=== PATIENT | female | born 1965 | race Caucasian/White ===

== ENCOUNTER 2023-02-07 09:46 | Outpatient (OUT) | payer OTHER, SELFPAY ==
--- NOTE | 2023-02-07 | CT_ITS ---
[address] [address] Patient Name: MITESH PATEL MRN: [id number] date: 1965 Sex: F Assigned Patient Location: CT Current Patient Location: CT Accession/Order Number: [id number] Exam Date: 02/07/2023 10:00 Report Date: 02/09/2023 07:13 At the request of: PATRICK GRAY Procedure: CT lung screening low-dose EXAMINATION: CT lung screening low-dose HISTORY: R91.8 OTHER NONSPECIFIC ABNORMAL FINDINGS OF THE LUNG FIELD COMPARISON: 06/24/2022 TECHNIQUE: Axial, Coronal, and Sagittal images were created without the administration of IV contrast material. Dose reduction techniques were achieved by using automated exposure control and/or adjustment of mA and/or kV according to patient size and/or use of iterative reconstruction technique. FINDINGS: LUNGS: 8mm ring calcified left lower lobe nodule, stable. Scattered punctate pulmonary nodules. No new significant pulmonary nodule or mass. No bronchiectasis or peribronchial thickening. No focal infiltrates PLEURA: No mass, effusion, or pneumothorax. VASCULATURE: No abnormality. TIBURCIO: Small calcified left hilar lymph nodes MEDIASTINUM: No mass or pathologic adenopathy. CARDIAC: No enlargement, pericardial thickening, or significant calcification. AORTA: No aneurysm or dissection. CHEST WALL: No mass or axillary adenopathy BONES: No bone lesion or fracture. Mild degenerative changes LIMITED ABDOMEN: No suspicious findings. Limited images of the upper abdomen. OTHER: Negative. IMPRESSION: LUNG SCREENING: Lung-RADS Category 2- Benign Appearance or Behavior. Nodules with a very low likelihood of becoming a clinically active cancer due to size or lack of growth. 2. Continue annual screening with LDCT in 12 months. Electronically authenticated by: PAULINE BROTHERS Date: 02/09/2023 07:13
== END 2023-02-07 09:47 | disposition home or self-care (01) ==
PROVIDERS: PCP Family Medicine; Visit Provider Family Medicine
DX: R91.8 Other nonspecific abnormal finding of lung field (principal)
CPT/HCPCS: 71271

== ENCOUNTER 2023-03-11 12:25 | Outpatient (OUT) | payer OTHER, SELFPAY ==
--- NOTE | 2023-03-11 12:30 | CA_ITS ---
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: : 1965 Requested By: DARRELL ELLISON Order Number: [id number] Reading MD: NICOL LUKE Interpretive Statements Biphasic doppler waveforms PVR waveforms with normal upstroke, amplitude and dicrotic notch Right: - no significant pressure gradient between cuffs - normal PRITI, TBI Left: - significant pressure gradient between the calf and DP cuff - normal PRITI and TBI Impression: - erroneous left DP index - normal arterial evaluation of the lower extremities without hemodynamic impairment of the B/L lower extremity at rest (right PRITI 1.11, left PRITI 1.13) Electronically Signed On 03-12-2023 7:13:40 EDT by NICOL LUKE
== END 2023-03-11 12:26 | disposition home or self-care (01) ==
LOC: CARD 12:25
PROVIDERS: PCP Family Medicine; Visit Provider Physician Assistant
DX: R09.89 Other specified symptoms and signs involving the circulatory and respiratory systems (principal); M79.672 Pain in left foot
CPT/HCPCS: 93923

== ENCOUNTER 2023-05-11 09:18 | Outpatient (OUT) | payer OTHER, SELFPAY ==
[2023-05-11 10:55] LABS: Alanine Aminotransferase 18 U/L (14-59); Albumin Globulin Ratio 1.1; Albumin Level 3.8 g/dL (3.4-5.0); Alkaline Phosphatase 73 U/L (46-116); Anion Gap 12.1; Aspartate Amino Transferase 17 U/L (15-37); BUN Creatinine Ratio 17.7; Bilirubin Total 0.3 mg/dL (0.2-1.0); Calcium 9.2 mg/dL (8.5-10.1); Carbon Dioxide 30.7 mmol/L (21.0-32.0); Chloride 104 mmol/L (98-107); Chol HDL Ratio 3.2; Cholesterol 236 mg/dL (<=200); Estimated GFR (African America >60 (>=60); Estimated GFR (Non-African Ame >60 (>=60); Free T3 3.46 pg/mL (2.18-3.98); Globulin 3.4 g/dL; Glucose 81 mg/dL (74-106); HDL Cholesterol 73 mg/dL (40-60); Potassium 3.8 mmol/L (3.5-5.1); Sodium 143 mmol/L (136-145); Thyroid Stimulating Hormone 1.346 uIU/mL (0.358-3.740); Total Protein 7.2 g/dL (6.4-8.2); Triglycerides 138 mg/dL (<=150); VLDL CHOLESTEROL 27.6 mg/dL
[2023-05-11 11:23] LABS: Basophils Absolute Auto 0.1 10^3/uL (0.0-0.1); Basophils Percent Auto 0.7 % (0.2-2.0); Eosinophils Absolute Auto 0.4 10^3/uL (0.0-0.7); Hematocrit 44.1 % (36.0-48.0); Hemoglobin 14.5 g/dL (12.0-16.0); Immature Granulocytes Abs Auto 0.11 10^3/uL (0.00-0.03); Immature Granulocytes Pct Auto 0.8 % (0.0-0.5); Lymphocytes Absolute Auto 3.5 10^3/uL (1.2-3.8); Lymphocytes Percent Auto 27.2 % (20.5-60.0); Mean Corpuscular HGB Conc 32.9 g/dL (29.9-35.2); Mean Corpuscular Hemoglobin 32.2 pg (26.7-34.0); Mean Platelet Volume 10.5 fL (9.5-13.5); Monocytes Absolute Auto 1.3 10^3/uL (0.3-0.8); Monocytes Percent Auto 10.2 % (1.7-12.0); Neutrophils Absolute Auto 7.5 10^3/uL (1.4-6.5); Neutrophils Percent Auto 58.1 % (43.0-75.0); Platelet Count 385 10^3/uL (150-450); Red Cell Distribution Width 13.4 % (11.0-15.0)
[2023-05-11 12:28] LABS: Estimated Average Glucose 120 mg/dL; Glycohemoglobin A1C 5.8 % (4.5-6.2)
== END 2023-05-11 09:19 | disposition home or self-care (01) ==
PROVIDERS: PCP Family Medicine; Visit Provider Family Medicine
DX: Z00.00 Encounter for general adult medical examination without abnormal findings (principal); E78.5 Hyperlipidemia, unspecified; R73.09 Other abnormal glucose; Z12.12 Encounter for screening for malignant neoplasm of rectum
CPT/HCPCS: 36415; 80053; 80061; 83036; 84436; 84443; 84481; 85025

== ENCOUNTER 2023-10-20 15:11 | Outpatient (OUT) | payer OTHER, SELFPAY ==
[2023-10-20 15:41] LABS: Hematocrit 41.5 % (36.0-48.0); Hemoglobin 13.6 g/dL (12.0-16.0); Mean Corpuscular HGB Conc 32.8 g/dL (29.9-35.2); Mean Corpuscular Hemoglobin 31.3 pg (26.7-34.0); Mean Corpuscular Volume 95.6 fL (81.0-99.0); Mean Platelet Volume 9.4 fL (9.5-13.5); Platelet Count 347 10^3/uL (150-450); Red Blood Count 4.34 10^6/uL (4.20-5.40); Red Cell Distribution Width 13.9 % (11.0-15.0); White Blood Count 16.7 10^3/uL (4.0-11.0)
[2023-10-20 15:51] LABS: Erythrocyte Sedimentation Rate 28 mm/hr (<=30)
[2023-10-20 16:02] LABS: Alanine Aminotransferase 20 U/L (14-59); Albumin Globulin Ratio 1.1; Albumin Level 3.6 g/dL (3.4-5.0); Alkaline Phosphatase 73 U/L (46-116); Anion Gap 13.5; Aspartate Amino Transferase 11 U/L (15-37); BUN Creatinine Ratio 19.4; Bilirubin Total 0.2 mg/dL (0.2-1.0); Carbon Dioxide 25.4 mmol/L (21.0-32.0); Chloride 103 mmol/L (98-107); Estimated GFR (African America >60 (>=60); Estimated GFR (Non-African Ame >60 (>=60); Globulin 3.4 g/dL; Glucose 133 mg/dL (74-106); Potassium 3.9 mmol/L (3.5-5.1); Sodium 138 mmol/L (136-145)
[2023-10-20 16:24] LABS: Band Neutrophils Absolute 0.2 10^3/uL (0.0-0.3); Monocytes Absolute Manual 0.16 10^3/uL (0.30-0.80); Segmented Neut Absolute Manual 15.36 10^3/uL (1.4-6.5)
[2023-10-22 05:10] LABS: C-Reactive Protein, Cardiac 0.35 mg/L (0.00-3.00)
== END 2023-10-20 15:12 | disposition home or self-care (01) ==
LOC: LAB 15:14
PROVIDERS: PCP Family Medicine; Visit Provider Psychiatry & Neurology Neurology
DX: M54.16 Radiculopathy, lumbar region (principal); M70.61 Trochanteric bursitis, right hip; G62.9 Polyneuropathy, unspecified; E78.49 Other hyperlipidemia
CPT/HCPCS: 36415; 80053; 85007; 85027; 85652; 86140

== ENCOUNTER 2024-02-09 15:17 | Outpatient (OUT) | payer OTHER, SELFPAY ==
--- NOTE | 2024-02-09 | CT_ITS ---
[address] [address] Patient Name: MITESH PATEL MRN: [id number] date: 1965 Sex: F Assigned Patient Location: CT Current Patient Location: Accession/Order Number: [id number] Exam Date: 02/09/2024 15:32 Report Date: 02/10/2024 08:11 At the request of: PATRICK GRAY Procedure: CT lung screening low-dose EXAMINATION: CT lung screening low-dose HISTORY: Nicotine dependence, F17.200 COMPARISON: 02/07/2023 TECHNIQUE: Axial, Coronal, and Sagittal images were created without the administration of IV contrast material. Dose reduction techniques were achieved by using automated exposure control and/or adjustment of mA and/or kV according to patient size and/or use of iterative reconstruction technique. FINDINGS: LUNGS: Slight change in configuration of a left lower lobe 8 mm nodule with decrease in calcification compared to the prior exam and a new central cavitary component. Additional punctate pulmonary nodules are stable. Linear opacities likely atelectasis and/or scar. PLEURA: No mass, effusion, or pneumothorax. VASCULATURE: No abnormality. TIBURCIO: Calcified left hilar lymph nodes MEDIASTINUM: No mass or pathologic adenopathy. CARDIAC: No enlargement or pericardial effusion CORONARY ARTERIES: Coronary calcifications are mild. AORTA: No aortic aneurysm CHEST WALL: No mass or axillary adenopathy BONES: No bone lesion or fracture. LIMITED ABDOMEN: No suspicious findings. Limited images of the upper abdomen. OTHER: Negative. CT/CT lung screening low-dose IMPRESSION: Interval change in configuration of a now partially cavitary 8mm left lower lobe nodule, decreased in size from the prior exam. LUNG SCREENING: Lung-RADS Category 2- Benign Appearance or Behavior. Nodules with a very low likelihood of becoming a clinically active cancer due to size or lack of growth. 2. Continue annual screening with LDCT in 12 months. Electronically authenticated by: PAULINE BROTHERS Date: 02/10/2024 08:11
== END 2024-02-09 15:18 | disposition home or self-care (01) ==
LOC: CT 15:18
PROVIDERS: PCP Family Medicine; Visit Provider Family Medicine
DX: F17.200 Nicotine dependence, unspecified, uncomplicated (principal); R91.8 Other nonspecific abnormal finding of lung field
CPT/HCPCS: 71271

== ENCOUNTER 2024-06-06 09:23 | Outpatient (OUT) | payer OTHER, SELFPAY ==
--- OUTSIDE RECORDS SUMMARY | 2024-06-06 09:44 | XMS_ITS | CCD ---
Author Organization [facility] CliniSymn Care Team Providers Care Mortising Machine Operator Name Role Phone RAGHAV DASILVA Referring Unavailab PATRICK Maradiaga Primary Care Unavailable RAGHAV DASILVA Referring Unavailab PATRICK Maradiaga Primary Care Unavailable Patrick Swenson Primary Care Physician [phone] MARINA, DR NGUYEN Admitting Unavailable HOY, DR NGUYEN Attending Unavailable HOY, DR NGUYEN Primary Care Unavailable HOY, DR NGUYEN Consulting Unavailable HOY, DR NGUYEN Admitting Unavailable HOY, DR NGUYEN Attending Unavailable LUDWIGY, DR NGUYEN Primary Care Unavailable HOY, DR NGUYEN Consulting Unavailable HOY, DR NGUYEN Admitting Unavailable HOY, DR NGUYEN Attending Unavailable LUDWIGY, DR NGUYEN Primary Care Unavailable LUDWIGY, DR NGUYEN Consulting Unavailable ZIEBER, DR RYAN Carmen Consulting Unavailable LUDWIGY, DR NGUYEN Admitting Unavailable LUDWIGY, DR NGUYEN Attending Unavailable HOY, DR NGUYEN Primary Care Unavailable HOY, DR NGUYEN Consulting Unavailable LUDWIGY, DR NGUYEN Admitting Unavailable MARINA, DR NGUYEN Attending Unavailable MARINA, DR NGUYEN Primary Care Unavailable MARINA, DR NGUYEN Consulting Unavailable MARINA, DR NGUYEN Primary Care Unavailable GOSIA, DR DIGGS Admitting Unavailable GOSIA, DR DIGGS Attending Unavailable ZEV, DR PAULINE Flores Consulting Unavailable GOSIA, DR DIGGS Consulting Unavailable ITZ ENRIQUE Admitting Unavailable ITZ ENRIQUE Attending Unavailable MARINA, DR NGUYEN Primary Care Unavailable ITZ ENRIQUE Consulting Unavailable MARINA, DR NGUYEN Admitting Unavailable MARINA, DR NGUYEN Attending Unavailable MARINA, DR NGUYEN Primary Care Unavailable MARINA, DR NGUYEN Consulting Unavailable ZEV, DR PAULINE Flores Consulting Unavailable Josemanuel Mehta Admitting UnavailJosemanuel Bailey Attending UnavailPatrick Sims Primary Care Unavailable Unavailable Primary Care Provider UnavailLEONARDO Morrow Attending Unavailable ANTONELLA DOMINGUEZ Attending Unavailab LEONRADO Meza Referring Unavailable LEONARDO WHITAKER Attending Unavailable KRISTEN CROWDER Attending Unavailable MICK LOPES Referring Unavailable LEONARDO WHITAKER Attending Unavailable URMILA GTZ Attending Unavailable ANTONELLA DOMINGUEZ Attending Unavailab ANTONELLA Cam Attending Unavailab LEONARDO Meza Attending Unavailable LEONARDO WHITAKER Attending Unavailable LEONARDO WHITAKER Attending Unavailable LEONARDO WHITAKER Referring Unavailable Allergies Allergy Classification Reported Allergen(s) Allergy Type Date of Onset Reaction(s) Facility (7 sources) Penicillins; Translations: [penicillins] Drug allergy 2 Unknown (qualifier value), Other, Rash [facility] (2 sources) Sulfonamides (Antibiotic); Translations: [sulfa drugs] Drug allergy Unknown (qualifier value) [facility] (1 source) Amoxicillin Drug Allergy 4 [facility] (1 source) Sulfonamides (Antibiotic) Drug allergy (disorder) 4 [facility] (5 sources) Amoxicillin Drug Allergy 2 Rash [facility] (5 sources) Sulfacetamide Drug Allergy 2 Rash [facility] (5 sources) Sulfonamides (Antibiotic) Drug Allergy 2 Unknown, Rash [facility] Work Phone: (5 sources) Other Allergy to substance 3 Unknown [facility] Medications Current Medications Medication Drug Class(es) Dates Sig (Normalized) Sig (Original) Acetaminophen / oxyCODONE (2 sources) Opioid Agonist Start: 12-24-2015 Percocet 325 mg-5 mg Tab 2 tab(s), Oral, q4hr, 50 tab(s), Refill(s) 0 Start Date: 12/24/15 Status: Ordered Start: 12-24-2015 Percocet 325 m g-5 mg Tab 2 tab(s), Oral, q4hr, 50 tab(s), Refill(s) 0 Start Date: 12/24/15 Status: Ordered albuterol 0.83 mg/ml inhalation solution (2 sources) beta2-Adrenergic Agonist Start: 12-11-2015 albut charmaine 0.083% Inh Kerry 3 mL 2.5 mg, 3 mL, NEB, Wheezing, Refill(s) 0 Start Date: 12/11/15 Status: Ordered Start: 12-11-2015 albuterol 0.08 3% Inh Kerry 3 mL 2.5 mg, 3 mL, NEB, Wheezing, Refill(s) 0 Start Date: 12/11/15 Status: Ordered ascorbic acid 500 mg chewabl e tablet (5 sources) Vitamin C ascorbic acid (V itamin C) 500 MG chewable tablet 1 (one) time each day at the same time. Active B Complex Vitamins (vitamin B complex) tablet (5 sources) B Complex Vitami ns (vitamin B complex) tablet as directed Orally Active B Complex Vitami ns (vitamin B complex) tablet as directed Orally 0 Active biotin 10 mg oral tablet (2 sources) End: 09-29-2023 biotin 10 MG tablet 1 (one) time each day at the same time. 0 09/29/2023 Discontinued cyclobenzaprine hydrochloride 10 mg oral tablet (2 sources) Muscle Relaxant Start: 03-23-2023 End: 09-29-2023 take 1 tablet by mouth at bedtime cyclobenzaprine (Flexeril) 10 MG tablet Indications: Lumbar radiculopathy Take 1 tablet (10 mg) by mouth at bedtime. 30 tablet 3 03/23/2023 09/29/2023 Discontinued ibuprofen 800 mg oral tablet (2 sources) Nonsteroidal Anti-inflammatory Drug Start: 12-11-2015 Motrin 800 mg Tab 800 mg = 1 tab(s), Oral, PRN as needed for pain, Refills(s) 0 Start Date: 12/11/15 Status: Ordered meloxicam 15 mg oral tablet (2 sources) Nonsteroidal Anti-inflammatory Drug Start: 07-21-2023 End: 07-20-2024 take 1 tablet by mouth in the morning meloxicam (Mobic) 15 MG tablet Indications: Lumbar radiculopathy , Trochanteric bursitis of right hip Take 1 tablet (15 mg) by mouth in the morning. 30 tablet 11 07/21/2023 07/20/2024 Active Multiple Vitamin (Multi Vitamin) tablet (5 sources) Multiple Vitamin (Multi Vitamin) tablet 1 (one) time each day at the same time. Active Multiple Vitamin (Multi Vitamin) tablet 1 (one) time each day at the same time. 0 Active nabumetone 500 mg oral tablet (3 sources) Nonsteroidal Anti-inflammatory Drug Start: 04-13-2024 End: 04-13-2025 take 1 tablet by mouth in the morning nabumetone (Relafen) 500 MG tablet Indications: Trochanteric bursitis of left hip Take 1 tablet (500 mg) by mouth in the morning and 1 tablet (500 mg) before bedtime. 60 tablet 11 04/13/2024 04/13/2025 Active naproxen 500 mg oral tablet (2 sources) Nonsteroidal Anti-inflammatory Drug Start: 12-11-2015 Naprosyn 500 mg Tab 500 mg = 1 tab(s), Oral, Refills(s) 0, Pain Start Date: 12/11/15 Status: Ordered rosuvastatin calcium 10 mg oral tablet (2 sources) HMG-CoA Reductase Inhibitor End: 09-29-2023 take 1 tablet by mouth in the morning rosuvastatin (Crestor) 10 MG tablet Take 10 mg by mouth in the morning. 0 09/29/2023 Discontinued terbinafine 250 mg oral tablet (2 sources) Allylamine Antifungal Start: 08-15-2023 End: 09-29-2023 take 1 tablet by mouth in the morning terbinafine (LamISIL) 250 MG tablet Take 250 mg by mouth in the morning. 0 08/15/2023 09/29/2023 Discontinued tiZANidine 4 mg oral tablet (4 sources) Central alpha-2 Adrenergic Agonist Start: 09-29-2023 tiZANidine (Zanaflex) 4 MG tablet Indications: Degenerative disc disease, lumbar 1/2-1 po hs 30 tablet 3 09/29/2023 Active Start: 09-29-2023 tiZANidine (Za naflex) 4 MG tablet Indications: Degenerative disc disease, lumbar 1/2-1 po hs 30 tablet 3 09/29/2023 Active Start: 01-26-2021 take 1 tablet by colin th every eight hours as needed for pain tiZANidine 4 mg Tab 4 mg = 1 tab(s), Oral, q8hr, PRN Muscle pain, # 12 tab(s), Refills(s) 0, Pharmacy: [facility]/pharmacy #[id number], 157.5, cm, 01/26/21 17:27:00 EDT, Height/Length Dosing, 48, kg, 01/26/21 17:27:00 EDT, Weight Dosing Start Date: 01/26/21 Status: Ordered Completed/Discontinued Medications Medication Drug Class(es) Dates Sig (Normalized) Sig (Original) bupivacaine hydrochloride 5 mg/ml injectable solution (2 sources) Amide Local Anesthetic Start: 05-31-2024 End: 05-30-2024 bupivacaine (Marcaine) 0.5 % injection 5 mg Start: 05-31-2024 End: 05-30-2024 5 mg (1 mL), Injection, Once , On Thu05/31/24 at 0845, For 1 dose dexamethasone phosphate 4 mg/ml injectable solution (12 sources) Corticosteroid Start: 05-31-2024 End: 05-31-2024 dexAMETHasone sod phos (Decadron) injection 4 mg Start: 05-31-2024 End: 05-31-2024 4 mg (1 mL), Injection, Once , On Thu05/31/24 at 0845, For 1 dose Start: 01-14-2024 End: 06-03-2024 dexAMETHasone (Decadron) 2 M G tablet Indications: Trochanteric bursitis of left hip , Lumbar radiculopathy 2mg 3 pills po X3 days,2 pills po daily X3 days , then 1 pill po daily X3 days then stop 9 days 18 pills 18 tablet 1 05/24/2024 06/03/2024 Active Start: 09-07-2023 End: 10-09-2023 dexAMETHasone (Decadron) 2 M G tablet Indications: Lumbar radiculopathy , Trochanteric bursitis of right hip 2mg 3 pills po X3 days,2 pills po daily X3 days , then 1 pill po daily X3 days then stop 9 days 18 pills 18 tablet 1 09/29/2023 10/09/2023 Active Problems Active Problems Problem Classification Problem Date Documented Date Episodic/Chronic Asthma (4 sources) Unspecified asthma, uncomplicated; Translations: [UNSPECIFIED ASTHMA UNCOMPLICATED] Onset: 06-16-2022 Chronic Cataract (3 sources) Bilateral age-related nuclear cataracts; Translations: [Age-related nuclear cataract, bilateral] Onset: 11-19-2023 11-19-2023 Chronic Chronic obstructive pulmonary disease and bronchiectasis (5 sources) Chronic obstructive lung disease; Translations: [Other specified chronic obstructive pulmonary disease] Onset: 09-07-2023 09-07-2023 Chronic Chronic obstructive pulmonary disease and bronchiectasis (2 sources) Bronchitis 12-11-2015 Episodic Disorders of lipid metabolism (7 sources) Hyperlipidemia, unspecified; Translations: [Hyperlipidemia] Onset: 07-08-2021 Chronic Headache; including migraine (1 source) Headache; including migraine; Translations: [HEADACHE UNSPECIFIED] Onset: 09-09-2021 Osteoarthritis (5 sources) Osteoarthritis of knee; Translations: [Osteoarthritis of knee, unspecified] Onset: 05-09-2021 03-17-2023 Chronic Other connective tissue disease (1 source) Other symptoms and signs involving the musculoskeletal system; Translations: [Other symptoms and signs involving the musculoskeletal system] Onset: 08-01-2022 Episodic Other lower respiratory disease (2 sources) H/O: pneumonia 12-11-2015 Episodic Other nervous system disorders (3 sources) Polyneuropathy; Translations: [Polyneuropathy, unspecified] Onset: 10-26-2023 10-26-2023 Chronic Other non-traumatic joint disorders (3 sources) Pain in left shoulder; Translations: [Pain in left shoulder] Onset: 10-27-2018 Episodic Spondylosis; intervertebral disc disorders; other back problems (12 sources) Degeneration of lumbar intervertebral disc; Translations: [Other intervertebral disc degeneration, lumbar region] Onset: 03-17-2023 09-29-2023 Chronic Substance-related disorders (12 sources) Smoker; Translations: [Nicotine dependence, cigarettes, uncomplicated] Onset: 10-29-2021 12-11-2015 Chronic Comment on above: Added secondary to d ocumentation in Social History. Unclassified (4 sources) CONTACT W/AND (SUSP) EXPOS COVID-19; Translations: [CONTACT W/AND (SUSP) EXPOS COVID-19] Onset: 09-09-2021 Unclassified (1 source) COUGH, UNSPECIFIED; Translations: [COUGH, UNSPECIFIED] Onset: 09-09-2021 Past or Other Problems Problem Classification Problem Date Documented Da te Episodic/Chronic E Codes: Fall (1 source) Fall (on) (from) unspecified stairs and steps, initial encounter; Translations: [FALL ON FROM UNS STAIRS STEPS INIT] Onset: 10-29-2021 Episodic Other connective tissue disease (4 sources) Pain in right foot; Translations: [PAIN IN RIGHT FOOT] Onset: 11-05-2021 Episodic Other connective tissue disease (10 sources) Trochanteric bursitis of left hip; Translations: [Trochanteric bursitis, left hip] Onset: 09-29-2023 09-29-2023 Episodic Other connective tissue disease (11 sources) Trochanteric bursitis of right hip; Translations: [Trochanteric bursitis, right hip] Onset: 01-16-2023 09-29-2023 Episodic Other connective tissue disease (5 sources) Spasm of cervical paraspinous muscle; Translations: [Other muscle spasm] Onset: 06-25-2023 06-25-2023 Episodic Other injuries and conditions due to external causes (3 sources) Unspecified injury of right foot, initial encounter; Translations: [UNSPECIFIED INJURY RT FOOT INITIAL] Onset: 10-28-2021 Episodic Other upper respiratory infections (1 source) Acute sinusitis, unspecified; Translations: [ACUTE SINUSITIS UNSPECIFIED] Onset: 08-13-2021 Episodic Spondylosis; intervertebral disc disorders; other back problems (14 sources) Sciatica; Translations: [Sciatica, left side] Onset: 06-25-2023 09-29-2023 Episodic Sprains and strains (1 source) Unspecified sprain of right foot, initial encounter; Translations: [UNSPECIFIED SPRAIN RT FOOT INITIAL] Onset: 10-29-2021 Episodic Unclassified (1 source) CONTACT W/AND (SUSP) EXPOS COVID-19; Translations: [CONTACT W/AND (SUSP) EXPOS COVID-19] Onset: 09-06-2021 Results Test Name Value Interpretation Reference Range Facility XR HIP 2 OR 3 VW RIGHTon XR HIP 2 OR 3 VW RIGHT TITLE OF EXAM: XR - RT HIP, UNILATERAL, W/WO PELVIS 2-3 VIEWS REASON FOR EXAM: Low back pain radiating into right hip. TECHNIQUE: 3 radiographs of the pelvis and right hip COMPARISONS: None FINDINGS: Right hip: No fracture. Anatomic alignment of the femoroacetabular joint. Mild degenerative changes with small marginal osteophyte and subcortical/subchondra l cyst formation. No focal soft tissue abnormality. Pelvis: No fracture. Anatomic alignment of the sacroiliac joints, symphysis pubis, and left femoroacetabular joint. Mild bilateral sacroiliac and left femoroacetabular joint osteoarthrosis. Lower lumbar/lumbosacral degenerative disc disease and facet osteoarthrosis. Partially demonstrated lumbar dextrorotoscoliosis. Osseous proliferation along the anterior/superior iliac spines bilaterally, more significant/irregular on the right, likely related to traction or chronic injury of the sartorius muscles at their origins. IMPRESSION: No fracture or dislocation. Chronic/degenerative findings as detailed. DICTATED ON: 05/30/2024 9:29 AM This report has been electronically signed and approved by the interpreting radiologist. Electronically Signed Taco Hollis M.D. 2024-05-30 09:31:39 Normal Not Available XR LUMBAR SPINE COMPLETE 4+ VIEWSon 05-30-2024 XR LUMBAR SPINE COMPLETE 4+ VIEWS Exam: XR - LUMBAR SPINE MIN 4 VIEWS Reason for exam: Low back pain radiating into hip Prior comparative studies: 06/25/2023 Findings: There is a pronounced dextroconvex scoliosis in the lumbar spine measuring 29 degrees between the levels of L1 and L4. No spondylolysis is appreciated. 5 mm of anterior listhesis of L4 on L5 is present, unchanged. There is 5 mm of retrolisthesis of L2 on L3, unchanged. Vertebral heights appear maintained throughout. There is advanced endplate sclerosis and osteophyte formation throughout the lumbar spine. Very advanced facet sclerosis is present L3-S1. SI joints are unremarkable. IMPRESSION: 1. Dextroconvex scoliosis of the lumbar spine with minimal retrolisthesis L2 on L3 and anterior listhesis L4 on L5. 2. Very advanced degenerative change particularly in the mid and lower levels. Electronically Signed Rod Vigil M.D. 2024-05-30 10:22:54 Normal Not Available XR Lumbar spine 4 Viewson Exam: XR - LUMBAR SPINE MIN 4 VIEWS Reason for exam: Low back pain radiating into hip Prior comparative studies: 06/25/2023 Findings: There is a pronounced dextroconvex scoliosis in the lumbar spine measuring 29 degrees between the levels of L1 and L4. No spondylolysis is appreciated. 5 mm of anterior listhesis of L4 on L5 is present, unchanged. There is 5 mm of retrolisthesis of L2 on L3, unchanged. Vertebral heights appear maintained throughout. There is advanced endplate sclerosis and osteophyte formation throughout the lumbar spine. Very advanced facet sclerosis is present L3-S1. SI joints are unremarkable. IMPRESSION: 1. Dextroconvex scoliosis of the lumbar spine with minimal retrolisthesis L2 on L3 and anterior listhesis L4 on L5. 2. Very advanced degenerative change particularly in the mid and lower levels. Electronically Signed Rod Vigil M.D. 2024-05-30 10:22:54 IMAGING Rod Vigil MD - 05/30/2024 Exam: XR - LUMBAR SPINE MIN 4 VIEWS Reason for exam: Low back pain radiating into hip Prior comparative studies: 06/25/2023 Findings: There is a pronounced dextroconvex scoliosis in the lumbar spine measuring 29 degrees between the levels of L1 and L4. No spondylolysis is appreciated. 5 mm of anterior listhesis of L4 on L5 is present, unchanged. There is 5 mm of retrolisthesis of L2 on L3, unchanged. Vertebral heights appear maintained throughout. There is advanced endplate sclerosis and osteophyte formation throughout the lumbar spine. Very advanced facet sclerosis is present L3-S1. SI joints are unremarkable. IMPRESSION: 1. Dextroconvex scoliosis of the lumbar spine with minimal retrolisthesis L2 on L3 and anterior listhesis L4 on L5. 2. Very advanced degenerative change particularly in the mid and lower levels. Electronically Signed Rod Vigil M.D. 2024-05-30 10:22:54 [facility] Radiology Study observation (narrative) [facility] XR Lumbar spine 4 ViewsOrder ed By: Rod Vigil on 05-30-2024 [facility] Work Phone: XR CERVICAL SPINE COMPLETE 4 -5 VIEWSon 06-25-2023 XR CERVICAL SPINE COMPLETE 4-5 VIEWS CLINICAL HISTORY: Cervical radic COMPARISON: NONE. FINDINGS: There is been a C6 corpectomy with ACDF from C5-C7 There is no acute fracture or subluxation. There is no loss of vertebral body height. There is straightening of the lordotic curvature of the cervical spine There is severe to space narrowing from C3-C5 and at C6-7. There are anterior osteophytes from C3-3 5. The prevertebral tissues are unremarkable. The airway is patent IMPRESSION: There are no acute osseous changes. ELECTRONICALLY SIGNED BY: Sridhar Cook MD Normal Not Available XR LUMBAR SPINE COMPLETE 4+ VIEWSon 06-25-2023 XR LUMBAR SPINE COMPLETE 4+ VIEWS FINDINGS: Lumbar scoliosis with convexity to right and apex at L2-L3. Diffuse disc space narrowing, lumbar spine. Lumbar vertebral bodies normal in height and alignment. No fracture, dislocation, bone lesion. Surgical clips visualized within the pelvic inlet. IMPRESSION: Impression: At least moderate degenerative change with scoliosis, lumbar spine. ELECTRONICALLY SIGNED BY: Stevie Carlin MD Normal Not Available XR pre/post mri xrayon 08-01 XR pre/post mri xray [facility] [place] [address] [place] [address] MRI Report Signed Patient: Mitesh Patel MR#: [id number] : 1965 Acct:[id number] Age/Sex: 57 / F ADM Date: 08/01/22 Loc: Room: Type: [facility] Attending Dr: Josemanuel Mehta DO Copies to: Jean-Pierre Mehta DO Ordering Provider: Jean-Pierre Mehta DO Date of Service: 08/01/22 MR/MR lumbar spine wo con: R29.898, R20.2 ([id number]) XR/XR pre/post mri xray: R20.2, R29.898 MR lumbar spine wo con, XR pre/post mri xray 08/01/2022 1:55 PM SIGNS AND SYMPTOMS: Fall down steps, right-sided low back pain PROTOCOL: Multiplanar multisequence MR images of the lumbar spine were obtained without IV contrast. Frontal and lateral radiograph the lumbar spine were obtained. COMPARISON: None. FINDINGS: Radiograph the lumbar spine: There is a mild dextro convex curvature of the lumbar spine with the apex at L2. There is severe disc height loss at L5-S1. There is moderate to severe disc height loss at L4-5 with moderate disc height loss at L1-L2 and L2-L3. There is facet hypertrophy which is greatest at L4-L5 and L5-S1. There is no fracture or subluxation. The sacroiliac joints are preserved. MRI lumbar spine: The bones of the lumbar spine are in anatomic alignment. There is preservation of vertebral body heights and intervertebral disc spaces. There is Modic type I endplate edema at L4-L5. The conus terminates at the inferior endplate of the L1 vertebral body level. No epidural or paraspinous fluid collection is appreciated. Incidental note is made to selected uterine fibroids. At T12-L1: There is a normal disc, central canal, and neural foramen. At L1-L2: There is a broad-based disc bulge with facet hypertrophy. There is moderate left neural foraminal narrowing. At L2-L3: There is a broad-based disc bulge with facet hypertrophy. There is mild narrowing of spinal canal. There is mild right and moderate left neural foraminal narrowing. At L3-L4: There is a broad-based disc bulge with facet hypertrophy. There is mild narrowing of spinal canal with moderate bilateral neural foraminal narrowing. At L4-L5: There is a circumferential disc bulge with a more prominent right foraminal component. Facet hypertrophy is present bilaterally. There is mild spinal canal stenosis with severe right and moderate left neural foraminal narrowing. This mild mass effect on the exiting right L4 nerve roots. At L5-S1: There is a circumferential disc bulge with facet hypertrophy. There is mild spinal canal narrowing with severe bilateral neural foraminal narrowing and mass effect on the exiting L5 nerve roots bilaterally. MR/MR lumbar spine wo con IMPRESSION: At L4-L5: There is a circumferential disc bulge with a more prominent right foraminal component. Facet hypertrophy is present bilaterally. There is mild spinal canal stenosis with severe right and moderate left neural foraminal narrowing. This mild mass effect on the exiting right L4 nerve roots. At L5-S1: There is a circumferential disc bulge with facet hypertrophy. There is mild spinal canal narrowing with severe bilateral neural foraminal narrowing and mass effect on the exiting L5 nerve roots bilaterally. Lesser degrees of degenerative changes are noted, as above. There is a mild dextro convex curvature of the lumbar spine with the apex at L2. Impression dictated by: Darian Pastrana M.D.08/01/2022 5:19 PM Dictation Location: [place] [address] Transcribed By: [facility] 08/01/221718 Dictated By: Darian Pastrana II, MD 08/01/22 1703 Signed By: 08/01/221718 [facility] CT LUNG CANCER SCREENINGon 1 08-25-2021 CT LUNG CANCER SCREENING EXAMINATION: CT LUNG CANCER SCREENING HISTORY: Tobacco dependence caused by cigarettes COMPARISON: No relevant comparison available. TECHNIQUE: Axial, Coronal, and Sagittal images were created without the administration of IV contrast material. Dose reduction techniques were achieved by using automated exposure control and/or adjustment of mA and/or kV according to patient size and/or use of iterative reconstruction technique. FINDINGS: LUNGS: A few 2-3 mm nodules within right lower lobe. Left lower lobe 10 mm rim calcified granuloma. No acute infiltrates or significant chronic interstitial changes. PLEURA: No mass, effusion, or pneumothorax. VASCULATURE: No abnormality. TIBURCIO: Calcified left hilar lymph nodes compatible with chronic granulomatous disease. MEDIASTINUM: No mass or pathologic adenopathy. CARDIAC: No enlargement, pericardial thickening, or significant calcification. AORTA: No aneurysm or dissection. CHEST WALL: No mass or axillary adenopathy BONES: Anterior mechanical fusion C6-C7. No bone lesion or fracture. LIMITED ABDOMEN: No suspicious findings. Limited images of the upper abdomen. OTHER: Negative. IMPRESSION: 1. Lung-RADS Category 3- Probably benign. Probably benign finding(s)- short term follow up suggested; includes nodules with a low likelihood of becoming a clinically active cancer. Six month LDCT. Electronically authenticated by: RYAN HAMILTON Date: 2022-06-25 07:59 Normal [facility] Covid-19 PCR (CVDTB)on 05-19 SARS-CoV-2 (COVID-19) RNA HARISH+probe Ql (Unsp spec) Not detected Normal NOT DETECTED [facility] Comment on above: Result Comment: This test is not yet approved or cleared by the [place] FDA. When there are no FDA-approved or cleared tests available, and other criteria are met, FDA can make tests available under an emergency access mechanism called an Emergency Use Authorization (EUA). The EUA for this test is supported by the [place] of Health and Human Service's (HHS's) declaration that circumstances exist to justify the emergency use of in vitro diagnostics for the detection and/or diagnosis of the virus that causes COVID-19. This EUA will remain in effect (meaning this test can be used) for the duration of the COVID-19 declaration justifying emergency of IVDs, unless it is terminated or revoked by FDA (after which the test may no longer be used). When diagnostic testing is negative, the possibility of a false negative should be considered in the context of a patient's recent exposures and the presence of clinical signs and symptoms consistent with SARS-CoV-2. Performed By: #### C VDTBH ####[facility] [address] [place] [id number] Lopez INSULINon 06-10-2022 Insulin 5.2 uIU/mL Normal 2.6-24.9 [facility] Comment on above: Performed By: #### I NSULIN #### [facility] [address] [place], [place] [address] Dr. Royce Lopez CBC AUTO DIFFon 06-09-2022 BASO # 0.1 103/ul Normal 0.0-0.1 [facility] Comment on above: Performed By: #### C BC ####[facility] [address] [place] [address]DrAgustin Lopez Basophils/100 WBC (Bld) 0.4 % Normal 0.2-2.0 [facility] Comment on above: Performed By: #### C BC ####[facility] [address] [place], [place] [address]DrAgustin Lopez EO # 0.2 103/ul Normal 0.0-0.7 [facility] Comment on above: Performed By: #### C BC ####[facility] H[address]yls[address] [place] [address]Dr. Royce Lopez Eosinophils/100 WBC (Bld) 1.3 % Normal 0.9-7.0 [facility] Comment on above: Performed By: #### C BC ####[facility] [address] [place], [place] [address]DrAgustin Lopez Erythrocyte distribution width (RBC) [Ratio] 13.2 % Normal 11.0-15.0 [facility] Comment on above: Performed By: #### C BC ####[facility] [address] [place] [address]DrAgustin Lopez Hematocrit (Bld) [Volume fraction] 43.0 % Normal 36.0-48.0 [facility] Comment on above: Performed By: #### C BC ####[facility] [address] [place] [address]Dr. Royce Lopez Hemoglobin (Bld) [Mass/Vol] 13.8 g/dL Normal 12.0-16.0 [facility] Comment on above: Performed By: #### C BC ####[facility] [address] [place] [address]Dr. Royce Lopez IG # 0.07 10e3/ul Critically high 0.00-0.03 [facility] Comment on above: Performed By: #### C BC ####[facility] [address] [place] [address]Dr. Royce Lopez IG % 0.4 % Normal 0.0-0.5 [facility] Comment on above: Performed By: #### C BC ####[facility] [address] [place], [place] [address]Dr. Royce Lopez LYMPH # 2.2 103/ul Normal 1.2-3.8 [facility] Comment on above: Performed By: #### C BC ####[facility] [address] [place] [address]Dr. Royce Lopez Lymphocytes/100 WBC (Bld) 12.0 % Critically low 20.5-60.0 [facility] Comment on above: Performed By: #### C BC ####[facility] [address] [place], [place] [address]Dr. Royce Lopez MANUAL DIFF REQ NO Normal [facility] Comment on above: Performed By: #### C BC ####[facility] [address] [place] [address]Dr. Royce Lopez MCH (RBC) [Entitic mass] 31.1 pg Normal 26.7-34.0 [facility] Comment on above: Performed By: #### C BC ####[facility] [address] [place], [place] [address]Dr. Royce Lopez MCHC (RBC) [Mass/Vol] 32.1 g/dL Normal 29.9-35.2 [facility] Comment on above: Performed By: #### C BC ####[facility] [address] [place] [id number] Royce Lopez MCV (RBC) [Entitic vol] 96.8 fL Normal 81.0-99.0 [facility] Comment on above: Performed By: #### C BC ####[facility] [address] [place] [address]DrAgustin Royce Lopez MONO # 1.6 103/ul Critically high 0.3-0.[address] [facility] Comment on above: Performed By: #### C BC ####[facility] [address]ke[address] [place] [address]DrAgustin Mireyakody Lopez Monocytes/100 WBC (Bld) 8.8 % Normal 1.7-12.0 [facility] Comment on above: Performed By: #### C BC ####[facility] Ox[address] [place], [place] [address]Dr. Royce Lopez NEUT # 14.1 103/ul Critically high 1.4-6.5 [facility] Comment on above: Performed By: #### C BC ####[facility] R[address]ma[address] [place], [place] [address]Dr. Royce John Neutrophils/100 WBC (Bld) 77.1 % Critically high 43.0-75.0 [facility] Comment on above: Performed By: #### C BC ####[facility] Wlbl[address]ssi[address] [place], [place] [address]Dr. Royce John Platelet mean volume (Bld) [Entitic vol] 10.2 fL Normal 9.5-13.5 [facility] Comment on above: Performed By: #### C BC ####[facility] Oxar[address] [place], [place] [address]Dr. Royce Lopez PLT 295 103/ul Normal 150-450 [facility] Comment on above: Performed By: #### C BC ####[facility] [address] [place] [address]Dr. Royce Lopez RBC 4.44 106/ul Normal 4.20-5.40 [facility] Comment on above: Performed By: #### C BC ####[facility] Drfurkx[address] [place] [address]Dr. Royce Lopez WBC 18.3 103/ul Critically high 4.0-11.0 [facility] Comment on above: Performed By: #### C BC ####[facility] [address] [place] [address]Dr. Royce Lopez FREE THYROXINE INDEX T7on FTI 2.56 Normal 1.30-4.50 [facility] Comment on above: Performed By: #### T SH, T7, CMP, LIPID ####[facility] [address] [place] [address]Dr. Royce Lopez T3U 35.0 % Normal 30.0-39.0 [facility] Comment on above: Performed By: #### T SH, T7, CMP, LIPID ####[facility] [address] [place] [address]Dr. Royce Lopez T4 [Mass/Vol] 7.30 ug/dL Normal 4.80-13.90 [facility] Comment on above: Performed By: #### T SH, T7, CMP, LIPID ####[facility] [address] [place] [address]Dr. Royce Lopez GLYCOHEMOGLOBIN A1Con 2021 ADA RECOMMENDATION SEE BELOW Normal [facility] Comment on above: Result Comment: ADA RECOMMENDED LIMIT 4.0 - 6.0 ADA THERAPEUTIC TARGET < 7.0 ACTION SUGGESTED > 7.0 Performed By: #### A 1C #### [facility] [address] [place] [place] [address] [address] Royce Lopez Glucose [Mass/Vol] 117 mg/dL Normal [facility] Comment on above: Performed By: #### A 1C #### [facility] [address] [place] [address] [address] Royce Lopez HbA1c (Bld) [Mass fraction] 5.7 % Normal 4.5-6.2 [facility] Comment on above: Performed By: #### A 1C #### [facility] [address] [place] [address] [address] Royce Lopez IRONon 06-09-2022 Iron [Mass/Vol] 91.0 ug/dL Normal 50.0-170.0 [facility] Comment on above: Performed By: #### I AZEB #### [facility] [address] [place] [place] [address] [address] Royce Lopez LIPID PROFILEon 06-09-2022 CHOL-HDL RATIO NORM SEE BELOW Normal [facility] Comment on above: Result Comment: 3.3 - 4.4 LOW RISK 4.4 - 7.1 AVERAGE RISK 7.1 - 11.0 MODERATE RISK >11.0 HIGH RISK Performed By: #### T SH, T7, CMP, LIPID ####[facility] [address] [place] [address]Dr. Royce Lopez Cholesterol [Mass/Vol] 223 mg/dL Critically high <=200 [facility] Comment on above: Performed By: #### T SH, T7, CMP, LIPID ####[facility] [address] [place] [address]Dr. Royce Lopez Cholesterol in HDL [Mass/Vol] 63 mg/dL Critically high 40-60 [facility] Comment on above: Performed By: #### T SH, T7, CMP, LIPID ####[facility] [address] [place] [address]Dr. Royce Lopez Cholesterol in LDL [Mass/Vol] 145.2 mg/dL Normal [facility] Comment on above: Performed By: #### T SH, T7, CMP, LIPID ####[facility] [address] [place] [address]Dr. Royce Lopez Cholesterol.total/Ch olesterol in HDL [Mass ratio] 3.5 {ratio} Normal [facility] Comment on above: Performed By: #### T SH, T7, CMP, LIPID ####[facility] [address] [place] [address]Dr. Royce Lopez HDL NORMAL > or = 60 mg/dl - LO W CARDIOVASCULAR RISK <40 mg/dl - HIGH CARDIOVASCULAR RISK Normal [facility] Comment on above: Performed By: #### T SH, T7, CMP, LIPID ####[facility] [address] [place] [address]Dr. Royce Lopez LDL CALC NORMAL SEE BELOW Normal [facility] Comment on above: Result Comment: <100 mg/dl OPTIMAL 100 - 129 mg/dl NEAR OR ABOVE OPTIMAL 130 - 159 mg/dl BORDERLINE HIGH 160 - 189 mg/dl HIGH >190 mg/dl VERY HIGH Performed By: #### T SH, T7, CMP, LIPID ####[facility] [address] [place] [address]Dr. Royce Lopez Triglyceride [Mass/Vol] 74 mg/dL Normal <=150 [facility] Comment on above: Performed By: #### T SH, T7, CMP, LIPID ####[facility] [address] [place] [address]Dr. Royce Lopez VLDL CALC 14.8 mg/dL Normal [facility] Comment on above: Performed By: #### T SH, T7, CMP, LIPID ####[facility] [address] [place] [address]DrAgustin Lopez PROF 14(COMP METB)on 022 Albumin [Mass/Vol] 3.8 g/dL Normal 3.4-5.0 [facility] Comment on above: Performed By: #### T SH, T7, CMP, LIPID #### [facility] [address] [place] [address] [address] Royce Lopez Albumin/Globulin [Mass ratio] 1.0 {ratio} Normal [facility] Comment on above: Performed By: #### T SH, T7, CMP, LIPID #### [facility] [address] [place] [address] [address] Royce Lopez ALP [Catalytic activity/Vol] 98 U/L Normal 46-116 [facility] Comment on above: Performed By: #### T SH, T7, CMP, LIPID #### [facility] [address] [place] [address] [address] Royce Lopez ALT [Catalytic activity/Vol] 16 U/L Normal 14-59 [facility] Comment on above: Performed By: #### T SH, T7, CMP, LIPID #### [facility] [address] [place] [address] [address] Royce Lopez Anion gap [Moles/Vol] 10.9 mmol/L Normal [facility] Comment on above: Performed By: #### T SH, T7, CMP, LIPID #### [facility] [address] [place] [address] [address] Royce Lopez AST [Catalytic activity/Vol] 15 U/L Normal 15-37 [facility] Comment on above: Performed By: #### T SH, T7, CMP, LIPID #### [facility] [address] [place] [address] [address] Royce Lopez Bilirubin [Mass/Vol] 0.4 mg/dL Normal 0.2-1.0 [facility] Comment on above: Performed By: #### T SH, T7, CMP, LIPID #### [facility] [address] [place] [address] Dr. Royce Lopez Calcium [Mass/Vol] 9.1 mg/dL Normal 8.5-10.1 [facility] Comment on above: Performed By: #### T SH, T7, CMP, LIPID #### [facility] [address] [place] [address] [address] Royce Lopez Chloride [Moles/Vol] 103 mmol/L Normal 98-107 [facility] Comment on above: Performed By: #### T SH, T7, CMP, LIPID #### [facility] [address] [place] [address] [address] Royce Lopez CO2 [Moles/Vol] 28.3 mmol/L Normal 21.0-32.0 [facility] Comment on above: Performed By: #### T SH, T7, CMP, LIPID #### [facility] [address] [place] [address] [address] Royce Lopez Creatinine [Mass/Vol] 0.62 mg/dL Normal 0.55-1.02 [facility] Comment on above: Performed By: #### T SH, T7, CMP, LIPID #### [facility] [address] [place] [address] [address] Royce Lopez EGFR-AF BOTSWANAN >60 Normal >=60 [facility] Comment on above: Performed By: #### T SH, T7, CMP, LIPID #### [facility] [address] [place] [address] Dr. Royce Lopez EGFR-NON AF BOTSWANAN >60 Normal >=60 [facility] Comment on above: Performed By: #### T SH, T7, CMP, LIPID #### [facility] [address] [place] [address] [address] Royce Lopez Globulin (S) [Mass/Vol] 3.9 g/dL Normal [facility] Comment on above: Performed By: #### T SH, T7, CMP, LIPID #### [facility] [address] [place] [address] Dr. Royce Lopez Glucose [Mass/Vol] 97 mg/dL Normal 74-106 [facility] Comment on above: Performed By: #### T SH, T7, CMP, LIPID #### [facility] [address] [place] [address] Dr. Royce Lopez Potassium [Moles/Vol] 4.2 mmol/L Normal 3.5-5.1 [facility] Comment on above: Performed By: #### T SH, T7, CMP, LIPID #### [facility] [address] [place] [address] Dr. Royce Lopez Protein [Mass/Vol] 7.7 g/dL Normal 6.4-8.2 [facility] Comment on above: Performed By: #### T SH, T7, CMP, LIPID #### [facility] [address] [place] [address] Dr. Royce Lopez Sodium [Moles/Vol] 138 mmol/L Normal 136-145 [facility] Comment on above: Performed By: #### T SH, T7, CMP, LIPID #### [facility] [address] [place] [address] Dr. Royce Lopez Urea nitrogen [Mass/Vol] 7.0 mg/dL Normal 7.0-18.0 [facility] Comment on above: Performed By: #### T SH, T7, CMP, LIPID #### [facility] [address] [place], [place] [address] Dr. Royce Lopez Urea nitrogen/Creatinine [Mass ratio] 11.3 mg/mg Normal [facility] Comment on above: Performed By: #### T SH, T7, CMP, LIPID #### [facility] [address] [place], [place] [address] Dr. Royce Lopez TSHon 06-09-2022 TSH 0.370 uIU/mL Normal 0.358-3.740 [facility] Comment on above: Performed By: #### T SH, T7, CMP, LIPID ####[facility] [address] [place], [place] [address]Dr. Royce Lopez Coding Summary.on 12-23-2021 Coding Summary. CD:[id number] Gh 0bWw+PGhlYWQ+BD7TGRDxN 93mqCKxxR3IN3gIUF8UGSY AMQECAJ1WZT5eqDR6OVqiD 2VybiAv UcdmrYXwRH34JIq4NMC1jB ubSSinsH2apFVqA2v5WmMv FJ17gN71TObaJFFpPhY2Ox ZpbjsgbWFy N0pmNoKtgQJvHyq+PHRhYm xlIHdpZHRoPScxMDAlJyBz jGbaMA3gHh6sMSHnGNBvuX xhcHNlOiBj q1fzVMOoVRdwUN3ajNwfR4 UfcMD6YBDlq6r6Nu39rOW+ GXJoCML9dOdvPIxcc254Yb Jtd0jjFJT6 hJAwQGkaKOL8N93yw0P8MH WnRQOcYJH2pZK1vW0rrYdj tjclY8XssGPqBgD5CQA5yU PhdH8zzAwu aftmhJ7rAfp+O78ENR5NFX URNN9IZeu2I0XuDcmufOZ+ IU91UZGfFC45eELisVYcc4 yuiSz6LfZt YAKuXRS5hZfhNBcts0DjVF YiK12gyEJcr5S8AUDmkPpe oVFyMsDexEO6zZ5yZMvvzr frz8mmncph Ojrij2pyjj35lU63F45wRF lxWIFqQXA3PULbNPBzqEra ku1dfU3cCa4+DWerz0yti5 enqLs6CrMc XOPvpwZucRycKRI7j2RaTm 17Q0QhvCzht2ZlZlv3ek69 lYGok7K1tEH0SUyuTCPgqU 8kDRxkJxU2 RCAhKsQbtA51yYDpSNofJt 3jhQghfCsyJK1rNJLgbfza TGMcaA3mCIUnqFIzuYyaYS 4wNTBpbjtm e332OqBpZLD5QZDbgWYpO3 AwvJ7oZgJrVOCkNHGyL2Zr lIYkXCuaR419TVhySvE3YM FyfoWiN1Jq AOSfmWudCaE5d6D6Iv1Jh7 EaruspCOU5HMpvNFI0VoF0 PsUiDiD8U8MtDpt8CNDbuG faVJ1wI4Bi ZMNqjoetyfpmyDR1YXGhNS YnnR56uDEnOFlyHq3dm1R5 x708ZFBiKILyhD89Xz8glQ ogMTBwdCBU wD1huqxpb2ibgmwhIkSoHH RoUTr0REe9QVQvnMcaZfHd EXM5OtR4JFF0hZKceK0tvB geoqnyxX2l Oyc+O71biU9qECM3SKS1ee qoDUVqayEgNC47PR05N8Uk PjwvdGFibGU+PGRpdiBzdH tjVG6hCcOt f9mea6NpJAwoK0UlMSAePO zeAml9RYPhNDI2pXM7xZ7g OEXrVGjtp6B6uAR2A0Lrev Ibxr1ew6sg ABZwMMgtJ04uxWEoz2P1KO RkxNB5AORdiIvgSxGtuM86 Oyc+VIJitAwsk9IgRobvu9 qfk2wkyFu2 GpFmEWQkzcAnkZttFMA7n0 JyUw77J97sHWzaZXZvCYIa KDVwRAAvpZbjtb5qrT0cIg 8+PGNvbCB3 mGL9sQ8rOVQvHrD6KLdbO4 25DuPhmEXfFgssk5yyq0ru fUk4VjNmYGSwonZlkNhlDS U4s0DpVw32 F96dFNclMDWpHVDtQOZxXB SipQnidc7dfH6xIe7+PC9j q9zysj98yT32fPY+PHRkIH R8sLzpJShi YVBvcL3vBWgrPdD9TPQpDe AyiS23mFJxZKbgWk3yiKqy iGkkUR9bGHGpmbgha748Pq Hna5ewRHFs uOQrAPntCBS1J45xp3X9MH ViZWDlOZN3yGB4jH4adVaz bjogbGVmdDsgdmVydGljYW lxEZomG499 IHRvcDsnPlBhdGllbnQgTm OuLZj0N0HkEyh1ARQjyRje HK4geHPhMWhvXo1lcLoyjS kzVK9nCQDy hivgo662OuMym8kwCWZodK YaHZtjKVK1B05uu5J6NHRq BGRlGXJ9vMQ8mZ9ehOprwj ogbGVmdDsg kfHkgDueSPtnPVkcS817HJ RvcDsnPkJpcnRoIERhdGU6 SA17EB05bIYwd3T7lWN0C0 BhZGRpbmct ynljzOP0ARFrCVCdrO03Di 3bfVecDo0hLGFhQUE9SHHv xRPmA3EfkG5qKpYnNFFrCL MuZ1LsuDPe GQbwA362OWquSnR6TDQghd ZaF3FyVGGjqClnEwY2y4Y2 Av7HU3M6ZG75UH85bJLun4 I0iUB2B5Qp CWZegrxnraygeBY1NUWpIT DuqI57Ku7xeXwhEg7tVOBc YRM6MOMonSTzL1XkqD4oIk AjMDAwMDAw E1TefRKgONfnH290WNclAl X4PDYixcUnJ7XhLVErxBbx WgE3e3O1Ju5FJVz8QX60YK 18nXJeh6D2 yXW1B0MfJJFaeoorpthrlT R2MCIdSQKuzO47Rt7ibYxk Nc7wIRDjULY1KTGziQTbZ0 QbwT5lHwUg EYHoFTBnB9IceSJyTLcaS7 82FNhaJgI1IRIirjEzC8Vd MNQczBzaJjW1t9X0Rc6GTQ FoQG24QSO8 oVS2EY07DL70L6GlCrnzfA FibGU+PHRhYmxlIHdpZHRo LKlxKCPkMoMibDzpOW3oWn 9yZGVyLWNv pRflcZBgKoCuz7zqNABtVV ffHT5fvLptK7UeuDJ2ZMZo r5r9Qg32T81aM1TxqWL+PG BidSO1lGU6 oL8bKsQqMuX7HOntV823Jn ZohDSlWuqwu9flz0yntCj4 OqN8ENQikiErcSezRZZ7o8 XlRj65B94a IHdpZHRoPSIxNSUiIHZhbG nalv7ddX1kCw4+PGNvbCB3 nIW0dV1vOcXkLbZ8CSqmU4 49InRvcCIv Smtjl6ait0nhaSx7BrGrMD LeqiLgeWlxKHO6g4MiLh64 Z0AxfHljc3ZhSye9eg62yQ Txr0L3jJI7 R6OrTEUvdswppUZbjJznON 5dCQKhivpzZAAnjZ2yLNPf V1m5GnAhTwA1MOwuX3Wwmk P9EMWpvWRu BTkwCFX0F22uu0V1RQXnCQ QuMYR5qPF4oT9tdNsooowu bGVmdDsgdmVydGljYWwtYW vsW735NFMb hFuaRLTlwX4jQIYbvATqsZ trVW7pXUUyyrblBiGRNZUW TiwgSlVMSUUgQTwvdGQ+PH HeYTX8wEdg LBpjKISqaY2vHTNoQ4g5Qz NuMiH0ERwkG9ZmFUBqyfyd Sz22bG9pTpIvYfP1XRvzX4 CpdmO5HQUv aCDiYAkeXGT1Z72fr9R5CB HsLYVaBOV9rSN1dB6jzGyq bjogbGVmdDsgdmVydGljYW guIMchB429 HYWteLygTiOzYqU8TdB8Go c1T4HbSma7QIPzzHfiZE1k hPXaCBatBa1jtTndfIqeWB 4wNTBpbjtw CKHjsI8cPNTemNXnrEwcOD 2iHLPqehbgu822XjVtPGU0 CHHsfZGxM6NsqW4aEeEqQD QdJUYbP2Ef mEYjOFieV055HWvhMzR4LM XaueFoN4EmSSPfhFbgFuC0 o1L8Kz77TBXOXIMuxueeoQ Q+PHRkIHN0 xYzrWXosTHFacG9wOCUhR3 f4XiGrInT6TOkrL1AsFOPb edjfNt26jC4hXhOsAgY9UW yqR7XkkcG9 NWEsfBPjSUajGKW7W21cs9 Z5EBDfGXTeMYP7zSN0dJ4r bGlnbjogbGVmdDsgdmVydG ljYWwtYWxp X205SOCerXphDeZimSMmRE wvdGQ+TSVdSXC1qAruUHvy ZWFwxA5hSYJoC3i7XvXmAt Y6ZLhfN0Tc QDVtsoaaOe70cW6dBnZdWl U9ZSfwH2NhdmN1VEDwnLWc QAcaLEX1F38tj9O5KQPbBA TtXOE8dNL6 sD9diPqiukhtlUOrfTdmyo FgmHrwHLbdRQmrX877SUTu oMvaQm72sSRbkSjoctP8V7 RkPjwvdHI+ KC73EJWcYR82dVGqoKKuk0 gopQf8UrOuZNHcNGK7kZby PCkjn6AxWOBtP30zkRQfo6 C6QAPlgIyy uWLaGvYwkCT1nQ1tUMugul xqu0wqmhovVyysq7lvka45 yR06H87pJUzbBWFbAUEfXV UiIHZhbGln yr9bzH5cNs6+QTSrdPC4bD O0uZ1cIqKoAiA9OVjmK304 JlBanIQvQionr2nos1lhlK z2UdGpVEGf wyEzeUfgGYQ5f1NhGh18O5 9sIHdpZHRoPSIyMCUiIHZh sTjypz1ryM1rNs4+PC9jb2 gqws20zB11 dHI+SRAjZCN8uZplKQbgSV VcfX0pVPzcXqH1AKHrPiVa iM76zGLfPPftJk5xqBuuwH xvOM0cAJCp fuwph698RnKfv2tsGYOckP KsJTzdVMZ0N62mg7U1ORPg ZEUkGRO1vFS9oH3fmSjoxa ogbGVmdDsg jdFpzBnbXTecEGosD478QD ZuaUneTbEvaTIpS3czriDN FU7fMfyphXM+JQZnHJF5kL xlPSdwYWRk qP8pBNMaI2p4RxCfVhE3NR ujI0JqkoD0GPDijKGvIDIb nQFUbP6ucmnhi7oqshbjQk AwMDAwMDt0 MBi2WHFksMpgYdBcHVU6Bb X8MUQ1jIYdnU5nmWwzcmdh gL9zFte+RklOOjwvdGQ+PH GxJXT7eAvd KDzdWPPaxI2jXVDmT2w1Dq VnDtJ4WNjzN4MtmbV8SAYd wINaCRAtmMIElV4qpjyrx8 xvcjogIzAw JYCbSTx6KBg6IVKoqAjlYk WbVEJ5BnW4VQG5jLSvdD9i mElwbipepN2yZtw+TVJOOj wvdGQ+PHRk CDZ1fXhgDVfvTYRcfD8uTJ ZlR9h7JfLzPxR2MCmtJ0Hw lsP0OEKcoFNaUSBpjDNHbB 1ayyanf8wd ctcvTeIvUSBaTKw8FNi2VN ZgzMsaJqBcVQV2BaW2KXR3 iPRuuL0ggDtypogmeY9vRv c+TSP2SLP7 MZ27YV69U4DsJvfjnYVuqY U+PHRhYmxlIHdpZHRoPScx QONrTbQreMpjFF0vNj3kVE VyLWNvbGxh cHNl (more content not included)... Normal [facility] [place] Mamm Screen w/CAD if perf and 3D Bilon 12-23-2021 [place] Mamm Screen w/CAD if perf and 3D Abimael Exam Date/Time: 12/20/2021 15:33 EDT Reason for Exam: Encounter for screening mammogram for malignant neoplasm of breast Report IMPRESSION: BIRADS 1 NEGATIVE, NORMAL INTERVAL FOLLOW-UP.12 MONTH RECALL. CLINICAL HISTORY: Encounter for screening mammogram for malignant neoplasm of breast. COMPARISON: 12/13/2018. COMMENT: Routine views and tomosynthesis views of both breasts were obtained. There are scattered areas of fibroglandular density. No dominant breast mass nor neoplastic calcifications are identified in either breast. There has been no significant change from the previous exam. The examination was reviewed with Computer Aided Detection. Breast Density: No Mammography is very important to your health. The current [employer] and National [employer] guidelines recommends annual mammography beginning at age 40. This facility utilizes a reminder system to ensure all patients receive reminder notifications at the appropriate time based on the recommendations of this exam. Board Certified Radiologists. Accredited by the ACR and FDA. FINAL REPORT Dictated: 12/23/2021 4:08 pm Luis Sherman M.D. Signed (Electronic Signature): 12/23/2021 4:08 pm Signed by: Luis Sherman M.D. Transcribed by: SAUD Technologist: ENRIQUE Assessment: BI-RADS Category 1-Negative Recommendation: Normal interval follow-up Normal [facility] Consent for Treatmenton Consent for Treatment [id number]:[id number] Normal [facility] Covid-19 PCR (CVDTB)on 08-18 SARS-CoV-2 (COVID-19) RNA HARISH+probe Ql (Unsp spec) Not detected Normal NOT DETECTED [facility] Comment on above: Result Comment: This test is not yet approved or cleared by the [place] FDA. When there are no FDA-approved or cleared tests available, and other criteria are met, FDA can make tests available under an emergency access mechanism called an Emergency Use Authorization (EUA). The EUA for this test is supported by the [place] of Health and Human Service's (HHS's) declaration that circumstances exist to justify the emergency use of in vitro diagnostics for the detection and/or diagnosis of the virus that causes COVID-19. This EUA will remain in effect (meaning this test can be used) for the duration of the COVID-19 declaration justifying emergency of IVDs, unless it is terminated or revoked by FDA (after which the test may no longer be used). When diagnostic testing is negative, the possibility of a false negative should be considered in the context of a patient's recent exposures and the presence of clinical signs and symptoms consistent with SARS-CoV-2. Performed By: #### C VDTB #### [facility] [address] [place] [address] Dr. Royce Lopez Covid-19 PCR (CVDTBH)on 07-18 SARS-CoV-2 (COVID-19) RNA HARISH+probe Ql (Unsp spec) Not detected Normal NOT DETECTED [facility] Comment on above: Result Comment: This test is not yet approved or cleared by the [place] FDA. When there are no FDA-approved or cleared tests available, and other criteria are met, FDA can make tests available under an emergency access mechanism called an Emergency Use Authorization (EUA). The EUA for this test is supported by the [place] of Health and Human Service's (HHS's) declaration that circumstances exist to justify the emergency use of in vitro diagnostics for the detection and/or diagnosis of the virus that causes COVID-19. This EUA will remain in effect (meaning this test can be used) for the duration of the COVID-19 declaration justifying emergency of IVDs, unless it is terminated or revoked by FDA (after which the test may no longer be used). When diagnostic testing is negative, the possibility of a false negative should be considered in the context of a patient's recent exposures and the presence of clinical signs and symptoms consistent with SARS-CoV-2. Performed By: #### C VDTBH #### [facility] [address] [address] [address] Royce Lopez INFLUENZA A AND B AGon 08-07 [facility] SEE BELOW Normal [facility] Comment on above: Result Comment: Nega tive for Flu A protein angiten. Infection due to Flu A cannot be ruled out. Flu A angiten in the sample may be below the detection limit of the test. Performed By: #### I NFLUAB ####[facility] [address] [id number]. Royce Lopez INFLUBNEGH SEE BELOW Normal [facility] Comment on above: Result Comment: Nega tive for Flu B protein antigen. Infection due to Flu B cannot be ruled out. Flu B antigen in the sample may be below the detection limit of the test. Performed By: #### I NFLUAB ####[facility] [address] [address]Dr. Royce Lopez INFLUENZA A AG Negative Normal NEGATIVE SEE COMMENT [facility] Comment on above: Performed By: #### I NFLUAB ####[facility] [id number] [id number]. Royce Lopez INFLUENZA B AG Negative Normal NEGATIVE SEE COMMENT [facility] Comment on above: Performed By: #### I NFLUAB ####[facility] [address] [place], [place] [address]PlDr. Royce Lopez INTERNAL CONTROLS Within Normal Limits Normal Wi thin Normal Limits [facility] Comment on above: Performed By: #### I NFLUAB ####[facility] [address] [place], [place] [address]CtDr. Royce Lopez LIPID PROFILEon 07-08-2021 CHOL-HDL RATIO NORM SEE BELOW Normal [facility] Comment on above: Result Comment: 3.3 - 4.4 LOW RISK 4.4 - 7.1 AVERAGE RISK 7.1 - 11.0 MODERATE RISK >11.0 HIGH RISK Performed By: #### L IVAUGUSTINE, LIPID #### [facility] [address] [address] [address] Royce Lopez Cholesterol [Mass/Vol] 195 mg/dL Normal <=200 [facility] Comment on above: Performed By: #### L IVAUGUSTINE, LIPID #### [facility] [address] [address] [address] Royce Lopez Cholesterol in HDL [Mass/Vol] 74 mg/dL Normal [facility] Comment on above: Performed By: #### L IVAUGUSTINE, LIPID #### [facility] [address] [address] [address] Royce Lopez Cholesterol in LDL [Mass/Vol] 108.6 mg/dL Normal [facility] Comment on above: Performed By: #### L IVAUGUSTINE, LIPID #### [facility] [id number] Royce Lopez Cholesterol.total/Ch olesterol in HDL [Mass ratio] 2.6 {ratio} Normal [facility] Comment on above: Performed By: #### L IVER, LIPID #### [facility] [id number] Royce Lopez HDL NORMAL > or = 60 mg/dl - LO W CARDIOVASCULAR RISK <40 mg/dl - HIGH CARDIOVASCULAR RISK Normal [facility] Comment on above: Performed By: #### L IVER, LIPID #### [facility] [address] [address] [address] Royce Lopez LDL CALC NORMAL SEE BELOW Normal [facility] Comment on above: Result Comment: <100 mg/dl OPTIMAL 100 - 129 mg/dl NEAR OR ABOVE OPTIMAL 130 - 159 mg/dl BORDERLINE HIGH 160 - 189 mg/dl HIGH >190 mg/dl VERY HIGH Performed By: #### L IVER, LIPID #### [facility] [address] [address] [address] Royce Lopez Triglyceride [Mass/Vol] 62 mg/dL Normal <=150 [facility] Comment on above: Performed By: #### L IVER, LIPID #### [facility] [address] [address] [address] Royce Lopez VLDL CALC 12.4 mg/dL Normal [facility] Comment on above: Performed By: #### L IVER, LIPID #### [facility] [address] [address] [address] Royce Lopez LIVER PROFILEon 07-08-2021 Albumin [Mass/Vol] 3.9 g/dL Normal 3.5-5.0 [facility] Comment on above: Performed By: #### L IVER, LIPID #### [facility] [address] [address] [address] Royce Lopez Albumin/Globulin [Mass ratio] 1.1 {ratio} Normal [facility] Comment on above: Performed By: #### L IVER, LIPID #### [facility] [address] [address] [address] Royce Lopez ALP [Catalytic activity/Vol] 67 U/L Normal 38-126 [facility] Comment on above: Performed By: #### L IVER, LIPID #### [facility] [address] [address] [address] Royce Lopez ALT [Catalytic activity/Vol] 23 U/L Normal 9-52 [facility] Comment on above: Performed By: #### L IVER, LIPID #### [facility] [address] [address] [address] Royce Lopez AST [Catalytic activity/Vol] 19 U/L Normal 14-36 [facility] Comment on above: Performed By: #### L IVER, LIPID #### [facility] [address] [place], [place] [address] Dr. Royce Lopez BILI, CONJUGATED 0.1 mg/dL Normal 0.0-0.3 [facility] Comment on above: Performed By: #### L IVER, LIPID #### [facility] [id number] Royce Lopez Bilirubin [Mass/Vol] 0.3 mg/dL Normal 0.2-1.3 [facility] Comment on above: Performed By: #### L IVER, LIPID #### [facility] [id number] Royce Lopez Globulin (S) [Mass/Vol] 3.5 g/dL Normal [facility] Comment on above: Performed By: #### L IVER, LIPID #### [facility] [phone] Royce Lopez Protein [Mass/Vol] 7.4 g/dL Normal 6.1-8.2 [facility] Comment on above: Performed By: #### L IVER, LIPID #### [facility] [id number] Royce Lopez Coding Summary.on 05-24-2021 Coding Summary. CD:[id number] Gh 0bWw+PGhlYWQ+QB9KYIAvU 36qjQIftR2BJ6fWBN0AOHL PIXQURG6KIP1zqAT5NWxkF 2VybiAv PoaonTCiKV59ZIn7JEZ3uZ nvLSuabT0dxEHkS6g7PbEt QE53uD18VCsvXIBwWuK4Eu ZpbjsgbWFy H6toGvDgjLPmAyk+PHRhYm xlIHdpZHRoPScxMDAlJyBz zZpwBJ3fBg0zFNYeSDDpbT xhcHNlOiBj f2ieJTOwRWvoTO3vpUcfW5 FxlBD9TPXan2g5Tn87iOA+ XWWkPUT9qWitCTovj197Sg Lsy8vuUKB3 bKXpNCcmVZC6D40lp6B3JT YtHIZzCTT1wXS4cG0agOwh hjnvP3OdxQKwKbY5LHY3jZ SqvW6rbPdq ehpkxN3vRce+Y60FYO7MKQ ONFR8PUyy5M8FrWuwqjQX+ UI10CJNdUP16mVVeoBWdy4 qtfFt6OlTz FHQrYFF6aBgiMXgrz1MfYX YsR77doWCuj2S4PNOqgEkx zXZdKqDraPN8aO8lBHdhlp pic6hoiyfc Zdaay3ubud81rA56T42hHU htUNTiWVV0KXRjFVZlwSsi ew7xbZ4cRx9+NArhy0gtk3 tbgEz5BrKf WUSuhcMwmZxsIPV5i3KoGb 15A8UofIfme5TaTsc4yl23 eCUiv2V9iZU1SEjrLCKhkI 3cXHcnRpI4 FRZlWxVikP03dMQwAWloJp 0xgNpppEtfQV4nYSXrkvhn IEUbuR9fJBQqtJMecYiwWD 4wNTBpbjtm x843QsGbDCZ0PJYgmUNjT6 AsiO2aKxHaOHXdOADxI8Rc sHJhRAkuB728ZSrtHsX6BM VkobQeP7Jj YRFpxWkvSvP5x8Q1Qp2Kw1 OfkxkpGGR6NNbkPVSyYyV3 ZjLbKxP1P0AnGip2EKMlfY thPB2qE7Kp ZLZkcioayviehMF1SXPkPE ZbwB81lUMpAXgtAg6iz6D5 s787TTUkNYHbkL17Bj3siO ogMTBwdCBU gW1tabraa2zswybaGdOdHY OsEBg6JAi0LKAikBvlCyKr WNE4PgL2FME5mBYtoP2pvQ fcjyfpoK9z Oyc+X33qlD4aKYL0MEX9zb otOJCuzdTeKV32NM20D0Re PjwvdGFibGU+PGRpdiBzdH wrQP8oRsJg q9imx2OlMYmhN6HjHTRiRD wwOrf8EVMtLOA5qCE3iU1b THBjULyuv2U7oXO1I3Vcle Sgbi6ao1ly GNNyKAdqH63qiNGof8E8JL WewYK6HOQuwYqzOxHdqU96 Oyc+JTGacYmyz0KtNdtxc6 itg0lyaNd9 HcMbXZDppaWbyUxfCBY5r0 WqZo89D21oHDyhUWVtQAKg KNWgVENubUwdgi8buZ8eAd 8+PGNvbCB3 xBE1pU3iXRPrElK5XMzuR6 59UmOgqNOvAqghd6eqk3ei wIc0DsMcHBDoaqSkcLqiSF F9d9OgPz48 Y65wYBfzJWJdPKDsQEWkRG QbhJpyeo3skC9aLp2+PC9j h5qukr72fV55nRR+PHRkIH Y6eOnbLBee ERTtlA1fCBmvQrA0BGEiAo OkeO12lVAoNCgpHd5wiVul vGzoAR3nZNCehtzlk150Dy Hii5jlDETt rXQmBCfqMNB3O84xg4B3HA QjVOHjVOX5cUI7vM7faPzo bjogbGVmdDsgdmVydGljYW glEIuaX975 IHRvcDsnPlBhdGllbnQgTm TjITs2Z1RuKef1TANjzJct OC9miDNyMDxeEg4naByorR duAB5eWNJu vlbxd599EmYsr2iqNPGoiJ ZlEPwoKYQ0K57vw7P4WZPk PAMzXHU7hRL2oN4rkXaeqp ogbGVmdDsg lwAgpNfzEDsrWJaqR045IW RvcDsnPkJpcnRoIERhdGU6 MZ75FN90xBLtm6H2hLB3V1 BhZGRpbmct lqmyoZW2JYQpGYDnxE56Ee 6adMnqSl0cGIIbCIA6VAVq aQYwG4DilB1nNqWbLWHwEY KuR3BqjYFd KLreQ860SRhbLuG4MHHhlq PpF0FbRTNmlYrkXvT8h1E4 In0SU3B8GA24IN58pYWyq4 R6vWA5C1Qh NTYecaopqvspnHG0YIFwQP MzzK76Sc4vkFjlNy6pGDKr GGY4JGZcfIDwG1TwvG5zWw AjMDAwMDAw P1BthCJmVQfyJ961JZdyVx M3CAGkniRgS3UjKSBrhJjw VvF3l7Y0Nx1XZSa8EG92EQ 11uFOnb3X2 qVI5M4XiASCzyibahtkfaM H9QFIaWLHwmA64Qu0kbJjc Lm6yJKXcEPH7RRQldMBcU8 LrsS1uCzAa BJPgAWUyM9WajUDpXKrkN7 58JBxeMeL3DDKqryDvE9Vs EXXuvVylFwC5a1O6Ku1PDX GdDZ62BJD0 yFA3UM52KW77U6HyHmuysN FibGU+PHRhYmxlIHdpZHRo UDxhEKPhDfYpmMlxLJ3tPs 9yZGVyLWNv rZeubFEfEbHtq2vnRVJqYZ bxAE7awTydO9OskSP0SMYc e1d4Gp29W86nA5UwyWL+PG OkhGL2qCO6 qN6tLlTqWfJ8NAwrB698Is YinFAeEevti3gsp6iotUj1 UtY9AGByaoRrqTwcTSD5w4 VjCm06E88q IHdpZHRoPSIxNSUiIHZhbG sxlf6dfT0hKi2+PGNvbCB3 qLC2uO0oXlHzRpO5VAygV7 49InRvcCIv Drtmg1gmd6jmqWz0AtUaMN ZixfIzwKxkSLV5y1YeZi47 O4YzxVjjd1AmIqe1mh65mR Wyj4M4dES0 N4YbSLNkuokxqRWunGzxOI 6rWEEtmvcjDOXigY3cKDTg C2z8ZwCyDwX0OVnvB2Zvzq A2OXSlvDQl TThhUCK8S99se0T8YHZfMQ MrLBY6dSI7eN9vlUbhkgfm bGVmdDsgdmVydGljYWwtYW ufL769LVNz kMgsRBIslK3kUFXkkUZxkR ttSK6jLOBfasgyQtIUOWCE TiwgSlVMSUUgQTwvdGQ+PH OtIFK9kUti GUbqDQUngL4bZTHgC6a4Ki IaXcN2PBbvB3PgHDWwscgd Xh02jD7lHsPhWsL2UGimS1 JirkX1YZHd oZBlHUjkNYI7Y92ne3X8DI FmXSKlOOZ9pPH6tU4rxGkb bjogbGVmdDsgdmVydGljYW vzRJbxM790 BUXyoXioUtUlOlY7MzW9Hx m4C1AiBga1MPZkbUfjTR8o fQWkOWhmXn5myQofvTreXC 4wNTBpbjtw EXIteS2tOKZkeKQzoGwhDR 2aCAXyyixll421SrAjKCK8 MCVzdJPoK5QwnO8nFpMnWX KwNFCwU3Tb zVDxREhtC201TYqlHsG2IM OoyuBnJ5MtNTMscXwjPbR8 b1Q1Yp55YqLOORRfwvgyxU Q+PHRkIHN0 xKsrYWpnTFKrhP3tHUDfH1 r3MnXeHtL2RWclS4KxMZXc igkaLa81cW5mRnVeWwD1MW psS9AozoF7 ESWidJUcCRwnMCG8A21hk8 U7CCXxXBFuQPY9xEM8hA9q bGlnbjogbGVmdDsgdmVydG ljYWwtYWxp U625IKVkmUdfLwJzjTIdQH wvdGQ+FEDjWMZ2tQdnJMqx DZFzzO6dQSOyJ7g3XmOdTt B9OYakZ1Gy YNHmmgaqIb86cP4aSbGoOp U4BRkvT0InpmJ7BNKbuBUm QWftKSV9J69wz0Q3KWHrPE LmHWL3qPW5 oU1adQhxpsiyeBYwpIywmz StjSlmMLzzLLbjC847UWDh wXacDi80xLNvgNkobbQ0L2 RkPjwvdHI+ FS01UEQnGX83bKNwkBZuy3 wpcUc8BwZfCNAzICB6fFsu EVote8QfXALoE83wgEUep6 U3PPHckSyk rAJuGvGzeZO4nP6dVYodll dsz7lbjoyxCtizm7letg50 vP98S95iWHjoRNKiMNMtGS UiIHZhbGln rf2bgA8fYn9+WPTbiLH5zU M9kP2pXtWwSqX4GCaqD921 VzRjiIKyNqxnt0jeh5ceiA r1JgGaMUKz mmWozNmzWGX3m6VmFv45T4 9sIHdpZHRoPSIyMCUiIHZh pQwglq9ocW3xPi3+PC9jb2 lzhv06fP63 dHI+UZVfEKY6oYukPVypVA QtsS7xJBpnZuP7KQFvJwJc dB90pLCbRWlbSn7nzCeayW wfRL8bKLJa adifo743CoKri2hxBJJhwP LiGSirIBR9A22jh7Q9PZDi JCPhAYZ6yYC9xB4qzNbbrf ogbGVmdDsg nmOmcQolKIuaJUizW814PI PiuDnmXwPxzIZvP4lpcdIV HP9cQgsufKL+HZDoXKO2dZ xlPSdwYWRk sS0jJEJzR9s3BlUqWhW3BI tjM5EvcuA4LQYvfVFhIWPb wPEUdP8pwezfl4xloabyWe AwMDAwMDt0 EDb5SCJchWzuVmCwMBW1Kb H2USR5tPQtiO2xyQippjxn sV4mThp+RklOOjwvdGQ+PH TmOBF2cGqr AVgeYXRgeB7gEZFwQ1e1Ad NkMuK5JHueW9JjmdE3CRHt nXClWUFkcCYOxX4qsqsle4 xvcjogIzAw AJQvHQn2JPr9ALNnzJakNw OyHXE8YgZ4OPH0kEGndQ5c xVloedsvdA7mDkm+TVJOOj wvdGQ+PHRk VWR1zEkkIJmrIBJpcU8pEP OfL4e9KiNiGiY5TCfkR9Bq poJ3EXMiiVQtFKPnjPTXaU 2wzfjwa2ht okpnFaMtDXFgBVn8PFp7PD MwhCusEdHdDHR9BdZ9WJT0 oFWpoK1xgZunfmwqyP1nKa c+GYD0NIM9 ST24OF15I8ZnLnrfdHUkfA U+PHRhYmxlIHdpZHRoPScx KCCnKhWaxXmkEY5rIb1fYL VyLWNvbGxh cHNl (more content not included)... Normal [facility] Consent for Treatmenton Consent for Treatment [id number]#1.0 0CD:127 Normal [facility] MRI Knee w/o Contrast Righto n 05-21-2021 MRI Knee w/o Contrast Right Exam Date/Time: 05/21/2021 08:52 EDT Reason for Exam: Unilateral primary osteoarthritis, right knee Report IMPRESSION: MUCOID DEGENERATION OF THE ACL. NO MENISCUS TEAR IDENTIFIED. Exam: MRI Knee w/o Contrast Right History: Osteoarthritis. Patient states fall in December 2020. History of 2 right knee surgeries. Technique: Multiplanar multisequence MRI of the knee was performed without contrast. Comparison: Radiographs from 01/26/2021 Findings: Quadriceps and patellar tendons are intact. Small joint effusion. Mild nonspecific infrapatellar subcutaneous soft tissue edema. Thickening and hyperintense intrasubstance signal of the anterior cruciate ligament compatible with moderate mucoid degeneration. The posterior cruciate ligament is intact. The medial collateral ligament, lateral collateral ligament, and popliteus myotendinous unit are intact. Hyperintense intrasubstance signal of the medial meniscus does not definitively reach an articular surface and likely represents meniscus degeneration and/or scarring. The lateral meniscus is intact. No well-defined or measurable cartilage defect identified. Popliteal fossa structures are intact. Sanchez's cyst measures up to 3 cm. FINAL REPORT Dictated: 05/21/2021 4:11 pm Manjeet Navarro DO Signed (Electronic Signature): 05/21/2021 4:11 pm Signed by: Manjeet Navarro DO Transcribed by: SAUD Technologist: KERI Technical Comments None Normal [facility] RAD - MRI Screening Formon 1 RAD - MRI Screening Form [id number]#[id number]:127 Normal [facility] Physician Orderon 05-13-2021 Physician Order [id number]#1. 00CD:127 Normal [facility] Pre-Certification Formon Pre-Certification Form [id number]#1. 00CD:127 Normal [facility] Coding Summary.on 02-01-2021 Coding Summary. CD:[id number] Gh 0bWw+PGhlYWQ+NW0PFCGfR 25pgBSrwL4KU9iMHH4NEXT PEVOGZX1NVE5umGJ6IIgmV 2VybiAv ShazcMZqIV96DBx9UVO4nO exZHdadV4zxBHlE2l1ShLi EW44xA07ETzvTTIwXoM7Rn ZpbjsgbWFy F5saOiRaqZGsUcp+PHRhYm xlIHdpZHRoPScxMDAlJyBz qLctFK1sHu5rKEHoIOZzuH xhcHNlOiBj t5wgEXOaDIzvAD3liEsnW0 JxpFE7GOAqs3l1Rg69qQN+ XMJmQNZ0hHosKBoma202Ys Izw2jcICY9 yACkTChmOKF5N11fm8D0GQ SkYMMxIDK9xNJ4eT8jfTvh zyldG2IcvUVvNdK6UGF4iP GloS2iaIbr uiadqB1bOby+S82VQA8SGM OXAD9ZFcv2Z4OkJsgbgJC+ FI93IKVwZI70hCDrkUKza8 aqsSt7XmKs DZFvNFJ3sSweYZcew3UaBG XhU41yeDRbm2Y0TVQthQmg fLWrIrSrbCC8oX7yAHotas ffj5hldjhn Fcicq9wulx56dT15K50sNP bgTOWwZBS0EQFtOBLyvXon dl0xxH8bPm7+PHdwr2bky5 mhrIo3ZlXi IPIewyDfuNxqKXG0h1RyMj 43X6EueUksx2BgOva2px69 rCExs8K1lYA4WWxuJIScaL 1uWYzoExL2 FJXhGlMwwZ83sHOxZMhbHk 5vxOpmtHdgJX2jJSOktwen BIZgbS6eLQYflUPtrBteZW 4wNTBpbjtm p077FaYaRCE3INQtwXLxF9 AnhI8rPlZfVMJzBLWpB6Ev qTNgCEfwQ173VIqxZbM0YX SjghCuX1Bd WUTaxXieImG5s3O5Kd1Ch3 ZagabzAOP1KRrwDTF7ShY8 OnVeYqY6O7ThXnl6KWGpeA idPG7bD2Sk EQBcyviuklgsvQD3DHBvBC QnyU13pKRsEAbqCs2wa1T0 t106DHBjWSEtwY03Vb1faM ogMTBwdCBU vV6ckqhls0poikfkIhPzWK KyKHr5UMv6VJIixTozMcNe DSZ4LeN0JOT8bZGvjG4qqX gmzfsluD7c Oyc+U88coA1iOSU9QFR4ou paORFzhyZcRX19EE35I0Cu PjwvdGFibGU+PGRpdiBzdH bmFH8yRsOo b8new5SwRDlzS7VzULBiZI pbIie0GDItNAQ4dML9xO2d VMZbASuhm3F1fLS8I0Rvpe Cxwu1pc1ii WAGlWIaeI92bdWKif2P6FS GwnPO7HTZmkQwdJeWizV01 Oyc+QPGgmLpfx5FlHgqhj2 vxa3ujbJi8 WdBfJJIkgvOrkCxkNJZ2d7 FsFn85Z97vOBmgUPYuMURn JTAuHSOcfIvtbh9enE3bHi 8+PGNvbCB3 lTP4rT0iXNIhUdX9QJdsN2 05JxJxbQMhPmpyd6kcq8sq kKb0FcWkVPUajsQsqYrxLR Q3b5OjTu01 A84dLCwgUVXsGZYhWPFnNK QhoVsllp0ulS1tHv6+PC9j d9qihe86lB15kCK+PHRkIH L3iMbwIXkt RUUyvH8sETikHlY0OTGhRj XbaE95lDKpNTgpTx6vgFgp jGveNQ5zEUXiqljfc488Qb Tms0gqEPAo lQOpGOsrEQB2V41jr3Z0ON GpDLGqHBH7dLQ3wE0ibRrb bjogbGVmdDsgdmVydGljYW boHNbzZ798 IHRvcDsnPlBhdGllbnQgTm LgXKx1N0BxYos1JETnvZei ZJ9viXNlHVcbLp4guDxigM eiLK5tWULd wpiwm915LmHib6jaQYWsgD YiLScjATS8X30tn5M9XVGh PFJxZEU5fAW9bY6clJaaxe ogbGVmdDsg lgNrtGxoHVziYVoeB954BO RvcDsnPkJpcnRoIERhdGU6 VZ60TE51aIFgu2N6fPK8O7 BhZGRpbmct mrnzlGZ6JOLcKJUqmJ29Io 1rjQysNu8aQDMnTDG8IFUu aZSyC9JwfR8vEoHcWGZxZN OhX8IrrPRb BAyiP402BQibVoH2LRHfbm TcT5EmBXRucDffQkE1x7A8 Jh2DN6G6YM89LQ33fPTvs6 S5cTI7M7Iz ZMLpomfzyeoxlQP7UMUcIR XcoU66Cj5woDckJr3gHLWh ULK8BNYtyCDbP3ZrqV5xEq AjMDAwMDAw I5QirLCuDZycT196JBqoTz J5OFQdcgQdC0ArOOGliTyn OkB7f9N0Pi9VOXh5NP23RK 62gISjv6E1 rDN7M7GbHOMkbsthfddvxN H9ZACrWOTgdE59Pl1akVyv De0sHBSpYQM6GJNyrJLrK3 MqxE6wGlNe SOYdKAGmQ5QxsNEiQLziW8 48WPhbYkE4SDTzdrUtO0Do PRAqiYjnXfP5i8W1Zd8SEC WeRQ17PHE1 iUC1FF21RY66Y5EzUyiajU FibGU+PHRhYmxlIHdpZHRo UZjyXPIjFwFuoNkdBY6eWd 9yZGVyLWNv nGctrEWiXpTlf4tgUNCgVJ qpXJ8jtSnoG3IbcTX0JDSb z3f2Ig57I14wX8ZhhRQ+PG YyjTS5aTD7 tZ5iWgDrSpJ0JAkeL064Yh KgaNEhRbitx6gme8kdoVl4 YrP4JKEoecYvtTcnJBE0f7 NsSq21K86v IHdpZHRoPSIxNSUiIHZhbG hwwp9raF9wXk2+PGNvbCB3 gMS7sA0lEwMiQeM9CDrgX3 49InRvcCIv Menjg7evm2swkVz1TcJoXP EsfuOxhWkbCVL6p2JePu59 J0UwqLfta0XgGfk4he62fG Jny9O0kNH6 L4KvECHlmjwikWOwqDtsTT 5rEHWpzopqVOJygJ0cDGFf Y1s4DrZnHjN8HLtjM9Qqmu K9IBRokCWj TVaiKHH1L72xz4E5CVGeIT TlFMU8sVI2hO8kxKbuacbt bGVmdDsgdmVydGljYWwtYW njO263FTKh fBriDLTmgZ9wYULwtXIgmQ opDA2nHRJdyyppYiAUUHHD TiwgSlVMSUUgQTwvdGQ+PH PePCO5lBzc GRssJURpnA5rVQRgK7n6Qd RjSpJ9MKeqD5GdWRVilrkw Me69fG8aFoBtByO5ZIqlS6 DvimG7JSBn kYGmYLdnJQC2N56rc8G2OH QpQFXxZSI3fDM0lM0upQth bjogbGVmdDsgdmVydGljYW byKKujW658 ESWmvWnnYgKoUoM2EhC8Qj w1Y7KrFjf5YIOqaUduRC2z cOQnFKocJs0igVuujFjvZC 4wNTBpbjtw GVOwlE0lEJOghMWzbWaqWP 1hAKPugfnum812NhFuMIE6 ZGKvgUUsS7KrgI9fTtBfSQ RwHHVbY5Dx sLFdXNstV588ITjpBcN4QD LtsvPjK4FuLDSnyWdzDtR9 j1G3Bw61StRXOIWhkwrcpM Q+PHRkIHN0 iOzzFXmjBQCizH0bXJEfA5 q9FpFsHuE6KDssA5IoNHZp wkbqRr02dM2tWzZeOwB8DB ebY1XhmdM7 LLYmsQPwMEqxILK6X81iu4 D8IMPoONIyVLS0hTP4zT8n bGlnbjogbGVmdDsgdmVydG ljYWwtYWxp L578ANGozExxYkQlwWKiSB wvdGQ+HNKuOYK0tMmnWOwi MEPfsX8jOISaU9g1UaRlQj G3NPpyG2Tr HXIvqunyXj30qO3nCdNiIg O6GZntC3JzzfE6BOTgcHDq KRuxRPD4J95vq7L2MTAeXO XuTDM9aUD1 qF5eiPinsxhzmHRfqHwjgu QxlIlwOEwtSXipX046CFRv yKeeGnDyPSTxLM4wzNertP Q+WG67pz63 L8PuJbcyZch5PHNrNUB9sZ M1qF8mOMGmQFvzd7X5oNE0 G7RemjDvph9et5noZBBqHH wzQ18psTQj j8O3BEBisBZ5PLVxeJoqPq MxiT69Ejd+BJAbsCgzh7Mk Mlcqj9vvq6yoqGi3ZiBdYX IgdmFsaWdu MGK0o5PyNa01M13uFOupYA HwVJPjIGAqESRdvAzymp1q tL7zWv4+HFWpxGS1gIE1rT 5eFnLaTjB4 MMijF709OhGbaPXqJogzp8 bfp0katAr4RuXmKLNxxjJv cUqxQOX0p6QnRr26O7PakD sdu7KnBkr7 hh17aVCob9Y8vOR9Z4TfLG AdhsgraDTlaJxzAV4cRSQu wdgwGSVjrG8uONEdU2z3Tr FwXqL8LKhk V8HwnzP7KUAfbZFxFBWxmX FMoU1lkhuny3hhpnoqWtOn SHMkNAw5XDv8CYKqmCwhTk BoAHC3VcE9 ZTO4mJVadP4pfOvkrtxycT 9wOyc+LSi5l3rdyUWySS7n cWE6BL86BU75hSZcw9M9nX Z6Z6BhFNRa eencgrpmgEH9TTNsVQGasI 62Ma8jhZlmYe1eYYOrSMW3 TTRjySOuX3OgbW9aEyUpLY YuFUAqZ1Fk ePPqAUvzK873SHcqHrU0TN QbcsYiO1YbXQDcjRumLvI4 a7J2Rw0KXA20QG28XB79gX Uwz6V8yZS8 B2JvXBBduchblszmhXR7CJ SvEOTevT63Ow4yzXzlZy7k YJMyRST3YJTjgBMcD8WuuH 9yOiAjMDAw ZIVpI5ZrsAEsMWbyZ426XQ vyXqD7IWIdmcBwL5HnDDNg tEftPvB1b1P9Wn8FDx83YY 72AX52gWNa h5Q8qBG8Y5QwTAZjvzjnjn vgtDN3FYDbIAJnfM23Jn1z bVrpCa5rMECdPVY3WUZmgO MiW0AcqC8i EkAhSYPrBWEoM7MhfSZyJG ouF158QEmwCnG7JPBokcOd S2ZbFPVklBfuPbI5h3H5Bt 4JENfdoqq4 C8KtVggzyUO+LR75VHTsFG 34kKQoaNQkr3umbWi1FyQi ILWqEGK8zKjfARvzw3GbCW QfS22fbCCp c2U6 (more content not included)... Normal [facility] ED Note-Physicianon 02-02-20 ED Note-Physician Basic Information Time Seen: Magda ESQUIVEL, Essence Kamaljit. 01/26/2021 17:48 Chief Complaint Pt reports right knee pain from 2 weeks ago when she fell down stairs. hx of 2 knee surgeries in that knee. Pt reports pain starts in hip and radiates to knee. History of Present Illness This patient presents to the emergency department with chief complaint of right hip and knee pain. She states she fell down steps 2 weeks ago. She states she still has persistent pain in her right hip and her right knee. She has had 2 surgeries on the right knee. She is able to weight-bear she states is just uncomfortable. She denies any back pain. She denies any urinary or bowel complaints. She has no numbness or tingling. Review of Systems Constitutional: Denies weight loss, fevers, chills, sweats, malaise Eyes: Denies visual changes, eye pain, double vision, scotomas, floaters ENT: Denies runny nose, epistaxis, sinus pain, ear pain, ringing in ears, tooth ache, sore throat, pain with swallowing Cardiovascular: Denies chest pain, shortness of breath, orthopnea, edema, palpitations, loss of consciousness, claudication Respiratory: Denies cough, sputum production, wheezing, hemoptysis, shortness of breath, dyspnea on exertion Gastrointestinal: Denies abdominal pain, unintentional weight loss, difficulty swallowing, indigestion, bloating, cramping, loss of appetite, nausea, vomiting, diarrhea, constipation, hematochezia, melena Genitourinary: Denies any incontinence of urine, dysuria, hematuria, nocturia, polyuria, hesitancy, frequency, urgency, burning Musculoskeletal:R Hip and knee pain Integumentary: Denies any pruritus, rashes, lesions, wounds, petechiae Neurologic: Denies any changes in sight, smell, hearing, taste, seizures, headache, paresthesia, numbness, weakness, balance disturbance Psychiatric denies any depression, change in sleep patterns, anxiety, difficulty concentrating, paranoia, anhedonia, lack of energy, den Hematologic/lymphatic: Denies any purpura, petechiae, excessive bleeding, bruising Physical Exam Vitals & Measurements T: 36.8 ?C (Oral) HR: 75(Peripheral) RR: 18 SpO2: 99% HT: 157.48 cm HT: 157.5 cm WT: 48 kg WT: 48.0 kg BMI: 19.35 Vital signs and nursing notes reviewed. General : pt awake, alert, NAD Thorax: Symmetrical rise and fall Lungs: Clear to auscultation throughout all fournier, no wheezes, no crackles Heart: Regular rate and rhythm. No murmur, gallop, or rub Extremities: Motor sensory pulses intact x4 extremities. No lower extremity edema. No obvious deformity. Patient does not have any pain on palpation of the right hip or pelvis. He does have some mild tenderness on palpation to the anterior right knee. There is no laxity of the joint. There is no edema. Skin: No lesions, rashes, ulcerations. No bruising or petechiae. Color appropriate, warm and dry Neuro: No oriented x3, no focal neuro deficits Psych: Mood and affect are normal Medical Decision Making Strain, sprain, fracture, dislocation Assessment/Plan 1. Hip pain, right (M25.551: Pain in right hip) Orders: XR Hip 2-3 Views Right + Pelvis XR Knee Complete 4+ Views Right Patient was interviewed and examined. The appropriate ER work-up has been initiated. I discussed the results of the x-ray findings with the patient. I stressed the need for close follow-up with orthopedics. I discussed the discharge diagnosis, plan of care, and prescription. Patient will be discharged home in stable condition. She is to return to the emergency department for any further problems or concerns. Medications Administered Given dexamethasone 4 mg Tab, 4 mg, Oral Disposition Plan Patient Discharge Condition stable Discharge Disposition home Discharge Prescription List Prescriptions No active prescription medications Follow-up With When Contact Information Raghav Dasilva In 3 days 01/29/2021 EDT [address] [place] [address]- [employer] (1) Additional Instructions: Patrick Swenson In 3 days [address] [place] [address]- Business (1) Additional Instructions: Attestation I was physically present throughout the patient's stay in the emergency department and I was immediately available to the physician admissions assistant/nurse practitioner at all times during this encounter. I did not provide [id number] evaluation/service during this encounter. Problem List/Past Medical History Ongoing Smoker Historical No qualifying data Procedure/Surgical History Left carpal tunnel release with left anterior ulnar nerve subfascial transposition (12/25/2015), Arthroscopic knee operation, neck surgery, Tubal ligation. Medications Inpatient No active inpatient medications Home albuterol 0.083% Inh Kerry 3 mL, 2.5 mg= 3 mL, NEB, PRN, Not taking Medrol 4 mg Tab, 1 packet(s), Oral, As Directed Motrin 800 mg Tab, 800 mg= 1 tab(s), Oral, PRN Naprosyn 500 mg Tab, 500 mg= 1 tab(s), Oral Percocet 325 mg-5 mg Tab, 2 (more content not included)... Normal [facility] Comment on above: Result Comment: Elec tronically Signed By: Essence Man PA-C\.br\Date and Time Signed: 01/27/21 23:11 EDT\.br\Electronically Co-Signed By: Frankie Dawn DO.br\Date and Time Co-Signed: 02/01/21 10:17 EDT Discharge Instructionson Discharge Instructions [id number]. [id number]:127 [facility] XR Hip 2-3 Views Right + Pel vison 01-27-2021 XR Hip 2-3 Views Right + Pelvis Exam Date/Time: 01/26/2021 19:07 EDT Reason for Exam: Pain, Traumatic Report IMPRESSION: NO EVIDENCE RECENT FRACTURE. CLINICAL HISTORY: Pain, Traumatic. Recent fall. Pain radiating from right hip to the knee. COMMENT: 3 views. There are deformities of the right and left iliac wings, consistent with prior bone donor surgical sites. The bones of the pelvis are otherwise unremarkable. There is no evidence of recent pelvic fracture. There is minimal marginal hypertrophic lipping at the right hip. No joint space narrowing is noted. No fracture nor dislocation is noted at the right hip. The left hip is unremarkable in appearance on the AP view of the pelvis. There are metallic surgical clips in the right and left pelvis. FINAL REPORT Dictated: 01/27/2021 3:07 pm Luis Sherman M.D. Signed (Electronic Signature): 01/27/2021 3:07 pm Signed by: Luis Sherman M.D. Transcribed by: SAUD Technologist: SUZI [facility] XR Knee Complete 4+ Views Stacey haji 01-27-2021 XR Knee Complete 4+ Views Right Exam Date/Time: 01/26/2021 19:07 EDT Reason for Exam: Pain, Traumatic Report IMPRESSION: POSSIBLE SMALL KNEE JOINT EFFUSION. OTHERWISE NEGATIVE RIGHT KNEE. CLINICAL HISTORY: Pain, Traumatic. Recent fall. COMMENT: 4 views. The bones of the right knee are unremarkable in appearance, without evidence of fracture or dislocation or significant arthritic change. There may be a small knee joint effusion. FINAL REPORT Dictated: 01/27/2021 3:08 pm Luis Sherman M.D. Signed (Electronic Signature): 01/27/2021 3:08 pm Signed by: Luis Sherman M.D. Transcribed by: SAUD Technologist: [facility] Consent for Treatmenton 01-15 Consent for Treatment [id number] [facility] ED Clinical Summaryon 2020 ED Clinical Summary [place] [id number] ED Clinical Summary Person Information Name: MITESH PATEL/[facility] Age: 55 Years : 1965 Sex: Female Language: Prydeinig PCP: Patrick Swenson MD Marital Status: Phone: [phone] MRN: Visit Id: Visit Reason: Knee injury - Minor; Knee pain-swelling; RIGHT KNEE PAIN Speciality: Acuity: 4 Enc Type: Emergency Med Service: Emergency Arrival: 01/26/2021 17:16:05 Discharge: 01/26/2021 20:31:37 LOS: 000 03:15 Checkin: 01/26/2021 17:16:05 Checkout: 01/26/2021 20:31:37 Dispo Type: Home (Routine DC) EVENTS: Event Name Event Status Request Date/Time Start Date/Time Complete Date/Time Arrive Complete 01/26/2021 17:16:05 01/26/2021 17:16:05 01/26/2021 17:16:05 Document Home Meds Request 01/26/2021 17:16:05 Triage Complete 01/26/2021 17:16:05 01/26/2021 17:27:03 01/26/2021 17:27:03 Bed Assign Complete 01/26/2021 17:23:02 01/26/2021 17:23:02 01/26/2021 17:23:02 Dr Exam Complete 01/26/2021 17:23:02 01/26/2021 17:48:44 01/26/2021 17:48:44 RN Exam Complete 01/26/2021 17:23:02 01/26/2021 17:29:13 01/26/2021 17:29:13 Registration Complete 01/26/2021 17:48:44 01/26/2021 17:58:52 01/26/2021 17:58:52 Reg Complete Request 01/26/2021 17:58:52 Reg Bed Request Complete 01/26/2021 17:58:52 01/26/2021 17:58:52 01/26/2021 17:58:52 X-Ray Complete 01/26/2021 18:44:46 01/26/2021 18:46:42 01/26/2021 19:07:59 Wet Read Request 01/26/2021 19:07:59 Meds Admin Complete 01/26/2021 20:12:19 01/26/2021 20:28:39 Discharge Complete 01/26/2021 20:14:24 01/26/2021 20:31:49 01/26/2021 20:31:49 Transfer Complete 01/26/2021 20:31:49 01/26/2021 20:31:49 01/26/2021 20:31:49 ADDRESS: [address] [place] [phone] PHYS DOC NOTES: MEDICAL INFORMATION: Prescriptions Given: New Medications [id number], [address], [place] [id number], [phone] methylPREDNISolone (Medrol 4 mg Tab) 1 Packets By Mouth As Directed for 6 Days. as directed on package labeling. Refills: 0. tizanidine (tiZANidine 4 mg Tab) 1 Tablets By Mouth every 8 hours as needed Muscle pain. Refills: 0. Medications to Continue with No Changes Other Medications acetaminophen-oxycodon e (Percocet 325 mg-5 mg Tab) 2 Tablets By Mouth every 4 hours. Refills: 0. albuterol (albuterol 0.083% Inh Kerry 3 mL) 3 Milliliter Nebulized inhalation (aerosol) as needed Wheezing. ibuprofen (Motrin 800 mg Tab) 1 Tablets By Mouth as needed as needed for pain. naproxen (Naprosyn 500 mg Tab) 1 Tablets By Mouth. PATIENT EDUCATION INFORMATION: Instructions: Follow up: With: Address: When: Raghav Dasilva [address] [place] [address] Business (1) In 3 days 01/29/2021 With: Address: When: Patrick Swenson [address] [place] [address] [place] [address] Business (1) In 3 days DIAGNOSIS: 1:Hip pain, right Normal [facility] ED Patient Education Noteon 01-26-2021 ED Patient Education Note Normal [facility] ED Patient Summaryon 021 ED Patient Summary [facility] [address] [place], [place] [address] Patient Discharge Instructions Person Information Name: MITESH PATEL Age: 55 Years Arrival Date: 01/26/2021 17:16:05 Discharge Diagnosis: 1:Hip pain, right Primary Care Physician: Patrick Swenson MD Provider Information Primary Provider: [employer] Demonstrator:None The exam and treatment you received in the Emergency Department were for an urgent problem and are not intended as complete care. It is important that you follow up with a doctor, nurse practitioner, or physician?s admissions assistant for ongoing care. If your symptoms become worse or you do not improve as expected and you are unable to reach your usual health care provider, you should return to the Emergency Department. We are available 24 hours a day. JORGE MITESH Aaron has been given the following list of patient education materials, prescriptions and follow-up instructions: Follow-up Instructions: With: Address: When: Raghav Dasilva [address] [place] [address] Business (1) In 3 days 01/29/2021 With: Address: When: Patrick Swenson [facility] [place] [phone] Business (1) In 3 days In the event that this physician does not participate in your insurance network, please consult with your insurance company to find a nearby participating provider. Patient Education Materials: A MESSAGE TO ALL PATIENTS REGARDING OPIOIDS PRESCRIPTION OPIOIDS: WHAT YOU NEED TO KNOW Prescription opioids can be used to help relieve seqkpses-kg-vxomyq pain and are often prescribed following a surgery or injury, or for certain health conditions. These medications can be an important part of the treatment but also come with serious risks. It is important to work with your healthcare provider to make sure you are getting the safest, most effective care. WHAT ARE THE RISKS AND SIDE EFFECTS OF OPIOID USE? Prescription opioids carry serious risks of addiction and overdose, especially with prolonged use. An opioid overdose, often marked by slowed breathing, can cause sudden . The use of prescription opioids can have a number of side effects as well, even when taken as directed: ? Tolerance?meaning you might need to take more of the medication for the same pain relief ? Physical dependence?meaning you have symptoms of withdrawal when a medication is stopped ? Increased sensitivity to pain ? Constipation ? Nausea, vomiting, and dry mouth ? Sleepiness and dizziness ? Confusion ? Depression ? Low levels of testosterone that can result in lower sex drive, energy, and strength ? Itching and sweating RISKS ARE GREATER WITH: ? History of drug misuse, substance use disorder, or overdose ? Mental health conditions (such as depression or anxiety) ? Sleep apnea ? Older age (65 years and older) ? Avoid alcohol while taking prescription opioids. Also, unless specifically advised by your health care provider, medications to avoid include: ? Benzodiazepines (such as Xanax or Valium) ? Muscle relaxants (such as Soma or Flexeril) ? Hypnotics (such as Ambien or Lunesta) ? Other prescription opioids KNOW YOUR OPTIONS Talk to your health care provider about ways to manage your pain that don?t involve prescription opioids. Some of these options may actually work better and have fewer risks and side effects. Options may include: ? Pain relievers such as acetaminophen, ibuprofen, and naproxen ? Some medication that are also used for depression or seizures ? Physical therapy and exercise ? Cognitive behavioral therapy, a psychological, goal-directed approach, in which patients learn how to modify physical, behavioral, and emotional triggers of pain and stress. IF YOU ARE PRESCRIBED OPIOIDS FOR PAIN: ? Never take opioids in greater amounts or more often than prescribed. ? Follow up with your primary health care provider. o Work together to create a plan on how to manage your pain. o Talk about ways to help manage your pain that don?t involve prescription opioids. o Talk about any and all concerns and side effects. ? Help prevent misuse and abuse o Never sell or share prescription opioids. o Never use another person?s prescription opioids. ? Store prescription opioids in a secure place and out of reach of others (this may include visitors, children, friends, and family). ? Safely dispose of unused prescription opioids: Find your community drug take-back program or your pharmacy mail-back program, or flush them down the toilet, following guidance from the Food and Drug Administration (www.fda.gov/Drugs/Res ourcesForYou). ? Visit www.cdc.gov/drugoverdo se to learn about the risks of opioids abuse and overdose. ? If you believe you may be struggling with addiction, tell your health vision care associate and ask for guidance or call [facility] N (more content not included)... Normal [facility] XR SHOULDER LEFT (MIN 2 VIEW S)on 10-27-2018 Thyrotropin Qn 3 VIEWS LEFT SHOULDE R: HISTORY: Left shoulder pain and decreased range of motion. COMPARISON: No comparison. FINDINGS: Partially included lower cervical spine fusion acromioclavicular and glenohumeral joint are normal. IMPRESSION: Prior cervical spine fusion. Normal left shoulder. Interpreted by: López Calvillo Jr., MD Signed by: López Calvillo Jr., MD 10/27/18 Final result Normal [facility] Vital Signs Date Time Vital Sign Value Performing Clinician [facility] 05-30-2024 09:50-0400 Body height 157.5 cm Leonardo Whitaker MD Work Phone: [facility] 05-30-2024 09:50-0400 Body mass index (BMI) [Ratio] 18.66 kg/m2 Leonardo Whitaker MD Work Phone: [facility] 05-30-2024 09:50-0400 Body weight 46.27 kg Leonardo Whitaker MD Work Phone: [facility] 05-30-2024 09:50-0400 Diastolic blood pressure 76 mm[Hg] Leonardo Whitaker MD Work Phone: [facility] 05-30-2024 09:50-0400 Systolic blood pressure 128 mm[Hg] Leonardo Whitaker MD Work Phone: [facility] Healthcare Encounters Encounter Date Encounter Type Care Provider Facility Start: 06-02-2024 End: 06-02-2024 Telephone encounter Leonardo Whitaker MD Work Phone: [facility] Start: 05-30-2024 End: 05-30-2024 Bamboo flowsheet Leonardo Whitaker MD Work Phone: [facility] Start: 05-30-2024 End: 05-30-2024 Bamboo flowsheet Leonardo Whitaker MD Work Phone: [facility] Start: 05-30-2024 End: 05-30-2024 Clinical Support Leonardo Whitaker MD Work Phone: [facility] Comment on above: Trochanteric bursiti s of right hip (Primary Dx) Start: 04-13-2024 End: 04-13-2024 ambulatory LEONARDO WHITAKER Not Available Start: 02-24-2024 End: 02-24-2024 ambulatory LEONARDO WHITAKER Not Available Start: 02-15-2024 End: 02-15-2024 ambulatory ANTONELLA DOMINGUEZ Not Available Start: 01-14-2024 End: 01-14-2024 ambulatory LEONARDO WHITAKER Not Available Start: 01-05-2024 End: 01-27-2024 Pre-admission assessment SELF REFERRAL [facility] Start: 11-19-2023 End: 11-19-2023 ambulatory KRISTEN CROWDER Not Available Start: 10-20-2023 End: 10-20-2023 ambulatory LEONARDO WHITAKER Not Available Start: 09-29-2023 End: 09-29-2023 ambulatory ANTONELLA DOMINGUEZ Not Available Start: 09-29-2023 End: 09-29-2023 Office outpatient visit 15 minutes Antonella Dominguez [employer] Work Phone: [facility] 210 Comment on above: Sciatica of left juan josé e (Primary Dx); Degenerative disc disease, lumbar; Trochanteric bursitis of left hip; Lumbar radiculopathy; Trochanteric bursitis of right hip Start: 09-07-2023 End: 09-07-2023 ambulatory LEONARDO WHITAKER Not Available Start: 07-21-2023 End: 07-21-2023 ambulatory ANTONELLA DOMINGUEZ Not Available Start: 07-20-2023 End: 07-20-2023 ambulatory URMILA GTZ Not Available Start: 06-25-2023 End: 06-25-2023 ambulatory LEONARDO WHITAKER Not Available Start: 08-01-2022 End: 08-01-2022 ambulatory Josemanuel Mehta Facility:[facility] Start: 06-24-2022 End: 06-25-[address] PATRICK SWENSON Facility:[facility] Start: 06-16-2022 End: 06-16-[address] PATRICK SWENSON Facility:[facility] Start: 06-11-2022 Encounter for genera l adult medical examination without abnormal findings DR PATRICK SWENSON [facility] Start: 06-09-2022 End: 06-10-[address] PATRICK SWENSON Facility:[facility] Start: 06-09-2022 End: 06-10-2022 Encounter for general adult medical examination without abnormal findings DR PATRICK SWENSON Facility:[facility] Start: 12-20-2021 End: 12-20-2021 Patient encounter procedure SELF REFERRAL [facility] Start: 11-05-2021 End: 11-06-[address] PATRICK SWENSON Facility:[facility] Start: 10-28-2021 End: 10-28-[address] PATRICK SWENSON Facility:[facility] Start: 09-06-2021 End: 09-06-2021 ambulatory ITZ ENRIQUE Facility:[facility] Start: 08-07-2021 End: 08-07-[address] PATRICK SWENSON Facility:[facility] Start: 07-08-2021 End: 07-09-[address] PATRICK SWENSON Facility:[facility] Start: 10-27-2018 End: 10-30-2018 Patient encounter procedure RAGHAV DASILVA [facility] Start: 10-27-2018 End: 10-30-2018 Patient encounter procedure RAGHAV [facility] Procedures Date Procedure Procedure Detail Performing Clinician Start: 10-27-2018 Radex shoulder compl ete minimum 2 views RAGHAV DASILVA Start: 12-25-2015 Left carpal tunnel r elease with left anterior ulnar nerve subfascial transposition SELF REFERRAL Arthroscopic knee operation SELF REFERRAL Comment on above: right x 2 Ligation of fallopian tube S ELF REFERRAL neck surgery 2 SELF REFERRAL Comment on above: c 5 6 7 used hip bon es bilaterally. 2nd neck surgery plate inserted Plan of Treatment Date Care Activity Detail Author Start: 07-18-2024 End: 07-18-2024 Clinical Support 07/18/2024 9:00 AM EST Clinical Support [facility] [address] [address] Leonardo Whitaker MD [address] [facility] [address] Caro [address] [place] [address] [facility] Start: 05-30-2024 End: 05-30-2024 Clinical Support 05/30/2024 10:00 AM EDT Clinical Support [facility] [address] [address] Leonardo Whitaker MD [address] [facility] [address] [place] [address] Arrived [facility] Comment on above: Arrived Start: 04-17-2024 Influenza vaccination Influenza Vacc ine (#1) [facility] Start: 10-21-2023 End: 10-21-2023 Clinical Support 10/21/2023 9:00 AM EST Clinical Support [facility] [address] [facility] [address] [place] [address] Leonardo Whitaker MD [address]o [address] [place] [address] [facility] NE[facility] Start: 2007 Screening for malign ant neoplasm of breast Mammogram [facility] Start: 1997 Screening for malign ant neoplasm of cervix [facility] Start: 1988 Screening for malign ant neoplasm of cervix Pap Smear [facility] Start: 1967 Screening for malign ant neoplasm of colon [facility] Immunizations Immunization Date Immunization Notes Care Provider Fa [facility] 06-11-2023 Influenza, injectabl e, Madin Wendy Canine Kidney, preservative free, quadrivalent Antonella Graziani [employer] Work Phone: [facility] 06-11-2023 influenza virus vacc ine, unspecified formulation Leonardo Whitaker MD Work Phone: [facility] 06-07-2020 influenza, injectabl e, quadrivalent, preservative free Antonella Graziani [employer] Work Phone: [facility] 03-12-2020 pneumococcal polysaccharide vaccine, 23 valent Antonella Graziani [employer] Work Phone: [facility] 05-18-2019 influenza, injectabl e, quadrivalent, preservative free Antonella Graziani [employer] Work Phone: [facility] 05-18-2019 pneumococcal conjuga te vaccine, 13 valent Antonella Graziani [employer] Work Phone: [facility] 04-07-2001 hepatitis B vaccine, adult dosage Antonella Graziani [employer] Work Phone: [facility] 01-09-2000 hepatitis B vaccine, adult dosage Antonella Graziani [employer] Work Phone: [facility] 08-28-1997 hepatitis B vaccine, adult dosage Antonella Dominguez NP Work Phone: [facility] Payers Date Payer Category Payer Self-pay 2014 Private Health Insurance [employer] [id number] 2014 Unknown [employer] [id number] 2014-Present [address] [place] [address] [id number] 1967 Unknown [id number] 2.16.840.1.897015.3.579.2. 174 1967 Unknown [id number] 2.16.840.1.239966.3.579.2. 174 1967 Unknown [id number] 2.16.840.1.768778.3.579.2. 593 1967 Unknown [id number] 2.16.840.1.157767.3.579.2. 593 1967 Unknown [id number] 2.16.840.1.479492.3.579.2. 593 1967 Unknown [id number] 2.16.840.1.772491.3.579.2. 593 1967 Unknown [id number] 2.16.840.1.216088.3.579.2. 593 1967 Unknown [id number] 2.16.840.1.303696.3.579.2. 593 1967 Unknown [id number] 2.16.840.1.671521.3.579.2. 593 1967 Unknown [id number] 2.16.840.1.812358.3.579.2. 593 1967 Unknown [id number] 2.16.840.1.102230.3.579.2. 1259 1967 Unknown [id number] 2.16.840.1.519203.3.579.2. 1259 1967 Unknown [id number] 2.16.840.1.171693.3.579.2. 125 1967 Unknown [id number] 2.16.840.1.479033.3.579.2. 1258 1967 Unknown [id number] 2.16.840.1.934045.3.579.2. 1258 1967 Unknown [id number] 2.16.840.1.597195.3.579.2. 1259 1967 Unknown [id number] 2.16.840.1.947120.3.579.2. 125 1967 Unknown [id number] 2.16.840.1.574862.3.579.2. 1258 1967 Unknown [id number] 2.16.840.1.107990.3.579.2. 125 1967 Unknown [id number] 2.16.840.1.963153.3.579.2. 125 1967 Unknown [id number] 2.16.840.1.182401.3.579.2. 1259 1967 Unknown [id number] 2.16.840.1.807987.3.579.2. 125 1967 Unknown [id number] 2.16.840.1.415629.3.579.2. 1259 1959 Unknown [id number] Unknown [id number] 2.16.840.1.446320.3.579.2. 531 Social History Date Type Detail Facility Start: 01-26-2021 Tobacco smoking status Heavy t obacco smoker (finding) [facility] Start: 09-29-2023 End: 05-30-2024 Sex Assigned At Female [facility] Start: 05-19-2023 End: 02-15-2024 Tobacco smoking status NHIS Smokes tobacco daily [facility] History of tobacco use Cigarette Smoker [facility] Start: 05-19-2023 End: 05-30-2024 Cigarettes smoked current (pack per day) - Reported 0.5 [facility] Start: 05-19-2023 End: 02-15-2024 Tobacco use and exposure Smokeless tobacco non-user [facility] Start: 09-29-2023 End: 05-30-2024 Alcohol intake Current drinker of alcohol (finding) [facility] Start: 07-20-2023 Alcohol Comment monthly or les s, Caffeine intake : soda/pop,coffee,tea more than 4 cups per day [facility] Start: 1965 Sex Assigned At Not on file [facility] Clinical Notes 10-28-2021 to 06-02-2024 Telephone Encounter - Cecilia Amador - 06/02/2024 8:39 AM EDTTelephone Encounter - Cecilia Amador - 06/02/2024 8:39 AM EDTBtiana Whitaker MD - 05/30/2024 10:00 AM EDT Note Date & Type Note Facility 06-02-2024 Telephone encount er Note Pt would like someone to call her with xr results if possible. I explained how MyChart works for her and sent a new link but she would still like a call. [facility] 06-02-2024 Miscellaneous Notes Formattin g of this note might be different from the original. Pt would like someone to call her with xr results if possible. I explained how MyChart works for her and sent a new link but she would still like a call. documented in this encounter [facility] 05-30-2024 History of Presen t illness Narrative Images from the original note were not included. CHIEF COMPLAINT REASON FOR VISIT: Injections. HPI: Mitesh Patel is a 58 y.o. female who presents for injections. Pain level is a 6/10. She states her pain is really flaring in the right side of her hip. She states she has trouble walking at times. She does get stiffness and does limp at times. She states the steroids work the best for her. She states she does well while she is on them but then when she is done the pain comes right back. She states the nabumetone does help but only takes the edge off. Denies any other concerns. CURRENT MEDICATIONS: ALLERGIES/DISCONTINUE MEDICATIONS Current Outpatient Medications Medication Instructions ascorbic acid (Vitamin C) 500 MG chewable tablet Every 24 hours B Complex Vitamins (vitamin B complex) tablet as directed Orally dexAMETHasone (Decadron) 2 MG tablet 2mg 3 pills po X3 days,2 pills po daily X3 days , then 1 pill po daily X3 days then stop 9 days 18 pills dexAMETHasone (Decadron) 2 MG tablet 2mg 3 pills po X3 days,2 pills po daily X3 days , then 1 pill po daily X3 days then stop 9 days 18 pills Multiple Vitamin (Multi Vitamin) tablet Every 24 hours nabumetone (RELAFEN) 500 mg, Oral, 2 times daily Allergies Allergen Reactions Other Unknown Amoxicillin Rash Penicillins Other and Rash Sulfa Antibiotics Unknown and Rash Sulfacetamide Rash There are no discontinued medications. PAST MEDICAL HISTORY: SURGICAL/SOCIAL/FAMILY HISTORY DEPRESSION SCREEN: Past Medical History: Diagnosis Date Cataract Hyperlipidemia ([facility]/HCC) Past Surgical History: Procedure Laterality Date CARPAL TUNNEL RELEASE Left 12/25/2015 L CTR, AUNT MTP KNEE SURGERY arthroscopy MTP NECK SURGERY 1998, 2002 TRIGGER FINGER RELEASE Right 02/22/2020 trigger thumb release [facility] Social History Tobacco Use Smoking status: Every Day Current packs/day: 0.50 Types: Cigarettes Smokeless tobacco: Never Vaping Use Vaping status: Never Used Substance Use Topics Alcohol use: Yes Comment: monthly or less, Caffeine intake : soda/pop,coffee,tea more than 4 cups per day Family History Problem Relation Name Age of Onset Other (blood thinners medication, low iron) Mother Other (had open heart surgery) Mother Hyperlipidemia Mother Hypertension Mother Leukemia Father No Known Problems Sister No Known Problems Daughter No Known Problems Son Melanoma Neg Hx Depression: Not on file REVIEW OF SYMPTOMS: Review of Systems Constitutional: Negative for chills, diaphoresis, fatigue and fever. HENT: Negative for ear pain, tinnitus and trouble swallowing. Eyes: Negative for photophobia and visual disturbance. Respiratory: Negative for cough and shortness of breath. Cardiovascular: Negative for palpitations and leg swelling. Gastrointestinal: Negative for abdominal pain and nausea. Genitourinary: Negative for difficulty urinating and urgency. Musculoskeletal: Positive for back pain and gait problem. Negative for arthralgias, myalgias, neck pain and neck stiffness. Neurological: Negative for tremors, weakness, light-headedness and numbness. Psychiatric/Behavioral: Negative for agitation, confusion and suicidal ideas. OBJECTIVE: 05/30/2024 9:50 AM 04/13/2024 8:50 AM 02/24/2024 8:20 AM Vitals BMI 18.66 kg/m2 18.66 kg/m2 18.84 kg/m2 BSA (m2) 1.42 m2 1.42 m2 1.43 m2 Systolic 128 130 130 Diastolic 76 80 82 Height (in) 5' 2 5' 2 5' 2 Weight (lb) 102 102 103 EXAM: Neurological Exam Mental Status Awake, alert and oriented to person, place and time. Oriented to person, place and time. Recent and remote memory are intact. Speech is normal. Language is fluent with no aphasia. Attention and concentration are normal. Cranial Nerves CN II: Visual acuity is normal. Visual fournier full to confrontation. CN III, IV, : Extraocular movements intact bilaterally. Normal lids and orbits bilaterally. Pupils equal round and reactive to light bilaterally. CN V: Facial sensation is normal. CN VII: Full and symmetric facial movement. CN VIII: Hearing is normal. CN XII: Tongue midline without atrophy or fasciculations. Motor Normal muscle bulk throughout. Normal muscle tone. Right Left Wrist flexion 5 5 Wrist extension 5 5 Right Left Deltoid 5 5 Biceps 5 5 Triceps 5 5 Wrist flexor 5 5 Wrist extensor 5 5 Glutei 5 5 Iliopsoas 5 5 Quadriceps 5 5 Gastrocnemius 5 5 Anterior tibialis 5 5 Posterior tibialis 5 5 Sensory Light touch is normal in upper and lower extremities. Pinprick is normal in upper and lower extremities. Vibration is normal in upper and lower extremities. Reflexes Right Left Brachioradialis 2+ 2+ Biceps 2+ 2+ Patellar 2+ 2+ Achilles 2+ 2+ Right Plantar: downgoing Left Plantar: downgoing Right pathological reflexes: Mohsen's absent. Ankle clonus absent. Left pathological reflexes: Mohsen's absent. Ankle clonus absent. Coordination Wayztn-zg-koql, rapid alternating movements and toko-iq-lzls normal bilaterally without dysmetria. Gait Normal casual, toe, heel and tandem gait. Romberg is absent. PROCEDURE: Bursa Injection After explaining the risks, complications, and benefits of the procedure, the patient leaned over the exam table. Allergies were reviewed, the consent was signed. After palpating the rightgreater trochanter and identifying the most tender area in the bursa, using sterile technique, and surface anesthetic; a 25 gauge 1 1/2 spinal needle was advanced to make contact with the greater trochanter. The needle was then withdrawn about 1 mm. The patient received an injection of 3 cc of Sensorcaine 0.50% and1 cc Dexamethasone 4mg in a fan-like distribution. The needle was removed. A Band-Aid dressing was applied on the injection site.Ultrasound images were placed in the media folder. ASSESSMENT AND PLAN: Diagnoses and all orders for this visit: Trochanteric bursitis of right hip - XR lumbar spine complete 4+ views; Future - bupivacaine (Marcaine) 0.5 % injection 5 mg - dexAMETHasone sod phos (Decadron) injection 4 mg 1. Trochanteric bursitis of right hip (Primary) - XR lumbar spine complete 4+ views; Future - bupivacaine (Marcaine) 0.5 % injection 5 mg - dexAMETHasone sod phos (Decadron) injection 4 mg I will bring her back in 4-6 weeks to see if she has received 50% or greater pain relief and at that time I will repeat the injections if needed. documented in this encounter [facility] 09-29-2023 History of Presen t illness Narrative Subjective Mitesh Patel is a 58 y.o. female. HPI Patient presents via televisit. Patient pain level today 6/10. Pain reduced greater than 50% for 2.5 weeks. She is taking mobic. Dexamethasone helps her the most. She feels a lot of swelling. She has tried massage, ice, heat, home exercises and PT. She has tried flexeril, steroids, mobic. She has more hip pain and sciatica to left side. There were no vitals taken for this visit. Allergies Allergen Reactions Other Unknown Amoxicillin Rash Penicillins Other and Rash Sulfa Antibiotics Unknown and Rash Sulfacetamide Rash Current Outpatient Medications: ascorbic acid (Vitamin C) 500 MG chewable tablet, 1 (one) time each day at the same time., Disp: , Rfl: B Complex Vitamins (vitamin B complex) tablet, as directed Orally, Disp: , Rfl: dexAMETHasone (Decadron) 2 MG tablet, 2mg 3 pills po X3 days,2 pills po daily X3 days , then 1 pill po daily X3 days then stop 9 days 18 pills, Disp: 18 tablet, Rfl: 1 meloxicam (Mobic) 15 MG tablet, Take 1 tablet (15 mg) by mouth in the morning., Disp: 30 tablet, Rfl: 11 Multiple Vitamin (Multi Vitamin) tablet, 1 (one) time each day at the same time., Disp: , Rfl: Past Medical History: Diagnosis Date Hyperlipidemia (CMS/HCC) Past Surgical History: Procedure Laterality Date CARPAL TUNNEL RELEASE Left 12/25/2015 [facility], [facility] MTP KNEE SURGERY arthroscopy MTP NECK SURGERY 1998, 2002 TRIGGER FINGER RELEASE Right 02/22/2020 trigger thumb release [facility] Family History Problem Relation Name Age of Onset Other (blood thinners medication, low iron) Mother Other (had open heart surgery) Mother Hyperlipidemia Mother Hypertension Mother Leukemia Father No Known Problems Sister No Known Problems Daughter No Known Problems Son Melanoma Neg Hx reports that she has been smoking cigarettes. She has been smoking an average of 0.5 packs per day. She has never used smokeless tobacco. She reports current alcohol use. Review of Systems Constitutional: Negative for chills, fatigue and fever. HENT: Negative for tinnitus. Eyes: Negative for photophobia. Respiratory: Negative for shortness of breath. Cardiovascular: Negative for chest pain. Gastrointestinal: Negative for nausea and vomiting. Genitourinary: Negative for frequency. Musculoskeletal: Positive for arthralgias, back pain and joint swelling. Negative for gait problem and neck pain. Neurological: Positive for numbness. Negative for dizziness, tremors, weakness, light-headedness and headaches. Psychiatric/Behavioral: Negative. Objective Neurological Exam Assessment/Plan Diagnoses and all orders for this visit: Sciatica of left side Degenerative disc disease, lumbar Trochanteric bursitis of left hip 58 year old female with lumbar degenerative disc disease and sciatica left side greater than right. She also experiences hip pain. 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 She has tried but not limited to PT, home exercises, greater than 6- 8 weeks of provider directed care, steroid tapers, Mobic, other NSAIDs, flexeril and steroid injections. I will have her start low dose tizanidine at bedtime, she will continue NSAID. She feels the best taking dexamethasone which explains there is a lot of inflammation from her arthritis causing her pain. She has tried ice, massage and heat. Injections reduce pain short term but greater than 50% for a couple weeks which provides her quality of life and she can still work. She is aware of risk/benefit of steroid injections and we can repeat when pain returns acute, moderate/severe. documented in this encounter [facility] 11-05-2021 Note PROCEDURE: XR FOOT R T MIN 3 VIEWS COMPARISON: 10/28/2021 HISTORY: Right foot pain FINDINGS: BONES:No acute fracture or dislocation. Stable corticated calcific densities noted along the medial margin of the navicular and lateral margin of the cuboid. SOFT TISSUES:Negative. No visible soft tissue swelling. EFFUSION:None visible. OTHER: Negative. IMPRESSION: No acute fracture Electronically authenticated by: PAULINE BROTHERS Date: 2021-11-05 10:37 [facility] 10-28-2021 Note PROCEDURE: XR FOOT R T MIN 3 VIEWS COMPARISON: None. HISTORY: Unspecified fall FINDINGS: BONES:Calcific density identified along the lateral margin of the cuboid on image #3 this is corticated and I favor chronic injury or unfused secondary ossification center over an avulsion fracture SOFT TISSUES:Negative. No visible soft tissue swelling. EFFUSION:None visible. OTHER: Negative. IMPRESSION: No definite acute fracture Electronically authenticated by: PAULINE BROTHERS Date: 2021-10-28 12:24 [facility] Evaluation + Plan note No data available for this section [facility] Evaluation note Diagnosis Sciatica of left side- Primary Degenerative disc disease, lumbar Trochanteric bursitis of left hip Lumbar radiculopathy Thoracic or lumbosacral neuritis or radiculitis, unspecified Trochanteric bursitis of right hip documented in this encounter [facility] HealthcareEvaluation note* Diagnosis Trochanteric bursitis of right hip- Primary Trochanteric bursitis of right hip documented in this encounter [facility] No data available for this section [facility] No data available for this section [facility] Summary Purpose Family History No Family History Records FoundNo Family History Records FoundNo Family History Records FoundNo Family History Records Found No data available for this section No Family History Records Found Advance Directives No Advanced Directives Records FoundNo Advanced Directives Records FoundNo Advanced Directives Records FoundNo Advanced Directives Records FoundNo Advanced Directives Records Found Additional Source Comments INFORMATION SOURCE (unrecogn ized section and content) DATE CREATED AUTHOR 10/31/2018 Josefa Veliz [facility] DATE CREATED AUTHOR AUTHOR'S ORGANIZ ATION 12/24/2021 [facility] DATE CREATED AUTHOR AUTHOR'S ORGANIZ ATION 06/29/2022 [facility] DATE CREATED AUTHOR AUTHOR'S ORGANIZ ATION 08/12/2022 [facility] DATE CREATED AUTHOR AUTHOR'S ORGANIZ ATION 06/05/2024 [facility] EPIC Patient Care team informatio n (unrecognized section and content) Personnel Name: Patrick Swenson MD Address: Address: [address] [place] [address] FOR RECORDS PERTAINING TO PATIENTS WHO ARE OR HAVE BEEN ENROLLED IN A CHEMICAL DEPENDENCY/SUBSTANCEABUSE PROGRAM, SOME INFORMATION MAY BE OMITTED. This clinical summary was aggregated from multiple sources. Caution should be exercised in using it in the provision of clinical care. This summary normalizes information from multiple sources, and as a consequence, information in this document may materially change the coding, format and clinical context of patient data. In addition, data may be omitted in some cases. CLINICAL DECISIONS SHOULD BE BASED ON THE PRIMARY CLINICAL RECORDS. [facility]. provides no warranty or guarantee of the accuracy or completeness of information in this document.
[2024-06-06 10:37] LABS: Basophils Absolute Auto 0.1 10^3/uL (0.0-0.1); Basophils Percent Auto 0.3 % (0.2-2.0); Eosinophils Absolute Auto 0.1 10^3/uL (0.0-0.7); Eosinophils Percent Auto 0.3 % (0.9-7.0); Hematocrit 44.2 % (36.0-48.0); Hemoglobin 14.5 g/dL (12.0-16.0); Immature Granulocytes Abs Auto 0.25 10^3/uL (0.00-0.03); Immature Granulocytes Pct Auto 1.2 % (0.0-0.5); Lymphocytes Absolute Auto 3.8 10^3/uL (1.2-3.8); Lymphocytes Percent Auto 18.1 % (20.5-60.0); Mean Corpuscular HGB Conc 32.8 g/dL (29.9-35.2); Mean Corpuscular Hemoglobin 31.5 pg (26.7-34.0); Mean Corpuscular Volume 96.1 fL (81.0-99.0); Monocytes Absolute Auto 1.4 10^3/uL (0.3-0.8); Monocytes Percent Auto 6.5 % (1.7-12.0); Neutrophils Absolute Auto 15.7 10^3/uL (1.4-6.5); Neutrophils Percent Auto 73.6 % (43.0-75.0); Platelet Count 306 10^3/uL (150-450); White Blood Count 21.3 10^3/uL (4.0-11.0)
[2024-06-06 11:27] LABS: Estimated Average Glucose 117 mg/dL; Glycohemoglobin A1C 5.7 % (4.5-6.2)
[2024-06-06 11:36] LABS: Alanine Aminotransferase 24 U/L (14-59); Albumin Level 3.4 g/dL (3.4-5.0); Alkaline Phosphatase 76 U/L (46-116); Anion Gap 13.1; Aspartate Amino Transferase 15 U/L (15-37); BUN Creatinine Ratio 12.9; Bilirubin Total 0.5 mg/dL (0.2-1.0); Calcium 9.2 mg/dL (8.5-10.1); Chloride 105 mmol/L (98-107); Chol HDL Ratio 2.9; Cholesterol 256 mg/dL (<=200); Estimated GFR (African America >60 (>=60 mL/min/1.73m^2); Estimated GFR (Non-African Ame >60 (>=60 mL/min/1.73m^2); Globulin 3.4 g/dL; Glucose 87 mg/dL (74-106); HDL Cholesterol 89 mg/dL (40-60); Potassium 4.1 mmol/L (3.5-5.1); Sodium 142 mmol/L (136-145); Thyroid Stimulating Hormone 0.517 uIU/mL (0.358-3.740); Total Protein 6.8 g/dL (6.4-8.2); Triglycerides 114 mg/dL (<=150); VLDL CHOLESTEROL 22.8 mg/dL
== END 2024-06-06 09:24 | disposition home or self-care (01) ==
LOC: LAB 09:24
PROVIDERS: PCP Family Medicine; Visit Provider Family Medicine
DX: Z00.00 Encounter for general adult medical examination without abnormal findings (principal); E03.9 Hypothyroidism, unspecified
CPT/HCPCS: 36415; 80053; 80061; 83036; 84443; 85025

== ENCOUNTER 2024-06-29 10:12 | Outpatient (OUT) | payer OTHER, SELFPAY ==
--- NOTE | 2024-06-29 10:17 | XR_ITS ---
The [address] [address] Patient Name: MITESH PATEL MRN: [id number] date: 1965 Sex: F Assigned Patient Location: [facility] Current Patient Location: Accession/Order Number: [id number] Exam Date: 06/29/2024 10:30 Report Date: 06/30/2024 04:52 At the request of: PATRICK GRAY Procedure: XR DEXA axial skeleton EXAMINATION: XR DEXA axial skeleton HISTORY: [facility] Adult COMPARISON: No relevant comparison available. TECHNIQUE: Dual-energy X-ray absorptiometry (DXA) was performed. FINDINGS: SPINE ANALYSIS: Average bone mineral density is 1.030 g/cm2. T-score (standard deviation relative to young adult mean): -1.4 . HIP ANALYSIS: Lowest bone mineral density is within the right femoral neck, 0.823 g/cm2. T-score (standard deviation relative to young adult mean): -1.5 . XR/XR DEXA axial skeleton IMPRESSION: World Health Organization Classification: Osteopenia - Moderate Fracture Risk FRAX: Cannot be calculated. Pharmacologic treatment recommendations * No uniform recommendation applies to all patients. Management plans must be individualized. * Consider initiating pharmacologic treatment in postmenopausal women and men >= 50 years of age who have the following: Primary fracture prevention: * T-score <= - 2.5 at the femoral neck, total hip, lumbar spine, 33% radius (some uncertainty with existing data) by DXA. * Low bone mass (osteopenia: T-score between - 1.0 and - 2.5) at the femoral neck or total hip by DXA with a 10-year hip fracture risk >= 3% or a 10-year major osteoporosis-related fracture risk >= 20% (i.e., clinical vertebral, hip, forearm, or proximal humerus) based on the [place]-adapted FRAXregistered model. Secondary fracture prevention: * Fracture of the hip or vertebra regardless of BMD [4, 5]. * Fracture of proximal humerus, pelvis, or distal forearm in persons with low bone mass (osteopenia: T-score between - 1.0 and - 2.5). The decision to treat should be individualized in persons with a fracture of the proximal humerus, pelvis, or distal forearm who do not have osteopenia or low BMD [12, 13]. Kendell MS, Colette SL, Lupe KL, Matilda EM, Ovidio KG, AJ, Hugo ES. The clinician's guide to prevention and treatment of osteoporosis. Osteoporos Int. 2021;33(10):2348-7671. doi: 10.1007/z42761-538-86175-d. Epub 2021Dec 12. Erratum in: Osteoporos Int. 2021Mar 13;: PMID: [id number]; PMCID: [id number]. Electronically authenticated by: RYAN HAMILTON Date: 06/30/2024 04:52
--- OUTSIDE RECORDS SUMMARY | 2024-06-29 10:31 | XMS_ITS | CCD ---
Author Organization [facility] Care Team Providers Care Manager Education Name Role Phone RAGHAV DASILVA Referring Unavailab PATRICK Maradiaga Primary Care Unavailable RAGHAV DASILVA Referring Unavailab PATRICK Maradiaga Primary Care Unavailable Patrick Swenson Primary Care Physician MARINA, DR NGUYEN Admitting Unavailable HOY, DR [...] Consulting Unavailable LUDWIGY, DR NGUYEN Admitting Unavailable HOY, DR NGUYEN [...] Morrow Attending Unavailable ANTONELLA DOMINGUEZ Attending Unavailab LEONARDO Meza Referring Unavailable LEONARDO WHITAKER Attending Unavailable KRISTEN UMANA Attending Unavailable MICK LOPES Referring Unavailable LEONARDO WHITAKER Attending Unavailable URMILA GTZ Attending Unavailable ANTONELLA DOMINGUEZ Attending Unavailab ANTONELLA Cam Attending Unavailab LEONARDO Meza Attending Unavailable LEONARDO WHITAKER Attending Unavailable LEONARDO WHITAKER Attending Unavailable LEONARDO WHITAKER Referring Unavailable Allergies Allergy Classification Reported Allergen(s) Allergy Type Date of Onset Reaction(s) Facility (9 sources) Penicillins; Translations: [penicillins] Drug allergy 2 Unknown (qualifier value), Other, Rash [facility] (2 sources) Sulfonamides (Antibiotic); Translations: [sulfa drugs] Drug allergy Unknown (qualifier value) [facility] (1 source) Amoxicillin Drug Allergy 4 [facility] (1 source) Sulfonamides (Antibiotic) Drug allergy (disorder) 4 [facility] (7 sources) Amoxicillin Drug Allergy 2 Rash [facility] (7 sources) Sulfacetamide Drug Allergy 2 Rash [facility] (7 sources) Sulfonamides (Antibiotic) Drug Allergy 2 Unknown, Rash [facility] Work Phone: (7 sources) Other Allergy to substance 3 Unknown [...] ascorbic acid 500 mg chewabl e tablet (7 sources) Vitamin C ascorbic acid (V itamin C) 500 MG chewable tablet 1 (one) time each day at the same time. Active B Complex Vitamins (vitamin B complex) tablet (7 sources) B Complex Vitami ns (vitamin B [...] bedtime. 30 tablet 3 03/23/2023 09/29/2023 Discontinued dexamethasone 2 mg oral tablet (17 sources) Corticosteroid Start: 05-31-2024 End: 05-31-2024 dexAMETHasone sod phos (Decadron) injection 4 mg Start: 05-31-2024 End: 05-31-2024 4 mg (1 mL), Injection, Once , On Thu05/31/24 at 0845, For 1 dose Start: 01-14-2024 End: 06-23-2024 dexAMETHasone (Decadron) 2 M G tablet Indications: Lumbar radiculopathy , Trochanteric bursitis of right hip 2mg 3 pills po X3 days,2 pills po daily X3 days , then 1 pill po daily X3 days then stop 9 days 18 pills 18 tablet 2 06/13/2024 Active Start: 09-07-2023 End: 10-09-2023 dexAMETHasone (Decadron) 2 M G tablet Indications: Lumbar radiculopathy , Trochanteric bursitis of right hip 2mg 3 pills po X3 days,2 pills po daily X3 days , then 1 pill po daily X3 days then stop 9 days 18 pills 18 tablet 1 09/29/2023 10/09/2023 Active ibuprofen 800 mg oral tablet (2 sources) [...] 07/20/2024 Active Multiple Vitamin (Multi Vitamin) tablet (7 sources) Multiple Vitamin (Multi Vitamin) tablet 1 (one) time each day at the same time. Active Multiple Vitamin (Multi Vitamin) tablet 1 (one) time each day at the same time. 0 Active nabumetone 500 mg oral tablet (5 sources) Nonsteroidal Anti-inflammatory Drug Start: 04-13-2024 End: [...] pain, # 12 tab(s), Refills(s) 0, Pharmacy: [facility]/pharmacy #[id number], 157.5, cm, 01/26/21 17:27:00 EDT, Height/Length Dosing, [...] On Thu05/31/24 at 0845, For 1 dose Problems Active Problems Problem Classification Problem Date Documented Date Episodic/Chronic Asthma (4 sources) Unspecified asthma, uncomplicated; Translations: [UNSPECIFIED ASTHMA UNCOMPLICATED] Onset: 06-16-2022 Chronic Cataract (6 sources) Bilateral age-related nuclear cataracts; Translations: [Age-related nuclear cataract, bilateral] Onset: 11-19-2023 11-19-2023 Chronic Chronic obstructive pulmonary disease and bronchiectasis (7 sources) Chronic obstructive lung disease; Translations: [Other specified chronic obstructive pulmonary disease] Onset: 09-07-2023 09-07-2023 Chronic Chronic obstructive pulmonary disease and bronchiectasis (2 sources) Bronchitis 12-11-2015 Episodic Disorders of lipid metabolism (9 sources) Hyperlipidemia, unspecified; Translations: [Hyperlipidemia] Onset: 07-08-2021 Chronic Headache; including migraine (1 source) Headache; including migraine; Translations: [HEADACHE UNSPECIFIED] Onset: 09-09-2021 Osteoarthritis (7 sources) Osteoarthritis of knee; Translations: [Osteoarthritis of knee, unspecified] Onset: 05-09-2021 03-17-2023 Chronic Other connective tissue disease (1 source) Other symptoms and signs involving the musculoskeletal system; Translations: [Other symptoms and signs involving the musculoskeletal system] Onset: 08-01-2022 Episodic Other lower respiratory disease (2 sources) H/O: pneumonia 12-11-2015 Episodic Other nervous system disorders (5 sources) Polyneuropathy; Translations: [Polyneuropathy, unspecified] Onset: 10-26-2023 10-26-2023 Chronic Other non-traumatic joint disorders (3 sources) Pain in left shoulder; Translations: [Pain in left shoulder] Onset: 10-27-2018 Episodic Spondylosis; intervertebral disc disorders; other back problems (16 sources) Degeneration of lumbar intervertebral disc; Translations: [Other intervertebral disc degeneration, lumbar region] Onset: 03-17-2023 09-29-2023 Chronic Substance-related disorders (14 sources) Smoker; Translations: [Nicotine dependence, cigarettes, uncomplicated] [...] Onset: 11-05-2021 Episodic Other connective tissue disease (15 sources) Trochanteric bursitis of left hip; Translations: [Trochanteric bursitis, left hip] Onset: 09-29-2023 09-29-2023 Episodic Other connective tissue disease (15 sources) Trochanteric bursitis of right hip; Translations: [Trochanteric bursitis, right hip] Onset: 01-16-2023 09-29-2023 Episodic Other connective tissue disease (7 sources) Spasm of cervical paraspinous muscle; Translations: [Other muscle spasm] Onset: 06-25-2023 06-25-2023 Episodic Other injuries and conditions due to external causes (3 sources) Unspecified injury of right foot, initial encounter; Translations: [UNSPECIFIED INJURY RT FOOT INITIAL] Onset: 10-28-2021 Episodic Other upper respiratory infections (1 source) Acute sinusitis, unspecified; Translations: [ACUTE SINUSITIS UNSPECIFIED] Onset: 08-13-2021 Episodic Spondylosis; intervertebral disc disorders; other back problems (19 sources) Sciatica; Translations: [Sciatica, left side] Onset: [...] Electronically Signed Rod Vigil M.D. 2024-05-30 10:22:54 [facility] Radiology Study observation (narrative) [facility] XR Lumbar spine 4 ViewsOrder ed By: Rod Vigil on 05-30-2024 [facility] Work Phone: XR CERVICAL SPINE COMPLETE 4 [...] mri xrayon 08-01 XR pre/post mri xray [facility] Main [place] [address] [place] [address] MRI Report Signed Patient: Mitesh Patel MR#: [id number] : 1965 Acct:[id number] Age/Sex: 57 / F ADM Date: 08/01/22 Loc: MR Room: Type: [facility] Attending Dr: Josemanuel Mehta DO Copies to: Jean-Pierre Mehta DO Ordering Provider: Jean-Pierre Mehta DO Date of Service: 08/01/22 MR/MR lumbar spine wo con: R29.898, R20.2 ([id number]) XR/XR pre/post mri xray: R20.2, R29.898 MR [...] the apex at L2. Impression dictated by: Draian Pasrtana M.D.08/01/2022 5:19 PM Dictation Location: [place] [address] Transcribed By: [facility] 08/01/221718 Dictated By: Darian Pastrana II, MD 08/01/22 [id number] Signed By: 08/01/2217[address] [facility] [address] LUNG CANCER SCREENINGon 1 1-09-2022 CT LUNG CANCER SCREENING EXAMINATION: CT LUNG [...] RYAN HAMILTON Date: 2022-06-25 07:59 Normal [facility]on 05-19 SARS-CoV-2 (COVID-19) RNA HARISH+probe Ql (Unsp spec) Not detected Normal NOT DETECTED [facility] Comment on above: Result Comment: This test is not yet approved or cleared by the [place] FDA. When there are no FDA-approved or cleared tests available, and other criteria are met, FDA can make tests available under an emergency access mechanism called an Emergency Use Authorization (EUA). The EUA for this test is supported by the Paradichlorobenzene Tender of Health and Human Service's (HHS's) declaration [...] with SARS-CoV-2. Performed By: #### C VDTBH ####[facility] [address] [place] [address]Dr. Royce Lopez INSULINon 06-10-2022 Insulin 5.2 uIU/mL Normal 2.6-24.9 [facility] Comment on above: Performed By: #### I NSULIN #### [facility] [address] [place] [address] [address] Royce Lopez CBC AUTO DIFFon 06-09-2022 BASO # 0.1 103/ul Normal 0.0-0.1 [facility] Comment on above: Performed By: #### C BC ####[facility] [address] [place], [place] [address]Dr. Royce Lopez Basophils/100 WBC (Bld) 0.4 % Normal 0.2-2.0 [facility] Comment on above: Performed By: #### C BC ####[facility] [address] [place], [place] [address]Dr. Royce Lopez EO # 0.2 103/ul Normal 0.0-0.7 [facility] Comment on above: Performed By: #### C BC ####[facility] [address] [place] [address]Dr. Royce Lopez Eosinophils/100 WBC (Bld) 1.3 % Normal 0.9-7.0 [facility] Comment on above: Performed By: #### C BC ####[facility] [address] [place], [place] [address]Dr. Royce Lopez Erythrocyte distribution width (RBC) [Ratio] 13.2 % Normal 11.0-15.0 [facility] Comment on above: Performed By: #### C BC ####[facility] [address] [place], [place] [address]Dr. Royce Lopez Hematocrit (Bld) [Volume fraction] 43.0 % Normal 36.0-48.0 [facility] Comment on above: Performed By: #### C BC ####[facility] [address] [place] [id number]. Royce Lopez Hemoglobin (Bld) [Mass/Vol] 13.8 g/dL Normal 12.0-16.0 [facility] Comment on above: Performed By: #### C BC ####[facility] [address] [place] [id number]. Royce Lopez IG # 0.07 10e3/ul Critically high 0.00-0.03 [facility] Comment on above: Performed By: #### C BC ####[facility] [address] [place] [address]Dr. Royce Lopez IG % 0.4 % Normal 0.0-0.5 [facility] Comment on above: Performed By: #### C BC ####[facility] [address] [place] [address]Dr. Royce Lopez LYMPH # 2.2 103/ul Normal 1.2-3.8 [facility] Comment on above: Performed By: #### C BC ####[facility] [address] [place] [address]Dr. Royce Lopez Lymphocytes/100 WBC (Bld) 12.0 % Critically low 20.5-60.0 [facility] Comment on above: Performed By: #### C BC ####[facility] [address] [place] [address]Dr. Royce Lopez MANUAL DIFF REQ NO Normal [facility] Comment on above: Performed By: #### C BC ####[facility] [address] [place] [id number]. Royce Lopez MCH (RBC) [Entitic mass] 31.1 pg Normal 26.7-34.0 [facility] Comment on above: Performed By: #### C BC ####[facility] [address] [place], [place] [address]Dr. Royce Lopez MCHC (RBC) [Mass/Vol] 32.1 g/dL Normal 29.9-35.2 [facility] Comment on above: Performed By: #### C BC ####[facility] [address] [place] [id number]. Royce Lopez MCV (RBC) [Entitic vol] 96.8 fL Normal 81.0-99.0 [facility] Comment on above: Performed By: #### C BC ####[facility] [address] [place] [id number]. Royce Lopez MONO # 1.6 103/ul Critically high 0.3-0.8 [facility] Comment on above: Performed By: #### C BC ####[facility] [address] [place] [id number]. Royce Lopez Monocytes/100 WBC (Bld) 8.8 % Normal 1.7-12.0 [facility] Comment on above: Performed By: #### C BC ####[facility] [address] [place], [place] [address]Dr. Royce Lopez NEUT # 14.1 103/ul Critically high 1.4-6.5 [facility] Comment on above: Performed By: #### C BC ####[facility] [address] [place], [place] [id number]. Royce Lopez Neutrophils/100 WBC (Bld) 77.1 % Critically high 43.0-75.0 [facility] Comment on above: Performed By: #### C BC ####[facility] [address] [place], [place] [address]Dr. Royce Lopez Platelet mean volume (Bld) [Entitic vol] 10.2 fL Normal 9.5-13.5 [facility] Comment on above: Performed By: #### C BC ####[facility] [address] [place] [id number]. Royce Lopez PLT 295 103/ul Normal 150-450 [facility] Comment on above: Performed By: #### C BC ####[facility] [address] [place], [place] [address]Dr. Mireyakody John RBC 4.44 106/ul Normal 4.20-5.40 [facility] Comment on above: Performed By: #### C BC ####[facility] [address] [place], [place] [address]Qu. Royce Lopez WBC 18.3 103/ul Critically high 4.0-11.0 [facility] Comment on above: Performed By: #### C BC ####[facility] [address] [place], [place] [address]Ko. Royce Lopez FREE THYROXINE INDEX T7on FTI 2.56 Normal 1.30-4.50 [facility] Comment on above: Performed By: #### T SH, T7, CMP, LIPID ####[facility] [address] [place] [id number]. Royce Lopez T3U 35.0 % Normal 30.0-39.0 [facility] Comment on above: Performed By: #### T SH, T7, CMP, LIPID ####[facility] [address] [place] [id number] Lopez T4 [Mass/Vol] 7.30 ug/dL Normal 4.80-13.90 [facility] Comment on above: Performed By: #### T SH, T7, CMP, LIPID ####[facility] [address] [place] [id number]. Royce Lopez GLYCOHEMOGLOBIN A1Con 2021 ADA RECOMMENDATION SEE BELOW Normal [facility] Comment on above: Result Comment: ADA RECOMMENDED LIMIT 4.0 - 6.0 ADA THERAPEUTIC TARGET < 7.0 ACTION SUGGESTED > 7.0 Performed By: #### A 1C #### [facility] [address] [place] [address] [address] Royce Lopez Glucose [Mass/Vol] 117 mg/dL Normal [facility] Comment on above: Performed By: #### A 1C #### [facility] [address] [place] [address] [address] Royce Lopez HbA1c (Bld) [Mass fraction] 5.7 % Normal 4.5-6.2 [facility] Comment on above: Performed By: #### A 1C #### [facility] [address] [place] [address] [address] Royce Tomas 06-09-2022 Iron [Mass/Vol] 91.0 ug/dL Normal 50.0-170.0 [facility] Comment on above: Performed By: #### I AZEB #### [facility] [address] [place], [place] [address] Dr. Royce Lopez LIPID PROFILEon 06-09-2022 CHOL-HDL RATIO NORM SEE BELOW Normal [facility] Comment on above: Result Comment: 3.3 - 4.4 LOW RISK 4.4 - 7.1 AVERAGE RISK 7.1 - 11.0 MODERATE RISK >11.0 HIGH RISK Performed By: #### T SH, T7, CMP, LIPID ####[facility] [address] [place] [address]Dr. Royce Lopez Cholesterol [Mass/Vol] 223 mg/dL Critically high <=200 [facility] Comment on above: Performed By: #### T SH, T7, CMP, LIPID ####[facility] [address] [place] [id number]. Royce Lopez Cholesterol in HDL [Mass/Vol] 63 mg/dL Critically high 40-60 [facility] Comment on above: Performed By: #### T SH, T7, CMP, LIPID ####[facility] [address] [place] [id number]. Royce Lopez Cholesterol in LDL [Mass/Vol] 145.2 mg/dL Normal [facility] Comment on above: Performed By: #### T SH, T7, CMP, LIPID ####[facility] [address] [place] [id number]. Royce Lopez Cholesterol.total/Ch olesterol in HDL [Mass ratio] 3.5 {ratio} Normal [facility] Comment on above: Performed By: #### T SH, T7, CMP, LIPID ####[facility] [address] [place] [id number]. Royce Lopez HDL NORMAL > or = 60 mg/dl - LO W CARDIOVASCULAR RISK <40 mg/dl - HIGH CARDIOVASCULAR RISK Normal [facility] Comment on above: Performed By: #### T SH, T7, CMP, LIPID ####[facility] [address] [place] [id number]. Royce Lopez LDL CALC NORMAL SEE BELOW Normal [facility] Comment on above: Result Comment: <100 mg/dl OPTIMAL 100 - 129 mg/dl NEAR OR ABOVE OPTIMAL 130 - 159 mg/dl BORDERLINE HIGH 160 - 189 mg/dl HIGH >190 mg/dl VERY HIGH Performed By: #### T SH, T7, CMP, LIPID ####[facility] [address] [place] [id number] Lopez Triglyceride [Mass/Vol] 74 mg/dL Normal <=150 [facility] Comment on above: Performed By: #### T SH, T7, CMP, LIPID ####[facility] [address] [place] [id number] Lopze VLDL CALC 14.8 mg/dL Normal [facility] Comment on above: Performed By: #### T SH, T7, CMP, LIPID ####[facility] [address] [place] [id number]. Royce Lopez PROF 14(COMP METB)on 022 Albumin [Mass/Vol] 3.8 g/dL Normal 3.4-5.0 [facility] Comment on above: Performed By: #### T SH, T7, CMP, LIPID #### [facility] [address] [place] [address] [address] Royce Lopez Albumin/Globulin [Mass ratio] 1.0 {ratio} Normal [facility] Comment on above: Performed By: #### T SH, T7, CMP, LIPID #### [facility] [address] [place] [address] [address] Royce Lopez ALP [Catalytic activity/Vol] 98 U/L Normal 46-116 [facility] Comment on above: Performed By: #### T SH, T7, CMP, LIPID #### [facility] [address] [place] [address] [address] Royce Lopez ALT [Catalytic activity/Vol] 16 U/L Normal 14-59 [facility] Comment on above: Performed By: #### T SH, T7, CMP, LIPID #### [facility] [address] [place] [address] [address] Royce Lopez Anion gap [Moles/Vol] 10.9 mmol/L Normal [facility] Comment on above: Performed By: #### T SH, T7, CMP, LIPID #### [facility] [address] [place] [address] [address] Royce Lopez AST [Catalytic activity/Vol] 15 U/L Normal 15-37 [facility] Comment on above: Performed By: #### T SH, T7, CMP, LIPID #### [facility] [address] [place] [address] [address] Royce Lopez Bilirubin [Mass/Vol] 0.4 mg/dL Normal 0.2-1.0 [facility] Comment on above: Performed By: #### T SH, T7, CMP, LIPID #### [facility] [address] [place] [address] [address] Royce Lopez Calcium [Mass/Vol] 9.1 mg/dL Normal 8.5-10.1 [facility] Comment on above: Performed By: #### T SH, T7, CMP, LIPID #### [facility] [address] [place] [address] [address] Royce Lopez Chloride [Moles/Vol] 103 mmol/L Normal 98-107 [facility] Comment on above: Performed By: #### T SH, T7, CMP, LIPID #### [facility] [address] [place] [address] [address] Royce Lopez CO2 [Moles/Vol] 28.3 mmol/L Normal 21.0-32.0 [facility] Comment on above: Performed By: #### T SH, T7, CMP, LIPID #### [facility] [address] [place] [address] [address] Royce Lopez Creatinine [Mass/Vol] 0.62 mg/dL Normal 0.55-1.02 [facility] Comment on above: Performed By: #### T SH, T7, CMP, LIPID #### [facility] [address] [place] [address] [address] Royce Lopez EGFR-AF GIBRALTARIAN >60 Normal >=60 [facility] Comment on above: Performed By: #### T SH, T7, CMP, LIPID #### [facility] [address] [place] [address] [address] Royce Lopez EGFR-NON AF GIBRALTARIAN >60 Normal >=60 [facility] Comment on above: Performed By: #### T SH, T7, CMP, LIPID #### [facility] [address] [place] [address] [address] Royce Lopez Globulin (S) [Mass/Vol] 3.9 g/dL Normal [facility] Comment on above: Performed By: #### T SH, T7, CMP, LIPID #### [facility] [address] [place] [address] [address] Royce Lopez Glucose [Mass/Vol] 97 mg/dL Normal 74-106 [facility] Comment on above: Performed By: #### T SH, T7, CMP, LIPID #### [facility] [address] [place] [address] Dr. Royce Lopez Potassium [Moles/Vol] 4.2 mmol/L Normal 3.5-5.1 [facility] Comment on above: Performed By: #### T SH, T7, CMP, LIPID #### [facility] [address] [place] [address] Dr. Royce Lopez Protein [Mass/Vol] 7.7 g/dL Normal 6.4-8.2 [facility] Comment on above: Performed By: #### T SH, T7, CMP, LIPID #### [facility] [address] [place] [address] [address] Royce Lopez Sodium [Moles/Vol] 138 mmol/L Normal 136-145 [facility] Comment on above: Performed By: #### T SH, T7, CMP, LIPID #### [facility] [address] [place] [address] Dr. Royce Lopez Urea nitrogen [Mass/Vol] 7.0 mg/dL Normal 7.0-18.0 [facility] Comment on above: Performed By: #### T SH, T7, CMP, LIPID #### [facility] [address] [place], [place] [address] Dr. Royce Lopez Urea nitrogen/Creatinine [Mass ratio] 11.3 mg/mg Normal [facility] Comment on above: Performed By: #### T SH, T7, CMP, LIPID #### [facility] [address] [place], [place] [address] Dr. Royce Lopez TSHon 06-09-2022 TSH 0.370 uIU/mL Normal 0.358-3.740 [facility] Comment on above: Performed By: #### T SH, T7, CMP, LIPID ####[facility] [address] [place], [place] [address]Dr. Royce Lopez Coding Summary.on 12-23-2021 Coding Summary. CD:[id number] Gh 0bWw+PGhlYWQ+DJ1XQZHdE 38ekQWzuR7RI3pVKU7CAZV WYVQFRT2DGG2doYN8LVnuK 2VybiAv FvaumWGbUB32POp8ZZL2bU oeSIlwzT6zhWXqI5w3DaXu FA82dR80WGbjINEnIgX7Pi ZpbjsgbWFy W5kmXyVmfTHmDat+PHRhYm xlIHdpZHRoPScxMDAlJyBz eLhbWH5xJh7oOYHeCLNewM xhcHNlOiBj z8ypJPHwXVcdWY9qbZkgN0 QwhLQ3GNEna3w3Eq42hQU+ MKXmGAK4zLzmLLote672Jo Fqq0czNTP6 eXMpWVvpSYC2L99so9F8PG NdZAZxKDB1iYY4zA2gnDda xfwbK7YqrAWcFoK8DEN7tP RzkG5bhVpt gxjvpN6jCpc+E56MZQ4ECL JJFE1COye3P3EaPpzcsTN+ FE04OYBzBS81rMGyaMDto8 hjoUx2OcVj CFWsSZW3oDfqCPsvt6CrUW ZqU50yvDNga7Y6GPWwjTpi yXTdOtIwrBI8fS7hAFlrup qax1mrnucl Rqdhp1wnns53eJ04Z38fUU ymULKsLRE1KDDjGJPdbZez lr0dvE6fFj3+ADrcr9hor6 zgmIy9HtZu RJNbdeVcnScxPJG5u8SsUa 16I3GeqVvbq3DiFvx6zl94 sXPvf2H8iRH5TBqiFBFylG 4rBXipEtU5 RORuIeMznN97aYPgRRjmPq 8yqYcooAwnRJ4dHBWqzwut YPYbfX9pZAUaqJOtkGdcGV 4wNTBpbjtm x001XoJdZWE6RNGrwRXkM6 HnuY7zNbHuSHVxNOVhP0Gl iRMaEFflF190VEthXoH5DW AmrcWgH2Rm LZTafVfvJmY4j1A9Mk9Dp0 RymeouPUI7VNveRDL0ZxX3 GeYiZwX8C0LhIzh9HXVnlI mpYQ9wZ6Ia DZZgloxdxxmbgQW6WNJnZY GolE93wHYxDRriZx0jh5L8 k361UMYwSCBfhO83Rj4krK ogMTBwdCBU bX7tfrwbt4zpexesSgXgYB EqSDa7SLc8ZKJfuHrtChUo NAC1HwX5XXR3vEAchZ6ivY vfuapmlF9n Oyc+Y36lfC9zSCA9TSI9ka mlPOHicdCuCG01VD83E5Fw PjwvdGFibGU+PGRpdiBzdH kuZY8mDcEl b5uqz1HoZQvkT9HhATEbYL dcJev0PIPkNBY5zEJ3wU0t YVCtOMjmi3X3qFU0C1Kipz Zpnr8ky6kw HXFfSAheC83rcLKqi6A6NO VlhYM2CQMvjNayScWyjG67 Oyc+BVEgyPckv6LxNhkru3 cit4ujeQu3 JrMaTXWviyHfaDpdLLQ0i6 HwMr47B69dWSjhDZGmCTGz QEJaUFOflOknnn5azW8jTj 8+PGNvbCB3 pNA8qE9eDWSjLbU8TZpuN5 45BaZqkBKuHxbvk6yhp2im mQs4JbTvEVSiclIvwKrpIN O5o4TiNy23 S17jUEpmDHPzEVRxIRSaRI PpqOybht9kcL3hOf8+PC9j q4lhys57rQ92vRB+PHRkIH V8uOooKNjl RCIueE2ySWxfQvM4QIEzHm PvpC94yDNwDMugCn9zyVla sChsSY0jNQRblvzvi020Rx Stv5ffDCXg hKKtTFktYHP5C18if2L3OT AvNILzYTZ0xFI7pS7cjYwd bjogbGVmdDsgdmVydGljYW ulUHmoJ138 IHRvcDsnPlBhdGllbnQgTm ReYAo9D2OjQtz1ISManDnc BD2baMYzAMcuDi1atDotpH zbTS3qFIVs glvbp515YlExk6eyLIJixU GvEBihMYV3C69km0E4QCUj GNPgKUA9lSW1pM2jvYgxih ogbGVmdDsg mnAinEjjOIwbKCknW119MZ RvcDsnPkJpcnRoIERhdGU6 QD09XC36zLEcd4J2hWA2B0 BhZGRpbmct xgaouRO6SSJgQJHioN94Kz 1oxVcbIu4wYPWwXCS7BODh bFRxW3MjfD6zXxKyCTZeGW JhB2XjhJNp MQynO468SUuaXmT8DUJmyy PuP6JhUMGwbDodWfB2d3R2 Ai0VL2T2ML29JW70eLBkd6 T8gFN3J0Pu JYSyiuajpnpjfZZ9JFVeLO KjvF30Ve5qkZbwUp9gNPTp LPA9PQKqnRLjU9BzdT5zPp AjMDAwMDAw Y5DhqPRnDAjbN842ZXtrRk C7RWEiaoNgJ1QqYPGzyUqk DcV6m7M2Xk0CTQc4AN79QO 82mLYzx2C5 aHT4N1SgVHCnpnsmrrttpW O8TUExWRMolT27Jh8xbKlf Ms9nWZGvZAO1BUFadAIeF7 SqxU4gGkOb PZQnCEQcZ3DloHThZEwzL1 57GNybKrH7EGZmnrWaK3Yd KQAbgTekJlR0i6Y9Ak6MUR FlKV69GSX9 vDO7PG22VS74O2QcNyfudY FibGU+PHRhYmxlIHdpZHRo UGriBGUpTzLeyKniLY5iTi 9yZGVyLWNv jTgkaJLyXiNke8bcGASlCB nuFG8jrDxrA8ZyvJX5BGMr u9r8Wf94O55xY8KtvAC+PG QalMD1eKG0 yM4zYcYbYaO0SMpbW241Yg CpnGYyIlmqj9hwd9rvzRo1 WzY4MFXcowOimUtdSCS0j4 KtZc59G68l IHdpZHRoPSIxNSUiIHZhbG bken7dsK0oNg2+PGNvbCB3 jAN9mR6pYfEgWrP2BJalM0 49InRvcCIv Niydj8qfk1bqzYa2ScJgXI SmisLylZpzXIH9r5XtLi95 H8VzvUkhf7DiHgb3ev72mL Ijh7O3vSN7 N3AbSWZinbjlgHHooEloGI 5nZNZgcpnaSCOtgR1xAMEs Z7x9CbUcLvV0TVfqI9Rcwb W6EDAdxOQw FNhyMJL3G88am9S9KFCjXW QrISY1tFZ7xQ0iyOvyzyjs bGVmdDsgdmVydGljYWwtYW taB269COUo tMylSLFkvB8pMUEzxGNhkV xcVA4yBWYqubzhKiKSXYYS TiwgSlVMSUUgQTwvdGQ+PH RxJCN1fOxw BWlqMSYgyY4tSUBsJ9j8Fe WyWqR0YIofR1WlJDBcmleg Ej36iM0eMuDvIgB4MAhiY8 TbqjC0SNOg qXApKWcfJXQ9C57xp1Q5YL AlECIeLWN8jQC7vN6duPdc bjogbGVmdDsgdmVydGljYW rjOGtlJ683 BMOaoXczMzGvYkP8FnG4Nw d1D8AuHhj6VWTvsVduKO2p cXXwWDtlJz3fmUfdfXwhGT 4wNTBpbjtw ZPYbfH5mXXCusFFomFhpVF 5tVJLxaoslq641ChZnEGX5 IZGtdIBuF0EpvG3rOiKkUT AbPITxP3Vp cFYqXKgbP068XPytHeN4NR AcloArU7PeHJDbaCdpSuZ5 q5U8Me30ZRATBRXzsygjvO Q+PHRkIHN0 uEoeMOgvUKQduY8sNNTwE0 m3CfUiIeP9PGgsU7CjPOHm dipfRh06nU1zPbGeRyM5RS mbU1KxucK5 SEBumOAzERjrGTJ9P21kb6 E5UPQuZHBkBNV8iLZ7dQ0y bGlnbjogbGVmdDsgdmVydG ljYWwtYWxp N836GRVloLpsOcFuzQFvZN wvdGQ+DKQsSDY6jMbeBRqp YOHkyV9oNUVmF6h9EbMkMe D9OUxwG8Gw CGJgxcndQb79jQ8kApFzTt X6XNapT6TkveJ8YMNvqFTj HZhtDLF1V33ir3M9FOAkLU JoSMU1uCL1 fP7tySihagejlMSrlUarwc DecSoeLAeaPEtuK729YNKz eOekDj35rWFhiJslbjQ5Z8 RkPjwvdHI+ MF51XSCtQD74sMAhgOEpk4 jyoTs2LyLeSZKaTAT7mIuy VCgyd0YfFPSrY02hhSFcp6 L7RTLsxIwl zUTyYfVevSW7wG9eNEkzip fwu8maczgeNeupf0jmji46 pB22D54sHVctSKSsUZQhQE UiIHZhbGln il3dvD4cFa2+DXCnpTW9eO V6nT1qBmXgZaO5PInzU161 CrPkoSWnTyfvg1zot9czqJ k3RzCvMQZh isFxsUqvMVL6j8KnBm44D6 9sIHdpZHRoPSIyMCUiIHZh uVqgte4fkT9aZl5+PC9jb2 tqio17nB19 dHI+OTYmNOI1qQtvRBzfNL JkfM7uQTwgNmD9QSRyMnYb bA19zTRzCIcsXp4bgBogcD lfYD6sNMKf ugons801GwRxp2zfFIMkhZ ViOMvnSMD7E80ek1L7KKVn XFXhRJM0nML7lY6rnRwhrx ogbGVmdDsg neKveSvsREnlBGzjC899WV WloVqtXzGxmPUqV6oxjfTQ PL9lPqlisMV+HZTdPXO4wV xlPSdwYWRk dU9lBVKtX7t6CeQyHwV7VE yqE2YyygZ1FRJdcVYvIHTt eWMLuK1jtrbad0cqxdczKn AwMDAwMDt0 UUy5CBNqbSwbKfIlMYW6Lo Y1RLR6rIOxhC6xtUiprcde cY6nEqd+RklOOjwvdGQ+PH DvIRR5lYuu MPznECLvfK3iHAJxJ4w7Nl LiXpV8QMxmA9YgluE7PTWx vTQbDNZssVXIsT0grbipk0 xvcjogIzAw ZWLmNSi8PGp7OMBqcFymGp NbNJE2IqK8FQF8aFNznN6q oMmevacrcK2cRqh+TVJOOj wvdGQ+PHRk COK4xNlxJEltHPBidT0rFZ EdB7a0XoNyBdQ1LSpgV3Gl neQ0ZIHcnWNbAWPrvMRCvS 1tvdbvn9se mhzzFeJzLMLwPUv4IQh7TX TtjIosRkClTBF0KxD0QQO4 sTUgyZ6fyEfplkzweS8gZh c+CJL7VQN4 HD63YP25H2PxMundnSNqpL U+PHRhYmxlIHdpZHRoPScx HJGvTtTbxIlpHH1uTv5aSR VyLWNvbGxh cHNl (more content not included)... Normal [facility] [place] Mamm Screen w/CAD if perf and [...] very important to your health. The current [employer] and National Comprehensive Cancer [...] Category 1-Negative Recommendation: Normal interval follow-up Normal [facility] Consent for Treatmenton Consent for Treatment [id number]#1.0 0CD:[id number] Normal [facility] Covid-19 PCR (CVDTBH)on 08-18 SARS-CoV-2 (COVID-19) RNA HARISH+probe Ql (Unsp spec) Not detected Normal NOT DETECTED [facility] Comment on above: Result Comment: This test is not yet approved or cleared by the [place] FDA. When there are no FDA-approved or cleared tests available, and other criteria are met, FDA can make tests available under an emergency access mechanism called an Emergency Use Authorization (EUA). The EUA for this test is supported by the [place] of Health and Human Service's (HHS's) declaration [...] SARS-CoV-2. Performed By: #### C VDTB #### [facility] [address] [place] [address] Dr. Royce Lopez Covid-19 PCR (CVDTBH)on 07-18 SARS-CoV-2 (COVID-19) RNA HARISH+probe Ql (Unsp spec) Not detected Normal NOT DETECTED [facility] Comment on above: Result Comment: This test is not yet approved or cleared by the [place] FDA. When there are no FDA-approved or cleared tests available, and other criteria are met, FDA can make tests available under an emergency access mechanism called an Emergency Use Authorization (EUA). The EUA for this test is supported by the [employer] of Health and Human Service's (HHS's) declaration [...] SARS-CoV-2. Performed By: #### C VDTB #### [facility] [address] [address] [address] Royce Lopez INFLUENZA A AND B [facility] 08-07 [facility] SEE BELOW Normal [facility] Comment on above: Result Comment: Nega tive for Flu A protein angiten. Infection due to Flu A cannot be ruled out. Flu A angiten in the sample may be below the detection limit of the test. Performed By: #### I NFLUAB ####[facility] [address] [place], [place] [address]Dr. Royce Lopez INFLUBNEGH SEE BELOW Normal [facility] Comment on above: Result Comment: Nega tive for Flu B protein antigen. Infection due to Flu B cannot be ruled out. Flu B antigen in the sample may be below the detection limit of the test. Performed By: #### I NFLUAB ####[facility] [address] [address]Dr. Royce Lopez INFLUENZA A AG Negative Normal NEGATIVE SEE COMMENT [facility] Comment on above: Performed By: #### I NFLUAB ####[facility] [address] [place], [place] [id number]. Royce Lopez INFLUENZA B AG Negative Normal NEGATIVE SEE COMMENT [facility] Comment on above: Performed By: #### I NFLUAB ####[facility] [address] [place], [place] [address]GvDr. Royce Lopez INTERNAL CONTROLS Within Normal Limits Normal Wi thin Normal Limits [facility] Comment on above: Performed By: #### I NFLUAB ####[facility] [address] [place], [place] [address]WmDr. Royce Lopez LIPID PROFILEon 07-08-2021 CHOL-HDL RATIO NORM SEE BELOW Normal [facility] Comment on above: Result Comment: 3.3 - 4.4 LOW RISK 4.4 - 7.1 AVERAGE RISK 7.1 - 11.0 MODERATE RISK >11.0 HIGH RISK Performed By: #### L IVER, LIPID #### [facility] [id number] Royce Lopez Cholesterol [Mass/Vol] 195 mg/dL Normal <=200 [facility] Comment on above: Performed By: #### L IVER, LIPID #### [facility] [address] [address] [address] Royce Lopez Cholesterol in HDL [Mass/Vol] 74 mg/dL Normal [facility] Comment on above: Performed By: #### L IVER, LIPID #### [facility] [address] [address] [address] Royce Lopez Cholesterol in LDL [Mass/Vol] 108.6 mg/dL Normal [facility] Comment on above: Performed By: #### L IVER, LIPID #### [facility] [address] [place], [place] [address] Dr. Royce Lopez Cholesterol.total/Ch olesterol in HDL [Mass ratio] 2.6 {ratio} Normal [facility] Comment on above: Performed By: #### L IVER, LIPID #### [facility] [address] [place], [place] [address] Dr. Royce Lopez HDL NORMAL > or = 60 mg/dl - LO W CARDIOVASCULAR RISK <40 mg/dl - HIGH CARDIOVASCULAR RISK Normal [facility] Comment on above: Performed By: #### L IVER, LIPID #### [facility] [id number] Royce Lopez LDL CALC NORMAL SEE BELOW Normal [facility] Comment on above: Result Comment: <100 mg/dl OPTIMAL 100 - 129 mg/dl NEAR OR ABOVE OPTIMAL 130 - 159 mg/dl BORDERLINE HIGH 160 - 189 mg/dl HIGH >190 mg/dl VERY HIGH Performed By: #### L IVAUGUSTINE, LIPID #### [facility] [address] [address] [address] Royce Lopez Triglyceride [Mass/Vol] 62 mg/dL Normal <=150 [facility] Comment on above: Performed By: #### L IVAUGUSTINE, LIPID #### [facility] [address] [address] [address] Royce Lopez VLDL CALC 12.4 mg/dL Normal [facility] Comment on above: Performed By: #### L IVAUGUSTINE, LIPID #### [facility] [address] [place] [address] Dr. Royce Lopez LIVER PROFILEon 07-08-2021 Albumin [Mass/Vol] 3.9 g/dL Normal 3.5-5.0 [facility] Comment on above: Performed By: #### L IVAUGUSTINE, LIPID #### [facility] [address] [address] [address] Royce Lopez Albumin/Globulin [Mass ratio] 1.1 {ratio} Normal [facility] Comment on above: Performed By: #### L IVAUGUSTINE, LIPID #### [facility] [address] [place] [address] Dr. Royce Lopez ALP [Catalytic activity/Vol] 67 U/L Normal 38-126 [facility] Comment on above: Performed By: #### L IVAUGUSTINE, LIPID #### [facility] [address] [address] [address] Royce Lopez ALT [Catalytic activity/Vol] 23 U/L Normal 9-52 [facility] Comment on above: Performed By: #### L IVAUGUSTINE, LIPID #### [facility] [address] [place] [address] Dr. Royce Lopez AST [Catalytic activity/Vol] 19 U/L Normal 14-36 [facility] Comment on above: Performed By: #### L IVAUGUSTINE, LIPID #### [facility] [address] [place], [place] [address] Dr. Royce Lopez BILI, CONJUGATED 0.1 mg/dL Normal 0.0-0.3 [facility] Comment on above: Performed By: #### L IVER, LIPID #### [facility] [address] [place], [place] [address] Dr. Royce Lopez Bilirubin [Mass/Vol] 0.3 mg/dL Normal 0.2-1.3 [facility] Comment on above: Performed By: #### L IVER, LIPID #### [facility] [address] [place], [place] [address] Dr. Royce Lopez Globulin (S) [Mass/Vol] 3.5 g/dL Normal [facility] Comment on above: Performed By: #### L IVER, LIPID #### [facility] [address] [place], [place] [address] Dr. Royce Lopez Protein [Mass/Vol] 7.4 g/dL Normal 6.1-8.2 [facility] Comment on above: Performed By: #### L HARSHIL, LIPID #### [facility] [address] [place], [place] [address] Dr. Royce Lopez Coding Summary.on 05-24-2021 Coding Summary. CD:[id number] Gh 0bWw+PGhlYWQ+QJ9HIKMjQ 32cjRNleJ7XP4qWSY8ODCQ HIYVRHO6LGL0fxSW4GLqpF 2VybiAv MxiewYQcBM68LDb8CMF8hS kzSDhtcT7neLMvX1l9KdBl XD87fA47GQacJFNxKyP0Dt ZpbjsgbWFy D2rlHdJybSWpWtk+PHRhYm xlIHdpZHRoPScxMDAlJyBz bYrdSX8cMk5bMVOgSUGuvM xhcHNlOiBj z9kmDHXdNDosVO3woRnuE1 ZspRI7YUMtp5n2Tr26oOK+ BLGcDWZ4uKeaJXobp836Hf Oeg6tnHOI7 lFLpOUviKSY0R77fs4U5IK TdWYJoQPY4zGO7hJ9jzDqo nilfD9KqxRRbGkA6SCN6fN KvnX0uwRuf yqnleQ4mWqj+C01HKT0JMV YTYJ8FKsf4J5UdYizxlUE+ GC32ZYOyHD02lCEylBYam9 haaXk8FqVn PONmDZR8aVuaILfdd0RdIU PzM14hzIErb3B5GXQuqQjy dXVuKsLvfUT6zH2nXLagll ktm6gogigl Wognt2ylft46aB71A45oFH zhHBFoEAC7CTPtTRIouPsu mi1ynO1hVt0+QLgvc0gsh6 bgbWn0XhLv ZQZaczZetKfjKWJ1e6OpUi 00Z9LobGygz7CsItz5ra14 uZFxk6I2dJJ8NUyeLCPnvF 5wGErmCuQ3 LMDhSmHljY82xZQgDMlqEu 6aoMslfWqyFE4oTGVpyveu HXEehB2vROHdtVKuwNbsWF 4wNTBpbjtm o145OiKtUQC8OKRpvTCgL3 KdpI3xPiWlJWRyPRZhK0Og cJJpEXjmI735GQxfUmI3CG AjfpTlN5Op IONsgCrkVbZ6v8P5Ax1Sz6 JsuwvdIUB0BHtwVFUwBgV7 CbBbNlV2A4VlBcn1SDSimB beQW8bU8Ia MAPzjuwugcbnjIH2PYPnFE IqcV52yVFiOHguMt6bj6N9 t377OTRhTDAiwP45My9taU ogMTBwdCBU kK9fjwoxr8srdfgsWhRtHM ZcDTj3GIq6NCDnsBkyWnZa KVW1QbL9MAL5sVIbqT9hhM vjdhxjnM8z Oyc+K58yzZ1qOII3UJH4zz uwUUUjbhBpJA09AB10L0Wh PjwvdGFibGU+PGRpdiBzdH khPC5xHfIt x3dlm6RhVLuuF0LlTSRiAH hfCmt1GHXzRSI8lQO9cB9j YGOnATerk5L1hQE7V9Aoqy Zgsm1ax6ra OUYkBYsqL05veSMxx8J5BC AfzQX7RLUjqWxxRtKjkE28 Oyc+JVUqvSatf2LeTcdyp2 wvg2sllJg2 ZjUcZOYlpiYemEbiCZE7a5 RyWe77E62bASkjMCFnKKYh NJSrCZZydBqapd2daM7xBt 8+PGNvbCB3 eEY5pD3yIOOwXyF9KRcfW1 90ZpUltHIkJdrii5iii9tr zKk8XkKkVVNcpjZjgEprUQ M9w8HxVk92 H68dBPvtPLJgALKaMDFlNQ NqaRjcvs6sdY4uQt7+PC9j f9pfkq62gC68xUH+PHRkIH K6sDppVVtk IGBtyD1iLEejUvA7UTIwSz FqoS27lSHqMDzuAn0brQhl kXuoMH9rQHIunhrng120Kx Htx8yzSVEj rIOfDPcoVHT1P45qb2G2OL HcFBMeYSR2zTG8fS3jxLeq bjogbGVmdDsgdmVydGljYW jtKFgvL797 IHRvcDsnPlBhdGllbnQgTm BoHFg8Y1RnOmg0WIWduCsf WF2dvUIpNVohUx8nvFhdnC ixSB8wMNCg mfrhd509TeUxx9gcCAZsxT GkCLdxTRS4V25wz0F1NYDk BCMbTTA4gVL8uJ8inDjnka ogbGVmdDsg puGgoKvaBXhfPTysQ149BS RvcDsnPkJpcnRoIERhdGU6 HB92OZ83gFTbd1K4oQB5Q9 BhZGRpbmct ittlaZG7FJCeZDVddD05Vu 8nuXpsSk9vBOYvDOO8XLSb iEIxV8RvsA9lLxVgMLNsVQ RhC5UwmPBl RGrjO406WLemWoD1EFSvlj PfG4KfOBAcxQquKwH4g6S7 Oo9HK5T8CW59OF17vALso4 E2qMM4T1Fs GAQbgribkbzjyOU9TXEiKW SeyD40Aq1hfAfiOe3vZTGh VIM7FURsnRKuI6JvhQ3mJw AjMDAwMDAw L9IqtASmHEngM206IRzlNc C9MGOsmpCtD1UpLBDvgQms AeH0x6E2Oi0AQYq0QC24JK 32lFKfr1I8 fQW2B5MtKUXtvlflzgipvM A4IJBwWEColZ39Xu4rePne Eq8bZEDmXCN7JYOecTRgK1 UncL4hVoHc AWGvUPDoU5YnnNRaIUjkS7 17WZexBgR1HPZeluKoE9Yi IGLgsAxaMtU6o2T6Ik2HGI QfDH28VXV5 pNM5PG07XU87L5MnAyxzfF FibGU+PHRhYmxlIHdpZHRo VBqdBQUkLlYuyUujTL5qBf 9yZGVyLWNv dVcmhEZvVmPoq6tlFWNbNA niUO2jhWerT6HblKD8UECr i8e0Eu91W32cT8LggHY+PG YeiIE5sVA8 rN7eJsPqLzK2WCemK111Uc UxhVObIbzzk5tem4dssOr9 AkC6UYEnafQpqJieXRR5j7 BjBo92A76w IHdpZHRoPSIxNSUiIHZhbG zixl6voQ7iPd6+PGNvbCB3 dWI9lU8mKjYpFwV4VYmhS8 49InRvcCIv Eukva5vip3upsFi2VkYzIC YejmZbsWikFIY5w6SzRk60 E7OeoLchy7SxWpz2wt44kT Nby2Z4sUX1 M3PiIEHhazrcmHOehTmeJI 7uUGQctkwkWYNkmL8fZWAk T2h4JwXmAgR2ZGqlO4Aqri G2HNIefPJc JQeaNZX0P75uq7N1SOMcZF QiGWV8jPI9aA5ihLfkrodf bGVmdDsgdmVydGljYWwtYW uaL965ZXDk gTvaYQQavF9jWVKccEMvfS otLH6gZHLltfydHaQBFEGV TiwgSlVMSUUgQTwvdGQ+PH DkUIA4xPlc ZWmxDXOsdJ6xXRHaL3a0Ad XrRuO9LHseB7NjGTSycnkd Cs04wN1sPvViSvU4YPivX1 LjnbN8ETFd zGYdYFrnQPH0P37wg1R3PO UbPCSyABD7iXW6gX9twQdz bjogbGVmdDsgdmVydGljYW ujUDixB978 OVLwhIitAfXcOtL9SgH5Zd e8H8VfLcb3MXWwvCkbWS6e gQSoYPuzVi2gxUaagOkhTJ 4wNTBpbjtw BESkcX8yZNMjzFDmaTqdMV 8dWLJvpzcov227UgBiOAU0 SQEhqOTkK9UicX7tAfXfUU WwFRUqQ0Or dZOaJXbxF770XWndEtQ7PG YsprVjX7XwFLHvkPdvEqY1 b6Q3Bo27UuDYVSFqsamyeH Q+PHRkIHN0 aLomRTlvXQDcpF6wFIDfP3 m4WsJhMzP0TRjfB0VkIZNt aooePu17zB9yBmJgSwV1QP zuL6TyccM2 THBmnCVwAUzxNMN7O17rs7 J2WJSyADQiZHA1wDF6wF3o bGlnbjogbGVmdDsgdmVydG ljYWwtYWxp S516LYRcvIqmUdJbuGMaPV wvdGQ+CZBzCOZ4cWjuTXrk WABlyG6yCSJrF2k8LbZiAm Z6YCooH1Rx NBIrqqnhZz25nA9rMjVgIb O9KNwzE9DmzqK4YBTctFDt KWpvGRH0G52tu7U4YIMtIC XjRZD1wFT3 gI5wqWhfficnbXPrdWowyl VhyZmnUCrlDTqeU477ACPo hKmjMj99jPKuoAhhecZ0Q1 RkPjwvdHI+ YD28OSMkQN07yWTyqALqc2 zgoEl5GiIlLMKtITF2cXfp ZBqef3IaYDZgX20muPQfn9 I9SGThhWif zHCwFiAmqJR1hQ0vHPmrcs dfu4udkqpwUxajl0vfcm71 gS62D68qVRknSDPvTMXoWP UiIHZhbGln we2lnA1hFq4+OEVkvXZ1sC R4vY6xCvDwPvU0JVglV689 YeLucPRxDfhjy5aba1pyrT s9JcYjWCVl ecRlwWblBOV6g7FqOo04Y5 9sIHdpZHRoPSIyMCUiIHZh eBgvno4leM7yWw6+PC9jb2 xkkf63yX84 dHI+UHDzPFF1aQdfWIphPJ GesE5vSGkkCgR0BSPaAmCi oB96kBGqQHzoRs9efBlcxW ptDW2nMLHl cgxbo232WpOku6vlWILgyY CuWLmhBUI9A24dz7O8QBRq XRTmYYD8bRD3uZ0utNacvg ogbGVmdDsg mxWhqNomBFdqNNaiL438CO DefUkkQdRkdMFaD6xbnfYJ CD3fPmqekDA+VLNkVSL8xQ xlPSdwYWRk jR4eCNOeP1v4ExOgWqP6XT zvZ1JocjB5OFPdiSYyUCAs tVSFlL9lqlghy8ukuxdzPj AwMDAwMDt0 QZo8CXKtjDyuAdRxVQT2Ks O9LSL4ePVcbK1hrNkgcijg oU9fVnw+RklOOjwvdGQ+PH NnILF3dPda NAwuJGAqwI2yPOHcB7w0Ao VuCeI2IZttC2OyhlJ3KDQs bWIpYBJuzXLBaC2iesthw6 xvcjogIzAw LKKaXSc3SYv1BCRpfRdlAw ZdEAI0UgZ3TJO4dNWxbY6f yFbbgcpgoJ3wUlw+TVJOOj wvdGQ+PHRk ARF7kNhgUDkcAJSybQ3xJJ BlJ7v3DmWmWcB4EVavE7Eh kvZ1GMSkrPPdNZDxzSMUbR 5wruktt7hp jlzdDuErVVYvQFa5WWi7DT ZgzSqcKwCdRQU4HyB3QDQ4 sGQhmW2gpDtzptcwrC2pSb c+DPV5APS4 FA17SA40Q2HzIffhmVFwsL U+PHRhYmxlIHdpZHRoPScx GBPiBbSehNgoUB6wGk1uYZ VyLWNvbGxh cHNl (more content not included)... Normal [facility] Consent for Treatmenton Consent for Treatment [id number]#1.0 0CD:127 Normal [facility] MRI Knee w/o Contrast Righto n 05-21-2021 [...] SAUD Technologist: KERI Technical Comments None Normal [facility] RAD - MRI Screening Formon 1 RAD - MRI Screening Form [id number]#1.0 0CD:127 Normal [facility] Physician Orderon 05-13-2021 Physician Order [id number]#1. 00CD:127 Normal [facility] Pre-Certification Formon Pre-Certification Form [id number]#1. 00CD:127 Normal [facility] Coding Summary.on 02-01-2021 Coding Summary. CD:[id number]:[id number] Gh 0bWw+PGhlYWQ+DS1UHFItI 04avDVgxL7HE9iPJK5GWJR UANBTDW4DPV0auBW9OPbgY 2VybiAv GwohrIDoTD08KOp0ORF5eG lmKKqzeC6mfYReJ0r8ZzUx QD48aC43KWnaTEQqYmB1Yv ZpbjsgbWFy V9taUgLdyAHuBrj+PHRhYm xlIHdpZHRoPScxMDAlJyBz zVinGI6kOm7qCGOnTGGpwE xhcHNlOiBj p2nnDYEfOIhtCX6cuOnkJ0 KsvGB4UXOnt8v2Vq43jLT+ NLQkUIL9kPcfVRbwi292Gv Osd1tlSSO4 bRKzFGawONP3R10en1J0VG CdMJHhYAI5dBJ4qX7zpOpv sjjkF1YbiROkSkD3GEQ0qI YbdI9kjJbs alcrbH3mBzf+W91AWG9WYR UQTH3MTau6K6ZhHapbqJG+ FV36MEObQX28iCPynLNcz7 ampAm2DrBt RQIiFBZ4mUctQQqoz8OeQF ZmG89mfKViu0Y8YSTmuBli xCVaZkDfqFJ7fO1gYKsthl tlt2wbnzry Ddhji2kaki18dA06J69rMK owMPIcEEL1ATRnOPBykAey vs8hiO6mUb6+OOrda1fhf5 tbxBa1SlXp ARNmkeLrnEbuVDU3m1WvEe 52F7XeiBqev2BnXgg5yw83 rISkc8C6zEC8APhmDAIxdB 1lOXfoLoQ1 HMRoGiBwdV83zJFcGLcsQe 3wlZivgVxeJQ4qDTTxwrdh GFJnlB5iBLSqxFHoiYvmUO 4wNTBpbjtm f378RaBaSDC0HUByyMSmV8 DmoM8bFkVuBLOtUGIsP0Bh dFJtLEjcP349ILfcXgG0KK LenxGcA6Uy SYBxpPglJqT1c7C3Qh8Il3 AyiwryHNH6RRdaVWX6PjX3 KjMxMkZ4H2WbUvw4JVCwuJ uvBL1dW4Qg MJRirhvnjrvybZB1DNGlGY PreZ81gMQjTSzmUr1or6M2 i790ZYPuCMJbeY86Pe9suE ogMTBwdCBU sG5ozcggx0wycrqtHrDyCM JsXTc2RYa0ARXyvAndJqZx UJF5RtH5IUA9iGSfjG3pqF bvilopwG9t Oyc+P43gtW8kTPI4WJN6lj ykNYZafhNuWI49QD32H8Yi PjwvdGFibGU+PGRpdiBzdH urQI4aJjBi s7pai6ErQPcbJ2PmJWXxQX rxSkt7WGEsRDY5zBX2oZ6x GLAmQUmze8Q3oUZ0Q7Aksp Iwat1fs6gp BBHtMBclQ31ckFXlp1T0AZ BtgMQ1RLGqkQndOeMwwL59 Oyc+ATDweBefx7UkVtter8 xcq6aegBx8 GeKsSJQkfiPduDkaXCT8u1 AtHf80Q24fQWqrOWWpODTk PNSbRRSrrGjwrw7qdT5eFs 8+PGNvbCB3 qCT2sD2xXBPcQcX4EHolJ1 81AwAavMFfWgeap5glq6cm eEu6LaFbAKWyqcTmgSskUK G8t8ObJk99 L33iERzvOSVbWHWwPAIvON AreXhkmi5qkA8iRj7+PC9j b0eytx96pX54cOF+PHRkIH V3zUayMNcl RKDkzK5wYPipMxS9VAMxMe ClkC80gISzHDucRq5auPej mHfzEY1iFHDgclajs067Zc Dlj8foDZAn tYGuZJzlJNT8F10cm1O1MR DlPOBwIHQ6cDU1nF4aoVzq bjogbGVmdDsgdmVydGljYW snSKysQ499 IHRvcDsnPlBhdGllbnQgTm BkSWq2Z0QiCid7FLJmvYuf DM3moUOlJSsrIc4xtIftwR flPX8wRTCh wrnct973BmYvg2suJZZviO HhPVubAQC9I14su6W4OGZn SNCeWJC3rJC2bQ5rnTceat ogbGVmdDsg gaFsfLtcYDnjJLokR441XT RvcDsnPkJpcnRoIERhdGU6 KQ97DX10xLKko7B1nLB1P1 BhZGRpbmct evxpcYC8YKQtNAAxtD07Yx 7sfTmtSk4fMCYqRHD7LOVs kAGzT8WiiI6hOiCdDYMtHA TsO3BwrSSd YFwmM844HRihKsO6EECozj ClM5GePTRwyIhqGpK1x9V3 Hz9IL7U8YY18JT22kVAxy6 T6tIK1H6Up JEHnksxtitngtCS0BOMgOP BoiB94Dw5bvXofVz2pBPMb NTV8CZBxwGReA5UibR7hEx AjMDAwMDAw D5LwqDSaJFzlQ274FIgoUn V1BQAhgbBzH5BbJUEfmHga YgR5u0V2Zq5ZTWa6UT29BF 58bROwu4T3 mGY9V0OpMEXpirgujxpuoG G1UFVuLESccV81Bl7bqWkb Oc2yLBLeBHX5QCNvfLKgD9 RvfW1sNhYu APBxISRrW5IicUSbMWpkJ9 68PWthNtN8GSGiqnKpP5Ee NVRtsPqiTuY4b7U9Ti1YBH VbBM36UJH9 oCQ2TI41QA47M1XcJluqzO FibGU+PHRhYmxlIHdpZHRo YWqqUOMuQdQumZajDF5dLr 9yZGVyLWNv dNrfjIOhTbMdo6qnUFQlQD tkLO5ioFkfD0RviDR1MVCj d7k0Fa56H67dW9BcwKC+PG KnuLI2aWH8 pW4eThGzHzL4TJdsE918Dt XhzFYkSkiwm8say5phhKu4 KwW5ZYOgxaMjqXmxMCT6e6 YsOw61R50e IHdpZHRoPSIxNSUiIHZhbG uqwq8jcU4wTx6+PGNvbCB3 mAK7hD5rRaVpVbW4MGoiS4 49InRvcCIv Imioe7uwb4ssdEl9LxZqQM GkqiWeqRevJVC2u6FeIo77 M0YqvVxnz1MiKne6tl93sZ Qbk6I3kNC7 O5UaXTWxztdntOVlbJpkQV 2qNBKdjjghBXUleD1sJTFi G9p7UySdJfZ3QQrsF9Wjsh A4VEUssLBc DTezVYX1N31av6S2PSPzVF AgKLS7hDV0bL6kmBmejuoc bGVmdDsgdmVydGljYWwtYW uzQ044RUKt lHxzXZQxyV6nFORwfOZuzN ezUZ9lJFJalglaHfHMXGZU TiwgSlVMSUUgQTwvdGQ+PH DcEPU2iQwz MWbuJZRgmB9vYONyW8f3Sq SvOeY4JMpvR5KdORHjbiww Hl21cW8rUrMhOdP9WRfbS2 ZtwjV4VWQs nHUkBXldKZP3Y25be5Y7TD RtODBsTDB8vTZ7iG0ejHxs bjogbGVmdDsgdmVydGljYW zqRHqxJ013 VSHbgPmnRgBmDxP7LeH9Fw c2R9DhAsj4QXObgTleHY6u vSFlJQvbWe9ehRpkcTqyBX 4wNTBpbjtw FYXmbM5aKAMmjDWloBpbLG 0kOOMgdxzcn697UeQgWNL9 DKGntOBpN6NhyH8aTrWvKY ByBWHxN6Cp rKNzCRntC795SHloFbO0KL LdbaOpT0XiDALnnPfrFhB7 b3K6Hh93LvDSQIEulinpbI Q+PHRkIHN0 wQtaYWgsNGIaxK2uEDChQ0 w5VwCiEhZ8KGzsB0RmOEGz uznkNw12tP5dCgDpZuI4PR kkA7CqgrL4 ZPYwdDTwXOkgGCB2R61rp1 H0JKIbSFWbCLU2iZQ2sZ0z bGlnbjogbGVmdDsgdmVydG ljYWwtYWxp N845ZSOxgBonQoVhrTCdIK wvdGQ+BDGmRZI2kVtfXJix WLNwsE5bDFLsE4g4EqTxOt W3JYowF5Dr STRmqgshKk14vM7uJkMnDm T3HRpkC6KcihE1VZKdtNMl WIzqTOY3O34rf9R0HAJcAV HwCBW0kNU5 vZ8vsMmtgwvgySGqpVmbpr JpcIbqMByqUGoqA015DNRq lOmuWxIqMRGlNZ7rgYkjeB Q+LY68ql31 I7QjYlsjOju9JTJkBCO6wB T3eM6oLTBzVGkru0L7gIH7 F1MdsiAstz9ms9neBEGaYP alJ08nkFNf t9Y2ZCBfaMM0ORTwiPegBh EosR91Yns+BZNktQxme0Ot Uflhr2prv7uynFl3QsBuKQ IgdmFsaWdu ZLS3s8PnKi24O02jXPwhXJ RkOTEwJKDkAMOeeWjnwg1w jC6vAu2+MUMbuMA0oQE7rZ 5fKsJnJcG0 ELhyW677CoBvzBAkWbepr7 rkg9lunQs7MyNuZYXkydPg vSsgXLN3s0QzVc98B8TjwJ wfc3IaQzv2 wc71tUYee4I2iCA1L2AdJM LrcxnwnDWjoKnbYW2vMJRx pxloGGRoqT3nQONdG3w0Fo ObWbN6LYef M1ZuxeC5VRLdoAJuCRDmsQ WWvT2olatka3ywfhxlRsTs EWTcPNu3ZMm9XNFsfXxaLp CuLHL9ZxL6 TIN9bBQlmP9hxMzbsskngY 9wOyc+MAc7r0iqoZPsHS8q pCI3RZ96AR99wICsb1B7tF E4A7QlVCEp hzgbqnbwwJK2VQIoOZUbcP 93Uf1ddRzbAt9qXPOzILM5 RQIfjRIuL2BbhD5eUeBfAZ EqLKAlO6Wn oMWiAAgqE741MGmlHkS8JF NvklCgG6VvDFCrkBysPhE8 k5V7Xk3IKD49EE33HN35mJ Iml3B6nVH6 G6DqEYJjylrffqpvlQK7HR LxURXwiK00Cu1nmNxcVy0z PBNzWPP9KMIkuIUkB9DqkW 9yOiAjMDAw WOHrD8SojRKpEYmiK088QF xeFoF3VNLwivCxQ4XyNWWj uKzrMgV9d0I6Pj9OIx14JO 83QF68lSNd z7E0dTQ5K0EuSQBfazwybp rwhUU1AAZoRDNmjU69Av1t gDcwJk7aHLXlNEQ6UWNzfC HlK2CccC7h KbEpGCPcAWOpP3EwsUCyEX raQ189TPdzXhO9IPIkggZc D0GmDQOwpQqzTxF3g7D3Df 2NRCbbzvb7 N6YrDmwlzXP+BK21GGIlRF 43xDAgmVCzl3ynkSs5KdRc OMJzDUJ7eRxdRGmfa2YoZO GsE21opQAq c2U6 (more content not included)... Normal [facility] ED Note-Physicianon 02-02-20 ED Note-Physician Basic Information Time Seen: Magda ESQUIVEL Essence Mari. 01/26/2021 17:48 Chief Complaint Pt reports right [...] Dasilva In 3 days 01/29/2021 EDT [address] [place] [address]- Business (1) Additional Instructions: Patrick Swenson In 3 days [address] [place] [address]- Business (1) Additional Instructions: Attestation I was physically present throughout the patient's stay in the emergency department and I was immediately available to the physician library technical assistant/nurse practitioner at all times during this encounter. I did not provide [id number] evaluation/service during this encounter. Problem List/Past Medical [...] Tab, 2 (more content not included)... Normal [facility] Comment on above: Result Comment: Elec tronically Signed By: Essence Man PA-C\.br\Date and Time Signed: 01/27/21 23:11 EDT\.br\Electronically Co-Signed By: Frankie Dawn DO\.br\Date and Time Co-Signed: 02/01/21 10:17 EDT Discharge Instructionson Discharge Instructions [id number]. 00CD:[id number] Normal [facility] XR Hip 2-3 Views Right + Pel [...] Sherman M.D. Transcribed by: SAUD Technologist: SUZI Normal [facility] XR Knee Complete 4+ Views Stacey haji [...] Sherman M.D. Transcribed by: SAUD Technologist: SUZI Normal [facility] Consent for Treatmenton 01-15 Consent for Treatment [id number] 0CD:127 [facility] ED Clinical Summaryon 2020 ED Clinical Summary [place] [id number] ED Clinical Summary Person Information Name: MITESH PATEL [facility] Age: 55 Years : 1965 Sex: Female Language: Serbian PCP: Patrick Swenson MD Marital Status: Phone: [phone] MRN: Visit Id: Visit Reason: Knee injury [...] 01/26/2021 20:31:49 01/26/2021 20:31:49 01/26/2021 20:31:49 ADDRESS: [address] [place] [id number] PHYS DOC NOTES: MEDICAL INFORMATION: Prescriptions Given: New Medications [id number], [address] [place], [place] [id number], [phone] methylPREDNISolone (Medrol 4 mg Tab) 1 Packets [...] up: With: Address: When: Raghav Dasilva [address] [place] [address] Business (1) In 3 days 01/29/2021 With: Address: When: Patrick Swenson [address] [place] [address] [place] [id number] Business (1) In 3 days DIAGNOSIS: 1:Hip pain, right Normal [facility] ED Patient Education Noteon 01-26-2021 ED Patient Education Note Normal [facility] ED Patient Summaryon 021 ED Patient Summary [facility] [address] [place], [place] [address] Patient Discharge Instructions Person Information Name: MITESH PATEL Age: 55 Years Arrival Date: 01/26/2021 17:16:05 Discharge Diagnosis: 1:Hip pain, right Primary Care Physician: Patrick Swenson MD Provider Information Primary Provider: Advanced Value Analysis Coordinator:None The exam and treatment you received in the Emergency Department were for an urgent problem and are not intended as complete care. It is important that you follow up with a doctor, nurse practitioner, or physician?s library technical assistant for ongoing care. If your symptoms become worse or you do not improve as expected and you are unable to reach your usual health care provider, you should return to the Emergency Department. We are available 24 hours a day. MITESH PATEL has been given the following list of patient education materials, prescriptions and follow-up instructions: Follow-up Instructions: With: Address: When: Raghav Dasilva [address] [place], [place] [id number] Business (1) In 3 days 01/29/2021 With: Address: When: Patrick Swenson [address] [facility], [place] [address] Business (1) In 3 days In the event that this physician does not participate in your insurance network, please consult with your insurance company to find a nearby participating provider. Patient Education Materials: A MESSAGE TO ALL PATIENTS REGARDING OPIOIDS PRESCRIPTION OPIOIDS: WHAT YOU NEED TO KNOW Prescription opioids can be used to help relieve dsrgwvlt-ia-tdgdur pain and are often prescribed following a [...] be struggling with addiction, tell your health care advocate and ask for guidance or call [facility] N (more content not included)... Normal [facility] XR SHOULDER LEFT (MIN 2 VIEW S)on [...] Calvillo Jr., MD 10/27/18 Final result Normal [facility] Vital Signs Date Time Vital Sign Value Performing Clinician [facility] 05-30-2024 09:50-0400 Body height 157.5 cm Leonardo Whitaker MD Work Phone: [facility] 05-30-2024 09:50-0400 Body mass index (BMI) [Ratio] 18.66 kg/m2 Leonardo Whitaker MD Work Phone: [facility] 05-30-2024 09:50-0400 Body weight 46.27 kg Leonardo Whitaker MD Work Phone: [facility] 05-30-2024 09:50-0400 Diastolic blood pressure 76 mm[Hg] Leonardo Whitaker MD Work Phone: [facility] 05-30-2024 09:50-0400 Systolic blood pressure 128 mm[Hg] Leonardo Whitaker MD Work Phone: [facility] Healthcare Encounters Encounter Date Encounter Type Care Provider Facility Start: 06-23-2024 End: 06-23-2024 Refill Kristen Umana DO Work Phone: [facility] Comment on above: Age-related nuclear cataract of both eyes Start: 06-20-2024 End: 06-20-2024 ambulatory LEONARDO WHITAKER Not Available Start: 06-13-2024 End: 06-13-2024 Telephone encounter Leonardo Whitaker MD Work Phone: [facility] Start: 06-02-2024 End: 06-02-2024 Telephone encounter Leonardo Whitaker MD Work Phone: [facility] Start: 05-30-2024 End: 05-30-2024 Bamboo flowsheet Leonardo Whitaker MD Work Phone: [facility] Start: 05-30-2024 End: 05-30-2024 Bamboo flowsheet Leonardo Whitaker MD Work Phone: [facility] Start: 05-30-2024 End: 05-30-2024 Clinical Support Leonardo Whitaker MD Work Phone: [facility] Comment on above: Trochanteric bursiti s of right hip (Primary Dx) Start: 04-13-2024 End: 04-13-2024 ambulatory LEONARDO W WHITAKER Not Available Start: 02-24-2024 End: 02-24-2024 ambulatory LEONARDO W WHITAKER Not Available Start: 02-15-2024 End: 02-15-2024 ambulatory ANTONELLA DOMINGUEZ Not Available Start: 01-14-2024 End: 01-14-2024 ambulatory LEONARDO W WHITAKER Not Available Start: 01-05-2024 End: 01-27-2024 Pre-admission assessment SELF REFERRAL [facility] Start: 11-19-2023 End: 11-19-2023 ambulatory KRISTEN UMANA Not Available Start: 10-20-2023 End: 10-20-2023 ambulatory LEONARDO W WHITAKER Not Available Start: 09-29-2023 End: 09-29-2023 ambulatory ANTONELLA DOMINGUEZ Not Available Start: 09-29-2023 End: 09-29-2023 Office outpatient visit 15 minutes Antonella Dominguez [employer] [employer] Work Phone: [facility] Comment on above: Sciatica of left juan josé e (Primary Dx); Degenerative disc disease, lumbar; Trochanteric bursitis of left hip; Lumbar radiculopathy; Trochanteric bursitis of right hip Start: 09-07-2023 End: 09-07-2023 ambulatory LEONARDO W WHITAKER Not Available Start: 07-21-2023 End: 07-21-2023 ambulatory ANTONELLA DOMINGUEZ Not Available Start: 07-20-2023 End: 07-20-2023 ambulatory URMILA GTZ Not Available Start: 06-25-2023 End: 06-25-2023 ambulatory LEONARDO W WHITAKER Not Available Start: 08-01-2022 End: 08-01-2022 ambulatory Josemanuel Mehta Facility:[facility] Start: 06-24-2022 End: 06-25-[address] PATRICK SWENSON Facility:[facility] Start: 06-16-2022 End: 06-16-[address] PATRICK SWENSON Facility:[facility] Start: 06-11-2022 Encounter for genera l adult medical examination without abnormal findings DR PATRICK SWENSON [facility] Start: 06-09-2022 End: 06-10-[address] PATRICK SWENSON Facility:[facility] Start: 06-09-2022 End: 06-10-2022 Encounter for general adult medical examination without abnormal findings DR PATRICK SWENSON Facility:[facility] Start: 12-20-2021 End: 12-20-2021 Patient encounter procedure SELF REFERRAL [facility] Start: 11-05-2021 End: 11-06-[address] PATRICK SWENSON Facility:[facility] Start: 10-28-2021 End: 10-28-[address] PATRICK SWENSON Facility:[facility] Start: 09-06-2021 End: 09-06-2021 ambulatory ITZ IVA Facility:[facility] Start: 08-07-2021 End: 08-07-[address] PATRICK SWENSON Facility:[facility] Start: 07-08-2021 End: 07-09-[address] PATRICK SWENSON Facility:[facility] Start: 10-27-2018 End: 10-30-2018 Patient encounter procedure [facility] Start: 10-27-2018 End: 10-30-2018 Patient encounter procedure [facility] Procedures Date Procedure Procedure Detail Performing Clinician Start: 10-27-2018 Radex shoulder compl ete minimum 2 views RAGHAV RICHMOND Start: 12-25-2015 Left carpal tunnel r elease [...] 07/18/2024 9:00 AM EST Clinical Support [facility] [address] [facility] [address] [place] [address] Leonardo Whitaker MD [address] [place] [address] [place] [address] [facility] Start: 06-20-2024 End: 06-20-2024 Patient encounter procedure 06/20/2024 9:00 AM EST Procedure Visit [facility] [address] [address] [facility] Start: 05-30-2024 End: 05-30-2024 Clinical Support 05/30/2024 10:00 AM EDT [facility] [address] [facility] [address] [address] Leonardo Whitaker MD [address] [facility] [address] [place] [address] [place] [address] [phone] Arrived [facility] Comment on above: Arrived Start: 04-17-2024 Influenza vaccination Influenza Vacc ine (#1) [facility] Start: 10-21-2023 End: 10-21-2023 Clinical Support 10/21/2023 9:00 AM EST Clinical Support [facility] [address] [address] Leonardo Whitaker MD [address] [facility] [address] [place] [address] [place] [id number] [facility] Start: 2007 Screening for malign ant neoplasm of breast Mammogram [facility] Start: 1997 Screening for malign ant neoplasm of cervix [facility] Start: 1988 Screening for malign ant neoplasm of cervix Pap Smear [facility] Start: 1967 Screening for malign ant neoplasm of colon [facility] Immunizations Immunization Date Immunization Notes Care Provider Fa [facility] 06-11-2023 Influenza, injectabl e, [place]in [place] Canine Kidney, preservative free, quadrivalent Antonella Dominguez [place] Work Phone: [facility] 06-11-2023 influenza virus vacc ine, unspecified formulation Leonardo Whitaker MD Work Phone: [facility] 06-07-2020 influenza, injectabl e, quadrivalent, preservative free Antonella Dominguez [place] Work Phone: [facility] 03-12-2020 pneumococcal polysaccharide vaccine, 23 valent Antonella Graziani [place] Work Phone: [facility] 05-18-2019 influenza, injectabl e, quadrivalent, preservative free Antonella Graziani [place] Work Phone: [facility] 05-18-2019 pneumococcal conjuga te vaccine, 13 valent Antonella Graziani [place] Work Phone: [facility] 04-07-2001 hepatitis B vaccine, adult dosage Antonella Graziani [place] Work Phone: [facility] 01-09-2000 hepatitis B vaccine, adult dosage Antonella Graziani [place] Work Phone: [facility] 08-28-1997 hepatitis B vaccine, adult dosage Antonella Graziani [place] Work Phone: [facility] Healthcare Payers Date Payer Category Payer Self-pay 2014 Private Health Insurance [employer] [id number] 2014 Unknown [employer] [id number] 2014-Present [address] [place] [address] [id number] 1965 Unknown [id number] 2.16.840.1.424981.3.579.2. 174 1967 Unknown [id number] 2.16.840.1.392765.3.579.2. 174 1967 Unknown [id number] 2.16.840.1.312707.3.579.2. 593 1967 Unknown [id number] 2.16.840.1.888977.3.579.2. 593 1967 Unknown [id number] 2.16.840.1.152039.3.579.2. 593 1967 Unknown [id number] 2.16.840.1.199269.3.579.2. 593 1967 Unknown [id number] 2.16.840.1.206889.3.579.2. 593 1967 Unknown [id number] 2.16.840.1.189209.3.579.2. 593 1967 Unknown [id number] 2.16.840.1.814707.3.579.2. 593 1967 Unknown [id number] 2.16.840.1.159088.3.579.2. 593 1967 Unknown [id number] 2.16.840.1.057187.3.579.2. 1259 1967 Unknown [id number] 2.16.840.1.010719.3.579.2. 125 1967 Unknown [id number] 2.16.840.1.579113.3.579.2. 1259 1967 Unknown [id number] 2.16.840.1.959645.3.579.2. 1259 1967 Unknown [id number] 2.16.840.1.947467.3.579.2. 1259 1967 Unknown [id number] 2.16.840.1.793448.3.579.2. 1259 1967 Unknown [id number] 2.16.840.1.240659.3.579.2. 1259 1967 Unknown [id number] 2.16.840.1.244248.3.579.2. 1259 1967 Unknown [id number] 2.16.840.1.781157.3.579.2. 1259 1967 Unknown [id number] 2.16.840.1.587040.3.579.2. 9 1967 Unknown [id number] 2.16.840.1.805828.3.579.2. 9 1967 Unknown [id number] 2.16.840.1.226894.3.579.2. 9 1967 Unknown [id number] 2.16.840.1.874065.3.579.2. 1259 1967 Unknown [id number] 2.16.840.1.035651.3.579.2. 1259 1959 Unknown [id number] Unknown [id number] 2.16.840.1.060541.3.579.2. 531 Social History Date Type Detail Facility Start: 01-26-2021 Tobacco smoking status Heavy t obacco smoker (finding) [facility] Start: 09-29-2023 End: 05-30-2024 Sex Assigned At Female [facility] Start: 05-19-2023 End: 02-15-2024 Tobacco smoking status NVIS Smokes tobacco daily [facility] Healthcare History of tobacco use Cigarette Smoker N [facility] Start: 05-19-2023 End: 05-30-2024 Cigarettes smoked current (pack per day) - Reported 0.5 [facility] Start: 05-19-2023 End: 02-15-2024 Tobacco use and exposure Smokeless tobacco non-user [facility] Start: 09-29-2023 End: 05-30-2024 Alcohol intake Current drinker of alcohol (finding) [facility] Start: 07-20-2023 Alcohol Comment monthly or les s, Caffeine intake : soda/pop,coffee,tea more than 4 cups per day [facility] Healthcare Start: 1965 Sex Assigned At Not on file N [facility] Clinical Notes 10-28-2021 to 06-13-2024 Telephone Encounter - Cecilia Amador - 06/13/2024 8:14 AM EDTTelephone Encounter - Cecilia Amador - 06/13/2024 8:14 AM EDTTelephone Encounter - Cecilia Perry - 06/02/2024 8:39 AM EDT Note Date & Type Note Facility 06-13-2024 Telephone encount er Note Pt is requesting refill of Decadron rx. [facility] 06-13-2024 Miscellaneous Notes Formattin g of this note might be different from the original. Pt is requesting refill of Decadron rx. documented in this encounter [facility] 06-02-2024 Telephone encount er Note Pt would like someone to call her with xr results if possible. I explained how MyChart works for her and sent a new link but she would still like a call. [facility] 06-02-2024 Miscellaneous Notes Formattin g of this note might be different from the original. Pt would like someone to call her with xr results if possible. I explained how MyChart works for her and sent a new link but she would still like a call. documented in this encounter [facility] 05-30-2024 History of Presen t illness Narrative [...] Past Medical History: Diagnosis Date Cataract Hyperlipidemia (CMS/HCC) Past Surgical History: Procedure Laterality Date CARPAL TUNNEL RELEASE Left 12/25/2015 L CTR, AUNT MTP KNEE SURGERY arthroscopy MTP NECK SURGERY 1998, 2002 TRIGGER FINGER RELEASE Right 02/22/2020 trigger thumb release [facility] Social History Tobacco Use Smoking status: Every [...] reflexes: Mohsen's absent. Ankle clonus absent. Coordination Zrehmx-eq-jfsv, rapid alternating movements and qsuf-ha-zerx normal bilaterally without dysmetria. Gait Normal casual, [...] and surface anesthetic; a 25 gauge 1 2 spinal needle was advanced to make contact [...] injections if needed. documented in this encounter [facility] 09-29-2023 History of Presen t illness Narrative [...] FINGER RELEASE Right 02/22/2020 trigger thumb release [facility] MTP Family History Problem Relation Name Age of [...] returns acute, moderate/severe. documented in this encounter [facility] 11-05-2021 Note PROCEDURE: XR FOOT R T MIN 3 VIEWS COMPARISON: 10/28/2021 HISTORY: Right foot pain FINDINGS: BONES:No acute fracture or dislocation. Stable corticated calcific densities noted along the medial margin of the navicular and lateral margin of the cuboid. SOFT TISSUES:Negative. No visible soft tissue swelling. EFFUSION:None visible. OTHER: Negative. IMPRESSION: No acute fracture Electronically authenticated by: PAULINE BROTHERS Date: 2021-11-05 10:37 [facility] 10-28-2021 Note PROCEDURE: XR FOOT R T [...] authenticated by: PAULINE BROTHERS Date: 2021-10-28 12:24 [facility] Evaluation + Plan note No data available for this section [facility] Evaluation note Diagnosis Sciatica of left side- Primary Degenerative disc disease, lumbar Trochanteric bursitis of left hip Lumbar radiculopathy Thoracic or lumbosacral neuritis or radiculitis, unspecified Trochanteric bursitis of right hip documented in this encounter [facility] HealthcareEvaluation note* Diagnosis Trochanteric bursitis of right hip- Primary Trochanteric bursitis of right hip documented in this encounter [facility] HealthcareEvaluation note* Diagnosis Trochanteric bursitis of left hip Lumbar radiculopathy Thoracic or lumbosacral neuritis or radiculitis, unspecified documented in this encounter [facility] HealthcareEvaluation note* Diagnosis Age-related nuclear cataract of both eyes [facility] No data available for this [facility] data available for this section [facility] Summary Purpose Family History No Family [...] content) DATE CREATED AUTHOR 10/31/2018 [facility] DATE CREATED AUTHOR AUTHOR'S ORGANIZ ATION 12/24/2021 [facility] DATE CREATED AUTHOR AUTHOR'S ORGANIZ ATION 06/29/2022 [facility] DATE CREATED AUTHOR AUTHOR'S ORGANIZ ATION 08/12/2022 [facility] DATE CREATED AUTHOR AUTHOR'S ORGANIZ ATION 06/21/2024 [facility] EPIC Patient Care team informatio n (unrecognized section and content) Personnel Name: Patrick Swenson MD Address: Address: [address] [place] [address] Reason for Visit (unrecogniz ed section and content) Reason Comments Med Refill FOR RECORDS PERTAINING TO PATIENTS WHO ARE [...] BE BASED ON THE PRIMARY CLINICAL RECORDS. [facility]. provides no warranty or guarantee of the accuracy or completeness of information in this document.
== END 2024-06-29 10:13 | disposition home or self-care (01) ==
LOC: RAD 10:12
PROVIDERS: PCP Family Medicine; Visit Provider Family Medicine
DX: Z00.00 Encounter for general adult medical examination without abnormal findings (principal); M85.88 Other specified disorders of bone density and structure, other site
CPT/HCPCS: 77080

== ENCOUNTER 2024-11-08 12:06 | Outpatient (OUT) | payer OTHER, SELFPAY ==
--- OUTSIDE RECORDS SUMMARY | 2024-11-08 12:11 | XMS_ITS | CCD ---
Author Organization [facility] Care Team Providers Care Gifts Officer Name Role Phone RAGHAV DASILVA Referring Unavailab PATRICK Maradiaga Primary Care Unavailable RAGHAV DASILVA Referring Unavailab PATRICK Maradiaga Primary Care Unavailable Patrick Swenson Primary Care Physician [phone] MARINA, DR NGUYEN Admitting Unavailable HOY, DR NGUYEN Attending Unavailable HOY, DR NGUYEN Primary Care Unavailable HOY, DR NGUYEN Consulting Unavailable HOY, DR NGUYEN Admitting Unavailable HOY, DR NGUYEN Attending Unavailable LUDWIGY, DR NGUYEN Primary Care Unavailable HOY, DR NGUYEN Consulting Unavailable HOY, DR NGUYEN Admitting Unavailable HOY, DR NGUYEN Attending Unavailable HOY, DR NGUYEN Primary Care Unavailable HOY, DR NGUYEN Consulting Unavailable ZIEBER, DR RYAN Carmen Consulting Unavailable LUDWIGY, DR NGUYEN Admitting Unavailable HOY, DR NGUYEN Attending Unavailable HOY, DR NGUYEN Primary Care Unavailable HOY, DR NGUYEN Consulting Unavailable HOY, DR NGUYEN Admitting Unavailable HOY, DR NGUYEN Attending Unavailable MARINA, DR NGUYEN [...] Consulting Unavailable MARINA, DR NGUYEN Admitting Unavailable HOY, DR NGUYEN Attending Unavailable HOY, DR NGUYEN Primary Care Unavailable LUDWIGY, DR NGUYEN Consulting Unavailable ZEV, DR PAULINE Flores Consulting Unavailable Josemanuel Mehta Admitting UnavailJosemanuel Bailey Attending Unavailcarl e Patrick Sewnson Primary Care Unavailable Unavailable Primary Care Provider Unavailabl e REFERRAL, SELF Admitting Unavailable REFERRAL, SELF Attending Unavailable REFERRAL, SELF Referring Unavailable Patrick Swenson Consulting Unavailable Patrick Swenson Consulting Unavailable LEONARDO WHITAKER Attending Unavailable RAGHAV DASILVA Referring Unavailable RAGHAV DASILVA Attending Unavailable KRISTEN UMANA Attending Unavailable MICK LOPES Referring Unavailable LEONARDO WHITAKER Attending Unavailable ANTONELLA DOMINGUEZ Attending UnavailLEONARDO Brown Attending Unavailable LEONARDO WHITAKER Attending Unavailable LEONARDO WHITAKER Attending Unavailable LEONARDO WHITAKER Referring Unavailable LEONARDO WHITAKER Attending Unavailable LEONARDO WHITAKER Attending Unavailable Allergies Allergy Classification Reported Allergen(s) Allergy Type Date of Onset Reaction(s) Facility (20 sources) Penicillins; Translations: [penicillins] Drug allergy 2 Unknown (qualifier value), Other, Rash [facility] (4 sources) Sulfonamides (Antibiotic); Translations: [sulfa drugs] Drug allergy Unknown (qualifier value) [facility] (1 source) Amoxicillin Drug Allergy 4 [facility] Repository (1 source) Sulfonamides (Antibiotic) Drug allergy (disorder) 4 [facility] Repository (20 sources) Amoxicillin Drug Allergy 2 Rash [facility] (20 sources) Sulfacetamide Drug Allergy 2 Rash [facility] (20 sources) Sulfonamides (Antibiotic) Drug Allergy 2 Unknown, Rash [facility] Work Phone: (20 sources) Other Allergy to substance 3 Unknown [facility] Medications Current Medications Medication Drug Class(es) Dates Sig (Normalized) Sig (Original) Acetaminophen / oxyCODONE (3 sources) Opioid Agonist Start: 12-24-2015 Percocet 325 mg-5 mg Tab 2 tab(s), Oral, q4hr, 50 tab(s), Refill(s) 0 Start Date: 12/24/15 Status: Ordered Start: 12-24-2015 Percocet 325 m g-5 mg Tab 2 tab(s), Oral, q4hr, 50 tab(s), Refill(s) 0 Start Date: 12/24/15 Status: Ordered albuterol 0.83 mg/ml inhalation solution (3 sources) beta2-Adrenergic Agonist Start: 12-11-2015 albut charmaine 0.083% Inh Kerry 3 mL 2.5 mg, 3 mL, NEB, Wheezing, Refill(s) 0 Start Date: 12/11/15 Status: Ordered Start: 12-11-2015 albuterol 0.08 3% Inh Kerry 3 mL 2.5 mg, 3 mL, NEB, Wheezing, Refill(s) 0 Start Date: 12/11/15 Status: Ordered alendronic acid 70 mg oral tablet (11 sources) Bisphosphonate Start: 07-01-2024 take 1 tablet by mouth once daily alendronate (Fosamax) 70 MG tablet TAKE 1 TABLET BY MOUTH 30 MINUTES BEFORE FIRST FOOD/DRINK/MED OF THE DAY WITH PLAIN WATER 07/01/2024 Active ascorbic acid 500 mg chewable tablet (20 sources) Vitamin C ascorbic acid (Vitamin C) 500 MG chewable tablet 1 (one) time each day at the same time. Active B Complex Vitamins (vitamin B complex) tablet (20 sources) B Complex Vitami ns (vitamin B [...] 09/29/2023 Discontinued dexamethasone 2 mg oral tablet (20 sources) Corticosteroid Start: 08-29-2024 End: 08-29-2024 dexAMETHasone sod phos (Decadron) injection 4 mg Start: 08-29-2024 End: 08-29-2024 4 mg (1 mL), Injection, Once , On Thu08/29/24 at 1445, For 1 dose Start: 08-24-2024 End: 10-27-2024 dexAMETHasone (Decadron) 2 M G tablet Indications: Lumbar radiculopathy 2mg 3 pills po X3 days,2 pills po daily X3 days , then 1 pill po daily X3 days then stop 9 days 18 pills 18 tablet 1 10/17/2024 10/27/2024 Active Start: 07-18-2024 End: 07-18-2024 dexAMETHasone (Decadron) injection 4 mg Start: 07-18-2024 End: 07-18-2024 inject 4 mg by intramuscular injection once 4 mg, Intramuscular, Once, On Thu07/18/24 at 1515, For 1 dose Start: 05-31-2024 End: 05-31-2024 dexAMETHasone sod phos (Deca dron) injection 4 mg Start: 05-31-2024 End: 05-31-2024 4 mg (1 mL), Injection, Once , On Thu05/31/24 at 0845, For 1 dose Start: 04-13-2024 End: 04-13-2024 dexAMETHasone sod phos (Deca dron) injection 4 mg Start: 04-13-2024 End: 04-13-2024 4 mg (1 mL), Injection, Once , On Thu04/13/24 at 1230, For 1 dose Start: 01-14-2024 End: 07-28-2024 dexAMETHasone (Decadron) 2 M G tablet Indications: Trochanteric bursitis of left hip 2mg 3 pills po X3 days,2 pills po daily X3 days , then 1 pill po daily X3 days then stop 9 days 18 pills 18 tablet 1 03/24/2024 04/13/2024 Discontinued (Reorder) Start: 09-07-2023 End: 10-09-2023 dexAMETHasone (Decadron) 2 M G tablet Indications: Lumbar radiculopathy , Trochanteric bursitis of right hip 2mg 3 pills po X3 days,2 pills po daily X3 days , then 1 pill po daily X3 days then stop 9 days 18 pills 18 tablet 1 09/29/2023 10/09/2023 Active ibuprofen 800 mg oral tablet (3 sources) Nonsteroidal Anti-inflammatory Drug Start: 12-11-2015 Motrin 800 mg Tab 800 mg = 1 tab(s), Oral, PRN as needed for pain, Refills(s) 0 Start Date: 12/11/15 Status: Ordered lidocaine 0.05 mg/mg medicated patch (4 sources) Antiarrhythmic, Amide Local Anesthetic Start: 10-10-2024 apply 1 dose transdermal route every twelve hours lidocaine (Lidoderm) 5 % patch Indications: Lumbar radiculopathy Apply 1 patch over 12 hours topically Daily Apply for 12 hours daily 30 patch 2 10/10/2024 Active meloxicam 15 mg oral tablet (2 sources) Nonsteroidal Anti-inflammatory Drug Start: 07-21-2023 End: 07-20-2024 take 1 tablet by mouth in the morning meloxicam (Mobic) 15 MG tablet Indications: Lumbar radiculopathy , Trochanteric bursitis of right hip Take 1 tablet (15 mg) by mouth in the morning. 30 tablet 11 07/21/2023 07/20/2024 Active Multiple Vitamin (Multi Vitamin) tablet (20 sources) Multiple Vitamin (Multi Vitamin) tablet 1 (one) time each day at the same time. Active Multiple Vitamin (Multi Vitamin) tablet 1 (one) time each day at the same time. 0 Active nabumetone 500 mg oral tablet (18 sources) Nonsteroidal Anti-inflammatory Drug Start: 04-13-2024 End: 04-13-2025 take 1 tablet by mouth in the morning nabumetone (Relafen) 500 MG tablet Indications: Trochanteric bursitis of left hip Take 1 tablet (500 mg) by mouth in the morning and 1 tablet (500 mg) before bedtime. 60 tablet 11 04/13/2024 04/13/2025 Active naproxen 500 mg oral tablet (3 sources) Nonsteroidal Anti-inflammatory Drug Start: 12-11-2015 Naprosyn [...] 09/29/2023 Discontinued tiZANidine 4 mg oral tablet (5 sources) Central alpha-2 Adrenergic Agonist Start: 09-29-2023 [...] pain, # 12 tab(s), Refills(s) 0, Pharmacy: [facility]/pharmacy #[id number], 157.5, cm, 01/26/21 17:27:00 EDT, Height/Length Dosing, 48, kg, 01/26/21 17:27:00 EDT, Weight Dosing Start Date: 01/26/21 Status: Ordered Completed/Discontinued Medications Medication Drug Class(es) Dates Sig (Normalized) Sig (Original) bupivacaine hydrochloride 5 mg/ml injectable solution (8 sources) Amide Local Anesthetic Start: 08-29-2024 End: 08-29-2024 bupivacaine (Marcaine) 0.5 % injection 5 mg Start: 08-29-2024 End: 08-29-2024 5 mg (1 mL), Injection, Once , On Thu08/29/24 at 1445, For 1 dose Start: 07-18-2024 End: 07-18-2024 bupivacaine (Marcaine) 0.5 % injection 5 mg Start: 07-18-2024 End: 07-18-2024 5 mg (1 mL), Injection, Once , On Thu07/18/24 at 1515, For 1 dose Start: 05-31-2024 End: 05-30-2024 bupivacaine (Marcaine) 0.5 % injection 5 mg Start: 05-31-2024 End: 05-30-2024 5 mg (1 mL), Injection, Once , On Thu05/31/24 at 0845, For 1 dose Start: 04-13-2024 End: 04-13-2024 bupivacaine (Marcaine) 0.5 % injection 5 mg Start: 04-13-2024 End: 04-13-2024 5 mg (1 mL), Injection, Once , On Thu04/13/24 at 1230, For 1 dose piroxicam 20 mg oral capsule (2 sources) Nonsteroidal Anti-inflammatory Drug Start: 02-15-2024 End: 02-14-2025 take 1 capsule by mouth once daily piroxicam (Feldene) 20 MG capsule Indications: Trochanteric bursitis of left hip , Trochanteric bursitis of right hip , Lumbar radiculopathy , Degenerative disc disease, lumbar Take 1 capsule (20 mg) by mouth Daily 90 capsule 3 02/15/2024 04/13/2024 Discontinued (Ineffective) Problems Active Problems Problem Classification Problem Date Documented Date Episodic/Chronic Asthma (4 sources) Unspecified asthma, uncomplicated; Translations: [UNSPECIFIED ASTHMA UNCOMPLICATED] Onset: 06-16-2022 Chronic Cataract (20 sources) Bilateral age-related nuclear cataracts; Translations: [Age-related nuclear cataract, bilateral] Onset: 11-19-2023 11-19-2023 Chronic Chronic obstructive pulmonary disease and bronchiectasis (20 sources) Chronic obstructive lung disease; Translations: [Other specified chronic obstructive pulmonary disease] Onset: 09-07-2023 09-07-2023 Chronic Chronic obstructive pulmonary disease and bronchiectasis (11 sources) Bronchitis; Translations: [Bronchitis, not specified as acute or chronic] Onset: 08-29-2024 12-11-2015 Episodic Disorders of lipid metabolism (20 sources) Hyperlipidemia, unspecified; Translations: [Hyperlipidemia] Onset: 07-08-2021 Chronic Headache; including migraine (1 source) Headache; including migraine; Translations: [HEADACHE UNSPECIFIED] Onset: 09-09-2021 Osteoarthritis (20 sources) Osteoarthritis of knee; Translations: [Osteoarthritis of knee, unspecified] Onset: 05-09-2021 03-17-2023 Chronic Other bone disease and musculoskeletal deformities (8 sources) Osteopenia; Translations: [Other specified disorders of bone density and structure, unspecified site] Onset: 08-29-2024 08-29-2024 Episodic Other connective tissue disease (1 source) Other symptoms and signs involving the musculoskeletal system; Translations: [Other symptoms and signs involving the musculoskeletal system] Onset: 08-01-2022 Episodic Other lower respiratory disease (11 sources) H/O: pneumonia; Translations: [Personal history of pneumonia (recurrent)] Onset: 08-29-2024 12-11-2015 Episodic Other nervous system disorders (19 sources) Polyneuropathy; Translations: [Polyneuropathy, unspecified] Onset: 10-26-2023 10-26-2023 Chronic Other non-traumatic joint disorders (3 sources) Pain in left shoulder; Translations: [Pain in left shoulder] Onset: 10-27-2018 Episodic Spondylosis; intervertebral disc disorders; other back problems (20 sources) Degeneration of lumbar intervertebral disc; Translations: [Other intervertebral disc degeneration, lumbar region] Onset: 03-17-2023 09-29-2023 Chronic Substance-related disorders (20 sources) Smoker; Translations: [Nicotine dependence, cigarettes, uncomplicated] [...] Onset: 11-05-2021 Episodic Other connective tissue disease (20 sources) Trochanteric bursitis of left hip; Translations: [Trochanteric bursitis, left hip] Onset: 09-29-2023 09-29-2023 Episodic Other connective tissue disease (20 sources) Trochanteric bursitis of right hip; Translations: [Trochanteric bursitis, right hip] Onset: 01-16-2023 09-29-2023 Episodic Other connective tissue disease (20 sources) Spasm of cervical paraspinous muscle; Translations: [Other muscle spasm] Onset: 06-25-2023 06-25-2023 Episodic Other injuries and conditions due to external causes (3 sources) Unspecified injury of right foot, initial encounter; Translations: [UNSPECIFIED INJURY RT FOOT INITIAL] Onset: 10-28-2021 Episodic Other upper respiratory infections (1 source) Acute sinusitis, unspecified; Translations: [ACUTE SINUSITIS UNSPECIFIED] Onset: 08-13-2021 Episodic Spondylosis; intervertebral disc disorders; other back problems (20 sources) Sciatica; Translations: [Sciatica, left side] Onset: 06-25-2023 09-29-2023 Episodic Sprains and strains (1 source) Unspecified sprain of right foot, initial encounter; Translations: [UNSPECIFIED SPRAIN RT FOOT INITIAL] Onset: 10-29-2021 Episodic Unclassified (1 source) CONTACT W/AND (SUSP) EXPOS COVID-19; Translations: [CONTACT W/AND (SUSP) EXPOS COVID-19] Onset: 09-06-2021 Results Test Name Value Interpretation Reference Range Facility [facility] Mamm Screen w/CAD if perf and 3D Bilon 08-08-2024 [facility] Mamm Screen w/CAD if perf and 3D Abimael Exam Date/Time: 08/05/2024 10:45 EST Reason for Exam: Z12.31 Report IMPRESSION: BIRADS 1 NEGATIVE, NORMAL INTERVAL FOLLOW-UP.12 MONTH RECALL. CLINICAL HISTORY: Z12.31. COMPARISON: 12/20/2021. COMMENT: Routine views and tomosynthesis views of both breasts were obtained. There are scattered areas of fibroglandular density. No dominant breast mass nor neoplastic calcifications are identified in either breast. There has been no significant change from the previous exam. The examination was reviewed with Computer Aided Detection. Breast Density: No Mammography is very important to your health. The current [employer] and National [employer] guidelines recommends annual mammography beginning at age 40. This facility utilizes a reminder system to ensure all patients receive reminder notifications at the appropriate time based on the recommendations of this exam. Board Certified Radiologists. Accredited by the ACR and FDA. Ordering Provider: REFERRAL, SELF FINAL REPORT Dictated: 08/08/2024 4:46 pm Luis Sherman M.D. Signed (Electronic Signature): 08/08/2024 4:46 pm Signed by: Luis Sherman M.D. Transcribed by: SAUD Technologist: [facility] Assessment: BI-RADS Category 1-Negative Recommendation: Normal interval follow-up Normal [facility] XR HIP 2 OR 3 VW RIGHTon [...] mid and lower levels. Electronically Signed Rod Yaritza, M.D. 2024-05-30 10:22:54 Normal Not Available XR [...] Electronically Signed Rod Vigil M.D. 2024-05-30 10:22:54 [facility] Radiology Study observation (narrative) [facility] XR Lumbar spine 4 ViewsOrder ed By: Rod Vigil on 05-30-2024 [facility] Work Phone: XR pre/post mri xrayon 08-01 XR pre/post mri xray [facility] Main [place] [address] [place] [address] MRI Report Signed Patient: Mitesh Patel MR#: [id number] : 1965 Acct:[id number] Age/Sex: 57 / F ADM Date: 08/01/22 Loc: MR Room: Type: [facility] CLI Attending Dr: Josemanuel Mehta DO Copies to: Jean-Pierre Mehta DO Ordering Provider: Jean-Pierre Mehta DO Date of Service: 08/01/22 MR/MR lumbar spine wo con: R29.898, R20.2 ([id number]) XR/XR pre/post mri xray: R20.2, R29.898 MR [...] Darian Pastrana M.D.08/01/2022 5:19 PM Dictation Location: [place] [address] Transcribed By: [facility] 08/01/221718 Dictated By: Darian Pastrana II, MD 08/01/22 1707 Signed By: 08/01/221718 [facility] CT LUNG CANCER SCREENINGon 1 08-25-2021 CT [...] RYAN HAMILTON Date: 2022-06-25 07:59 Normal [facility] Covid-19 PCR (CVDTBH)on 05-19 SARS-CoV-2 (COVID-19) RNA HARISH+probe Ql (Unsp spec) Not detected Normal NOT DETECTED [facility] Comment on above: Result Comment: This test is not yet approved or cleared by the [place] FDA. When there are no FDA-approved or cleared tests available, and other criteria are met, FDA can make tests available under an emergency access mechanism called an Emergency Use Authorization (EUA). The EUA for this test is supported by the Production Administrative Assistant of Health and Human Service's (HHS's) declaration [...] with SARS-CoV-2. Performed By: #### C VDTB ####[facility] [address] [place], [place] [address]FgAgustin Lopez INSULINon 06-10-2022 Insulin 5.2 uIU/mL Normal 2.6-24.9 [facility] Comment on above: Performed By: #### I NSULIN #### [facility] Laboratory [address] [place] [address] [address] Royce Lopez CBC AUTO DIFFon 06-09-2022 BASO # 0.1 103/ul Normal 0.0-0.1 [facility] Comment on above: Performed By: #### C BC ####[facility] [address] [place] [address]DrAgustin Lopez Basophils/100 WBC (Bld) 0.4 % Normal 0.2-2.0 [facility] Comment on above: Performed By: #### C BC ####[facility] [address] [place], [place] [address]Dr. Royce Lopez EO # 0.2 103/ul Normal 0.0-0.7 [facility] Comment on above: Performed By: #### C BC ####[facility] [address] [place], [place] [address]Dr. Royce Lopez Eosinophils/100 WBC (Bld) 1.3 % Normal 0.9-7.0 [facility] Comment on above: Performed By: #### C BC ####[facility] [address] [place], [place] [address]Dr. Royce Lopez Erythrocyte distribution width (RBC) [Ratio] 13.2 % Normal 11.0-15.0 [facility] Comment on above: Performed By: #### C BC ####[facility] [address] [place], [place] [address]Dr. Royce Lopez Hematocrit (Bld) [Volume fraction] 43.0 % Normal 36.0-48.0 [facility] Comment on above: Performed By: #### C BC ####[facility] [address] [place], [place] [address]DrAgustin Lopez Hemoglobin (Bld) [Mass/Vol] 13.8 g/dL Normal 12.0-16.0 [facility] Comment on above: Performed By: #### C BC ####[facility] [address] [place], [place] [id number]. Royce Lopez IG # 0.07 10e3/ul Critically high 0.00-0.03 [facility] Comment on above: Performed By: #### C BC ####[facility] [address] [place] [address]Dr. Royce Lopez IG % 0.4 % Normal 0.0-0.5 [facility] Comment on above: Performed By: #### C BC ####[facility] [address] [place], [place] [address]DrAgustin Lopez LYMPH # 2.2 103/ul Normal 1.2-3.8 [facility] Comment on above: Performed By: #### C BC ####[facility] [address] [place], [place] [address]DrAgustin Lopez Lymphocytes/100 WBC (Bld) 12.0 % Critically low 20.5-60.0 [facility] Comment on above: Performed By: #### C BC ####[facility] [address] [place], [place] [address]DrAgustin Lopez MANUAL DIFF REQ NO Normal [facility] Comment on above: Performed By: #### C BC ####[facility] [address] [place], [place] [address]Dr. Royce John MCH (RBC) [Entitic mass] 31.1 pg Normal 26.7-34.0 [facility] Comment on above: Performed By: #### C BC ####[facility] [address] [place], [place] [address]DrAgustin Royce John MCHC (RBC) [Mass/Vol] 32.1 g/dL Normal 29.9-35.2 [facility] Comment on above: Performed By: #### C BC ####[facility] [address] [place], [place] [address]DrAgustin Lopez MCV (RBC) [Entitic vol] 96.8 fL Normal 81.0-99.0 [facility] Comment on above: Performed By: #### C BC ####[facility] [address] [place], [place] [address]DrAgustin Lopez MONO # 1.6 103/ul Critically high 0.3-0.8 [facility] Comment on above: Performed By: #### C BC ####[facility] [address] [place] [address]Dr. Royce Lopez Monocytes/100 WBC (Bld) 8.8 % Normal 1.7-12.0 [facility] Comment on above: Performed By: #### C BC ####[facility] [address] [place] [address]Dr. Royce Lopez NEUT # 14.1 103/ul Critically high 1.4-6.5 [facility] Comment on above: Performed By: #### C BC ####[facility] [address] [place], [place] [address]Dr. Royce Lopez Neutrophils/100 WBC (Bld) 77.1 % Critically high 43.0-75.0 [facility] Comment on above: Performed By: #### C BC ####[facility] [address] [place], [place] [address]Dr. Royce Lopez Platelet mean volume (Bld) [Entitic vol] 10.2 fL Normal 9.5-13.5 [facility] Comment on above: Performed By: #### C BC ####[facility] [address] [place], [place] [address]Dr. Royce Lopez PLT 295 103/ul Normal 150-450 [facility] Comment on above: Performed By: #### C BC ####[facility] [address] [place], [place] [address]Dr. Royce Lopez RBC 4.44 106/ul Normal 4.20-5.40 [facility] Comment on above: Performed By: #### C BC ####[facility] [address] [place], [place] [address]Dr. Royce Lpoez WBC 18.3 103/ul Critically high 4.0-11.0 [facility] Comment on above: Performed By: #### C BC ####[facility] [address] [place], [place] [address]Dr. Yikody Lopez FREE THYROXINE INDEX T7on 10 -24-2022 FTI 2.56 Normal 1.30-4.50 [facility] Comment on above: Performed By: #### T SH, T7, CMP, LIPID ####[facility] [address] [place], [place] [address]Qh. Royce Lopez T3U 35.0 % Normal 30.0-39.0 [facility] Comment on above: Performed By: #### T SH, T7, CMP, LIPID ####[facility] [address] [place], [place] [address]DtAgustin Lopez T4 [Mass/Vol] 7.30 ug/dL Normal 4.80-13.90 [facility] Comment on above: Performed By: #### T SH, T7, CMP, LIPID ####[facility] [address] [place] [id number]. Ryoce Lopez GLYCOHEMOGLOBIN A1Con 2021 ADA RECOMMENDATION SEE BELOW Normal [facility] Comment on above: Result Comment: ADA RECOMMENDED LIMIT 4.0 - 6.0 ADA THERAPEUTIC TARGET < 7.0 ACTION SUGGESTED > 7.0 Performed By: #### A 1C #### [facility] Laboratory [address] [address] [address] Royce Lopez Glucose [Mass/Vol] 117 mg/dL Normal [facility] Comment on above: Performed By: #### A 1C #### [facility] Laboratory [address] [address] [address] Royce Lopez HbA1c (Bld) [Mass fraction] 5.7 % Normal 4.5-6.2 [facility] Comment on above: Performed By: #### A 1C #### [facility] [address] [address] [address] Royce Lopez IRONon 06-09-2022 Iron [Mass/Vol] 91.0 ug/dL Normal 50.0-170.0 [facility] Comment on above: Performed By: #### I AZEB #### [facility] [address] [address] [address] Royce Lopez LIPID PROFILEon 06-09-2022 CHOL-HDL RATIO NORM SEE BELOW Normal [facility] Comment on above: Result Comment: 3.3 - 4.4 LOW RISK 4.4 - 7.1 AVERAGE RISK 7.1 - 11.0 MODERATE RISK >11.0 HIGH RISK Performed By: #### T SH, T7, CMP, LIPID ####[facility] [id number] [phone]. Royce Lopez Cholesterol [Mass/Vol] 223 mg/dL Critically high <=200 [facility] Comment on above: Performed By: #### T SH, T7, CMP, LIPID ####[facility] [id number] [phone]. Royce Lopez Cholesterol in HDL [Mass/Vol] 63 mg/dL Critically high 40-60 [facility] Comment on above: Performed By: #### T SH, T7, CMP, LIPID ####[facility] [id number] [phone]. Royce Lopez Cholesterol in LDL [Mass/Vol] 145.2 mg/dL Normal [facility] Comment on above: Performed By: #### T SH, T7, CMP, LIPID ####[facility] [address] [phone]. Royce Lopez Cholesterol.total/Ch olesterol in HDL [Mass ratio] 3.5 {ratio} Normal [facility] Comment on above: Performed By: #### T SH, T7, CMP, LIPID ####[facility] [id number] [phone]. Royce Lopez HDL NORMAL > or = 60 mg/dl - LO W CARDIOVASCULAR RISK <40 mg/dl - HIGH CARDIOVASCULAR RISK Normal [facility] Comment on above: Performed By: #### T SH, T7, CMP, LIPID ####[facility] [address] [phone]. Royce Lopez LDL CALC NORMAL SEE BELOW Normal [facility] Comment on above: Result Comment: <100 mg/dl OPTIMAL 100 - 129 mg/dl NEAR OR ABOVE OPTIMAL 130 - 159 mg/dl BORDERLINE HIGH 160 - 189 mg/dl HIGH >190 mg/dl VERY HIGH Performed By: #### T SH, T7, CMP, LIPID ####[facility] [address] [place], [place] [address]Dr. Royce Lopez Triglyceride [Mass/Vol] 74 mg/dL Normal <=150 [facility] Comment on above: Performed By: #### T SH, T7, CMP, LIPID ####[facility] [address] [place], [place] [address]VmAgustin Lopez VLDL CALC 14.8 mg/dL Normal [facility] Comment on above: Performed By: #### T SH, T7, CMP, LIPID ####[facility] [address] [place], [place] [address]GnAgustin Lopez PROF 14(COMP METB)on 022 Albumin [Mass/Vol] 3.8 g/dL Normal 3.4-5.0 [facility] Comment on above: Performed By: #### T SH, T7, CMP, LIPID #### [facility] Laboratory [address] [address] [address] Royce Lopez Albumin/Globulin [Mass ratio] 1.0 {ratio} Normal [facility] Comment on above: Performed By: #### T SH, T7, CMP, LIPID #### [facility] [address] [address] [address] Royce Lopez ALP [Catalytic activity/Vol] 98 U/L Normal 46-116 [facility] Comment on above: Performed By: #### T SH, T7, CMP, LIPID #### [facility] Laboratory [address] [address] [address] Royce Lopez ALT [Catalytic activity/Vol] 16 U/L Normal 14-59 [facility] Comment on above: Performed By: #### T SH, T7, CMP, LIPID #### [facility] Laboratory [address] [address] [address] Royce Lopez Anion gap [Moles/Vol] 10.9 mmol/L Normal [facility] Comment on above: Performed By: #### T SH, T7, CMP, LIPID #### [facility] Laboratory [address] [address] [address] Royce Lopez AST [Catalytic activity/Vol] 15 U/L Normal 15-37 [facility] Comment on above: Performed By: #### T SH, T7, CMP, LIPID #### [facility] Laboratory [address] [place] [address] Dr. Royce Lopez Bilirubin [Mass/Vol] 0.4 mg/dL Normal 0.2-1.0 [facility] Comment on above: Performed By: #### T SH, T7, CMP, LIPID #### [facility] Laboratory [address] [place] [address] Dr. Royce Lopez Calcium [Mass/Vol] 9.1 mg/dL Normal 8.5-10.1 [facility] Comment on above: Performed By: #### T SH, T7, CMP, LIPID #### [facility] [address] [place] [address] Dr. Royce Lopez Chloride [Moles/Vol] 103 mmol/L Normal 98-107 [facility] Comment on above: Performed By: #### T SH, T7, CMP, LIPID #### [facility] Laboratory [address] [place] [address] Dr. Royce Lopez CO2 [Moles/Vol] 28.3 mmol/L Normal 21.0-32.0 [facility] Comment on above: Performed By: #### T SH, T7, CMP, LIPID #### [facility] Laboratory [address] [place] [address] Dr. Royce Lopez Creatinine [Mass/Vol] 0.62 mg/dL Normal 0.55-1.02 [facility] Comment on above: Performed By: #### T SH, T7, CMP, LIPID #### [facility] [address] [place] [address] Dr. Royce Lopez EGFR-AF TUVALUAN >60 Normal >=60 [facility] Comment on above: Performed By: #### T SH, T7, CMP, LIPID #### [facility] Laboratory [address] [place] [address] Dr. Royce Lopez EGFR-NON AF TUVALUAN >60 Normal >=60 [facility] Comment on above: Performed By: #### T SH, T7, CMP, LIPID #### [facility] [address] [address] [address] Royce Lopez Globulin (S) [Mass/Vol] 3.9 g/dL Normal [facility] Comment on above: Performed By: #### T SH, T7, CMP, LIPID #### [facility] Laboratory [address] [address] [address] Royce Lopez Glucose [Mass/Vol] 97 mg/dL Normal 74-[address] [facility] Comment on above: Performed By: #### T SH, T7, CMP, LIPID #### [facility] [address] [address] [address] Royce Lopez Potassium [Moles/Vol] 4.2 mmol/L Normal 3.5-5.1 [facility] Comment on above: Performed By: #### T SH, T7, CMP, LIPID #### [facility] Laboratory [address] [address] [address] Royce Lopez Protein [Mass/Vol] 7.7 g/dL Normal 6.4-8.[address] [facility] Comment on above: Performed By: #### T SH, T7, CMP, LIPID #### [facility] [address] [address] [address] Royce Lopez Sodium [Moles/Vol] 138 mmol/L Normal 136-[address] [facility] Comment on above: Performed By: #### T SH, T7, CMP, LIPID #### [facility] Laboratory [address] [address] [address] Royce Lopez Urea nitrogen [Mass/Vol] 7.0 mg/dL Normal 7.0-18.0 [facility] Comment on above: Performed By: #### T SH, T7, CMP, LIPID #### [facility] [address] [address] [address] Royce Lopez Urea nitrogen/Creatinine [Mass ratio] 11.3 mg/mg Normal [facility] Comment on above: Performed By: #### T SH, T7, CMP, LIPID #### [facility] [address] [address] [address] Royce Lopez TSHon 06-09-2022 TSH 0.370 uIU/mL Normal 0.358-3.740 [facility] Comment on above: Performed By: #### T SH, T7, CMP, LIPID ####[facility] [address] [place], [place] [address]QhDr. Royce Lopez Covid-19 PCR (CVDTB)on 08-18 SARS-CoV-2 (COVID-19) RNA HARISH+probe Ql (Unsp spec) Not detected Normal NOT DETECTED [facility] Comment on above: Result Comment: This test is not yet approved or cleared by the [place] FDA. When there are no FDA-approved or cleared tests available, and other criteria are met, FDA can make tests available under an emergency access mechanism called an Emergency Use Authorization (EUA). The EUA for this test is supported by the Production Administrative Assistant of Health and Human Service's (HHS's) declaration [...] SARS-CoV-2. Performed By: #### C VDTBH #### [facility] [address] [place], [place] [address] Dr. Royce Lopez Covid-19 PCR (CVDTB)on 07-18 SARS-CoV-2 (COVID-19) RNA HARISH+probe Ql (Unsp spec) Not detected Normal NOT DETECTED [facility] Comment on above: Result Comment: This test is not yet approved or cleared by the [place] FDA. When there are no FDA-approved or cleared tests available, and other criteria are met, FDA can make tests available under an emergency access mechanism called an Emergency Use Authorization (EUA). The EUA for this test is supported by the Production Administrative Assistant of Health and Human Service's (HHS's) declaration [...] SARS-CoV-2. Performed By: #### C VDTBH #### [facility] [address] [address] [address] Royce Lopez INFLUENZA A AND B [facility] 08-07 [facility] SEE BELOW Normal [facility] Comment on above: Result Comment: Nega tive for Flu A protein angiten. Infection due to Flu A cannot be ruled out. Flu A angiten in the sample may be below the detection limit of the test. Performed By: #### I NFLUAB ####[facility] [address] [address]Dr. Royce Lopez INFLUBNEG SEE BELOW Normal [facility] Comment on above: Result Comment: Nega tive for Flu B protein antigen. Infection due to Flu B cannot be ruled out. Flu B antigen in the sample may be below the detection limit of the test. Performed By: #### I NFLUAB ####[facility] [address] [place], [place] [address]Dr. Royce Lopez INFLUENZA A AG Negative Normal NEGATIVE SEE COMMENT [facility] Comment on above: Performed By: #### I NFLUAB ####[facility] [address] [place], [place] [id number]. Royce Lopez INFLUENZA B AG Negative Normal NEGATIVE SEE COMMENT [facility] Comment on above: Performed By: #### I NFLUAB ####[facility] [address] [place], [place] [address]Dr. Royce Lopez INTERNAL CONTROLS Within Normal Limits Normal Wi thin Normal Limits [facility] Comment on above: Performed By: #### I NFLUAB ####[facility] [address] [place], [place] [address]Dr. Royce Lopez LIPID PROFILEon 07-08-2021 CHOL-HDL RATIO NORM SEE BELOW Normal [facility] Comment on above: Result Comment: 3.3 - 4.4 LOW RISK 4.4 - 7.1 AVERAGE RISK 7.1 - 11.0 MODERATE RISK >11.0 HIGH RISK Performed By: #### L IVER, LIPID #### [facility] Laboratory [address] [address] [address] Royce Lopez Cholesterol [Mass/Vol] 195 mg/dL Normal <=200 [facility] Comment on above: Performed By: #### L IVER, LIPID #### [facility] Laboratory [address] [address] [address] Royce Lopez Cholesterol in HDL [Mass/Vol] 74 mg/dL Normal [facility] Comment on above: Performed By: #### L IVER, LIPID #### [facility] Laboratory [address] [address] [address] Royce Lopez Cholesterol in LDL [Mass/Vol] 108.6 mg/dL Normal [facility] Comment on above: Performed By: #### L IVER, LIPID #### [facility] Laboratory [address] [address] [address] Royce Lopez Cholesterol.total/Ch olesterol in HDL [Mass ratio] 2.6 {ratio} Normal [facility] Comment on above: Performed By: #### L IVER, LIPID #### [facility] Laboratory [address] [address] [address] Royce Lopez HDL NORMAL > or = 60 mg/dl - LO W CARDIOVASCULAR RISK <40 mg/dl - HIGH CARDIOVASCULAR RISK Normal [facility] Comment on above: Performed By: #### L IVER, LIPID #### [facility] Laboratory [address] [id number] [address] Royce Lopez LDL CALC NORMAL SEE BELOW Normal [facility] Comment on above: Result Comment: <100 mg/dl OPTIMAL 100 - 129 mg/dl NEAR OR ABOVE OPTIMAL 130 - 159 mg/dl BORDERLINE HIGH 160 - 189 mg/dl HIGH >190 mg/dl VERY HIGH Performed By: #### L IVER, LIPID #### [facility] [address] [address] [address] Royce Lopez Triglyceride [Mass/Vol] 62 mg/dL Normal <=150 [facility] Comment on above: Performed By: #### L IVER, LIPID #### [facility] [address] [address] [address] Royce Lopez VLDL CALC 12.4 mg/dL Normal [facility] Comment on above: Performed By: #### L IVAUGUSTINE, LIPID #### [facility] [address] [address] [address] Royce Lopez LIVER PROFILEon 07-08-2021 Albumin [Mass/Vol] 3.9 g/dL Normal 3.5-5.0 [facility] Comment on above: Performed By: #### L HARSHIL, LIPID #### [facility] [address] [place] [address] Dr. Royce Lopez Albumin/Globulin [Mass ratio] 1.1 {ratio} Normal [facility] Comment on above: Performed By: #### L IVAUGUSTINE, LIPID #### [facility] Laboratory [address] [place] [address] Dr. Royce Lopez ALP [Catalytic activity/Vol] 67 U/L Normal 38-126 [facility] Comment on above: Performed By: #### L HARSHIL, LIPID #### [facility] [address] [place] [address] Dr. Royce Lopez ALT [Catalytic activity/Vol] 23 U/L Normal 9-52 [facility] Comment on above: Performed By: #### L IVAUGUSTINE, LIPID #### [facility] [address] [place] [address] Dr. Royce Lopez AST [Catalytic activity/Vol] 19 U/L Normal 14-36 [facility] Comment on above: Performed By: #### L IVER, LIPID #### [facility] [address] [place] [address] Dr. Royce Lopez BILI, CONJUGATED 0.1 mg/dL Normal 0.0-0.3 [facility] Comment on above: Performed By: #### L IVER, LIPID #### [facility] [address] [place], [place] [address] Dr. Royce Lopez Bilirubin [Mass/Vol] 0.3 mg/dL Normal 0.2-1.3 [facility] Comment on above: Performed By: #### L IVER, LIPID #### [facility] [address] [place], [place] [address] Dr. Royce Lopez Globulin (S) [Mass/Vol] 3.5 g/dL Normal [facility] Comment on above: Performed By: #### L IVER, LIPID #### [facility] [address] [place], [place] [address] Dr. Royce Lopez Protein [Mass/Vol] 7.4 g/dL Normal 6.1-8.2 [facility] Comment on above: Performed By: #### L IVER, LIPID #### [facility] [address] [place], [place] [address] Dr. Royce Lopez XR SHOULDER LEFT (MIN 2 VIEW S)on [...] Calvillo Jr., MD 10/27/18 Final result Normal [facility] Vital Signs Date Time Vital Sign Value Performing Clinician Faci lity 08-29-2024 08:47-0500 Body height 157.5 cm Leonardo Whitaker MD Work Phone: [facility] 08-29-2024 08:47-0500 Body mass index (BMI) [Ratio] 18.66 kg/m2 Leonardo Whitaker MD Work Phone: [facility] 08-29-2024 08:47-0500 Body weight 46.27 kg Leonardo Whitaker MD Work Phone: [facility] 07-18-2024 10:15-0500 Body height 157.5 cm Leonardo Whitaker MD Work Phone: [facility] 07-18-2024 10:15-0500 Body mass index (BMI) [Ratio] 18.66 kg/m2 Leonardo Whitaker MD Work Phone: [facility] 07-18-2024 10:15-0500 Body weight 46.27 kg Leonardo Whitaker MD Work Phone: [facility] 07-18-2024 10:15-0500 Diastolic blood pressure 74 mm[Hg] Leonardo Whitaker MD Work Phone: [facility] 07-18-2024 10:15-0500 Heart rate 66 /min Leonardo Whitaker MD Work Phone: [facility] 07-18-2024 10:15-0500 Systolic blood pressure 132 mm[Hg] Leonardo Whitaker MD Work Phone: [facility] 05-30-2024 09:50-0400 Body height 157.5 cm Leonardo Whitaker MD Work Phone: [facility] 05-30-2024 09:50-0400 Body mass index (BMI) [Ratio] 18.66 kg/m2 Leonardo Whitaker MD Work Phone: [facility] 05-30-2024 09:50-0400 Body weight 46.27 kg Leonardo Whitaker MD Work Phone: [facility] 05-30-2024 09:50-0400 Diastolic blood pressure 76 mm[Hg] Leonardo Whitaker MD Work Phone: [facility] 05-30-2024 09:50-0400 Systolic blood pressure 128 mm[Hg] Leonardo Whitaker MD Work Phone: [facility] 04-13-2024 08:50-0400 Body height 157.5 cm Leonardo Whitaker MD Work Phone: [facility] 04-13-2024 08:50-0400 Body mass index (BMI) [Ratio] 18.66 kg/m2 Leonardo Whitaker MD Work Phone: [facility] 04-13-2024 08:50-0400 Body weight 46.27 kg Leonardo Whitaker MD Work Phone: [facility] 04-13-2024 08:50-0400 Diastolic blood pressure 80 mm[Hg] Leonardo Whitaker MD Work Phone: [facility] 04-13-2024 08:50-0400 Systolic blood pressure 130 mm[Hg] Leonardo Whitaker MD Work Phone: [facility] Healthcare Encounters Encounter Date Encounter Type Care Provider Facility Start: 10-28-2024 End: 10-28-2024 ambulatory RAGHAV DASILVA Not Available Start: 10-19-2024 End: 10-19-2024 Bamboo flowsheet Leonardo Whitaker MD Work Phone: [facility] Start: 10-19-2024 End: 10-19-2024 Bamboo flowsheet Leonardo Whiatker MD Work Phone: [facility] Start: 10-19-2024 End: 10-19-2024 ambulatory LEONARDO WHITAKER Not Available Start: 10-17-2024 End: 10-17-2024 Refill Antonella Dominguez AUDITING MANAGER Work Phone: [facility] Comment on above: Lumbar radiculopathy Start: 10-14-2024 End: 10-14-2024 Refill Kristen Umana DO Work Phone: [facility] Comment on above: Age-related nuclear cataract of both eyes Start: 10-10-2024 End: 10-10-2024 Refill Paula Negron AUDITING MANAGER Work Phone: [facility] Comment on above: Lumbar radiculopathy (Primary Dx) Start: 10-05-2024 End: 10-05-2024 Telephone encounter Leonardo Whitaker MD Work Phone: [facility] Start: 09-15-2024 End: 09-15-2024 Refmegan Umana DO Work Phone: [facility] Comment on above: Age-related nuclear cataract of both eyes Start: 09-15-2024 End: 09-15-2024 Refmegan Dominguez AUDITING MANAGER Work Phone: [facility] Comment on above: Lumbar radiculopathy Start: 08-29-2024 End: 08-29-2024 Bamboo flowsheet Leonardo Whitaker MD Work Phone: [facility] Start: 08-29-2024 End: 08-29-2024 Bamboo flowsheet Leonardo Whitaker MD Work Phone: [facility] Start: 08-29-2024 End: 08-29-2024 Clinical Support Leonardo Whitaker MD Work Phone: [facility] Comment on above: Trochanteric bursiti s, right hip (Primary Dx); Lumbar radiculopathy Start: 08-23-2024 End: 08-24-2024 Telephone encounter Dannielle CHRISTIE TAgustin Other Phone: [facility] Start: 08-05-2024 End: 08-05-2024 ambulatory SELF REFERRAL Facility:[facility] Start: 08-05-2024 End: 08-05-2024 Patient encounter procedure SELF REFERRAL [facility] Start: 07-18-2024 End: 07-18-2024 Bamboo flowsheet Leonardo Whitaker MD Work Phone: [facility] Start: 07-18-2024 End: 07-18-2024 Bamboo flowsheet Leonardo Whitaker MD Work Phone: [facility] Start: 07-18-2024 End: 07-18-2024 Clinical Support Leonardo Whitaker MD Work Phone: [facility] Comment on above: Trochanteric bursiti s, right hip (Primary Dx); Lumbar radiculopathy; Degeneration of intervertebral disc of lumbar region, unspecified whether pain present; Trochanteric bursitis of left hip Start: 06-23-2024 End: 06-23-2024 Refmegan Umana DO Work Phone: [facility] Comment on above: Age-related nuclear cataract of both eyes Start: 06-20-2024 End: 06-20-2024 ambulatory LEONARDO WHITAKER Not Available Start: 06-13-2024 End: 06-13-2024 Telephone encounter Leonardo Whitaker MD Work Phone: [facility] Start: 06-02-2024 End: 06-02-2024 Telephone encounter Leonardo Whitaker MD Work Phone: [facility] Start: 05-30-2024 End: 05-30-2024 Bamboo flowsheet Leonardo Whitaker MD Work Phone: [facility] Start: 05-30-2024 End: 05-30-2024 Bamboo flowsheet Leonardo Whitaker MD Work Phone: [facility] Start: 05-30-2024 End: 05-30-2024 Clinical Support Leonardo Whitaker MD Work Phone: [facility] Comment on above: Trochanteric bursiti s of right hip (Primary Dx) Start: 04-13-2024 End: 04-13-2024 Bamboo flowsheet Leonardo Whitaker MD Work Phone: [facility] Start: 04-13-2024 End: 04-13-2024 Bamboo flowsheet Leonardo Whitaker MD Work Phone: [facility] Start: 04-13-2024 End: 04-13-2024 Clinical Support Leonardo Whitaker MD Work Phone: [facility] Comment on above: Trochanteric bursiti s, right hip (Primary Dx); Trochanteric bursitis of left hip Start: 02-24-2024 End: 02-24-2024 ambulatory LEONARDO WHITAKER Not Available Start: 02-15-2024 End: 02-15-2024 ambulatory ANTONELLA DOMINGUEZ Not Available Start: 01-14-2024 End: 01-14-2024 ambulatory LEONARDOROSA Claire BAUER Not Available Start: 01-05-2024 End: 01-27-2024 Pre-admission assessment SELF REFERRAL [facility] Start: 11-19-2023 End: 11-19-2023 ambulatory KRISTEN UMANA Not Available Start: 09-29-2023 End: 09-29-2023 Office outpatient visit 15 minutes Antonella Dominguez AUDITING MANAGER Work Phone: [facility] Comment on above: Sciatica of left juan josé e (Primary Dx); Degenerative disc disease, lumbar; Trochanteric bursitis of left hip; Lumbar radiculopathy; Trochanteric bursitis of right hip Start: 08-01-2022 End: 08-01-2022 ambulatory Josemanuel Mehta Facility:[facility] Start: 06-24-2022 End: 06-25-[address] PATRICK SWENSON Facility:[facility] Start: 06-16-2022 End: 06-16-[address] PATRICK SWENSON Facility:[facility] Start: 06-11-2022 Encounter for genera l adult medical examination without abnormal findings DR PATRICK SWENSON [facility] Start: 06-09-2022 End: 06-10-[address] PATRICK SWENSON Facility:[facility] Start: 06-09-2022 End: 06-10-2022 Encounter for general adult medical examination without abnormal findings DR PATRICK SWENSON Facility:[facility] Start: 12-20-2021 End: 12-20-2021 Patient encounter procedure SELF REFERRAL [facility] Start: 11-05-2021 End: 11-06-[address] PATRICK SWENSON Facility:[facility] Start: 10-28-2021 End: 10-28-[address] PATRICK SWENSON Facility:[facility] Start: 09-06-2021 End: 09-06-2021 ambulatory ITZ ENRIQUE Facility:[facility] Start: 08-07-2021 End: 08-07-[address] PATRICK SWENSON Facility:[facility] Start: 07-08-2021 End: 07-09-[address] PATRICK SWENSON Facility:[facility] Start: 10-27-2018 End: 10-30-2018 Patient encounter procedure RAGHAV DASILVA [facility] Start: 10-27-2018 End: 10-30-2018 Patient encounter procedure RAGHAV DASILVA [facility] Procedures Date Procedure Procedure Detail Performing [...] Treatment Date Care Activity Detail Author Start: 10-28-2024 End: 10-28-2024 Patient encounter procedure 10/28/2024 8:45 AM EDT Office Visit [facility] [address] [place] [phone] Raghav Dasilva DO [address] [place] [address] [facility] Start: 10-19-2024 End: 10-19-2024 Clinical Support [facility] Comment on above: Arrived Start: 10-10-2024 End: 10-10-2024 Clinical Support 10/10/2024 8:40 AM EST Clinical Support [facility] [address] [facility] [address] [place] [address] Leonardo Whitaker MD [address] [place] [address] [place] [id number] [facility] Start: 08-29-2024 End: 08-29-2024 Clinical Support [facility] Comment on above: Arrived Start: 07-18-2024 End: 07-18-2024 Clinical Support [facility] Comment on above: Arrived Start: 06-20-2024 End: 06-20-2024 Patient encounter procedure 06/20/2024 9:00 AM EST Procedure Visit [facility] [address] [phone] [facility] Start: 05-30-2024 End: 05-30-2024 Clinical Support [facility] Comment on above: Arrived Start: 04-17-2024 Influenza vaccination Influenza Vacc ine (#1) [facility] Start: 04-13-2024 End: 04-13-2024 Clinical Support 04/13/2024 9:00 AM EDT Clinical [facility] [address] [phone] Leonardo Whitaker MD [address] [facility] [address] [address] Arrived [facility] Comment on above: Arrived Start: 10-21-2023 End: 10-21-2023 Clinical Support 10/21/2023 9:00 AM EST Clinical Support [facility] [address] [phone] Leonardo Whitaker MD [address] [facility] [address] [address] [facility] Start: 2007 Screening for malign ant neoplasm of breast Mammogram [facility] Start: 1997 Screening for malign ant neoplasm of cervix [facility] Start: 1988 Screening for malign ant neoplasm of cervix Pap Smear [facility] Start: 1967 Screening for malign ant neoplasm of colon [facility] Immunizations Immunization Date Immunization Notes Care Provider [facility] 06-11-2023 Influenza, injectabl e, Madin [place] Canine Kidney, preservative free, quadrivalent Antonella Dominguez NP Work Phone: [facility] 06-11-2023 influenza virus vacc ine, unspecified formulation Leonardo Whitaker MD Work Phone: [facility] 06-07-2020 influenza, injectabl e, quadrivalent, preservative free Antonella Graziani AUDITING MANAGER Work Phone: [facility] 03-12-2020 pneumococcal polysaccharide vaccine, 23 valent Antonella Graziani AUDITING MANAGER Work Phone: [facility] 05-18-2019 influenza, injectabl e, quadrivalent, preservative free Antonella Graziani AUDITING MANAGER Work Phone: [facility] 05-18-2019 pneumococcal conjuga te vaccine, 13 valent Antonella Graziani AUDITING MANAGER Work Phone: [facility] 04-07-2001 hepatitis B vaccine, adult dosage Antonella Graziani AUDITING MANAGER Work Phone: [facility] 01-09-2000 hepatitis B vaccine, adult dosage Antonella Graziani AUDITING MANAGER Work Phone: [facility] 08-28-1997 hepatitis B vaccine, adult dosage Antonella Graziani AUDITING MANAGER Work Phone: [facility] Payers Date Payer Category Payer Self-pay 2014 Private Health Insurance [employer] [id number] 2014 Unknown [employer] [id number] 2014-Present [address] [place] [address] [id number] 1967 Unknown [id number] 2.16.840.1.748497.3.579.2. 174 1967 Unknown [id number] 2.16.840.1.828278.3.579.2. 174 1967 Unknown [id number] 2.16.840.1.019010.3.579.2. 593 1967 Unknown [id number] 2.16.840.1.731303.3.579.2. 593 1967 Unknown [id number] 2.16.840.1.991114.3.579.2. 593 1967 Unknown [id number] 2.16.840.1.592212.3.579.2. 593 1967 Unknown [id number] 2.16.840.1.359973.3.579.2. 593 1967 Unknown [id number] 2.16.840.1.292032.3.579.2. 593 1967 Unknown [id number] 2.16.840.1.874454.3.579.2. 593 1967 Unknown [id number] 2.16.840.1.190765.3.579.2. 593 1967 Unknown [id number] 2.16.840.1.792847.3.579.2. 727 1967 Unknown [id number] 2.16.840.1.101915.3.579.2. 1259 1967 Unknown [id number] 2.16.840.1.058369.3.579.2. 1259 1967 Unknown [id number] 2.16.840.1.585664.3.579.2. 1259 1967 Unknown [id number] 2.16.840.1.455171.3.579.2. 1259 1967 Unknown [id number] 2.16.840.1.053524.3.579.2. 1259 1967 Unknown [id number] 2.16.840.1.769195.3.579.2. 9 1967 Unknown [id number] 2.16.840.1.902876.3.579.2. 9 1967 Unknown [id number] 2.16.840.1.392515.3.579.2. 9 1967 Unknown [id number] 2.16.840.1.138123.3.579.2. 1258 1967 Unknown [id number] 2.16.840.1.985183.3.579.2. 1258 1967 Unknown [id number] 2.16.840.1.437836.3.579.2. 1258 1967 Unknown [id number] 2.16.840.1.160385.3.579.2. 9 1967 Unknown [id number] 2.16.840.1.008085.3.579.2. 9 1959 Unknown [id number] Unknown [id number] 2.16.840.1.938385.3.579.2. 531 Social History Date Type Detail Facility Start: 01-26-2021 Tobacco smoking status Heavy t obacco smoker (finding) [facility] Start: 09-29-2023 End: 08-29-2024 Sex Assigned At Female [facility] Start: 05-19-2023 End: 02-15-2024 Tobacco smoking status NHIS Smokes tobacco daily [facility] History of tobacco use Cigarette Smoker [facility] Start: 05-19-2023 End: 08-29-2024 Cigarettes smoked current (pack per day) - Reported 0.5 [facility] Start: 05-19-2023 End: 02-15-2024 Tobacco use and exposure Smokeless tobacco non-user [facility] Start: 09-29-2023 End: 08-29-2024 Alcohol intake Current drinker of alcohol (finding) [facility] Start: 07-20-2023 Alcohol Comment monthly or les s, Caffeine intake : soda/pop,coffee,tea more than 4 cups per day [facility] Start: 1967 Sex Assigned At Not on file [facility] Clinical Notes 03-14-2022 to 10-17-2024 Telephone Encounter - Antonella Dominguez NP - 10/17/2024 10:17 AM ESTTelephone Encounter - Antonella Dominguez NP - 10/17/2024 10:17 AM ESTLeonardo Whitaker MD - 08/29/2024 8:40 AM EST Note Date & Type Note Facility 10-17-2024 Telephone encounter Note Patient calls for refill of dexamethasone. Sent. [facility] 10-17-2024 Miscellaneous Notes Patient calls for refill of dexamethasone. Sent. documented in this encounter [facility] 10-10-2024 Telephone encounter Note Script sent for lidocaine patches [facility] 10-10-2024 Miscellaneous Notes Script sent for lidocaine patches documented in this encounter [facility] 10-05-2024 Telephone encounter Note Sent. [employer] message sent to patient [facility] 10-05-2024 Miscellaneous Notes Sent. Mychart message sent to patient Patient called requesting refill of Dexamethasone to be sent to [facility] in [place]. documented in this encounter [facility] 10-05-2024 Telephone encounter Note Patient called requesting refill of Dexamethasone to be sent to [facility] in [place]. [facility] 09-15-2024 Telephone encounter Note Patient leaves voicemail for refill of dexamethasone. Sent to pharmacy and notified patient via [employer] [facility] 09-15-2024 Miscellaneous Notes Patient leaves voicemail for refill of dexamethasone. Sent to pharmacy and notified patient via [employer] documented in this encounter [facility] 08-29-2024 History of Presen t illness Narrative Images from the original note were not included. CHIEF COMPLAINT REASON FOR VISIT: Injections. HPI: Mitesh Patel is a 59 y.o. female who presents for bilateral bursa injections. Pain level is a 6/10. She states it does get worse as the day goes on. Consent form signed. Patient seen Dr. Horne on 08/01. She states she does get her tens unit and it does help some. She states she does not want to do the epidurals. She states it is up in the air right now. Denies any other concerns. CURRENT MEDICATIONS: ALLERGIES/DISCONTINUE MEDICATIONS Current Outpatient Medications Medication Instructions alendronate (Fosamax) 70 MG tablet TAKE 1 TABLET BY MOUTH 30 MINUTES BEFORE FIRST FOOD/DRINK/MED OF THE DAY WITH PLAIN WATER ascorbic acid (Vitamin C) 500 MG chewable [...] Sulfa Antibiotics Unknown and Rash Sulfacetamide Rash Medications Discontinued During This Encounter Medication Reason dexAMETHasone (Decadron) 2 MG tablet Reorder PAST MEDICAL HISTORY: SURGICAL/SOCIAL/FAMILY HISTORY DEPRESSION SCREEN: Past Medical History: Diagnosis Date Cataract Hyperlipidemia (CMS/HCC) Past Surgical History: Procedure Laterality Date CARPAL TUNNEL RELEASE Left 12/25/2015 L CTR, AUNT [facility]TP KNEE SURGERY arthroscopy [facility] NECK SURGERY 1998, 2002 TRIGGER FINGER RELEASE Right 02/22/2020 trigger thumb release [facility] Social History Tobacco Use Smoking status: Every [...] urinating and urgency. Musculoskeletal: Positive for back pain. Negative for arthralgias, myalgias, neck pain and neck stiffness. Neurological: Negative for tremors, weakness, light-headedness and numbness. Psychiatric/Behavioral: Negative for agitation, confusion and suicidal ideas. OBJECTIVE: 08/29/2024 8:47 AM 07/18/2024 10:15 AM 05/30/2024 9:50 AM Vitals BMI 18.66 kg/m2 18.66 kg/m2 18.66 kg/m2 BSA (m2) 1.42 m2 1.42 m2 1.42 m2 Systolic 132 128 Diastolic 74 76 Heart Rate 66 Height (in) 5' 2 5' 2 5' 2 Weight (lb) 102 102 102 EXAM: Neurological Exam Mental Status Awake, alert [...] reflexes: Mohsen's absent. Ankle clonus absent. Coordination Fxpvrt-ff-opfy, rapid alternating movements and vyrr-wx-slxc normal bilaterally without dysmetria. Gait Normal casual, [...] and surface anesthetic; a 25 gauge 1 /2 spinal needle was advanced to make contact with the greater trochanter. The needle was then withdrawn about 1 mm. The patient received an injection of 3 cc of Bupivacaine 0.5% and1 cc Dexamethasone 4mg in a fan-like distribution. The needle was removed. A Band-Aid dressing was applied on the injection site. ASSESSMENT AND PLAN: Mitesh Patel is a 59 year old female with trochanteric bursitis the right hip. This is a condition characterized by inflammation of the bursa located over the greater trochanter of the hip. This can cause pain and tenderness on the outer side of the hip. Bursa injections involve injecting medication into the bursa on both sides of the hips to reduce inflammation and alleviate pain. The effects of the injection can last from several weeks to several months, depending on the severity of the condition and response to the treatment. EMG BLE (06/20/2024)-Bilateral L5 radiculopathy. Moderate on the right & mild on the left. XRAY Lumbar Spine-(05/30/24)-Dextroconvex scoliosis of the lumbar spine with minimal retrolisthesis L2 on L3 and anterior listhesis L4 on L5. Very advanced degenerative change particularly in the mid and lower levels. XRAY Right Hip-(05/30/24)-No fracture or dislocation. Chronic/degenerative findings. Diagnoses and all orders for this visit: Trochanteric bursitis, right hip - bupivacaine (Marcaine) 0.5 % injection 5 mg - dexAMETHasone sod phos (Decadron) injection 4 mg Lumbar radiculopathy - dexAMETHasone (Decadron) 2 MG tablet; 2mg 3 pills po X3 days,2 pills po daily X3 days , then 1 pill po daily X3 days then stop 9 days 18 pills 1. Lumbar radiculopathy - dexAMETHasone (Decadron) 2 MG tablet; 2mg 3 pills po X3 days,2 pills po daily X3 days , then 1 pill po daily X3 days then stop 9 days 18 pills Dispense: 18 tablet; Refill: 1 2. Trochanteric bursitis, right hip (Primary) - bupivacaine (Marcaine) 0.5 % injection 5 mg - dexAMETHasone sod phos (Decadron) injection 4 mg tens unit for back/hip pain Dexamethasone 2 mg taper in between visits to help with pain and inflammation. I counseled the patient on the possible side effects and interactions of medications. Consider continuing with Dr. Horne for right lumbar trans foraminal epidural injections. I will bring her back in 6-8 weeks to see if she has received 50% or greater pain relief and at that time I will repeat the injections if needed. documented in this encounter [facility] 08-23-2024 Telephone encounter Note Needs a refill on Dexamethasone 2mg [facility] Work Phone: 08-23-2024 Miscellaneous Notes Needs a refill on [facility]amethasone [facility] documented in this encounter [facility] 07-18-2024 History of Presen t illness Narrative Images from the original note were not included. CHIEF COMPLAINT REASON FOR VISIT: Injections. HPI: Mitesh Patel is a 58 y.o. female who presents for right bursa injections. Pain level is a 10/10. Consent form signed. She does want to discuss EMG results and asking for steroid to be sent in. She would like to know if there is anything else to do or if there is any other treatment. So I suggested that maybe an epidural would be something, lets ask Dr. Whitaker. Denies any other concerns. CURRENT MEDICATIONS: ALLERGIES/DISCONTINUE MEDICATIONS Current Outpatient Medications Medication Instructions alendronate (Fosamax) 70 MG tablet TAKE 1 TABLET BY MOUTH 30 MINUTES BEFORE FIRST FOOD/DRINK/MED OF THE DAY WITH PLAIN WATER ascorbic acid (Vitamin C) 500 MG chewable [...] Sulfa Antibiotics Unknown and Rash Sulfacetamide Rash Medications Discontinued During This Encounter Medication Reason dexAMETHasone (Decadron) 2 MG tablet Therapy completed dexAMETHasone (Decadron) 2 MG tablet Therapy completed PAST MEDICAL HISTORY: SURGICAL/SOCIAL/FAMILY HISTORY DEPRESSION SCREEN: Past Medical History: Diagnosis Date Cataract Hyperlipidemia (CMS/HCC) Past Surgical History: Procedure Laterality Date CARPAL TUNNEL RELEASE Left 12/25/2015 L [facility], AUNT MTP KNEE SURGERY arthroscopy MTP NECK SURGERY 1998, 2002 TRIGGER FINGER RELEASE Right 02/22/2020 trigger thumb release [facility] Social History Tobacco Use Smoking status: [...] for agitation, confusion and suicidal ideas. OBJECTIVE: 07/18/2024 10:15 AM 05/30/2024 9:50 AM 04/13/2024 8:50 AM Vitals BMI 18.66 kg/m2 18.66 kg/m2 18.66 kg/m2 BSA (m2) 1.42 m2 1.42 m2 1.42 m2 Systolic 128 128 130 Diastolic 76 76 80 Height (in) 5' 2 5' 2 5' 2 Weight (lb) 102 102 102 EXAM: Neurological Exam Mental Status Awake, alert [...] reflexes: Mohsen's absent. Ankle clonus absent. Coordination Grsvgd-io-rzan, rapid alternating movements and mmoc-ms-coqb normal bilaterally without dysmetria. Gait Normal casual, [...] in the media folder. ASSESSMENT AND PLAN: Mitesh Patel is a 58 year old female with trochanteric bursitis the right hip. This is a condition characterized by inflammation of the bursa located over the greater trochanter of the hip. This can cause pain and tenderness on the outer side of the hip. Bursa injections involve injecting medication into the bursa on both sides of the hips to reduce inflammation and alleviate pain. The effects of the injection can last from several weeks to several months, depending on the severity of the condition and response to the treatment. EMG BLE (06/20/2024) Bilateral L5 radiculopathy Moderate in degree on the right Mild in degree on the left. Diagnoses and all orders for this visit: Lumbar radiculopathy Degeneration of intervertebral disc of lumbar region, unspecified whether pain present EMG BLE on 06/20/24 results discussed with patient. I will send in for a tens unit for back/hip pain to jennifer. Dexamethasone 2 mg taper in between visits to help with pain and inflammation. I counseled the patient on the possible side effects and interactions of medications. I will send in referral to Dr. Horne with pain management. Trochanteric bursitis, right hip I will bring her back in 6-8 weeks to see if she has received 50% or greater pain relief and at that time I will repeat the injections if needed. Also to follow up from her visit with Dr. Lockett. documented in this encounter [facility] 06-13-2024 Telephone encounter Note Pt is requesting refill of Decadron rx. [facility] 06-13-2024 Miscellaneous Notes Pt is requesting refill of Decadron rx. documented in this encounter [facility] 06-02-2024 Telephone encounter Note Pt would like someone to call her with xr results if possible. I explained how MyChart works for her and sent a new link but she would still like a call. [facility] 06-02-2024 Miscellaneous Notes Pt would like someone to call her with xr results if possible. I explained how MyChart works for her and sent a new link but she would still like a call. documented in this encounter [facility] 05-30-2024 History of Presen t illness Narrative [...] Past Medical History: Diagnosis Date Cataract Hyperlipidemia ([facility]/HCC) Past Surgical History: Procedure Laterality Date CARPAL TUNNEL RELEASE Left 12/25/2015 L CTR, AUNT MTP KNEE SURGERY arthroscopy MTP NECK SURGERY 1998, 2002 TRIGGER FINGER RELEASE Right 02/22/2020 trigger thumb release [facility] Social History Tobacco Use Smoking status: [...] reflexes: Mohsen's absent. Ankle clonus absent. Coordination Moqjtt-nw-plwk, rapid alternating movements and ilcw-xk-jgbz normal bilaterally without dysmetria. Gait Normal casual, [...] injections if needed. documented in this encounter [facility] 04-13-2024 History of Presen t illness Narrative Images from the original note were not included. CHIEF COMPLAINT REASON FOR VISIT : Injections HPI: Mitesh Patel is a 58 y.o. female who presents for bilateral bursa injections. She went back to work with school starting. She is having pounding pain. Right lower back and right hip pain is worse. Pain level is a 7/10. She is requesting steroids refilled. She does not feel like Piroxicam is helping her pain. Denies any other concerns. CURRENT MEDICATIONS: ALLERGIES/DISCONTINUE [...] Vitamin (Multi Vitamin) tablet Every 24 hours piroxicam (FELDENE) 20 mg, Oral, Daily Allergies Allergen Reactions Other Unknown Amoxicillin Rash [...] FINGER RELEASE Right 02/22/2020 trigger thumb release [facility] Social History Tobacco Use Smoking status: Every [...] file REVIEW OF SYMPTOMS: Review of Systems OBJECTIVE: 02/24/2024 8:20 AM 01/14/2024 8:22 AM 10/20/2023 9:40 AM Vitals BMI 18.84 kg/m2 18.47 kg/m2 18.84 kg/m2 BSA (m2) 1.43 m2 1.42 m2 1.43 m2 Systolic 130 132 120 Diastolic 82 84 80 Height (in) 5' 2 5' 2 Weight (lb) 103 101 103 Visit Report Report EXAM: Neurological ExamMental Status Awake, alert and oriented to person, [...] reflexes: Mohsen's absent. Ankle clonus absent. Coordination Wevqrg-vj-hyam, rapid alternating movements and sqzs-sn-pcbv normal bilaterally without dysmetria. Gait Normal casual, toe, heel and tandem gait. Romberg is absent. PROCEDURE: Bursa Injection After explaining the risks, complications, and benefits of the procedure, the patient leaned over the exam table. Allergies were reviewed, the consent was signed. After palpating right greater trochanter and identifying the most tender area in the bursa, using sterile technique, and surface anesthetic; a 25 gauge 1 1/2 spinal needle was advanced to make contact with the greater trochanter. The needle was then withdrawn about 1 mm. The patient received an injection of 3 cc of Bupivacaine 0.50% and 1 cc Dexamethasone 4mg in a fan-like distribution. The needle was removed. A Band-Aid dressing was applied on the injection site.Ultrasound images were placed in the media folder. ASSESSMENT AND PLAN: Diagnoses and all orders for this visit: Trochanteric bursitis of left hip - dexAMETHasone (Decadron) 2 MG tablet; 2mg 3 pills po X3 days,2 pills po daily X3 days , then 1 pill po daily X3 days then stop 9 days 18 pills - nabumetone (Relafen) 500 MG tablet; Take 1 tablet (500 mg) by mouth in the morning and 1 tablet (500 mg) before bedtime. documented in this encounter [facility] 09-29-2023 History of Presen t illness Narrative Subjective Mitesh Patel is a 58 y.o. female. HPI Patient presents via televisit. Patient pain level today 01/24. Pain reduced greater than 50% for 2.5 [...] FINGER RELEASE Right 02/22/2020 trigger thumb release [facility] MTP Family History Problem Relation Name Age [...] returns acute, moderate/severe. documented in this encounter [facility] 11-05-2021 Note PROCEDURE: XR FOOT R T MIN 3 VIEWS COMPARISON: 10/28/2021 HISTORY: Right foot pain FINDINGS: BONES:No acute fracture or dislocation. Stable corticated calcific densities noted along the medial margin of the navicular and lateral margin of the cuboid. SOFT TISSUES:Negative. No visible soft tissue swelling. EFFUSION:None visible. OTHER: Negative. IMPRESSION: No acute fracture Electronically authenticated by: PAULINE BROTHERS Date: 2021-11-05 10:37 [facility] 10-28-2021 Note PROCEDURE: XR FOOT R T [...] by: PAULINE BROTHERS Date: 2021-10-28 12:24 [facility] Evaluation + Plan note No data available for this section [facility] Evaluation note Diagnosis Sciatica of left side- Primary Degenerative disc disease, lumbar Trochanteric bursitis of left hip Lumbar radiculopathy Thoracic or lumbosacral neuritis or radiculitis, unspecified Trochanteric bursitis of right hip [facility] Diagnosis Trochanteric bursitis of right hip- Primary Trochanteric bursitis of right hip [facility] Diagnosis Trochanteric bursitis of left hip Lumbar radiculopathy Thoracic or lumbosacral neuritis or radiculitis, unspecified [facility] Diagnosis Age-related nuclear cataract of both eyes [facility] Diagnosis Trochanteric bursitis, right hip- Primary Lumbar radiculopathy Thoracic or lumbosacral neuritis or radiculitis, unspecified Degeneration of intervertebral disc of lumbar region, unspecified whether pain present Trochanteric bursitis of left hip [facility] Diagnosis Trochanteric bursitis, right hip- Primary Trochanteric bursitis of left hip [facility] Diagnosis Lumbar radiculopathy Thoracic or lumbosacral neuritis or radiculitis, unspecified Trochanteric bursitis of left hip [facility] Diagnosis Trochanteric bursitis, right hip- Primary Lumbar radiculopathy Thoracic or lumbosacral neuritis or radiculitis, unspecified [facility] Diagnosis Lumbar radiculopathy Thoracic or lumbosacral neuritis or radiculitis, unspecified [facility] Diagnosis Lumbar radiculopathy Thoracic or lumbosacral neuritis or radiculitis, unspecified [facility]* Diagnosis Lumbar radiculopathy- Primary Thoracic or lumbosacral neuritis or radiculitis, unspecified [facility]* Diagnosis Age-related nuclear cataract of both eyes [facility]* Diagnosis Lumbar radiculopathy Thoracic or lumbosacral neuritis or radiculitis, unspecified documented in this encounter [facility] instructions No data available for this [facility] No data available for this section [facility] Summary Purpose Family History No Family History Records FoundNo Family History Records FoundNo Family History Records Found No data available for this section No data available for this section No Family History Records FoundNo Family History Records Found Advance Directives No Advanced Directives Records FoundNo Advanced Directives Records FoundNo Advanced Directives Records FoundNo Advanced Directives Records FoundNo Advanced Directives Records Found Additional Source Comments INFORMATION SOURCE (unrecogn ized section and content) DATE CREATED AUTHOR 10/31/2018 [employer] DATE CREATED AUTHOR AUTHOR'S ORGANIZ ATION 06/29/2022 [facility] DATE CREATED AUTHOR AUTHOR'S ORGANIZ ATION 08/12/2022 [place] DATE CREATED AUTHOR AUTHOR'S ORGANIZ ATION 08/13/2024 [facility] DATE CREATED AUTHOR AUTHOR'S ORGANIZ ATION 10/30/2024 [facility] EPIC Patient Care team informatio n (unrecognized section and content) Personnel Name: Patrick Swenson MD Address: Address: [address] [place] [address] Personnel Name: Patrick Swenson MD Address: Address: [address] [place] [address] Reason for Visit (unrecogniz ed section and [...] BE BASED ON THE PRIMARY CLINICAL RECORDS. [facility] provides no warranty or guarantee of the accuracy or completeness of information in this document.
--- NOTE | 2024-11-08 12:12 | MR_ITS ---
[address] [address] Patient Name: MITESH PATEL MRN: [id number] date: 1965 Sex: F Assigned Patient Location: MRI Current Patient Location: MRI Accession/Order Number: [id number] Exam Date: 11/08/2024 15:03 Report Date: 11/08/2024 15:18 At the request of: LEONARDO REGAN Procedure: MR lumbar spine wo con EXAMINATION: MRI LUMBAR SPINE WITHOUT IV CONTRAST CLINICAL HISTORY: lumbar radiculopathy M54.16 COMPARISON: Lumbar spine 09/08/2022 TECHNIQUE: Multiecho imaging was performed in the sagittal and axial planes without contrast administration. FINDINGS: Vertebral body heights appear maintained. No bone marrow edema. Spinal cord terminates in normal position without abnormal cord signal. No paraspinal mass. Visualized retroperitoneum appears unremarkable. At L1-L2: Mild diffuse broad-based disc bulge is present with mild facet joint degenerative changes. Findings are causing mild canal and left-sided neural foraminal stenosis. At L2-L3: 3 mm retrolisthesis. Diffuse broad-based disc bulge is present with ligamentum flavum hypertrophy and facet joint degenerative changes causing mild canal and moderate left-sided neural foraminal stenosis. At L3-L4: 3 mm retrolisthesis. Diffuse broad-based disc bulge is present with ligamentum flavum hypertrophy and facet joint degenerative changes causing mild canal and moderate bilateral neural foraminal stenosis. At L4-L5: Diffuse broad-based disc bulge is present malignant flavum hypertrophy and facet joint degenerative changes causing moderate canal and severe right-sided neural foraminal stenosis. At L5-S1: Mild diffuse broad-based disc bulge is present with facet joint degenerative changes. No significant canal stenosis. Severe bilateral neural foraminal stenosis. MR/MR lumbar spine wo con IMPRESSION: Multilevel degenerative disc disease as described above, worst at L4-L5. Impression dictated by: Germán Morfin Jr., DAgustinOAgustin11/08/2024 3:18 PM Dictation Location: [place] [address] Electronically authenticated by: [id number] Y Date: 11/08/2024 15:18
== END 2024-11-08 12:07 | disposition home or self-care (01) ==
LOC: MRI 12:07
PROVIDERS: PCP Family Medicine; Visit Provider Psychiatry & Neurology Neurology
DX: M54.16 Radiculopathy, lumbar region (principal); M51.369 Other intervertebral disc degeneration, lumbar region without mention of lumbar back pain or lower extremity pain
CPT/HCPCS: 72148

== ENCOUNTER 2024-11-18 12:49 | Emergency (ER) | payer OTHER, SELFPAY ==
[2024-11-18 13:01] VITALS: BP 152/79; PULSE 104; TEMP 36.7; O2SAT 99; BMI 37.2
--- NOTE | 2024-11-18 13:16 | ED_ITS ---
Documented by User: Marisela Green 11/18/24 13:24 HPI HPI - General Adult General Chief complaint: Animal Bite Stated complaint: BUG BITE - TICK Time Seen by Provider: 11/18/24 13:16 Source: patient Mode of arrival: walk-in Limitations: no limitations History of Present Illness HPI narrative: 59-year-old female presents here with a possibility of a tick on her scalp. She states she noticed it earlier today. She is alert and orient no other distress noted. Small tic is noted to the region. Does not appear to be imbedded to scalp Related Data Allergies Allergy/AdvReac Type Severity Reaction Status Date / Time amoxicillin AdvReac Intermediate Rash Verified 11/18/24 13:05 Sulfa (Sulfonamide AdvReac Intermediate Rash Verified 11/18/24 13:05 Antibiotics) Opioid HPI Opioid Management Most Recent Opioid Data: No Data to Display Review of Systems ROS Narrative All Systems are negative except as noted/marked.All systems reviewed and otherwise negative PFSH PFSH Social History Little interest or pleasure in doing things: not at all Feeling down, depressed, or hopeless: several days Exam Narrative Exam Narrative: Nurses note and vital signs reviewed and patient is not hypoxic. General: The patient appears well and in no apparent distress. Patient is resting comfortably on cart. Skin: Warm, dry, no pallor noted. small tick noted to the superior occipital area There is no rash noted. Head: Normocephalic, atraumatic Eye: Normal conjunctiva, no drainage, EOMI. PERRL Ears, Nose, Mouth, and Throat: oral mucosa is moist. Nares patent. Mouth without vesicles. Ear canals patent. Tm's without Erythema Cardiovascular: Regular Rate and Rhythm Respiratory: Patient is in no distress, no accessory muscle use, lungs are clear to auscultation, no wheezing, rales or rhonchi . Musculoskeletal: The patient has no evidence of calf tenderness, no pitting edema, symmetrical pulses noted bilaterally Neurological: A&O x4, normal speech Psychiatric: Cooperative Constitutional Vital Signs, click to edit/add: Last Vital Signs Temp 98.1 F 11/18/24 13:01 Pulse 104 H 11/18/24 13:01 Resp 18 11/18/24 13:01 BP 152/79 H 11/18/24 13:01 Pulse Ox 99 11/18/24 13:01 Course Vital Signs Vital signs: Vital Signs Temperature 98.1 F 11/18/24 13:01 Pulse Rate 104 H 11/18/24 13:01 Respiratory Rate 18 11/18/24 13:01 Blood Pressure 152/79 H 11/18/24 13:01 Pulse Oximetry 99 11/18/24 13:01 Temperature 98.1 F 11/18/24 13:01 Pulse Rate 104 H 11/18/24 13:01 Respiratory Rate 18 11/18/24 13:01 Blood Pressure 152/79 H 11/18/24 13:01 Pulse Oximetry 99 11/18/24 13:01 Medical Decision Making MDM Narrative Medical decision making narrative: For a tick removal. She noted to have a tick in her scalp. The easily removed with a pair of tweezers. It was removed intact head intact. Placed in a container and moving around. She has no rash or evidence of embedded area on her scalp. Patient will be discharged to home. Patient home. Differential Diagnosis Differential Diagnosis: tick bite, rash Medical Records Medical records reviewed: Yes I reviewed the patient's medical records Lab Data Lab results reviewed: Yes I reviewed the patient's lab results Discharge Plan Discharge Chief Complaint: Animal Bite Clinical Impression: Tick bite Patient Disposition: Home, Self-Care Time of Disposition Decision: 13:17 Condition: Good Print Language: Namibian Instructions: Tick Bite (ED) Referrals: Yasmany Swenson MD [Primary Care Provider] - 1 week Discharge Date/Time: 11/18/24 13:32 Documented by User: Kirk Manriquez MD 11/18/24 19:43 HPI HPI - General Adult General Chief complaint: Animal Bite Stated complaint: BUG BITE - TICK Time Seen by Provider: 11/18/24 13:16 Related Data Allergies Allergy/AdvReac Type Severity Reaction Status Date / Time amoxicillin AdvReac Intermediate Rash Verified 11/18/24 13:05 Sulfa (Sulfonamide AdvReac Intermediate Rash Verified 11/18/24 13:05 Antibiotics) Opioid HPI Opioid Management Most Recent Opioid Data: No Data to Display PFSH PFSH Social History Little interest or pleasure in doing things: not at all Feeling down, depressed, or hopeless: several days Exam Constitutional Vital Signs, click to edit/add: Last Vital Signs Temp 98.1 F 11/18/24 13:01 Pulse 104 H 11/18/24 13:01 Resp 18 11/18/24 13:01 BP 152/79 H 11/18/24 13:01 Pulse Ox 99 11/18/24 13:01 Course Vital Signs Vital signs: Vital Signs Temperature 98.1 F 11/18/24 13:01 Pulse Rate 104 H 11/18/24 13:01 Respiratory Rate 18 11/18/24 13:01 Blood Pressure 152/79 H 11/18/24 13:01 Pulse Oximetry 99 11/18/24 13:01 Temperature 98.1 F 11/18/24 13:01 Pulse Rate 104 H 11/18/24 13:01 Respiratory Rate 18 11/18/24 13:01 Blood Pressure 152/79 H 11/18/24 13:01 Pulse Oximetry 99 11/18/24 13:01 Medical Decision Making MDM Narrative Medical decision making narrative: For a tick removal. She noted to have a tick in her scalp. The easily removed with a pair of tweezers. I, Dr Manriquez, have reviewed the above progress note and course of action in the ER; agree with the above. I have personally seen and evaluated this patient, gone over history and physical, and discussed disposition and treatment plan with the patient. Marisela Green PA-C removed tick, intact head intact. Placed in a container and moving around. She has no rash or evidence of embedded area on her scalp. Patient will be discharged to home. Discharge Plan Discharge Chief Complaint: Animal Bite Clinical Impression: Tick bite Patient Disposition: Home, Self-Care Time of Disposition Decision: 13:17 Condition: Good Print Language: Namibian Instructions: Tick Bite (ED) Referrals: Yasmany Swenson MD [Primary Care Provider] - 1 week Discharge Date/Time: 11/18/24 13:32
--- OUTSIDE RECORDS SUMMARY | 2024-11-18 13:18 | XMS_ITS | CCD ---
Author Organization [facility] CliniSyct Care Team Providers Care Health Information Technologist Name Role Phone RAGHAV DASILVA Referring Unavailab [...] Admitting Unavailable MARINA, DR NGUYEN Attending Unavailable HOY, DR NGUYEN Primary Care Unavailable HOY, DR NGUYEN Consulting Unavailable ZEV, DR PAULINE Flores Consulting Unavailable Josemanuel Mehta Admitting UnavailJosemanuel Bailey Attending Unavailcarl e Patrick Swenson Primary Care Unavailable Unavailable Primary Care Provider Unavailabl e REFERRAL, SELF Admitting Unavailable REFERRAL, SELF Attending Unavailable REFERRAL, SELF Referring Unavailable Patrick Swenson Consulting Unavailable Patrick Swenson Consulting Unavailable Patrick Swenson MD Primary Care Provider [phone] Leonardo Whitaker MD Unavailable [phone] LEONARDO WHITAKER Attending Unavailable RAGHAV DASILVA Referring Unavailable RAGHAV DASILVA Attending Unavailable LEONARDO WHITAKER Attending Unavailable KRISTEN UMANA Attending Unavailable MICK LOPES Referring Unavailable LEONARDO WHITAKER Attending Unavailable ANTONELLA DOMINGUEZ Attending Unavailab LEONARDO Meza Attending Unavailable LEONARDO WHITAKER Attending Unavailable LEONARDO WHITAKER Attending Unavailable LEONARDO WHITAKER Referring Unavailable LEONARDO WHITAKER Attending Unavailable LEONARDO WHITAKER Attending Unavailable Allergies Allergy Classification Reported Allergen(s) Allergy Type Date of Onset Reaction(s) Facility (20 sources) Penicillins; Translations: [penicillins] Drug allergy 2 Unknown (qualifier value), Other, Rash [facility] (4 sources) Sulfonamides (Antibiotic); Translations: [sulfa drugs] Drug allergy Unknown (qualifier value) [facility] (1 source) Amoxicillin Drug Allergy 4 [facility] (1 source) Sulfonamides (Antibiotic) Drug allergy (disorder) 4 [facility] (20 sources) Amoxicillin Drug Allergy 2 Rash [facility] (20 sources) Sulfacetamide Drug Allergy 2 [facility] (20 sources) Sulfonamides (Antibiotic) Drug Allergy 2 Unknown, Rash [facility] Work Phone: (20 sources) Other Allergy to substance 3 Unknown [facility] Medications Current Medications Medication Drug Class(es) [...] Ordered alendronic acid 70 mg oral tablet (14 sources) Bisphosphonate Start: 07-01-2024 take 1 tablet [...] 9 days 18 pills 18 tablet 1 10/27/2024 Active Start: 07-18-2024 End: 07-18-2024 dexAMETHasone [...] Status: Ordered lidocaine 0.05 mg/mg medicated patch (7 sources) Antiarrhythmic, Amide Local Anesthetic Start: 10-28-2024 apply 1 dose transdermal route every twelve hours lidocaine (Lidoderm) 5 % patch Indications: Lumbar radiculopathy , Post herpetic neuralgia (CMS/HCC) , Degeneration of intervertebral disc of lumbar region, unspecified whether pain present , Trochanteric bursitis, right hip , Trochanteric bursitis of left hip Apply 1 patch over 12 hours topically Daily Apply for 12 hours daily 30 patch 2 10/28/2024 Active Start: 10-10-2024 apply 1 dose transde rmal route every twelve hours lidocaine (Lidoderm) 5 [...] morning. 30 tablet 11 07/21/2023 07/20/2024 Active methylPREDNISolone (3 sources) Corticosteroid Start: 11-16-2024 End: 11-23-2024 methylPREDNISolone (Medrol Dospak) 4 MG tablets Indications: Trochanteric bursitis of left hip Follow schedule on package instructions 21 tablet 11/16/2024 11/23/2024 Active Start: 11-10-2024 End: 11-17-2024 methylPREDNISolone (Medrol D ospak) 4 MG tablets Indications: Lumbar radiculopathy Follow schedule on package instructions 21 tablet 11/10/2024 11/17/2024 Active Multiple Vitamin (Multi Daly min) tablet (20 sources) Multiple Vitamin (Multi Vitamin) tablet 1 (one) time each day at the same time. Active Multiple Vitamin (Multi Vitamin) tablet 1 (one) time each day at the same time. 0 Active nabumetone 500 mg oral tablet (20 sources) Nonsteroidal Anti-inflammatory Drug Start: 04-13-2024 End: [...] pain, # 12 tab(s), Refills(s) 0, Pharmacy: [facility]/pharmacy #[id number], 157.5, cm, 01/26/21 17:27:00 EDT, Height/Length [...] Chronic Chronic obstructive pulmonary disease and bronchiectasis (14 sources) Bronchitis; Translations: [Bronchitis, not specified as acute or chronic] Onset: 08-29-2024 12-11-2015 Episodic Disorders of lipid metabolism (20 sources) Hyperlipidemia, unspecified; Translations: [Hyperlipidemia] Onset: 07-08-2021 Chronic Headache; including migraine (1 source) Headache; including migraine; Translations: [HEADACHE UNSPECIFIED] Onset: 09-09-2021 Osteoarthritis (20 sources) Osteoarthritis of knee; Translations: [Osteoarthritis of knee, unspecified] Onset: 05-09-2021 03-17-2023 Chronic Other bone disease and musculoskeletal deformities (11 sources) Osteopenia; Translations: [Other specified disorders of bone density and structure, unspecified site] Onset: 08-29-2024 08-29-2024 Episodic Other connective tissue disease (1 source) Other symptoms and signs involving the musculoskeletal system; Translations: [Other symptoms and signs involving the musculoskeletal system] Onset: 08-01-2022 Episodic Other lower respiratory disease (14 sources) H/O: pneumonia; Translations: [Personal history of pneumonia (recurrent)] Onset: 08-29-2024 12-11-2015 Episodic Other nervous system disorders (20 sources) Polyneuropathy; Translations: [Polyneuropathy, unspecified] Onset: 10-26-2023 [...] very important to your health. The current [employer] and National Comprehensive Cancer [...] Luis Sherman M.D. Transcribed by: SAUD Technologist: [facility] Assessment: BI-RADS Category 1-Negative Recommendation: Normal interval follow-up Normal [facility] XR HIP 2 OR 3 VW RIGHTon [...] Electronically Signed Rod Vigil M.D. 2024-05-30 10:22:54 [facility] [employer] Radiology Study observation (narrative) [facility] XR Lumbar spine 4 ViewsOrder ed By: Rod Vigil on 05-30-2024 [facility] [employer] Work Phone: XR pre/post mri xrayon 08-01 XR pre/post mri xray [place] [address] MRI Report Signed Patient: Dalia Zhang MR#: [id number] : 1965 Acct:[id number] Age/Sex: 57 / F ADM Date: 08/01/22 Loc: MR Room: Type: [facility] Attending Dr: Josemanuel Mehta DO Copies to: Jean-Pierre Mehta DO Ordering Provider: Jean-Pierre Mehta DO Date of Service: 08/01/22 MR/MR lumbar spine wo con: R29.898, R20.2 ([id number]) XR/XR pre/post mri xray: R20.2, R29.898 MR [...] apex at L2. Impression dictated by: Darian Pastraan M.D.08/01/2022 5:19 PM Dictation Location: [place] [address] Transcribed By: [facility] 08/01/221718 Dictated By: Darian Pastrana II, MD 08/01/221706 Signed By: 08/01/221718 [facility] CT LUNG CANCER SCREENINGon 1 08-25-2021 CT [...] by: RYAN HAMILTON Date: 2022-06-25 07:59 Normal [facility] Covid-19 PCR (CVDTBH)on 10 SARS-CoV-2 (COVID-19) RNA HARISH+probe Ql (Unsp spec) Not detected Normal NOT DETECTED [facility] Comment on above: Result Comment: This test is not yet approved or cleared by the [place] FDA. When there are no FDA-approved or cleared tests available, and other criteria are met, FDA can make tests available under an emergency access mechanism called an Emergency Use Authorization (EUA). The EUA for this test is supported by the [employer] of Health and Human Service's (HHS's) declaration [...] with SARS-CoV-2. Performed By: #### C VDTBH ####[facility] [address] [place] [address]Dr. Royce Lopez INSULINon 06-10-2022 Insulin 5.2 uIU/mL Normal 2.6-24.9 [facility] Comment on above: Performed By: #### I NSULIN #### [facility] [address] [place], [place] [address] Dr. Royce Lopez CBC AUTO DIFFon 06-09-2022 BASO # 0.1 103/ul Normal 0.0-0.1 [facility] Comment on above: Performed By: #### C BC ####[facility] [address] [place] [id number] Lopez Basophils/100 WBC (Bld) 0.4 % Normal 0.2-2.0 [facility] Comment on above: Performed By: #### C BC ####[facility] [address] [place] [id number] Lopez EO # 0.2 103/ul Normal 0.0-0.7 [facility] Comment on above: Performed By: #### C BC ####[facility] [address] [place] [address]Dr. Royce Lopez Eosinophils/100 WBC (Bld) 1.3 % Normal 0.9-7.0 [facility] Comment on above: Performed By: #### C BC ####[facility] [address] [place] [address]Dr. Royce Lopez Erythrocyte distribution width (RBC) [Ratio] 13.2 % Normal 11.0-15.0 [facility] Comment on above: Performed By: #### C BC ####[facility] Ewt[address] [place], [place] [address]Dr. Royce Lopez Hematocrit (Bld) [Volume fraction] 43.0 % Normal 36.0-48.0 [facility] Comment on above: Performed By: #### C BC ####[facility] [address] [place], [place] [address]Dr. Royce Lopez Hemoglobin (Bld) [Mass/Vol] 13.8 g/dL Normal 12.0-16.0 [facility] Comment on above: Performed By: #### C BC ####[facility] G[address] [place], [place] [address]Dr. Royce Lopez IG # 0.07 10e3/ul Critically high 0.00-0.03 [facility] Comment on above: Performed By: #### C BC ####[facility] [address] [place], [place] [address]Dr. Royce Lopez IG % 0.4 % Normal 0.0-0.5 [facility] Comment on above: Performed By: #### C BC ####[facility] U[address] [place], [place] [address]Dr. Royce Lopez LYMPH # 2.2 103/ul Normal 1.2-3.8 [facility] Comment on above: Performed By: #### C BC ####[facility] [address] [place], [place] [address]Dr. Royce Lopez Lymphocytes/100 WBC (Bld) 12.0 % Critically low 20.5-60.0 [facility] Comment on above: Performed By: #### C BC ####[facility] [address] [place] [address]Dr. Royce Lopez MANUAL DIFF REQ NO Normal [facility] Comment on above: Performed By: #### C BC ####[facility] [address] [place] [address]Dr. Royce Lopez MCH (RBC) [Entitic mass] 31.1 pg Normal 26.7-34.0 [facility] Comment on above: Performed By: #### C BC ####[facility] [address] [place], [place] [address]Dr. Royce Lopez MCHC (RBC) [Mass/Vol] 32.1 g/dL Normal 29.9-35.2 [facility] Comment on above: Performed By: #### C BC ####[facility] [address] [place], [place] [address]Dr. Royce Lopez MCV (RBC) [Entitic vol] 96.8 fL Normal 81.0-99.0 [facility] Comment on above: Performed By: #### C BC ####[facility] [address] [place] [address]Dr. Royce Lopez MONO # 1.6 103/ul Critically high 0.3-0.8 [facility] Comment on above: Performed By: #### C BC ####[facility] [address] [place], [place] [address]Dr. Royce Lopez Monocytes/100 WBC (Bld) 8.8 % Normal 1.7-12.0 [facility] Comment on above: Performed By: #### C BC ####[facility] [address] [place] [address]Dr. Mireyakody Lopez NEUT # 14.1 103/ul Critically high 1.4-6.5 [facility] Comment on above: Performed By: #### C BC ####[facility] [address] [place], [place] [address]Dr. Royce Lopez Neutrophils/100 WBC (Bld) 77.1 % Critically high 43.0-75.0 [facility] Comment on above: Performed By: #### C BC ####[facility] [address] [place] [address]Dr. Royce Lopez Platelet mean volume (Bld) [Entitic vol] 10.2 fL Normal 9.5-13.5 [facility] Comment on above: Performed By: #### C BC ####[facility] [address] [place] [address]Dr. Royce Lopez PLT 295 103/ul Normal 150-450 [facility] Comment on above: Performed By: #### C BC ####[facility] [address] [place] [address]Dr. Royce Lopez RBC 4.44 106/ul Normal 4.20-5.40 [facility] Comment on above: Performed By: #### C BC ####[facility] [address] [place] [address]Dr. Royce Lopez WBC 18.3 103/ul Critically high 4.0-11.0 [facility] Comment on above: Performed By: #### C BC ####[facility] [address] [place] [address]Dr. Royce Lopez FREE THYROXINE INDEX T7on FTI 2.56 Normal 1.30-4.50 [facility] Comment on above: Performed By: #### T SH, T7, CMP, LIPID ####[facility] [address] [place] [address]Dr. Royce Lopez T3U 35.0 % Normal 30.0-39.0 [facility] Comment on above: Performed By: #### T SH, T7, CMP, LIPID ####[facility] [address] [place] [address]Dr. Royce Lopez T4 [Mass/Vol] 7.30 ug/dL Normal 4.80-13.90 [facility] Comment on above: Performed By: #### T SH, T7, CMP, LIPID ####[facility] [address] [place] [address]Dr. Royce oLpez GLYCOHEMOGLOBIN A1Con 2021 ADA RECOMMENDATION SEE BELOW Normal [facility] Comment on above: Result Comment: ADA RECOMMENDED LIMIT 4.0 - 6.0 ADA THERAPEUTIC TARGET < 7.0 ACTION SUGGESTED > 7.0 Performed By: #### A 1C #### [facility] [address] [place] [address] [address] Royce Lopez Glucose [Mass/Vol] 117 mg/dL Normal [facility] Comment on above: Performed By: #### A 1C #### [facility] [address] [place] [address] [address] Royce Lopez HbA1c (Bld) [Mass fraction] 5.7 % Normal 4.5-6.2 [facility] Comment on above: Performed By: #### A 1C #### [facility] [address] [place] [address] Dr. Royce Lopez IRONon 06-09-2022 Iron [Mass/Vol] 91.0 ug/dL Normal 50.0-170.[address] [facility] Comment on above: Performed By: #### I AZEB #### [facility] [address] [place] [address] Dr. Royce Lopez LIPID PROFILEon 06-09-2022 CHOL-HDL RATIO NORM SEE BELOW Normal [facility] Comment on above: Result Comment: 3.3 - 4.4 LOW RISK 4.4 - 7.1 AVERAGE RISK 7.1 - 11.0 MODERATE RISK >11.0 HIGH RISK Performed By: #### T SH, T7, CMP, LIPID ####[facility] [address] [place] [address]Dr. Royce Lopez Cholesterol [Mass/Vol] 223 mg/dL Critically high <=200 [facility] Comment on above: Performed By: #### T SH, T7, CMP, LIPID ####[facility] [address] [place] [address]Dr. Royce Lopez Cholesterol in HDL [Mass/Vol] 63 mg/dL Critically high 40-60 [facility] Comment on above: Performed By: #### T SH, T7, CMP, LIPID ####[facility] [address] [place] [address]Dr. Royce Lopez Cholesterol in LDL [Mass/Vol] 145.2 mg/dL Normal [facility] Comment on above: Performed By: #### T SH, T7, CMP, LIPID ####[facility] [address] [place] [address]Dr. Royce Lopez Cholesterol.total/Ch olesterol in HDL [Mass ratio] 3.5 {ratio} Normal [facility] Comment on above: Performed By: #### T SH, T7, CMP, LIPID ####[facility] [address] [place] [address]Dr. Royce Lopez HDL NORMAL > or = 60 mg/dl - LO W CARDIOVASCULAR RISK <40 mg/dl - HIGH CARDIOVASCULAR RISK Normal [facility] Comment on above: Performed By: #### T SH, T7, CMP, LIPID ####[facility] [address] [place] [address]Dr. Royce Lopez LDL CALC NORMAL SEE BELOW Normal [facility] Comment on above: Result Comment: <100 mg/dl OPTIMAL 100 - 129 mg/dl NEAR OR ABOVE OPTIMAL 130 - 159 mg/dl BORDERLINE HIGH 160 - 189 mg/dl HIGH >190 mg/dl VERY HIGH Performed By: #### T SH, T7, CMP, LIPID ####[facility] [address] [place] [address]Dr. Royce Lopez Triglyceride [Mass/Vol] 74 mg/dL Normal <=150 [facility] Comment on above: Performed By: #### T SH, T7, CMP, LIPID ####[facility] [address] [place] [address]Dr. Royce Lopez VLDL CALC 14.8 mg/dL Normal [facility] Comment on above: Performed By: #### T SH, T7, CMP, LIPID ####[facility] [address] [place] [address]Dr. Royce Lopez PROF 14(COMP METB)on 022 Albumin [Mass/Vol] 3.8 g/dL Normal 3.4-5.0 [facility] Comment on above: Performed By: #### T SH, T7, CMP, LIPID #### [facility] [address] [place] [address] [address] Royce Lopez Albumin/Globulin [Mass ratio] 1.0 {ratio} Normal [facility] Comment on above: Performed By: #### T SH, T7, CMP, LIPID #### [facility] [address] [place] [address] Dr. Royce Lopez ALP [Catalytic activity/Vol] 98 U/L Normal 46-116 [facility] Comment on above: Performed By: #### T SH, T7, CMP, LIPID #### [facility] [address] [place] [address] Dr. Royce Lopez ALT [Catalytic activity/Vol] 16 U/L Normal 14-59 [facility] Comment on above: Performed By: #### T SH, T7, CMP, LIPID #### [facility] [address] [place] [address] Dr. Royce Lopez Anion gap [Moles/Vol] 10.9 mmol/L Normal [facility] Comment on above: Performed By: #### T SH, T7, CMP, LIPID #### [facility] [address] [place] [address] Dr. Royce Lopez AST [Catalytic activity/Vol] 15 U/L Normal 15-37 [facility] Comment on above: Performed By: #### T SH, T7, CMP, LIPID #### [facility] [address] [place] [address] Dr. Royce Lopez Bilirubin [Mass/Vol] 0.4 mg/dL Normal 0.2-1.0 [facility] Comment on above: Performed By: #### T SH, T7, CMP, LIPID #### [facility] [address] [place] [address] Dr. Royce Lopez Calcium [Mass/Vol] 9.1 mg/dL Normal 8.5-10.1 [facility] Comment on above: Performed By: #### T SH, T7, CMP, LIPID #### [facility] [address] [place] [address] Dr. Royce Lopez Chloride [Moles/Vol] 103 mmol/L Normal 98-107 [facility] Comment on above: Performed By: #### T SH, T7, CMP, LIPID #### [facility] [address] [place] [address] [address] Royce Lopez CO2 [Moles/Vol] 28.3 mmol/L Normal 21.0-32.0 [facility] Comment on above: Performed By: #### T SH, T7, CMP, LIPID #### [facility] [address] [place] [address] [address] Royce Lopez Creatinine [Mass/Vol] 0.62 mg/dL Normal 0.55-1.02 [facility] Comment on above: Performed By: #### T SH, T7, CMP, LIPID #### [facility] [address] [place] [address] [address] Royce Lopez EGFR-AF NIGERIAN >60 Normal >=60 [facility] Comment on above: Performed By: #### T SH, T7, CMP, LIPID #### [facility] [address] [place] [address] [address] Royce Lopez EGFR-NON AF NIGERIAN >60 Normal >=60 [facility] Comment on above: Performed By: #### T SH, T7, CMP, LIPID #### [facility] [address] [place] [address] [address] Royce Lopez Globulin (S) [Mass/Vol] 3.9 g/dL Normal [facility] Comment on above: Performed By: #### T SH, T7, CMP, LIPID #### [facility] [address] [place] [address] [address] Royce Lopez Glucose [Mass/Vol] 97 mg/dL Normal 74-106 [facility] Comment on above: Performed By: #### T SH, T7, CMP, LIPID #### [facility] [address] [place] [address] [address] Royce Lopez Potassium [Moles/Vol] 4.2 mmol/L Normal 3.5-5.1 [facility] Comment on above: Performed By: #### T SH, T7, CMP, LIPID #### [facility] [address] [place] [address] [address] Royce Lopez Protein [Mass/Vol] 7.7 g/dL Normal 6.4-8.2 [facility] Comment on above: Performed By: #### T SH, T7, CMP, LIPID #### [facility] [address] [place] [address] [address] Royce Lopez Sodium [Moles/Vol] 138 mmol/L Normal 136-145 [facility] Comment on above: Performed By: #### T SH, T7, CMP, LIPID #### [facility] [address] [place] [address] [address] Royce Lopez Urea nitrogen [Mass/Vol] 7.0 mg/dL Normal 7.0-18.0 [facility] Comment on above: Performed By: #### T SH, T7, CMP, LIPID #### [facility] [address] [place] [address] [address] Royce Lopez Urea nitrogen/Creatinine [Mass ratio] 11.3 mg/mg Normal [facility] Comment on above: Performed By: #### T SH, T7, CMP, LIPID #### [facility] [address] [place] [address] [address] Royce Lopez TSHon 06-09-2022 TSH 0.370 uIU/mL Normal 0.358-3.740 [facility] Comment on above: Performed By: #### T SH, T7, CMP, LIPID ####[facility] [address] [place] [address]Dr. Royce Lopez Covid-19 PCR (CVDTB)on 08-18 SARS-CoV-2 (COVID-19) RNA HARISH+probe Ql (Unsp spec) Not detected Normal NOT DETECTED [facility] Comment on above: Result Comment: This test is not yet approved or cleared by the [place] FDA. When there are no FDA-approved or cleared tests available, and other criteria are met, FDA can make tests available under an emergency access mechanism called an Emergency Use Authorization (EUA). The EUA for this test is supported by the [place] of Health and Human Service's (HHS's) declaration [...] SARS-CoV-2. Performed By: #### C VDTB #### [facility] [address] [place] [address] Dr. Royce Lopez Covid-19 PCR ([facility])on 07-18 SARS-CoV-2 (COVID-19) RNA HARISH+probe Ql (Unsp spec) Not detected Normal NOT DETECTED [facility] Comment on above: Result Comment: This test is not yet approved or cleared by the [place] FDA. When there are no FDA-approved or cleared tests available, and other criteria are met, FDA can make tests available under an emergency access mechanism called an Emergency Use Authorization (EUA). The EUA for this test is supported by the [employer] of Health and Human Service's (HHS's) declaration [...] SARS-CoV-2. Performed By: #### C VDTB #### [facility] [address] [place] [address] [address] [address] Royce Lopez INFLUENZA A AND B AGon 08-07 INFLUANEGH SEE BELOW Normal [facility] Comment on above: Result Comment: Nega tive for Flu A protein angiten. Infection due to Flu A cannot be ruled out. Flu A angiten in the sample may be below the detection limit of the test. Performed By: #### I NFLUAB ####[facility] [address] [place] [id number]. Royce Lopez INFLUBNEGH SEE BELOW Normal [facility] Comment on above: Result Comment: Nega tive for Flu B protein antigen. Infection due to Flu B cannot be ruled out. Flu B antigen in the sample may be below the detection limit of the test. Performed By: #### I NFLUAB ####[facility] [address] [place] [address]Dr. Royce Lopez INFLUENZA A AG Negative Normal NEGATIVE SEE COMMENT [facility] Comment on above: Performed By: #### I NFLUAB ####[facility] [address] [place] [address]Dr. Royce Lopez INFLUENZA B AG Negative Normal NEGATIVE SEE COMMENT [facility] Comment on above: Performed By: #### I NFLUAB ####[facility] [address] [place], [place] [address]Dr. Royce Lopez INTERNAL CONTROLS Within Normal Limits Normal Wi thin Normal Limits [facility] Comment on above: Performed By: #### I NFLUAB ####[facility] [address] [place], [place] [id number]. Royce Lopez LIPID PROFILEon 07-08-2021 CHOL-HDL RATIO NORM SEE BELOW Normal [facility] Comment on above: Result Comment: 3.3 - 4.4 LOW RISK 4.4 - 7.1 AVERAGE RISK 7.1 - 11.0 MODERATE RISK >11.0 HIGH RISK Performed By: #### Juan CHUA LIPID #### [facility] [address] [place] [address] Dr. Royce Lopez Cholesterol [Mass/Vol] 195 mg/dL Normal <=200 [facility] Comment on above: Performed By: #### Juan CHUA LIPID #### [facility] [address] [address] [address] Royce Lopez Cholesterol in HDL [Mass/Vol] 74 mg/dL Normal [facility] Comment on above: Performed By: #### Juan CHUA LIPID #### [facility] [address] [address] [address] Royce Lopez Cholesterol in LDL [Mass/Vol] 108.6 mg/dL Normal [facility] Comment on above: Performed By: #### L IVER, LIPID #### [facility] [address] [address] [address] Royce Lopez Cholesterol.total/Ch olesterol in HDL [Mass ratio] 2.6 {ratio} Normal [facility] Comment on above: Performed By: #### L IVER, LIPID #### [facility] [address] [address] [address] Royce Lopez HDL NORMAL > or = 60 mg/dl - LO W CARDIOVASCULAR RISK <40 mg/dl - HIGH CARDIOVASCULAR RISK Normal [facility] Comment on above: Performed By: #### L IVER, LIPID #### [facility] [address] [address] [address] Royce Lopez LDL CALC NORMAL SEE BELOW Normal [facility] Comment on above: Result Comment: <100 mg/dl OPTIMAL 100 - 129 mg/dl NEAR OR ABOVE OPTIMAL 130 - 159 mg/dl BORDERLINE HIGH 160 - 189 mg/dl HIGH >190 mg/dl VERY HIGH Performed By: #### L IVER, LIPID #### [facility] [address] [address] [address] Royce Lopez Triglyceride [Mass/Vol] 62 mg/dL Normal <=150 [facility] Comment on above: Performed By: #### L IVER, LIPID #### [facility] [address] [address] [address] Royce Lopez VLDL CALC 12.4 mg/dL Normal [facility] Comment on above: Performed By: #### L IVER, LIPID #### [facility] [address] [address] [address] Royce Lopez LIVER PROFILEon 07-08-2021 Albumin [Mass/Vol] 3.9 g/dL Normal 3.5-5.0 [facility] Comment on above: Performed By: #### L IVER, LIPID #### [facility] [address] [address] [address] Royce Lopez Albumin/Globulin [Mass ratio] 1.1 {ratio} Normal [facility] Comment on above: Performed By: #### L IVER, LIPID #### [facility] [address] [address] [address] Royce Lopez ALP [Catalytic activity/Vol] 67 U/L Normal 38-126 [facility] Comment on above: Performed By: #### L IVER, LIPID #### [facility] [address] [address] [address] Royce Lopez ALT [Catalytic activity/Vol] 23 U/L Normal 9-52 [facility] Comment on above: Performed By: #### L IVER, LIPID #### [facility] [address] [address] [address] Royce Lopez AST [Catalytic activity/Vol] 19 U/L Normal 14-36 [facility] Comment on above: Performed By: #### L IVER, LIPID #### [facility] [address] [address] [address] Royce Lopez BILI, CONJUGATED 0.1 mg/dL Normal 0.0-0.3 [facility] Comment on above: Performed By: #### L IVER, LIPID #### [facility] [address] [address] [address] Royce Lopez Bilirubin [Mass/Vol] 0.3 mg/dL Normal 0.2-1.3 [facility] Comment on above: Performed By: #### L IVER, LIPID #### [facility] [address] [address] [address] Royce Lopez Globulin (S) [Mass/Vol] 3.5 g/dL Normal [facility] Comment on above: Performed By: #### L IVER, LIPID #### [facility] [address] [address] [address] Royce Lopez Protein [Mass/Vol] 7.4 g/dL Normal 6.1-8.2 [facility] Comment on above: Performed By: #### L IVER, LIPID #### [facility] [address] [address] [address] Royce Lopez XR SHOULDER LEFT (MIN [...] Calvillo Jr., MD 10/27/18 Final result Normal [facility] Vital Signs Date Time Vital Sign Value Performing Clinician Faci lity 08-29-2024 08:47-0500 Body height 157.5 cm Leonardo Whitaker MD Work Phone: [facility] 08-29-2024 08:47-0500 Body mass index (BMI) [Ratio] 18.66 kg/m2 Leonardo Whitaker MD Work Phone: [facility] 08-29-2024 08:47-0500 Body weight 46.27 kg Leonardo Whitaker MD Work Phone: [facility] 07-18-2024 10:15-0500 Body height 157.5 cm Leonardo Whitaker MD Work Phone: [facility] 07-18-2024 10:15-0500 Body mass index (BMI) [Ratio] 18.66 kg/m2 Leonardo Whitaker MD Work Phone: [facility] 07-18-2024 10:15-0500 Body weight 46.27 kg Leonardo Whitaker MD Work Phone: [facility] 07-18-2024 10:15-0500 Diastolic blood pressure 74 mm[Hg] Leonardo Whitaker MD Work Phone: [facility] 07-18-2024 10:15-0500 Heart rate 66 /min Leonardo Whitaker MD Work Phone: [facility] 07-18-2024 10:15-0500 Systolic blood pressure 132 mm[Hg] Leonardo Whitaker MD Work Phone: [facility] 05-30-2024 09:50-0400 Body height 157.5 cm Leonardo Whitaker MD Work Phone: [facility] 05-30-2024 09:50-0400 Body mass index (BMI) [Ratio] 18.66 kg/m2 Leonardo Whitaker MD Work Phone: [facility] 05-30-2024 09:50-0400 Body weight 46.27 kg Leonardo Whitaker MD Work Phone: [facility] 05-30-2024 09:50-0400 Diastolic blood pressure 76 mm[Hg] Leonardo Whitaker MD Work Phone: [facility] 05-30-2024 09:50-0400 Systolic blood pressure 128 mm[Hg] Leonardo Whitaker MD Work Phone: [facility] 04-13-2024 08:50-0400 Body height 157.5 cm Leonardo Whitaker MD Work Phone: [facility] 04-13-2024 08:50-0400 Body mass index (BMI) [Ratio] 18.66 kg/m2 Leonardo Whitaker MD Work Phone: [facility] 04-13-2024 08:50-0400 Body weight 46.27 kg Leonardo Whitaker MD Work Phone: [facility] 04-13-2024 08:50-0400 Diastolic blood pressure 80 mm[Hg] Leonardo Whitaker MD Work Phone: [facility] 04-13-2024 08:50-0400 Systolic blood pressure 130 mm[Hg] Leonardo Whitaker MD Work Phone: [facility] Healthcare Encounters Encounter Date Encounter Type Care Provider Facility Start: 11-16-2024 End: 11-16-2024 Telephone encounter Angelina Ellis RTAgustin R [facility] Start: 11-10-2024 End: 11-10-2024 Bamboo flowsheet Leonardo Whitaker MD Work Phone: [facility] Start: 11-10-2024 End: 11-10-2024 Bamboo flowsheet Leonardo Whitaker MD Work Phone: [facility] Start: 11-10-2024 End: 11-10-2024 Telephone encounter Leonardo Whitaker MD Work Phone: [facility] Start: 11-10-2024 End: 11-10-2024 ambulatory LEONARDO WHITAKER Not Available Start: 10-28-2024 End: 10-28-2024 ambulatory RAGHAV Yamila DASILVA Not Available Start: 10-19-2024 End: 10-19-2024 Bamboo flowsheet Leonardo Whitaker MD Work Phone: [facility] Start: 10-19-2024 End: 10-19-2024 Bamboo flowsheet Leonardo Whitaker MD Work Phone: [facility] Start: 10-19-2024 End: 10-19-2024 ambulatory LEONARDO WHITAKER Not Available Start: 10-17-2024 End: 10-17-2024 Refill Antonella Dominguez CHLORINATION OPERATOR Work Phone: [facility] Comment on above: Lumbar radiculopathy Start: 10-14-2024 End: 10-14-2024 Refill Kristen Umana DO Work Phone: [facility] Comment on above: Age-related nuclear cataract of both eyes Start: 10-10-2024 End: 10-10-2024 Refill Paula Negron CHLORINATION OPERATOR Work Phone: [facility] Comment on above: Lumbar radiculopathy (Primary Dx) Start: 10-05-2024 End: 10-05-2024 Telephone encounter Leonardo Whitaker MD Work Phone: [facility] Start: 09-15-2024 End: 09-15-2024 Refill Kristen Umana DO Work Phone: [facility] Comment on above: Age-related nuclear cataract of both eyes Start: 09-15-2024 End: 09-15-2024 Refill Antonella Dominguez NP Work Phone: [facility] 210 Comment on above: Lumbar radiculopathy Start: 08-29-2024 End: 08-29-2024 Bamboo flowsheet Leonardo Whitaker MD Work Phone: [facility] Start: 08-29-2024 End: 08-29-2024 Bamboo flowsserjio Whitaker MD Work Phone: [facility] Start: 08-29-2024 End: 08-29-2024 Clinical Support Leonardo Whitaker MD Work Phone: [facility] Comment on above: Trochanteric bursiti s, right hip (Primary Dx); Lumbar radiculopathy Start: 08-23-2024 End: 08-24-2024 Telephone encounter Dannielle Coronel Other Phone: [facility] Start: 08-05-2024 End: 08-05-2024 ambulatory SELF REFERRAL Facility:[facility] Start: 08-05-2024 End: 08-05-2024 Patient encounter procedure SELF REFERRAL [facility] Start: 07-18-2024 End: 07-18-2024 Bamboo flowsheet Leonardo Whitaker MD Work Phone: [facility] Start: 07-18-2024 End: 07-18-2024 Bamboo flowsheet Leonardo Whitaker MD Work Phone: [facility] Start: 07-18-2024 End: 07-18-2024 Clinical Support Leonardo Whitaker MD Work Phone: [facility] Comment on above: Trochanteric bursiti s, right hip (Primary Dx); Lumbar radiculopathy; Degeneration of intervertebral disc of lumbar region, unspecified whether pain present; Trochanteric bursitis of left hip Start: 06-23-2024 End: 06-23-2024 Refmegan Umana DO Work Phone: [facility] Comment on above: Age-related nuclear cataract of both eyes Start: 06-20-2024 End: 06-20-2024 ambulatory LEONARDO WHITAKER Not Available Start: 06-13-2024 End: 06-13-2024 Telephone encounter Leonardo Whitaker MD Work Phone: [facility] Start: 06-02-2024 End: 06-02-2024 Telephone encounter Leonardo Whitaker MD Work Phone: [facility] Start: 05-30-2024 End: 05-30-2024 Bamboo flowsheet Leonardo Whitaker MD Work Phone: [facility] Start: 05-30-2024 End: 05-30-2024 Bamboo flowsheet Leonardo Whitaker MD Work Phone: [facility] Start: 05-30-2024 End: 05-30-2024 Clinical Support Leonardo Whitaker MD Work Phone: [facility] Comment on above: Trochanteric bursiti s of right hip (Primary Dx) Start: 04-13-2024 End: 04-13-2024 Bamboo flowsheet Leonardo Whitaker MD Work Phone: [facility] Start: 04-13-2024 End: 04-13-2024 Bamboo flowsheet Leonardo Whitaker MD Work Phone: [facility] Start: 04-13-2024 End: 04-13-2024 Clinical Support Leonardo Whitaker MD Work Phone: [facility] Comment on above: Trochanteric bursiti s, right hip (Primary Dx); Trochanteric bursitis of left hip Start: 02-24-2024 End: 02-24-2024 ambulatory LEONARDO WHITAKER Not Available Start: 02-15-2024 End: 02-15-2024 ambulatory ANTONELLA DOMINGUEZ Not Available Start: 01-14-2024 End: 01-14-2024 ambulatory LEONARDO WHITAKER Not Available Start: 01-05-2024 End: 01-27-2024 Pre-admission assessment SELF REFERRAL [facility] Start: 11-19-2023 End: 11-19-2023 ambulatory KRISTEN Paco UMANA Not Available Start: 09-29-2023 End: 09-29-2023 Office outpatient visit 15 minutes Antonella Dominguez CHLORINATION OPERATOR Work Phone: [facility] 210 Comment on above: Sciatica of left juan josé e (Primary Dx); Degenerative disc disease, lumbar; Trochanteric bursitis of left hip; Lumbar radiculopathy; Trochanteric bursitis of right hip Start: 08-01-2022 End: 08-01-2022 ambulatory Josemanuel Mehta Facility:[facility] Start: 06-24-2022 End: 06-25-[address] PATRICK SWENSON Facility:[facility] Start: 06-16-2022 End: 06-16-[address] PATRICK SWENSON Facility:[facility] Start: 06-11-2022 Encounter for genera l adult medical examination without abnormal findings DR PATRICK SWENSON [facility] Start: 06-09-2022 End: 06-10-[address] PATRICK SWENSON Facility:[facility] Start: 06-09-2022 End: 06-10-2022 Encounter for general adult medical examination without abnormal findings DR PATRICK SWENSON Facility:[facility] Start: 12-20-2021 End: 12-20-2021 Patient encounter procedure SELF REFERRAL [facility] Start: 11-05-2021 End: 11-06-[address] PATRICK SWENSON Facility:[facility] Start: 10-28-2021 End: 10-28-[address] PATRICK SWENSON Facility:[facility] Start: 09-06-2021 End: 09-06-2021 ambulatory ITZ ENRIQUE Facility:[facility] Start: 08-07-2021 End: 08-07-[address] PATRICK SWENSON Facility:[facility] Start: 07-08-2021 End: 07-09-[address] PATRICK SWENSON Facility: Start: 10-27-2018 End: 10-30-2018 Patient encounter procedure RAGHAV DASILVA [facility] Start: 10-27-2018 End: 10-30-2018 Patient encounter procedure RAGHAV DASILVA [facility] Procedures Date Procedure Procedure Detail Performing [...] Treatment Date Care Activity Detail Author Start: 04-17-2025 Influenza vaccination Influenz a Vaccine (Season Ended) [facility] Start: 12-01-2024 End: 12-01-2024 Clinical Support 12/01/2024 9:00 AM EDT Clinical Support [facility] [address] [phone] Leonardo Whitaker MD [address] [facility] [address] [address] [facility] Start: 11-16-2024 End: 11-16-2024 Clinical Support 11/16/2024 9:20 AM EDT Clinical Support [facility] [address] [place] [phone] Leonardo Whitaker MD [address] [facility] [address] [place] [id number] [facility] Start: 11-10-2024 End: 11-10-2024 Clinical Support 11/10/2024 10:00 AM EDT Clinical Support [facility] [address] [place] [phone] Leonardo Whitaker MD [address] [facility] [address] [address] Arrived [facility] Comment on above: Arrived Start: 10-28-2024 End: 10-28-2024 Patient encounter procedure 10/28/2024 8:45 AM EDT Office Visit [facility] [address] [place] [phone] Raghav Dasilva, [address] [place] [address] [facility] Start: 10-19-2024 End: 10-19-2024 Clinical Support [facility] Comment on above: Arrived Start: 10-10-2024 End: 10-10-2024 Clinical Support 10/10/2024 8:40 AM EST Clinical Support [facility] [address] [facility] [address] [place] [address] Leonardo Whitaker MD [address] [place] [id number] [facility] Start: 08-29-2024 End: 08-29-2024 Clinical Support [facility] Comment on above: Arrived Start: 07-18-2024 End: 07-18-2024 Clinical Support [facility] Comment on above: Arrived Start: 06-20-2024 End: 06-20-2024 Patient encounter procedure 06/20/2024 9:00 AM EST Procedure Visit [facility] [address] [facility] [address] [place] [address] [facility] Start: 05-30-2024 End: 05-30-2024 Clinical Support [facility] Comment on above: Arrived Start: 04-17-2024 Influenza vaccination Influenza Vacc ine (#1) [facility] Start: 04-13-2024 End: 04-13-2024 Clinical Support 04/13/2024 9:00 AM EDT Clinical Support [facility] [address] [facility] [address] [place] [address] Leonardo Whitaker MD [address] [place] [address] Arrived [facility] Comment on above: Arrived Start: 10-21-2023 End: 10-21-2023 Clinical Support 10/21/2023 9:00 AM EST Clinical Support [facility] [address] [facility] [address] [place] [address] Leonardo Whitaker MD [address] [address] [facility] Start: 2007 Screening for malign ant neoplasm of breast Mammogram [facility] Start: 1997 Screening for malign ant neoplasm of cervix [facility] Start: 1988 Screening for malign ant neoplasm of cervix Pap Smear [facility] Start: 1967 Screening for malign ant neoplasm of colon [facility] Immunizations Immunization Date Immunization Notes Care Provider [facility] 06-11-2023 Influenza, injectabl e, Madin Wendy Canine Kidney, preservative free, quadrivalent Antonella Graziani CHLORINATION OPERATOR Work Phone: [facility] 06-11-2023 influenza virus vacc ine, unspecified formulation Leonardo Whitaker MD Work Phone: [facility] 06-07-2020 influenza, injectabl e, quadrivalent, preservative free Antonella Graziani CHLORINATION OPERATOR Work Phone: [facility] 03-12-2020 pneumococcal polysaccharide vaccine, 23 valent Antonella Graziani CHLORINATION OPERATOR Work Phone: [facility] 05-18-2019 influenza, injectabl e, quadrivalent, preservative free Antonella Graziani CHLORINATION OPERATOR Work Phone: [facility] 05-18-2019 pneumococcal conjuga te vaccine, 13 valent Antonella Graziani CHLORINATION OPERATOR Work Phone: [facility] 04-07-2001 hepatitis B vaccine, adult dosage Antonella Graziani CHLORINATION OPERATOR Work Phone: [facility] 01-09-2000 hepatitis B vaccine, adult dosage Antonella Dominguez CHLORINATION OPERATOR Work Phone: [facility] 08-28-1997 hepatitis B vaccine, adult dosage Antonella Dominguez CHLORINATION OPERATOR Work Phone: [facility] Healthcare Payers Date Payer Category Payer Self-pay 2014 Private Health Insurance [employer] [id number] 2014 Unknown [employer] [id number] 2014-Present [address] [place] [address] [id number] 1967 Unknown [id number] 2.16.840.1.831827.3.579.2. 174 1967 Unknown [id number] 2.16.840.1.732311.3.579.2. 174 1967 Unknown [id number] 2.16.840.1.243367.3.579.2. 593 1967 Unknown [id number] 2.16.840.1.461754.3.579.2. 593 1967 Unknown [id number] 2.16.840.1.444310.3.579.2. 593 1967 Unknown [id number] 2.16.840.1.198825.3.579.2. 593 1967 Unknown [id number] 2.16.840.1.437784.3.579.2. 593 1967 Unknown [id number] 2.16.840.1.092180.3.579.2. 593 1967 Unknown [id number] 2.16.840.1.852592.3.579.2. 593 1967 Unknown [id number] 2.16.840.1.822207.3.579.2. 593 1967 Unknown [id number] 2.16.840.1.913868.3.579.2. 727 1967 Unknown [id number] 2.16.840.1.767203.3.579.2. 1259 1967 Unknown [id number] 2.16.840.1.739622.3.579.2. 1259 1967 Unknown [id number] 2.16.840.1.697718.3.579.2. 1259 1967 Unknown [id number] 2.16.840.1.623616.3.579.2. 1259 1967 Unknown [id number] 2.16.840.1.347830.3.579.2. 1259 1967 Unknown [id number] 2.16.840.1.896008.3.579.2. 1259 1967 Unknown [id number] 2.16.840.1.399758.3.579.2. 1259 1967 Unknown [id number] 2.16.840.1.795951.3.579.2. 1259 1967 Unknown [id number] 2.16.840.1.538178.3.579.2. 1259 1967 Unknown [id number] 2.16.840.1.911209.3.579.2. 1259 1967 Unknown [id number] 2.16.840.1.626933.3.579.2. 1259 1967 Unknown [id number] 2.16.840.1.974776.3.579.2. 1259 1967 Unknown [id number] 2.16.840.1.764259.3.579.2. 1259 1967 Unknown [id number] 2.16.840.1.179496.3.579.2. 1259 1959 Unknown [id number] Unknown [id number] 2.16.840.1.311670.3.579.2. 531 Social History Date Type Detail Facility Start: 01-26-2021 Tobacco smoking status Heavy t obacco smoker (finding) [facility] Start: 09-29-2023 End: 10-28-2024 Sex Assigned At Female [facility] Start: 05-19-2023 End: 02-15-2024 Tobacco smoking status NHIS Smokes tobacco daily [facility] History of tobacco use Cigarette Smoker [facility] Start: 05-19-2023 End: 10-28-2024 Cigarettes smoked current (pack per day) - Reported 0.5 [facility] Start: 05-19-2023 End: 02-15-2024 Tobacco use and exposure Smokeless tobacco non-user [facility] Start: 09-29-2023 End: 10-28-2024 Alcohol intake Current drinker of alcohol (finding) [facility] Start: 07-20-2023 Alcohol Comment monthly or les s, Caffeine intake : soda/pop,coffee,tea more than 4 cups per day [facility] Start: 1965 Sex Assigned At Not on file [facility] Clinical Notes 10-28-2021 to 11-16-2024 Telephone Encounter - Antonella Dominguez NP - 11/16/2024 8:35 PM EDTTelephone Encounter - Antonella Dominguez NP - 11/16/2024 8:35 PM Mark Whitaker MD - 08/29/2024 8:40 AM EST Note Date & Type Note Facility 11-16-2024 Telephone encounter Note Kimberly this was an open encounter sent to Angelina from you but blank? Can you remember what was needed? [facility] 11-16-2024 Miscellaneous Notes Kimberly this was an open encounter sent to Angelina from you but blank? Can you remember what was needed? documented in this encounter [facility] 11-10-2024 Telephone encounter Note Patient left message that Dr. Whitaker was going to send a new prescription for her to [facility] in [place] but nothing at pharmacy. Please advise. [facility] 11-10-2024 Miscellaneous Notes Patient left message that Dr. Whitaker was going to send a new prescription for her to [facility] in [place] but nothing at pharmacy. Please advise. documented in this encounter [facility] 10-17-2024 Telephone encounter Note Patient calls for refill of dexamethasone. Sent. [facility] 10-17-2024 Miscellaneous Notes Patient calls for refill of dexamethasone. Sent. documented in this encounter [facility] 10-10-2024 Telephone encounter Note Script sent for lidocaine patches [facility] 10-10-2024 Miscellaneous Notes Script sent for lidocaine patches documented in this encounter [facility] 10-05-2024 Telephone encounter Note Sent. [employer] message sent to patient [facility] 10-05-2024 Miscellaneous Notes Sent. [employer] message sent to patient Patient called requesting refill of Dexamethasone to be sent to [facility] in [place]. documented in this encounter [facility] 10-05-2024 Telephone encounter Note Patient called requesting refill of Dexamethasone to be sent to [facility] in [place]. [facility] 09-15-2024 Telephone encounter Note Patient leaves voicemail for refill of dexamethasone. Sent to pharmacy and notified patient via [employer]. [facility] 09-15-2024 Miscellaneous Notes Patient leaves voicemail for refill of dexamethasone. Sent to pharmacy and notified patient via [employer]. documented in this encounter [facility] 08-29-2024 History of Presen t illness Narrative Images from the original note were not included. CHIEF COMPLAINT REASON FOR VISIT: Injections. HPI: Dalia Zhang is a 59 y.o. female who presents [...] FINGER RELEASE Right 02/22/2020 trigger thumb release [facility] Social History Tobacco Use Smoking status: [...] reflexes: Mohsen's absent. Ankle clonus absent. Coordination Qxvczn-[id number], rapid alternating movements and lgbz-dd-repy normal bilaterally without dysmetria. Gait Normal casual, [...] on the injection site. ASSESSMENT AND PLAN: Dalia Zhang is a 59 year old female with [...] injections if needed. documented in this encounter [facility] 08-23-2024 Telephone encounter Note Needs a refill on Dexamethasone 2mg [facility] Work Phone: 08-23-2024 Miscellaneous Notes Needs a refill on Dexamethasone 2mg [facility] documented in this encounter [facility] 07-18-2024 History of Presen t illness Narrative Images from the original note were not included. CHIEF COMPLAINT REASON FOR VISIT: Injections. HPI: Dalia Zhang is a 58 y.o. female who presents [...] FINGER RELEASE Right 02/22/2020 trigger thumb release [facility] Social History Tobacco Use Smoking status: [...] reflexes: Mohsen's absent. Ankle clonus absent. Coordination [id number]-[id number], rapid alternating movements and xlqf-zm-lfjt normal bilaterally without dysmetria. Gait Normal casual, [...] in the media folder. ASSESSMENT AND PLAN: Dalia Zhang is a 58 year old female with [...] a tens unit for back/hip pain to [facility]. Dexamethasone 2 mg taper in between visits [...] with Dr. Lockett. documented in this encounter [facility] 06-13-2024 Telephone encounter Note Pt is requesting refill of Decadron rx. [facility] 06-13-2024 Miscellaneous Notes Pt is requesting refill of Decadron rx. documented in this encounter [facility] 06-02-2024 Telephone encounter Note Pt would like someone to call her with xr results if possible. I explained how MyChart works for her and sent a new link but she would still like a call. [facility] 06-02-2024 Miscellaneous Notes Pt would like someone to call her with xr results if possible. I explained how [employer] works for her and sent a new link but she would still like a call. documented in this encounter [facility] 05-30-2024 History of Presen t illness Narrative Images from the original note were not included. CHIEF COMPLAINT REASON FOR VISIT: Injections. HPI: Dalia Zhang is a 58 y.o. female who presents [...] FINGER RELEASE Right 02/22/2020 trigger thumb release [facility] Social History Tobacco Use Smoking status: [...] reflexes: Mohsen's absent. Ankle clonus absent. Coordination Tyqbks-ia-duod, rapid alternating movements and pyis-aw-tpvt normal bilaterally without dysmetria. Gait Normal casual, [...] injections if needed. documented in this encounter [facility] 04-13-2024 History of Presen t illness Narrative Images from the original note were not included. CHIEF COMPLAINT REASON FOR VISIT : Injections HPI: Dalia Zhang is a 58 y.o. female who presents [...] FINGER RELEASE Right 02/22/2020 trigger thumb release [facility] Social History Tobacco Use Smoking status: [...] reflexes: Mohsen's absent. Ankle clonus absent. Coordination Yuwryd-mv-lwqn, rapid alternating movements and foir-jt-vtdt normal bilaterally without dysmetria. Gait Normal casual, [...] mg) before bedtime. documented in this encounter [facility] 09-29-2023 History of Presen t illness Narrative Subjective Dalia Zhang is a 58 y.o. female. HPI Patient [...] FINGER RELEASE Right 02/22/2020 trigger thumb release [facility] Family History Problem Relation Name Age [...] returns acute, moderate/severe. documented in this encounter [facility] 11-05-2021 Note PROCEDURE: XR FOOT R [...] authenticated by: PAULINE BROTHERS Date: 2021-11-05 10:37 [facility] 10-28-2021 Note PROCEDURE: XR FOOT R [...] authenticated by: PAULINE BROTHERS Date: 2021-10-28 12:24 [facility] Evaluation + Plan note No data available for this section [facility] Evaluation note Diagnosis Sciatica of left side- Primary Degenerative disc disease, lumbar Trochanteric bursitis of left hip Lumbar radiculopathy Thoracic or lumbosacral neuritis or radiculitis, unspecified Trochanteric bursitis of right hip documented in this encounter [facility]* Diagnosis Trochanteric bursitis of right hip- Primary Trochanteric bursitis of right hip documented in this encounter [facility]* Diagnosis Trochanteric bursitis of left hip Lumbar radiculopathy Thoracic or lumbosacral neuritis or radiculitis, unspecified documented in this encounter [facility] note* Diagnosis Age-related nuclear cataract of both eyes documented in this encounter [facility] note* Diagnosis Trochanteric bursitis, right hip- [...] or radiculitis, unspecified documented in this encounter [facility]* Diagnosis Lumbar radiculopathy- Primary Thoracic or lumbosacral neuritis or radiculitis, unspecified documented in this encounter [facility] Discharge instructions No data available for this section [facility] data available for this section [facility] Summary Purpose Family History No [...] section and content) DATE CREATED AUTHOR 10/31/2018 [facility] DATE CREATED AUTHOR AUTHOR'S ORGANIZ ATION 06/29/2022 [facility] DATE CREATED AUTHOR AUTHOR'S ORGANIZ ATION 08/12/2022 [facility] DATE CREATED AUTHOR AUTHOR'S ORGANIZ ATION [facility]/13/2024 [facility] DATE CREATED AUTHOR AUTHOR'S ORGANIZ ATION 11/11/2024 [facility] Special[facility] EPIC Patient Care team informatio n (unrecognized section and content) Health Information Technologist Relationship Specialty Start Date End Date Patrick Swenson MD [address] [place] [phone] - General Family Medicine 10/28/24 Leonardo Whitaker MD [address] [address] [place] [phone] Referring Physician Neurology 10/28/24 Health Information Technologist Relationship Specialty Start Date End Date Patrick Swenson MD [address] [place] [id number] [phone] - General Family Medicine 10/28/24 Leonardo Whitaker MD [address] [facility] [address] [facility] [address] [place] [address] [place] [phone] Referring Physician Neurology 10/28/24 Health Information Technologist Relationship Specialty Start Date End Date Patrick Swenson MD [address] [place] [phone] PCP - General Family Medicine 10/28/24 Leonardo Whitaker MD [address] [place] [phone] Referring Physician Neurology 10/28/24 Reason for Visit (unrecogniz ed section and [...] BE BASED ON THE PRIMARY CLINICAL RECORDS. [facility]. provides no warranty or guarantee of the accuracy or completeness of information in this document.
== END 2024-11-18 13:32 | disposition home or self-care (01) ==
PROVIDERS: Emergency Provider Emergency Medicine; PCP Family Medicine
DX: S00.06XA Insect bite (nonvenomous) of scalp, initial encounter (principal); W57.XXXA Bitten or stung by nonvenomous insect and other nonvenomous arthropods, initial encounter
CPT/HCPCS: 99281

== ENCOUNTER 2025-04-13 14:56 | Outpatient (OUT) | payer OTHER, SELFPAY ==
--- NOTE | 2025-04-13 14:59 | CT_ITS ---
The [address] [address] Patient Name: MITESH PATEL MRN: [id number] date: 1965 Sex: F Assigned Patient Location: CT Current Patient Location: Accession/Order Number: [id number] Exam Date: 04/13/2025 15:00 Report Date: 04/14/2025 09:56 At the request of: PATRICK GRAY MD Procedure: CT lung screening low-dose LOW-DOSE SCREENING CHEST CT WITHOUT CONTRAST COMPARISON: 02/09/2024 CLINICAL DATA: Current smoker, half a pack a day for 12 to 14 years. Spiral axial unenhanced low-dose images were obtained through the chest. Images were reviewed using both narrow and wide window settings. This CT exam was performed using one or more following dose reduction techniques: Automated exposure control, adjustment of the mA and/or kV according to patient size, or use of iterative reconstruction technique. The heart is normal in size. No pericardial effusion is identified. There is minimal coronary disease. No aortic aneurysm is seen. Minor plaque is noted at the aortic arch. There are no enlarged lymph nodes. Calcified left hilar granulomas are seen. Minor degenerative changes are present at the spine. Minor scarring is visualized at the lung apices. There is additional minimal scarring or atelectasis at the lung bases. No focal consolidation, pleural effusion or pneumothorax is seen. Tiny pulmonary nodules are again visualized measuring up to 2 - 3 mm at the right lower lobe. The cavitary nodular area at the left lower lobe has essentially resolved. No new nodularity is identified. Limited cuts through the upper abdomen show no contributory findings. CT/CT lung screening low-dose IMPRESSION: RESOLUTION OF CAVITARY LEFT LOWER LOBE NODULE. OTHER SIMILAR TINY PULMONARY NODULES. Lung RADS category 2 - benign Twelve-month low-dose CT follow-up suggested. Impression dictated by: Catherine Marsh M.D. 04/14/2025 9:56 AM Dictation Location: [place] [address] Electronically authenticated by: [id number] Date: 04/14/2025 09:56
--- OUTSIDE RECORDS SUMMARY | 2025-04-13 15:30 | XMS_ITS | CCD ---
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 Name Role Phone RAGHAV DASILVA Referring Unavailab [...] Unavailable MARINA, DR NGUYEN Primary Care Unavailable HOMarlena, DR NGUYEN Consulting Unavailable ZEV, DR PAULINE Flores Consulting Unavailable Unavailable Primary Care Provider Unavailabl e REFERRAL, SELF Admitting Unavailable REFERRAL, SELF Attending Unavailable REFERRAL, SELF Referring Unavailable Patrick Swenson Consulting Unavailable Patrick Swenson Consulting Unavailable Patrick Swenson MD Primary Care Provider [phone] Leonardo Whitaker MD Unavailable Unavailable Primary Care Provider UnavailOLIVERIO Hansen Attending Unavailable BROWN, RAGHAV T Referring Unavailable Patrick Swenson MD Primary Care Provider [phone] Patrick Swenson MD Primary Care Provider [phone] Bialmerlene MILLS, Therese N Attending Provider NON STAFF Other Provider Unavailable Unavailable Primary Care Provider UnavailRUPALI Rivera Referring Unavailable RUPALI ZAFAR Referring Unavailable NON STAFF Consulting Unavailable Bialaski, Therese N Admitting Unavailable Bialaski, Therese N Attending Unavailable Patrick Swenson Primary Care Unavailable Bialaski, Therese N Admitting Unavailable Bialaski, Therese N Attending Unavailable Patrick Swenson Primary Care Unavailable PAULINE BUSCH Attending Unavailable LEONARDO WHITAKER Attending Unavailable RAGHAV DASILVA T Referring Unavailable RAGHAV DASILVA Attending Unavailable LEONARDO WHITAKER Attending Unavailable WHITAKERLEONARDO GLASS Attending Unavailable WHITAKERLEONARDO GLASS Attending Unavailable WHITAKERLEONARDO GLASS Attending Unavailable WHITAKERLEONARDO GLASS Attending Unavailable WHITAKERLEONARDO GLASS Attending Unavailable TESS SAUNDERS Attending Unavailable BIALASKI, THERESE Referring Unavailable DAHM, YESSICA Attending Unavailable BIALASKI, THERESE Referring Unavailable DAHM, YESSICA Attending Unavailable BIALASKI, THERESE Referring Unavailable WHITAKERLEONARDO GLASS Attending Unavailable DAHM, YESSICA Attending Unavailable BIALASKI, THERESE Referring Unavailable DAHM, YESSICA Attending Unavailable BIALASKI, THERESE Referring Unavailable DAHM, YESSICA Attending Unavailable BIALASKI, THERESE Referring Unavailable DAHM, YESSICA Attending Unavailable BIALASKI, THERESE Referring Unavailable DAHM, YESSICA Attending Unavailable BIALASKI, THERESE Referring Unavailable DAHM, YESSICA Attending Unavailable BIALASKI, THERESE Referring Unavailable WHITAKERLEONARDO GLASS Attending Unavailable NICKY TESS L Attending Unavailable BIALASKI, THERESE Referring Unavailable WHITAKERLEONARDO GLASS Attending Unavailable WHITAKERLEONARDO GLASS Attending Unavailable WHITAKERLEONARDO GLASS Attending Unavailable WHITAKERLEONARDO GLASS Referring Unavailable WHITAKERLEONARDO GLASS Attending Unavailable WHITAKERLEONAROD GLASS Attending Unavailable Allergies Allergy Classification Reported Allergen(s) Allergy Type Date of Onset Reaction(s) Facility (20 sources) Penicillins; Translations: [penicillins] Drug allergy 2 Unknown (qualifier value), Other, Rash, Other (See Comments) [facility] (4 sources) Sulfonamides (Antibiotic); Translations: [sulfa drugs] Drug allergy Unknown (qualifier value) [facility] (2 sources) Amoxicillin; Translations: [AMOXICILLIN] Drug Allergy 4 [facility]ository (1 source) Sulfonamides (Antibiotic) Drug allergy (disorder) 4 [facility]ository (20 sources) Amoxicillin Drug Allergy 2 Rash [facility] (20 sources) Sulfacetamide Drug Allergy 2 Rash [facility] (20 sources) Sulfonamides (Antibiotic) Drug Allergy 2 Unknown, Rash, Other (See Comments) [facility] Work Phone: (20 sources) Other Allergy to substance 3 Unknown [facility] (1 source) ALLERGIES NOT ON FILE; Translations: [ALLERGIES NOT ON FILE] Propensity to adverse reactions (disorder) [facility] 3 Repository (1 source) Amoxicillin Drug Allergy 5 [facility] Repository (1 source) Sulfonamides (Antibiotic); Translations: [SULFA (SULFONAMIDE ANTIBIOTICS)] Propensity to adverse reactions to drug (disorder) 2 [facility] Repository Medications Current Medications Medication Drug Class(es) Dates [...] Ordered alendronic acid 70 mg oral tablet (20 sources) Bisphosphonate Start: 07-01-2024 End: 12-28-2024 take 1 tablet by mouth once daily [...] complex) tablet as directed Orally 0 Active baclofen 10 mg oral tablet (20 sources) gamma-Aminobutyric Acid-ergic Agonist Start: 03-31-2025 take 1 tablet by mouth at bedtime baclofen (Lioresal) 10 MG tablet Indications: Lumbar radiculopathy TAKE 1 TABLET BY MOUTH IN THE MORNING, EVENING AND BEFORE BEDTIME 270 tablet 03/31/2025 Active Start: 12-01-2024 End: 03-31-2025 take 1 tablet by mouth in the morning, then take 1 tablet by mouth in the evening, then take 1 tablet by mouth at bedtime baclofen (Lioresal) 10 MG tablet Indications: Lumbar radiculopathy Take 1 tablet (10 mg) by mouth in the morning and 1 tablet (10 mg) in the evening and 1 tablet (10 mg) before bedtime. 90 tablet 2 12/15/2024 03/31/2025 Discontinued biotin 10 mg oral tablet (2 sources) [...] 09/29/2023 Discontinued ibuprofen 800 mg oral tablet (3 sources) Nonsteroidal Anti-inflammatory Drug Start: 12-11-2015 Motrin 800 mg Tab 800 mg = 1 tab(s), Oral, PRN as needed for pain, Refills(s) 0 Start Date: 12/11/15 Status: Ordered lidocaine 0.05 mg/mg medicated patch (20 sources) Antiarrhythmic, Amide Local Anesthetic Start: 10-28-2024 apply 1 dose transdermal route every twelve hours lidocaine (Lidoderm) 5 % patch Indications: Lumbar radiculopathy , Post herpetic neuralgia , Degeneration of intervertebral disc of lumbar [...] 0, Pain Start Date: 12/11/15 Status: Ordered pregabalin 25 mg oral capsule (20 sources) Start: 01-26-2025 End: 01-26-2026 take 1 capsule by mouth in the morning, then take 1 capsule by mouth in the evening, then take 1 capsule by mouth at bedtime pregabalin (Lyrica) 25 MG capsule Indications: Lumbar radiculopathy Take 1 capsule (25 mg) by mouth in the morning and 1 capsule (25 mg) in the evening and 1 capsule (25 mg) before bedtime. 90 capsule 2 01/26/2025 01/26/2026 Active rosuvastatin calcium 10 mg oral tablet (2 [...] pain, # 12 tab(s), Refills(s) 0, Pharmacy: [facility]/pharmacy #[id number], 157.5, cm, 01/26/21 17:27:00 EDT, Height/Length Dosing, 48, kg, 01/26/21 17:27:00 EDT, Weight Dosing Start Date: 01/26/21 Status: Ordered Completed/Discontinued Medications Medication Drug Class(es) Dates Sig (Normalized) Sig (Original) bupivacaine hydrochloride 5 mg/ml injectable solution (20 sources) Amide Local Anesthetic Start: 02-23-2025 End: 02-20-2025 bupivacaine (Marcaine) 0.5 % injection 5 mg Start: 02-23-2025 End: 02-20-2025 5 mg, Injection, Once, On 02/23/25 at 1515, For 1 dose Start: 02-02-2025 End: 01-26-2025 bupivacaine (Marcaine) 0.5 % injection 5 mg Start: 02-02-2025 End: 01-26-2025 5 mg, Injection, Once, On 02/02/25 at 0930, For 1 dose Start: 01-17-2025 End: 01-17-2025 bupivacaine (Marcaine) 0.5 % injection 5 mg Start: 01-17-2025 End: 01-17-2025 5 mg, Injection, Once, On 01/17/25 at 1345, For 1 dose Start: 12-27-2024 End: 03-20-2025 5 mg (1 mL), Injection, Once , On Thu12/27/24 at 1230, For 1 dose Start: 12-27-2024 bupivacaine (M arcaine) 0.5 % injection 5 mg Start: 12-13-2024 End: 12-12-2024 bupivacaine (Marcaine) 0.5 % injection 5 mg Start: 12-13-2024 End: 12-12-2024 5 mg (1 mL), Injection, Once , On Thu12/13/24 at 1600, For 1 dose Start: 12-01-2024 End: 12-01-2024 bupivacaine (Marcaine) 0.5 % injection 5 mg Start: 12-01-2024 End: 12-01-2024 5 mg (1 mL), Injection, Once , On Thu12/01/24 at 0930, For 1 dose Start: 11-23-2024 End: 11-10-2024 bupivacaine (Marcaine) 0.5 % injection 5 mg Start: 11-23-2024 End: 11-10-2024 5 mg (1 mL), Injection, Once , On Thu11/23/24 at 1000, For 1 dose Start: 11-16-2024 End: 11-16-2024 bupivacaine (Marcaine) 0.5 % injection 5 mg Start: 11-16-2024 End: 11-16-2024 5 mg (1 mL), Injection, Once , On Thu11/16/24 at 1100, For 1 dose Start: 08-29-2024 End: 08-29-2024 bupivacaine (Marcaine) 0.5 [...] On Thu04/13/24 at 1230, For 1 dose dexamethasone phosphate 4 mg/ml injectable solution (20 sources) Corticosteroid Start: 03-20-2025 End: 03-20-2025 dexAMETHasone sod phos (Decadron) injection 1 mL Start: 03-20-2025 End: 03-20-2025 1 mL, Injection, Once PRN Procedure, Starting on Thu03/20/25 at 0830, For 1 dose Start: 02-23-2025 End: 02-20-2025 dexAMETHasone sod phos (Deca dron) injection 4 mg Start: 02-23-2025 End: 02-20-2025 4 mg (1 mL), Injection, Once , On Thu02/23/25 at 1515, For 1 dose Start: 02-02-2025 End: 01-26-2025 dexAMETHasone sod phos (Deca dron) injection 4 mg Start: 02-02-2025 End: 01-26-2025 4 mg (1 mL), Injection, Once , On Thu02/02/25 at 0930, For 1 dose Start: 01-17-2025 End: 01-11-2025 dexAMETHasone sod phos (Deca dron) injection 4 mg Start: 01-17-2025 End: 01-11-2025 4 mg (1 mL), Injection, Once , On Thu01/17/25 at 1345, For 1 dose Start: 12-27-2024 dexAMETHasone sod phos (Decadron) injection 4 mg Start: 12-13-2024 End: 12-12-2024 dexAMETHasone sod phos (Deca dron) injection 4 mg Start: 12-13-2024 End: 12-12-2024 4 mg (1 mL), Injection, Once , On Thu12/13/24 at 1600, For 1 dose Start: 12-01-2024 End: 12-01-2024 dexAMETHasone sod phos (Deca dron) injection 4 mg Start: 12-01-2024 End: 12-01-2024 4 mg (1 mL), Injection, Once , On Thu12/01/24 at 0930, For 1 dose Start: 11-23-2024 End: 11-10-2024 dexAMETHasone sod phos (Deca dron) injection 4 mg Start: 11-23-2024 End: 11-10-2024 4 mg (1 mL), Injection, Once , On Thu11/23/24 at 1000, For 1 dose Start: 11-16-2024 End: 11-16-2024 dexAMETHasone sod phos (Deca dron) injection 4 mg Start: 11-16-2024 End: 11-16-2024 4 mg (1 mL), Injection, Once , On Thu11/16/24 at 1100, For 1 dose Start: 08-29-2024 End: 08-29-2024 dexAMETHasone sod phos (Deca dron) injection 4 mg Start: 08-29-2024 End: 08-29-2024 4 mg (1 mL), Injection, Once , On Thu08/29/24 at 1445, For 1 dose Start: 08-01-2024 End: 12-28-2024 Dexamethasone 2 mg tablet Discontinued MG PO August 01, 2024 1:00am December 28, 2024 8:19am Start: 07-18-2024 End: 07-18-2024 dexAMETHasone (Decadron) injection [...] pills 18 tablet 1 09/29/2023 10/09/2023 Active methylPREDNISolone (20 sources) Corticosteroid Start: 03-13-2025 End: 03-21-2025 methylPREDNISolone (Medrol Dospak) 4 MG tablets Indications: Lumbar radiculopathy , Chronic SI joint pain , Trochanteric bursitis of left hip , Trochanteric bursitis, right hip , Degeneration of intervertebral disc of lumbar region with discogenic back pain and lower extremity pain , Spinal stenosis of lumbar region, unspecified whether neurogenic claudication present Follow schedule on package instructions 21 tablet 03/13/2025 03/21/2025 Discontinued (Reorder) Start: 03-13-2025 End: 03-20-2025 methylPREDNISolone (Medrol D ospak) 4 MG tablets Indications: Lumbar radiculopathy , Chronic SI joint pain , Trochanteric bursitis of left hip , Trochanteric bursitis, right hip , Degeneration of intervertebral disc of lumbar region with discogenic back pain and lower extremity pain , Spinal stenosis of lumbar region, unspecified whether neurogenic claudication present Follow schedule on package instructions 21 tablet 03/13/2025 03/20/2025 Active Start: 02-21-2025 End: 02-28-2025 methylPREDNISolone (MEDROL, SHIVA,) 4 mg tablet Follow schedule on package instructions 02/21/2025 02/28/2025 Active Start: 02-21-2025 End: 02-28-2025 methylPREDNISolone (Medrol D ospak) 4 MG tablets Indications: Lumbar radiculopathy Follow schedule on package instructions 21 tablet 1 02/21/2025 02/28/2025 Active Start: 02-14-2025 End: 02-21-2025 methylPREDNISolone (Medrol D ospak) 4 MG tablets Indications: Lumbar radiculopathy Follow schedule on package instructions 21 tablet 1 02/14/2025 02/21/2025 Discontinued (Reorder) Start: 02-14-2025 End: 02-21-2025 methylPREDNISolone (Medrol D ospak) 4 MG tablets Indications: Lumbar radiculopathy Follow schedule on package instructions 21 tablet 1 02/14/2025 02/21/2025 Active Start: 02-07-2025 End: 02-14-2025 methylPREDNISolone (Medrol D ospak) 4 MG tablets Indications: Lumbar radiculopathy Follow schedule on package instructions 21 tablet 02/07/2025 02/14/2025 Active Start: 01-30-2025 End: 02-07-2025 methylPREDNISolone (Medrol D ospak) 4 MG tablets Indications: Lumbar radiculopathy Follow schedule on package instructions 21 tablet 01/30/2025 02/07/2025 Discontinued (Reorder) Start: 01-30-2025 End: 02-06-2025 methylPREDNISolone (Medrol D ospak) 4 MG tablets Indications: Lumbar radiculopathy Follow schedule on package instructions 21 tablet 01/30/2025 02/06/2025 Active Start: 01-16-2025 End: 01-30-2025 methylPREDNISolone (Medrol D ospak) 4 MG tablets Indications: Lumbar radiculopathy Follow schedule on package instructions 21 tablet 01/16/2025 01/30/2025 Discontinued (Reorder) Start: 01-16-2025 End: 01-23-2025 methylPREDNISolone (Medrol D ospak) 4 MG tablets Indications: Lumbar radiculopathy Follow schedule on package instructions 21 tablet 01/16/2025 01/23/2025 Active Start: 01-11-2025 End: 01-16-2025 methylPREDNISolone (Medrol D ospak) 4 MG tablets Indications: Lumbar radiculopathy Follow schedule on package instructions 21 tablet 01/11/2025 01/16/2025 Discontinued (Reorder) Start: 12-28-2024 take 1 tablet by colin th once daily Methylprednisolone 4 mg tablet Active 4 MG PO Daily December 28, 2024 12:00am Start: 12-27-2024 End: 01-03-2025 methylPREDNISolone (Medrol D ospak) 4 MG tablets Indications: Degeneration of intervertebral disc of lumbar region with discogenic back pain and lower extremity pain , Trochanteric bursitis of left hip , Trochanteric bursitis, right hip Follow schedule on package instructions 21 tablet 12/27/2024 01/03/2025 Active Start: 12-21-2024 End: 12-27-2024 methylPREDNISolone (Medrol D ospak) 4 MG tablets Indications: Degeneration of intervertebral disc of lumbar region with discogenic back pain and lower extremity pain , Trochanteric bursitis of left hip , Trochanteric bursitis, right hip Follow schedule on package instructions 21 tablet 12/21/2024 12/27/2024 Discontinued (Reorder) Start: 12-01-2024 End: 12-08-2024 methylPREDNISolone (Medrol D ospak) 4 MG tablets Indications: Lumbar radiculopathy Follow schedule on package instructions 21 tablet 12/01/2024 12/08/2024 Active Start: 11-24-2024 End: 12-01-2024 methylPREDNISolone (Medrol D ospak) 4 MG tablets Indications: Lumbar radiculopathy Follow schedule on package instructions 21 tablet 11/24/2024 12/01/2024 Discontinued (Reorder) Start: 11-24-2024 End: 12-01-2024 methylPREDNISolone (Medrol D ospak) 4 MG tablets Indications: Lumbar radiculopathy Follow schedule on package instructions 21 tablet 11/24/2024 12/01/2024 Active Start: 11-16-2024 End: 11-23-2024 methylPREDNISolone (Medrol D ospak) 4 MG tablets Indications: Trochanteric bursitis of left hip Follow schedule on package instructions 21 tablet 11/16/2024 11/23/2024 Active Start: 11-10-2024 End: 11-24-2024 methylPREDNISolone (Medrol D ospak) 4 MG tablets Indications: Lumbar radiculopathy Follow schedule on package instructions 21 tablet 11/10/2024 11/24/2024 Discontinued (Reorder) Start: 11-10-2024 End: 11-17-2024 methylPREDNISolone (Medrol D ospak) 4 MG tablets Indications: Lumbar radiculopathy Follow schedule on package instructions 21 tablet 11/10/2024 11/17/2024 Start: 11-10-2024 End: 11-17-2024 methylPREDNISolone (Medrol D ospak) 4 MG tablets Indications: Lumbar radiculopathy Follow schedule on package instructions 21 tablet 11/10/2024 11/17/2024 Active piroxicam 20 mg oral capsule (2 sources) [...] obstructive pulmonary disease] Onset: 09-07-2023 09-07-2023 Chronic Disorders of lipid metabolism (20 sources) Hyperlipidemia, unspecified; Translations: [Hyperlipidemia] Onset: 07-08-2021 Chronic Headache; including migraine (1 source) Headache; including migraine; Translations: [HEADACHE UNSPECIFIED] Onset: 09-09-2021 Osteoarthritis (20 sources) Osteoarthritis of knee; Translations: [Osteoarthritis of knee, unspecified] Onset: 05-09-2021 03-17-2023 Chronic Other acquired deformities (1 source) Scoliosis, unspecified; Translations: [Scoliosis, unspecified] Onset: 01-10-2025 Chronic Other acquired deformities (1 source) Retrolisthesis; Translations: [Spondylolisthesis, site unspecified] 02-27-2025 Episodic Other connective tissue disease (20 sources) Muscle weakness; Translations: [Muscle weakness (generalized)] Onset: 01-17-2025 01-17-2025 Episodic Other connective tissue disease (20 sources) Muscle pain; Translations: [Myalgia, unspecified site] Onset: 01-26-2025 01-26-2025 Episodic Other nervous system disorders (20 sources) Polyneuropathy; Translations: [Polyneuropathy, unspecified] Onset: 10-26-2023 10-26-2023 Chronic Other nervous system disorders (4 sources) Chronic pain; Translations: [Other chronic pain] 08-01-2024 Chronic Other nervous system disorders (3 sources) Other chronic pain; Translations: [Other chronic pain] 12-28-2024 Chronic Other nervous system disorders (1 source) Disease of spinal cord, unspecified; Translations: [Disease of spinal cord, unspecified] Onset: 01-18-2025 Chronic Other nervous system disorders (20 sources) Abnormal gait; Translations: [Unspecified abnormalities of gait and mobility] Onset: 01-17-2025 01-17-2025 Episodic Other non-traumatic joint disorders (3 sources) Pain in left shoulder; Translations: [Pain in left shoulder] Onset: 10-27-2018 Episodic Residual codes; unclassified (1 source) Pain, unspecified; Translations: [Pain, unspecified] Onset: 01-27-2025 Episodic Spondylosis; intervertebral disc disorders; other back [...] COUGH, UNSPECIFIED; Translations: [COUGH, UNSPECIFIED] Onset: 09-09-2021 Unclassified (1 source) Low back pain, unspecified; Translations: [Low back pain, unspecified] Onset: 02-16-2025 Unclassified (1 source) Consult Onset: 02-27-2025 Past or Other Problems Problem Classification Problem Date Documented Da te Episodic/Chronic Chronic obstructive pulmonary disease and bronchiectasis (20 sources) Bronchitis; Translations: [Bronchitis, not specified as acute or chronic] Onset: 08-29-2024 12-11-2015 Episodic E Codes: Fall (1 source) Fall (on) (from) unspecified stairs and steps, initial encounter; Translations: [FALL ON FROM UNS STAIRS STEPS INIT] Onset: 10-29-2021 Episodic Other bone disease and musculoskeletal deformities (20 sources) Osteopenia; Translations: [Other specified disorders of bone density and structure, unspecified site] Onset: 08-29-2024 08-29-2024 Episodic Other connective tissue disease (4 sources) [...] RT FOOT INITIAL] Onset: 10-28-2021 Episodic Other lower respiratory disease (20 sources) H/O: pneumonia; Translations: [Personal history of pneumonia (recurrent)] Onset: 08-29-2024 12-11-2015 Episodic Other upper respiratory infections (1 source) Acute sinusitis, unspecified; Translations: [ACUTE SINUSITIS UNSPECIFIED] Onset: 08-13-2021 Episodic Spondylosis; intervertebral disc disorders; other back problems (20 sources) Sciatica; Translations: [Sciatica, left side] Onset: 06-25-2023 Resolved: 01-17-2025 09-29-2023 Episodic Sprains and strains (1 source) Unspecified sprain of right foot, initial encounter; Translations: [UNSPECIFIED SPRAIN RT FOOT INITIAL] Onset: 10-29-2021 Episodic Unclassified (1 source) CONTACT W/AND (SUSP) EXPOS COVID-19; Translations: [CONTACT W/AND (SUSP) EXPOS COVID-19] Onset: 09-06-2021 Results Test Name Value Interpretation Reference Range Facility Trigger Point Injection: rig ht iliocostalis lumborum, left iliocostalis lumborumon 03-20-2025 RT. Kermit Browning 03/29/2025 10:13 AM Trigger Point Injection: right iliocostalis lumborum, left iliocostalis lumborum on 03/20/2025 8:30 AM Medications: 1 mL dexAMETHasone sod phos 120 MG/30ML; 3 mL bupivacaine (Marcaine) injection 0.5 % Outcome: tolerated well, no immediate complications L5/S1 Procedure, treatment alternatives, risks and benefits explained, specific risks discussed. Consent was given by the patient. Immediately prior to procedure a time out was called to verify the correct patient, procedure, equipment, learning support teacher and site/side marked as required. Patient was prepped and draped in the usual sterile fashion. [facility] XR SPINE CERVICAL FLEXION/EX TENSION ONLYon 02-20-2025 XR SPINE CERVICAL FLEXION/EXTENSION ONLY XR SPINE CERVICAL FLEXION/EXTENSION ONLY HISTORY: A 59-year-old female with a history of the chronic neck pain. Prior to cervical surgeries. TECHNIQUE: Lateral views of the cervical spine in neutral, flexion and extension views: 3 views COMPARISON: Comparison is made with MRI examination of the cervical spine of 01/18/2025. FINDINGS: There is a surgical anterior spinal fusion from C5 to C7 with fixation plate and screws. There is satisfactory surgical spinal fusion without evidence of hardware complication. There are advanced disc degenerative changes in the cervical spine with small osteophytes and reduction of disc spaces at all levels. The odontoid process is intact. No significant prevertebral soft tissue abnormality seen. Lateral views in the flexion and extension positions reveal no abnormal movements to suggest instability. IMPRESSION: * See the discussion above. Finalized by Rober Feldman MD on 02/20/2025 2:32 PM Normal [facility] XR SPINE LUMB BENDING ONLY 2 -3 VWSon 02-20-2025 XR SPINE LUMB BENDING ONLY 2-3 VWS XR SPINE LUMB BENDING ONLY 2-3 VWS History: Back pain Exam/Technique: Lateral flexion-extension views of the lumbar spine were obtained. Comparison: Comparison made to a CT abdomen pelvis dated 01/10/2025 Findings: There is multilevel disc space narrowing. Multilevel facet arthropathy is seen. The vertebral heights are well-maintained. No evidence of instability is seen in either flexion or extension views. IMPRESSION: Multilevel disc space narrowing and facet arthropathy. No evidence of instability is seen. Finalized by Pauline Fritz MD on 02/20/2025 1:10 PM Normal [facility] MR cervical spine wo conon 0 01-18-2025 MR cervical spine wo con [facility] [place] [address] MRI Report Signed Patient: Dalia Zhang MR#: [id number] 78 : 1965 Acct:[id number] Age/Sex: 59 / F ADM Date: 01/18/25 Loc: [facility] Room: Type: [facility] CL Attending Dr: Therese Santoyo DO Copies to: Therese Santoyo DO Ordering Provider: Therese Santoyo DO Date of Service: 01/18/25 MR/MR cervical spine wo con: G95.9 - Disease of spinal cord, unspecified MRI of the cervical spine performed without contrast INDICATION: Cervical myelopathy, chronic pain COMPARISON: None FINDINGS: Examination was performed on an open magnet system with less than optimal lddvep-ap-onlor ratio which does degrade evaluation. The craniocervical junction is maintained. Evidence of prior ACDF with a complete interbody fusion C5-C7. Junctional degenerative changes C4-C5 and C7-T1 noted. Prevertebral and paraspinal soft tissues are unremarkable. There is focal cord flattening and thinning noted notably from C5 through C7. There are T2 hyperintensities likely central cord pascal matter C5-C6 possibly related to chronic compressive myelopathy or remote infarct given the snake eyes appearance. Mild patchy T2 signal within the cord at C6-C7. At the level of C2-C3, focus of diminished T2 signal within the left beatriz- cord and along the ventral cord noted possibly sequelae of prior surgery or subarachnoid hemorrhage. Suspect mild hemosiderosis on the right aspect of the thecal sac Left hemicord diminished signal could represent a small cavernoma Moderate severe intervertebral space narrowing C4-C5 and C7-T1 and moderate intervertebral space narrowing C3-C4. Multilevel facet arthropathy. C2-C3: broad-based disc bulge with endplate spurring extending both foramina zones. [id number] facet arthropathy. Moderate right moderate severe left neural from narrowing. Mild to moderate central stenosis. C3-C4: Broad-based disc bulge with severe left and moderate severe uncovertebral spurring. Moderate to severe central canal stenosis. Severe left greater than right neural foraminal narrowing. C4-C5: Broad-based disc osteophyte complex formation with uncovertebral spurring, predominantly left-sided. Moderate right-sided and clnrgrta-na-rcxltn left-sided neural from narrowing. Moderate to severe central canal stenosis. C5-C6 and C6-7: Interbody ankylosis with mild diffuse ossific bridging and uncovertebral spurring. Moderate right-sided and mild left-sided neural foraminal narrowing. Mild to moderate central canal narrowing. C7-T1: Broad-based disc osteophyte complex with bilateral uncovertebral spurring and facet arthropathy. Moderate to severe central canal stenosis and severe left greater than right neural from narrowing identified. T1-T2: Broad-based disc osteophyte complex. Bilateral facet arthropathy. Moderate to severe right neural foraminal narrowing and moderate left neural foraminal narrowing identified. Mild central canal stenosis. MR/MR cervical spine wo con IMPRESSION: Postsurgical changes status post interbody fusion and ankylosis with mild to moderate degenerative changes at the operative levels. Moderate to severe degenerative changes involving the upper cervical spine C3-C5 and involving the lower segmental/junction region at C7-T1 Evidence of cord myelomalacia noted versus possible sequelae of chronic compressive myelopathy versus remote cord infarct at C5-C6. Additional findings of the cord and throughout the cervical spine noted above in the body report. Impression dictated by: Miguel Shankar M.D. 01/18/2025 4:48 PM Dictation Location: [place] [address] Transcribed By: [facility] 01/18/25 1648 Dictated By: Miguel Shankar MD 01/18/25 1629 Signed By: 01/18/25 1648 Normal [facility] Magnetic resonance imaging r eportOrdered By: Miguel Shankar on 01-18-2025 Study report [facility] Main [place] [address] [place] [address] MRI Report Signed Patient: Dalia Zhang MR#: [id number] : 1965 Acct:[id number] Age/Sex: 59 / F ADM Date: 5 Loc: [facility] Room: Type: [facility] Attending Dr: Therese Santoyo DO Copies to: Therese Santoyo DO~ Ordering Provider: Therese Santoyo DO Date of Service: 01/18/25 MR/MR cervical spine wo con: G95.9 - Disease of spinal cord, unspecified MRI of the cervical spine performed without contrast INDICATION: Cervical myelopathy, chronic pain COMPARISON: None FINDINGS: Examination was performed on an open magnet system with less than optimal iemdbk-yw-dbwnh ratio which does degrade evaluation. The craniocervical junction is maintained. Evidence of prior ACDF with a complete interbody fusion C5-C7. Junctional degenerative changes C4-C5 and C7-T1 noted. Prevertebral and paraspinal soft tissues are unremarkable. There is focal cord flattening and thinning noted notably from C5 through C7. There are T2 hyperintensities likely central cord pascal matter C5-C6 possibly related to chronic compressive myelopathy or remote infarct given the snake eyes appearance. Mild patchy T2 signal within the cord at C6-C7. At the levelof C2-C3, focus of diminished T2 signal within the left beatriz- cord and along theventral cord noted possibly sequelae of prior surgery or subarachnoid hemorrhage. Suspect mild hemosiderosis on the right aspect of the thecal sac Left hemicord diminished signal could represent a small cavernoma Moderate severe intervertebral space narrowing C4-C5 and C7-T1 and moderate intervertebral space narrowing C3-C4. Multilevel facet arthropathy. C2-C3: broad-based disc bulge with endplate spurring extending both foramina zones. Orig-pl-zpskwzit facet arthropathy. Moderate right moderate severe leftneural from narrowing. Mild to moderate central stenosis. C3-C4: Broad-based disc bulge with severe left and moderate severe uncovertebralspurring. Moderate to severe central canal stenosis. Severe left greater than right neural foraminal narrowing. C4-C5: Broad-based disc osteophyte complex formation with uncovertebral spurring, predominantly left-sided. Moderate right-sided and fmiahtiu-bv-ylkwcnxqvb -sided neural from narrowing. Moderate to severe central canal stenosis. C5-C6 and C6-7: Interbody ankylosis with mild diffuse ossific bridging and uncovertebral spurring. Moderate right-sided and mild left-sided neural foraminal narrowing. Mild to moderate central canal narrowing. C7-T1: Broad-based disc osteophyte complex with bilateral uncovertebral spurringand facet arthropathy. Moderate to severe central canal stenosis and severe left greater than right neural from narrowing identified. T1-T2: Broad-based disc osteophyte complex. Bilateral facet arthropathy. Moderate to severe right neural foraminal narrowing and moderate left neural foraminal narrowing identified. Mild central canal stenosis. MR/MR cervical spine wo con IMPRESSION: Postsurgical changes status post interbody fusion and ankylosis with mild to moderate degenerative changes at the operative levels. Moderate to severe degenerative changes involving the upper cervical spine C3-C5and involving the lower segmental/junction region at C7-T1 Evidence of cord myelomalacia noted versus possible sequelae of chronic compressive myelopathy versus remote cord infarct at C5-C6. Additional findingsof the cord and throughout the cervical spine noted above in the body report. Impression dictated by: Miguel Shankar M.D. 01/18/2025 4:48 PM Dictation Location: [place] [address] Transcribed By: [facility] 01/18/25 1648 Dictated By: Miguel Shankar MD 01/18/25 1629 Signed By: 01/18/25 1648 [facility] Work Phone: CT lumbar spine wo conon CT lumbar spine wo con [facility] Main [place] [address] [place] [address] CT Scan Report Signed Patient: Dalia Zhang MR#: [id number] 78 : 1965 Acct:[id number] Age/Sex: 59 / F ADM Date: 01/10/25 [facility] Room: Type: [facility] Attending Dr: Therese Santoyo DO Copies to: Therese Santoyo DO Ordering Provider: Therese Santoyo DO Date of Service: 01/10/25 CT/CT lumbar spine wo con: 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 Volumetric acquisition sagittal, coronal, and 3-D reconstructions were performed and reviewed on a separate workstation. CT was performed with one or more of the following dose reduction techniques: Automated exposure control, adjustment of the mA and/or kV according to patient size, or use of iterative reconstruction technique. COMPARISON: None FINDINGS: There is preservation of the vertebral body heights. There is severe disc height loss with endplate sclerosis and subcortical cystic change at L2-L3, L4-5, and L5-S1. No fractures or dislocations are seen. There is a dextro convex curvature of the lumbar spine. There is significant neural foraminal stenosis bilaterally at L5-S1 and to a lesser extent throughout the lumbar spine. Degenerative changes are noted in the sacroiliac joints. The paraspinous soft tissues are within normal limits. The visualized lung parenchyma is unremarkable. Atherosclerotic changes are noted in the abdominal aorta and its branches. There are a few 1 to 2 mm stones in the left renal collecting system. There is chronic appearing elevation left hemidiaphragm with atelectasis at the left lung base. CT/CT lumbar spine wo con IMPRESSION: No acute bony abnormality. There is a dextro convex curvature of the thoracolumbar spine. Severe multilevel degenerative changes noted, greatest at L2-L3, L4-5, and L5-S1. Degenerative changes are noted in the sacroiliac joints. There is elevation left hemidiaphragm with atelectasis at the left lung base. Nonobstructing stones are noted in the left renal collecting system. Impression dictated by: Darian Pastrana M.D. 01/10/2025 4:39 PM Dictation Location: [place] [address] Transcribed By: [facility] 01/10/25 1639 Dictated By: Darian Pastrana II, MD 01/10/25 1634 Signed By: 01/10/25 1639 Normal [facility] CT thoracic spine wo conon 0 01-10-2025 CT thoracic spine wo [facility] [place] [address] CT Scan Report Signed Patient: Dalia Zhang MR#: [id number] 78 : 1965 Acct:[id number] Age/Sex: 59 / F ADM Date: 01/10/25 Loc: XDS Room: Type: [facility] Attending Dr: Therese Santoyo DO Copies to: Therese Santoyo DO Ordering Provider: Therese Santoyo DO Date of Service: 01/10/25 CT/CT thoracic spine wo con: M54.14 - Radiculopathy, thoracic region CT thoracic spine wo con 01/10/2025 2:47 PM History: Back pain, bilateral lower extremity weakness left greater than right TECHNIQUE: Multi detector CT axial slices of the thoracic spine were obtained without IV contrast. Volumetric acquisition sagittal, coronal, and 3-D reconstructions were performed and reviewed on a separate workstation. CT was performed with one or more of the following dose reduction techniques: Automated exposure control, adjustment of the mA and/or kV according to patient size, or use of iterative reconstruction technique. COMPARISON: None FINDINGS: There is preservation of the vertebral body heights and intervertebral discs. Degenerative changes are noted in the facets of the upper thoracic spine. There is partial visualization of anterior fusion at C6-C7 with severe disc height loss at C7-T1. No fractures or dislocations are seen. The alignment of the thoracic spine is normal. The paraspinous soft tissues are within normal limits. The visualized lung parenchyma is unremarkable. There is elevation of the left hemidiaphragm. Atherosclerotic changes are noted in the thoracic aorta and coronary arteries. There is dependent atelectasis or scarring in the lung bases. Calcified left hilar lymph nodes are noted. CT/CT thoracic spine wo con IMPRESSION: No acute bony abnormality or malalignment. Degenerative changes are noted in the thoracic spine predominantly along the facets. Degenerative and postoperative changes are noted in the lower cervical spine and cervicothoracic junction. There is elevation of the left hemidiaphragm with atelectasis at the left lung base. Impression dictated by: Darian Pastrana M.D. 01/10/2025 4:34 PM Dictation Location: [place] [address] Transcribed By: [facility] 01/10/25 1634 Dictated By: Darian Pastrana II, MD 01/10/25 1630 Signed By: 01/10/25 1634 Normal [facility] X-ray reportOrdered By: Javier Shankar on 01-10-2025 Study report [facility] Main [place] [address] [place] [address] XRay Report Signed Patient: Dalia Zhang MR#: [id number] : 1965 Acct:[id number] Age/Sex: 59 / F ADM Date: 5 Loc: [facility] Room: Type: [facility] Attending Dr: Therese Santoyo DO Copies to: Therese Santoyo DO~ Ordering Provider: Therese Santoyo DO Date of Service: 01/10/25 XR/XR scoliosis survey: M41.9 X-rays scoliosis series, 2 views INDICATION: Scoliosis CT thoracolumbar spine 01/10/2025 FINDINGS: Postsurgical changes posterior spine status post ACDF. Focal dextrocurvature of the lumbar spine identified measuring 29 degrees at dextrocurvature. Multilevel degenerative changes of involving the lumbar spine. The thoracic lumbar spine vertebral heights otherwise are is preserved. Multilevel facet arthropathy identified greatest lower lumbar spine. Visualized lungs are clear. Nonspecific bowel gas pattern. Degenerative changes bilateral hips Degenerative changes sacral joints right greater left XR/XR scoliosis survey Impression: Moderate dextrocurvature mid lumbar spine. Impression dictated by: Miguel Shankar M.D. 01/10/2025 8:02 PM Dictation Location: [place] [address] Transcribed By: [facility] 01/10/252001 Dictated By: Miguel Shankar MD 01/10/251957 Signed By: 01/10/252001 [facility] Work Phone: XR scoliosis surveyon 2024 XR scoliosis survey [facility] Main [place] [address] [place] [address] XRay Report Signed Patient: Dalia Zhang MR#: [id number] 78 : 1965 Acct:[id number] Age/Sex: 59 / F ADM Date: 01/10/25 Loc: [facility]DS Room: Type: [facility] Attending Dr: Therese Santoyo DO Copies to: Therese Santoyo DO Ordering Provider: Therese Santoyo DO Date of Service: 01/10/25 XR/XR scoliosis survey: M41.9 X-rays scoliosis series, 2 views INDICATION: Scoliosis CT thoracolumbar spine 01/10/2025 FINDINGS: Postsurgical changes posterior spine status post ACDF. Focal dextrocurvature of the lumbar spine identified measuring 29 degrees at dextrocurvature. Multilevel degenerative changes of involving the lumbar spine. The thoracic lumbar spine vertebral heights otherwise are is preserved. Multilevel facet arthropathy identified greatest lower lumbar spine. Visualized lungs are clear. Nonspecific bowel gas pattern. Degenerative changes bilateral hips Degenerative changes sacral joints right greater left XR/XR scoliosis survey Impression: Moderate dextrocurvature mid lumbar spine. Impression dictated by: Miguel Shankar M.D. 01/10/2025 8:02 PM Dictation Location: [place] [address] Transcribed By: [facility] 01/10/252001 Dictated By: Miguel Shankar MD 01/10/251957 Signed By: 01/10/252001 Normal [facility] Physician [facility] [place] Mamm Screen w/CAD if perf [...] very important to your health. The current [employer] and National Comprehensive Cancer [...] Luis Sherman M.D. Transcribed by: SAUD Technologist: [place] Assessment: BI-RADS Category 1-Negative Recommendation: Normal interval follow-up Normal [facility] XR HIP 2 OR 3 VW [...] the mid and lower levels. Electronically Signed Therese Vigil M.D. 2024-05-30 10:22:54 Normal Not Available [...] the mid and lower levels. Electronically Signed Therese Vigil M.D. 2024-05-30 10:22:54 IMAGING Therese Vigil MD - 05/30/2024 Exam: XR - [...] the mid and lower levels. Electronically Signed Therese Vigil M.D. 2024-05-30 10:22:54 [facility] Radiology Study observation (narrative) [facility] XR Lumbar spine 4 ViewsOrder ed By: Therese Vigil on 05-30-2024 [facility] Work Phone: CT LUNG CANCER SCREENINGon 1 08-25-2021 CT [...] RYAN HAMILTON Date: 2022-06-25 07:59 Normal [facility] Covid-19 PCR (CVDTBH)on 05-19 SARS-CoV-2 (COVID-19) RNA HARISH+probe Ql (Unsp spec) Not detected Normal NOT DETECTED [facility] Comment on above: Result Comment: This test is not yet approved or cleared by the [place] FDA. When there are no FDA-approved or cleared tests available, and other criteria are met, FDA can make tests available under an emergency access mechanism called an Emergency Use Authorization (EUA). The EUA for this test is supported by the [place] of Health and Human Service's (HHS's) declaration [...] with SARS-CoV-2. Performed By: #### C VDTB ####[facility] [address] [place] [id number]. Royce Lopez INSULINon 06-10-2022 Insulin 5.2 uIU/mL Normal 2.6-24.9 [facility] Comment on above: Performed By: #### I NSULIN #### [facility] Laboratory [address] [place], [place] [address] Dr. Royce Lopez CBC AUTO DIFFon 06-09-2022 BASO # 0.1 103/ul Normal 0.0-0.1 [facility] Comment on above: Performed By: #### C BC ####[facility] [address] [place] [address]DrAgustin Lopez Basophils/100 WBC (Bld) 0.4 % Normal 0.2-2.0 [facility] Comment on above: Performed By: #### C BC ####[facility] [address] [place] [address]DrAgustin Lopez EO # 0.2 103/ul Normal 0.0-0.7 [facility] Comment on above: Performed By: #### C BC ####[facility] [address] [place] [address]DrAgustin Lopez Eosinophils/100 WBC (Bld) 1.3 % Normal 0.9-7.0 [facility] Comment on above: Performed By: #### C BC ####[facility] [address] [place] [address]DrAgustin Lopez Erythrocyte distribution width (RBC) [Ratio] 13.2 % Normal 11.0-15.0 [facility] Comment on above: Performed By: #### C BC ####[facility] [address] [place], [place] [address]DrAgustin Lopez Hematocrit (Bld) [Volume fraction] 43.0 % Normal 36.0-48.0 [facility] Comment on above: Performed By: #### C BC ####[facility] [address] [place], [place] [address]DrAgustin Lopez Hemoglobin (Bld) [Mass/Vol] 13.8 g/dL Normal 12.0-16.0 [facility] Comment on above: Performed By: #### C BC ####[facility] [address] [place] [phone] Lopez IG # 0.07 10e3/ul Critically high 0.00-0.03 [facility] Comment on above: Performed By: #### C BC ####[facility] [address] [place] [address]DrAgustin Lopez IG % 0.4 % Normal 0.0-0.5 [facility] Comment on above: Performed By: #### C BC ####[facility] [address] [place] [address]DrAgustin Lopez LYMPH # 2.2 103/ul Normal 1.2-3.8 [facility] Comment on above: Performed By: #### C BC ####[facility] [address] [place] [address]DrAgustin Lopez Lymphocytes/100 WBC (Bld) 12.0 % Critically low 20.5-60.0 [facility] Comment on above: Performed By: #### C BC ####[facility] [address] [place] [address]DrAgustin Lopez MANUAL DIFF REQ NO Normal [facility] Comment on above: Performed By: #### C BC ####[facility] [address] [place] [id number] Lopez MCH (RBC) [Entitic mass] 31.1 pg Normal 26.7-34.0 [facility] Comment on above: Performed By: #### C BC ####[facility] [address] [place] [phone] Lopez MCHC (RBC) [Mass/Vol] 32.1 g/dL Normal 29.9-35.2 [facility] Comment on above: Performed By: #### C BC ####[facility] [address] [place] [phone] Lopez MCV (RBC) [Entitic vol] 96.8 fL Normal 81.0-99.0 [facility] Comment on above: Performed By: #### C BC ####[facility] [address] [place] [id number]. Royce Lopez MONO # 1.6 103/ul Critically high 0.3-0.8 [facility] Comment on above: Performed By: #### C BC ####[facility] [address] [place] [phone]. Royce Lopez Monocytes/100 WBC (Bld) 8.8 % Normal 1.7-12.0 [facility] Comment on above: Performed By: #### C BC ####[facility] [address] [place] [phone]. Royce Lopez NEUT # 14.1 103/ul Critically high 1.4-6.5 [facility] Comment on above: Performed By: #### C BC ####[facility] [address] [place] [address]Dr. Royce Lopez Neutrophils/100 WBC (Bld) 77.1 % Critically high 43.0-75.0 [facility] Comment on above: Performed By: #### C BC ####[facility] [address] [place] [address]Dr. Royce Lopez Platelet mean volume (Bld) [Entitic vol] 10.2 fL Normal 9.5-13.5 [facility] Comment on above: Performed By: #### C BC ####[facility] [address] [place] [phone]. Royce Lopez PLT 295 103/ul Normal 150-450 [facility] Comment on above: Performed By: #### C BC ####[facility] [address] [place] [phone]. Mireyakody John RBC 4.44 106/ul Normal 4.20-5.40 [facility] Comment on above: Performed By: #### C BC ####[facility] [address] [place] [phone]. Mireyakody John WBC 18.3 103/ul Critically high 4.0-11.0 [facility] Comment on above: Performed By: #### C BC ####[facility] [address] [place] [address]Dr. Royce Lopez FREE THYROXINE INDEX T7on FTI 2.56 Normal 1.30-4.50 [facility] Comment on above: Performed By: #### T SH, T7, CMP, LIPID ####[facility] [address] [place] [address]Dr. Royce Lopez T3U 35.0 % Normal 30.0-39.0 [facility] Comment on above: Performed By: #### T SH, T7, CMP, LIPID ####[facility] [address] [place] [address]Dr. Royce Lopez T4 [Mass/Vol] 7.30 ug/dL Normal 4.80-13.90 [facility] Comment on above: Performed By: #### T SH, T7, CMP, LIPID ####[facility] [address] [place] [address]Dr. Royce Lopez GLYCOHEMOGLOBIN A1Con 2021 ADA RECOMMENDATION SEE BELOW Normal [facility] Comment on above: Result Comment: ADA RECOMMENDED LIMIT 4.0 - 6.0 ADA THERAPEUTIC TARGET < 7.0 ACTION SUGGESTED > 7.0 Performed By: #### A 1C #### [facility] [address] [place] [address] [address] Royce Lopez Glucose [Mass/Vol] 117 mg/dL Normal [facility] Comment on above: Performed By: #### A 1C #### [facility] [address] [place] [address] [address] Royce Lopez HbA1c (Bld) [Mass fraction] 5.7 % Normal 4.5-6.2 [facility] Comment on above: Performed By: #### A 1C #### [facility] [address] [place] [address] [address] Royce Lopez IRONon 06-09-2022 Iron [Mass/Vol] 91.0 ug/dL Normal 50.0-170.0 [facility] Comment on above: Performed By: #### I AZEB #### [facility] [address] [place], [place] [address] Dr. Royce Lopez LIPID PROFILEon 06-09-2022 CHOL-HDL RATIO NORM SEE BELOW Normal [facility] Comment on above: Result Comment: 3.3 - 4.4 LOW RISK 4.4 - 7.1 AVERAGE RISK 7.1 - 11.0 MODERATE RISK >11.0 HIGH RISK Performed By: #### T SH, T7, CMP, LIPID ####[facility] [address] [place] [phone]. Royce Lopez Cholesterol [Mass/Vol] 223 mg/dL Critically high <=200 [facility] Comment on above: Performed By: #### T SH, T7, CMP, LIPID ####[facility] [address] [place] [phone]. Royce Lopez Cholesterol in HDL [Mass/Vol] 63 mg/dL Critically high 40-60 [facility] Comment on above: Performed By: #### T SH, T7, CMP, LIPID ####[facility] [address] [place] [phone]. Royce Lopez Cholesterol in LDL [Mass/Vol] 145.2 mg/dL Normal [facility] Comment on above: Performed By: #### T SH, T7, CMP, LIPID ####[facility] [address] [place] [phone]. Royce Lopez Cholesterol.total/Ch olesterol in HDL [Mass ratio] 3.5 {ratio} Normal [facility] Comment on above: Performed By: #### T SH, T7, CMP, LIPID ####[facility] [address] [place] [phone]. Royce Lopez HDL NORMAL > or = 60 mg/dl - LO W CARDIOVASCULAR RISK <40 mg/dl - HIGH CARDIOVASCULAR RISK Normal [facility] Comment on above: Performed By: #### T SH, T7, CMP, LIPID ####[facility] [address] [place] [phone]. Royce Lopez LDL CALC NORMAL SEE BELOW Normal [facility] Comment on above: Result Comment: <100 mg/dl OPTIMAL 100 - 129 mg/dl NEAR OR ABOVE OPTIMAL 130 - 159 mg/dl BORDERLINE HIGH 160 - 189 mg/dl HIGH >190 mg/dl VERY HIGH Performed By: #### T SH, T7, CMP, LIPID ####[facility] [address] [place], [place] [address]HfAgustin Lopez Triglyceride [Mass/Vol] 74 mg/dL Normal <=150 [facility] Comment on above: Performed By: #### T SH, T7, CMP, LIPID ####[facility] [address] [place], [place] [address]PnAgustin Lopez VLDL CALC 14.8 mg/dL Normal [facility] Comment on above: Performed By: #### T ALLEGRA, T7, CMP, LIPID ####[facility] [id number] [place] [id number] Lopez PROF 14(COMP METB)on 022 Albumin [Mass/Vol] 3.8 g/dL Normal 3.4-5.0 [facility] Comment on above: Performed By: #### T SH, T7, CMP, LIPID #### [facility] [address] [address] [address] Royce Lopez Albumin/Globulin [Mass ratio] 1.0 {ratio} Normal [facility] Comment on above: Performed By: #### T SH, T7, CMP, LIPID #### [facility] [address] [address] [address] Royce Lopez ALP [Catalytic activity/Vol] 98 U/L Normal 46-116 [facility] Comment on above: Performed By: #### T SH, T7, CMP, LIPID #### [facility] [address] [address] [address] Royce Lopez ALT [Catalytic activity/Vol] 16 U/L Normal 14-59 [facility] Comment on above: Performed By: #### T SH, T7, CMP, LIPID #### [facility] [address] [address] [address] Royce Lopez Anion gap [Moles/Vol] 10.9 mmol/L Normal [facility] Comment on above: Performed By: #### T SH, T7, CMP, LIPID #### [facility] [address] [address] [address] Royce Lopez AST [Catalytic activity/Vol] 15 U/L Normal 15-37 [facility] Comment on above: Performed By: #### T SH, T7, CMP, LIPID #### [facility] [address] [place] [address] Dr. Royce Lopez Bilirubin [Mass/Vol] 0.4 mg/dL Normal 0.2-1.0 [facility] Comment on above: Performed By: #### T SH, T7, CMP, LIPID #### [facility] [address] [place] [address] Dr. Royce Lopez Calcium [Mass/Vol] 9.1 mg/dL Normal 8.5-10.1 [facility] Comment on above: Performed By: #### T SH, T7, CMP, LIPID #### [facility] [address] [place] [address] Dr. Royce Lopez Chloride [Moles/Vol] 103 mmol/L Normal 98-107 [facility] Comment on above: Performed By: #### T SH, T7, CMP, LIPID #### [facility] [address] [place] [address] Dr. Royce Lopez CO2 [Moles/Vol] 28.3 mmol/L Normal 21.0-32.0 [facility] Comment on above: Performed By: #### T SH, T7, CMP, LIPID #### [facility] [address] [place] [address] Dr. Royce Lopez Creatinine [Mass/Vol] 0.62 mg/dL Normal 0.55-1.02 [facility] Comment on above: Performed By: #### T SH, T7, CMP, LIPID #### [facility] [address] [place] [address] Dr. Royce Lopez EGFR-AF CANADIAN >60 Normal >=60 [facility] Comment on above: Performed By: #### T SH, T7, CMP, LIPID #### [facility] [address] [place] [address] Dr. Royce Lopez EGFR-NON AF CANADIAN >60 Normal >=60 [facility] Comment on above: Performed By: #### T SH, T7, CMP, LIPID #### [facility] [address] [address] [address] Royce Lopez Globulin (S) [Mass/Vol] 3.9 g/dL Normal [facility] Comment on above: Performed By: #### T SH, T7, CMP, LIPID #### [facility] [address] [address] [address] Royce Lopez Glucose [Mass/Vol] 97 mg/dL Normal 74-106 [facility] Comment on above: Performed By: #### T SH, T7, CMP, LIPID #### [facility] [address] [address] [address] Royce Lopez Potassium [Moles/Vol] 4.2 mmol/L Normal 3.5-5.1 [facility] Comment on above: Performed By: #### T SH, T7, CMP, LIPID #### [facility] [address] [place] [address] Dr. Royce Lopez Protein [Mass/Vol] 7.7 g/dL Normal 6.4-8.2 [facility] Comment on above: Performed By: #### T SH, T7, CMP, LIPID #### [facility] [address] [address] [address] Royce Lopez Sodium [Moles/Vol] 138 mmol/L Normal 136-145 [facility] Comment on above: Performed By: #### T SH, T7, CMP, LIPID #### [facility] [address] [address] [address] Royce Lopez Urea nitrogen [Mass/Vol] 7.0 mg/dL Normal 7.0-18.0 [facility] Comment on above: Performed By: #### T SH, T7, CMP, LIPID #### [facility] [address] [address] [address] Royce Lopez Urea nitrogen/Creatinine [Mass ratio] 11.3 mg/mg Normal [facility] Comment on above: Performed By: #### T SH, T7, CMP, LIPID #### [facility] [address] [place], [place] [address] Dr. Royce Lopez TSHon 06-09-2022 TSH 0.370 uIU/mL Normal 0.358-3.740 [facility] Comment on above: Performed By: #### T SH, T7, CMP, LIPID ####[facility] [id number] [place], [place] [address]NgDr. Royce Lopez Covid-19 PCR (CVDTBH)on 08-18 SARS-CoV-2 (COVID-19) RNA HARISH+probe Ql (Unsp spec) Not detected Normal NOT DETECTED [facility] Comment on above: Result Comment: This test is not yet approved or cleared by the [place] FDA. When there are no FDA-approved or cleared tests available, and other criteria are met, FDA can make tests available under an emergency access mechanism called an Emergency Use Authorization (EUA). The EUA for this test is supported by the [place] of Health and Human Service's (HHS's) declaration [...] SARS-CoV-2. Performed By: #### C VDTBH #### [facility] [address] [place], [place] [address] Dr. Royce Lopez Covid-19 PCR (CVDTBH)on 07-18 SARS-CoV-2 (COVID-19) RNA HARISH+probe Ql (Unsp spec) Not detected Normal NOT DETECTED [facility] Comment on above: Result Comment: This test is not yet approved or cleared by the [place] FDA. When there are no FDA-approved or cleared tests available, and other criteria are met, FDA can make tests available under an emergency access mechanism called an Emergency Use Authorization (EUA). The EUA for this test is supported by the Event Staff Member of Health and Human Service's (HHS's) declaration [...] SARS-CoV-2. Performed By: #### C VDTB #### [facility] [address] [place] [address] Dr. Royce Lopez INFLUENZA A AND B [facility] [place] 08-07 [facility] SEE BELOW Normal [facility] Comment on above: Result Comment: Nega tive for Flu A protein angiten. Infection due to Flu A cannot be ruled out. Flu A angiten in the sample may be below the detection limit of the test. Performed By: #### I NFLUAB ####[facility] [id number] [place], [place] [address]Dr. Royce Lopez INFLUBNEG SEE BELOW Normal [facility] Comment on above: Result Comment: Nega tive for Flu B protein antigen. Infection due to Flu B cannot be ruled out. Flu B antigen in the sample may be below the detection limit of the test. Performed By: #### I NFLUAB ####[facility] [id number] [address]DrAgustin Lopez INFLUENZA A AG Negative Normal NEGATIVE SEE COMMENT [facility] Comment on above: Performed By: #### I NFLUAB ####[facility] [address] [id number] Lopez INFLUENZA B AG Negative Normal NEGATIVE SEE COMMENT [facility] Comment on above: Performed By: #### I NFLUAB ####[facility] [id number] [place], [place] [address]DrAgustin Lopez INTERNAL CONTROLS Within Normal Limits Normal Wi thin Normal Limits [facility] Comment on above: Performed By: #### I NFLUAB ####[facility] [address] [place], [place] [address]XpDr. Royce Lopez LIPID PROFILEon 07-08-2021 CHOL-HDL RATIO NORM SEE BELOW Normal [facility] Comment on above: Result Comment: 3.3 - 4.4 LOW RISK 4.4 - 7.1 AVERAGE RISK 7.1 - 11.0 MODERATE RISK >11.0 HIGH RISK Performed By: #### L HARSHIL, LIPID #### [facility] [address] [place], [place] [address] Dr. Royce Lopez Cholesterol [Mass/Vol] 195 mg/dL Normal <=200 [facility] Comment on above: Performed By: #### L HARSHIL, LIPID #### [facility] [address] [place], [place] [address] Dr. Royce Lopez Cholesterol in HDL [Mass/Vol] 74 mg/dL Normal [facility] Comment on above: Performed By: #### L HARSHIL, LIPID #### [facility] [address] [place], [place] [address] Dr. Royce Lopez Cholesterol in LDL [Mass/Vol] 108.6 mg/dL Normal [facility] Comment on above: Performed By: #### L HARSHIL, LIPID #### [facility] [address] [place], [place] [address] Dr. Royce Lopez Cholesterol.total/Ch olesterol in HDL [Mass ratio] 2.6 {ratio} Normal [facility] Comment on above: Performed By: #### L HARSHIL, LIPID #### [facility] [address] [place], [place] [address] Dr. Royce Lopez HDL NORMAL > or = 60 mg/dl - LO W CARDIOVASCULAR RISK <40 mg/dl - HIGH CARDIOVASCULAR RISK Normal [facility] Comment on above: Performed By: #### L IVAUGUSTINE, LIPID #### [facility] [address] [place], [place] [address] Dr. Royce Lopez LDL CALC NORMAL SEE BELOW Normal [facility] Comment on above: Result Comment: <100 mg/dl OPTIMAL 100 - 129 mg/dl NEAR OR ABOVE OPTIMAL 130 - 159 mg/dl BORDERLINE HIGH 160 - 189 mg/dl HIGH >190 mg/dl VERY HIGH Performed By: #### L IVAUGUSTINE, LIPID #### [facility] [address] [place] [address] Dr. Royce Lopez Triglyceride [Mass/Vol] 62 mg/dL Normal <=150 [facility] Comment on above: Performed By: #### L IVAUGUSTINE, LIPID #### [facility] [address] [place] [address] Dr. Royce Lopez VLDL CALC 12.4 mg/dL Normal [facility] Comment on above: Performed By: #### L IVAUGUSTINE, LIPID #### [facility] [address] [place] [address] Dr. Royce Lopez LIVER PROFILEon 07-08-2021 Albumin [Mass/Vol] 3.9 g/dL Normal 3.5-5.0 [facility] Comment on above: Performed By: #### L HARSHIL, LIPID #### [facility] [address] [place] [address] Dr. Royce Lopez Albumin/Globulin [Mass ratio] 1.1 {ratio} Normal [facility] Comment on above: Performed By: #### L HARSHIL, LIPID #### [facility] [address] [place] [address] Dr. Royce Lopez ALP [Catalytic activity/Vol] 67 U/L Normal 38-126 [facility] Comment on above: Performed By: #### L IVAUGUSTINE, LIPID #### [facility] [address] [place] [address] Dr. Royce Lopez ALT [Catalytic activity/Vol] 23 U/L Normal 9-52 [facility] Comment on above: Performed By: #### L IVAUGUSTINE, LIPID #### [facility] [address] [place] [address] Dr. Royce Lopez AST [Catalytic activity/Vol] 19 U/L Normal 14-36 [facility] Comment on above: Performed By: #### L IVAUGUSTINE, LIPID #### [facility] [address] [place] [address] Dr. Royce Lopez BILI, CONJUGATED 0.1 mg/dL Normal 0.0-0.3 [facility] Comment on above: Performed By: #### L IVER, LIPID #### [facility] [address] [address] [address] Royce Lopez Bilirubin [Mass/Vol] 0.3 mg/dL Normal 0.2-1.3 [facility] Comment on above: Performed By: #### L IVER, LIPID #### [facility] [address] [address] [address] Royce Lopez Globulin (S) [Mass/Vol] 3.5 g/dL Normal [facility] Comment on above: Performed By: #### L IVER, LIPID #### [facility] [address] [place] [address] Dr. Royce Lopez Protein [Mass/Vol] 7.4 g/dL Normal 6.1-8.2 [facility] Comment on above: Performed By: #### L IVER, LIPID #### [facility] [address] [place] [address] Dr. Royce Lopez XR SHOULDER LEFT (MIN [...] Calvillo Jr., MD 10/27/18 Final result Normal [facility] Vital Signs Date Time Vital Sign Value Performing Clinician Faci lity 03-21-2025 15:24040 Body mass index (BMI) [Ratio] 18.84 kg/m2 Leonardo Whitaker MD Work Phone: [facility] 03-21-2025 15:24040 Body weight 46.72 kg Leonardo Whitaker MD Work Phone: [facility] 03-21-2025 15:24040 Diastolic blood pressure 82 mm[Hg] Leonardo Whitaker MD Work Phone: [facility] 03-21-2025 15:24-0400 Systolic blood pressure 148 mm[Hg] Leonardo Whitaker MD Work Phone: [facility] 02-27-2025 07:56-0400 Body height 153.2 cm Pauline Busch PA Work Phone: [facility] 02-27-2025 07:56-0400 Body mass index (BMI) [Ratio] 20.11 kg/m2 Pauline Sell PA Work Phone: [facility] 02-27-2025 07:56-0400 Body weight 47.17 kg Pauline Sell PA Work Phone: [facility] 02-27-2025 07:56-0400 Diastolic blood pressure 80 mm[Hg] Pauline Sell PA Work Phone: [facility] 02-27-2025 07:56-0400 Heart rate 86 /min Pauline Sell PA Work Phone: [facility] 02-27-2025 07:56-0400 Systolic blood pressure 137 mm[Hg] Pauline Sell PA Work Phone: [facility] 02-20-2025 08:10-0400 Body mass index (BMI) [Ratio] 17.56 kg/m2 Leonardo Whitaker MD Work Phone: [facility] 02-20-2025 08:10-0400 Body weight 43.55 kg Leonardo Whitaker MD Work Phone: [facility] 02-20-2025 08:10-0400 Diastolic blood pressure 74 mm[Hg] Leonardo Whitaker MD Work Phone: [facility] 02-20-2025 08:10-0400 Systolic blood pressure 158 mm[Hg] Leonardo Whitaker MD Work Phone: [facility] 01-26-2025 08:15-0400 Body mass index (BMI) [Ratio] 18.11 kg/m2 Leonardo Whitaker MD Work Phone: [facility] 01-26-2025 08:15-0400 Body weight 44.91 kg Leonardo Whitaker MD Work Phone: [facility] 01-26-2025 08:15-0400 Diastolic blood pressure 118 mm[Hg] Leonardo Whitaker MD Work Phone: [facility] 01-26-2025 08:15-0400 Heart rate 79 /min Leonardo Whitaker MD Work Phone: [facility] 01-26-2025 08:15-0400 Systolic blood pressure 176 mm[Hg] Leonardo Whitaker MD Work Phone: [facility] 01-23-2025 08:27-0400 Body weight 46.6 kg Patrick Swenson MD Work Phone: [facility] 01-11-2025 08:08-0400 Body height 157.5 cm Leonardo Whitaker MD Work Phone: [facility] 01-11-2025 08:08-0400 Body mass index (BMI) [Ratio] 17.92 kg/m2 Leonardo Whitaker MD Work Phone: [facility] 01-11-2025 08:08-0400 Body weight 44.45 kg Leonardo Whitaker MD Work Phone: [facility] 01-11-2025 08:08-0400 Diastolic blood pressure 82 mm[Hg] Leonardo Whitaker MD Work Phone: [facility] 01-11-2025 08:08-0400 Heart rate 94 /min Leonardo Whitaker MD Work Phone: [facility] 01-11-2025 08:08-0400 Systolic blood pressure 117 mm[Hg] Leonardo Whitaker MD Work Phone: [facility] 12-28-2024 08:16-0400 Body weight 45.6 kg [facility] 12-28-2024 08:16-0400 Diastolic blood pressure 99 mm[Hg] [facility] 12-28-2024 08:16-0400 Systolic blood pressure 150 mm[Hg] [facility] 12-21-2024 10:06-0400 Body height 157.5 cm Leonardo Whitaker MD Work Phone: [facility] 12-21-2024 10:06-0400 Body mass index (BMI) [Ratio] 17.92 kg/m2 Leonardo Whitaker MD Work Phone: [facility] 12-21-2024 10:06-0400 Body weight 44.45 kg Leonardo Whitaker MD Work Phone: [facility] 12-21-2024 10:06-0400 Diastolic blood pressure 84 mm[Hg] Leonardo Whitaker MD Work Phone: [facility] 12-21-2024 10:06-0400 Systolic blood pressure 136 mm[Hg] Leonardo Whitaker MD Work Phone: [facility] 12-13-2024 15:47-0400 Body mass index (BMI) [Ratio] 17.92 kg/m2 Leonardo Whitaker MD Work Phone: [facility] 12-13-2024 15:47-0400 Body weight 44.45 kg Leonardo Whitaker MD Work Phone: [facility] 12-13-2024 15:47-0400 Diastolic blood pressure 74 mm[Hg] Leonardo Whitaker MD Work Phone: [facility] 12-13-2024 15:47-0400 Systolic blood pressure 144 mm[Hg] Leonardo Whitaker MD Work Phone: [facility] 12-01-2024 09:03-0400 Body mass index (BMI) [Ratio] 17.92 kg/m2 Leonardo Whitaker MD Work Phone: [facility] 12-01-2024 09:03-0400 Body weight 44.45 kg Leonardo Whitaker MD Work Phone: [facility] 12-01-2024 09:03-0400 Diastolic blood pressure 70 mm[Hg] Leonardo Whitaker MD Work Phone: [facility] 12-01-2024 09:03-0400 Heart rate 102 /min Leonardo Whitaker MD Work Phone: [facility] 12-01-2024 09:03-0400 Systolic blood pressure 142 mm[Hg] Leonardo Whitaker MD Work Phone: [facility] 11-16-2024 09:22-0400 Body height 157.5 cm Leonardo Whitaker MD Work Phone: [facility] 11-16-2024 09:22-0400 Body mass index (BMI) [Ratio] 19.02 kg/m2 Leonardo Whitaker MD Work Phone: [facility] 11-16-2024 09:22-0400 Body weight 47.17 kg Leonardo Whitaker MD Work Phone: [facility] 11-16-2024 09:22-0400 Diastolic blood pressure 84 mm[Hg] Leonardo Whitaker MD Work Phone: [facility] 11-16-2024 09:22-0400 Systolic blood pressure 126 mm[Hg] Leonardo Whitaker MD Work Phone: [facility] 11-10-2024 10:00-0400 Body mass index (BMI) [Ratio] 18.47 kg/m2 Leonardo Whitaker MD Work Phone: [facility] 11-10-2024 10:00-0400 Body weight 45.81 kg Leonardo Whitaker MD Work Phone: [facility] 11-10-2024 10:00-0400 Diastolic blood pressure 78 mm[Hg] Leonardo Whitaker MD Work Phone: [facility] 11-10-2024 10:00-0400 Systolic blood pressure 122 mm[Hg] Leonardo Whitaker MD Work Phone: [facility] 08-29-2024 08:47-0500 Body height 157.5 cm Leonardo Whitaker MD Work Phone: [facility] 08-29-2024 08:47-0500 Body mass index (BMI) [Ratio] 18.66 kg/m2 Leonardo Whitaker MD Work Phone: [facility] 08-29-2024 08:47-0500 Body weight 46.27 kg Leonardo Whitaker MD Work Phone: [facility] 07-18-2024 10:15-0500 Body height 157.5 cm Leonardo Whitaker MD Work Phone: [facility] 07-18-2024 10:15-0500 Body mass index (BMI) [Ratio] 18.66 kg/m2 Leonardo Whitaker MD Work Phone: [facility] 07-18-2024 10:15-0500 Body weight 46.27 kg Leonardo Whitaker MD Work Phone: [facility] 07-18-2024 10:15-0500 Diastolic blood pressure 74 mm[Hg] Leonardo Whitaker MD Work Phone: [facility] 07-18-2024 10:15-0500 Heart rate 66 /min Leonardo Whitaker MD Work Phone: [facility] 07-18-2024 10:15-0500 Systolic blood pressure 132 mm[Hg] Leonardo Whitaker MD Work Phone: [facility] 05-30-2024 09:50-0400 Body height 157.5 cm Leonrado Whitaker MD Work Phone: [facility] 05-30-2024 09:50-0400 Body mass index (BMI) [Ratio] 18.66 kg/m2 Leonardo Whitaker MD Work Phone: [facility] 05-30-2024 09:50-0400 Body weight 46.27 kg Leonardo Whitaker MD Work Phone: [facility] 05-30-2024 09:50-0400 Diastolic blood pressure 76 mm[Hg] Leonardo Whitaker MD Work Phone: [facility] 05-30-2024 09:50-0400 Systolic blood pressure 128 mm[Hg] Leonardo Whitaker MD Work Phone: [facility] 04-13-2024 08:50-0400 Body height 157.5 cm Leonardo Whitaker MD Work Phone: [facility] 04-13-2024 08:50-0400 Body mass index (BMI) [Ratio] 18.66 kg/m2 Leonardo Whitaker MD Work Phone: [facility] 04-13-2024 08:50-0400 Body weight 46.27 kg Leonardo Whitaker MD Work Phone: [facility] 04-13-2024 08:50-0400 Diastolic blood pressure 80 mm[Hg] Leonardo Whitaker MD Work Phone: [facility] 04-13-2024 08:50-0400 Systolic blood pressure 130 mm[Hg] Leonardo Whitaker MD Work Phone: [facility] Healthcare Encounters Encounter Date Encounter Type Care Provider Facility Start: 04-05-2025 End: 04-05-2025 Telephone encounter Leonardo Whitaker MD Work Phone: [facility] Start: 03-31-2025 End: 03-31-2025 Refill Leonardo Whitaker MD Work Phone: [facility] 210 Comment on above: Lumbar radiculopathy Start: 03-20-2025 End: 03-20-2025 Bamboo flowsheet Leonardo Whitaker MD Work Phone: [facility] Start: 03-20-2025 End: 03-20-2025 Bamboo flowsheet Leonardo Whitaker MD Work Phone: [facility] Start: 03-20-2025 End: 03-20-2025 ambulatory LEONARDO WHITAKER Not Available Comment on above: Myalgia (Primary Dx) Start: 03-13-2025 End: 03-13-2025 Leona Starks DIRECTOR MULTIP[facility] Work Phone: [facility] 210 Comment on above: Lumbar radiculopathy (Primary Dx); Chronic SI joint pain; Trochanteric bursitis of left hip; Trochanteric bursitis, right hip; Degeneration of intervertebral disc of lumbar region with discogenic back pain and lower extremity pain; Spinal stenosis of lumbar region, unspecified whether neurogenic claudication present Start: 02-27-2025 End: 02-27-2025 Office outpatient new 45 minutes Pauline Busch PA Work Phone: [facility] Comment on above: Sacroiliitis (Primar y Dx); Facet arthropathy, lumbar; Spinal stenosis of cervical region; Foraminal stenosis of cervical region; Spinal stenosis of lumbar region without neurogenic claudication; Lumbar foraminal stenosis; Retrolisthesis Start: 02-27-2025 End: 02-27-2025 ambulatory PAULINE BUSCH [facility] Start: 02-22-2025 End: 02-22-2025 Bamboo flowsheet Tess L Saunders PT Work Phone: [facility] Start: 02-22-2025 End: 02-22-2025 Bamboo flowsheet Tess L Saunders PT Work Phone: [facility] Start: 02-22-2025 End: 02-22-2025 Clinical Support Tess L Saunders PT Work Phone: [facility] Comment on above: Lumbar radiculopathy (Primary Dx); Muscle weakness; Impaired gait Start: 02-21-2025 End: 02-21-2025 Leona Starks DIRECTOR MULTIP[facility]CLEROSIS C[facility] Work Phone: [facility] 210 Comment on above: Lumbar radiculopathy Start: 02-20-2025 End: 02-20-2025 Bamboo flowsheet Leonardo Whitaker MD Work Phone: [facility] Start: 02-20-2025 End: 02-20-2025 Bamboo flowsheet Leonardo Whitaker MD Work Phone: [facility] Start: 02-20-2025 End: 02-20-2025 Clinical Support Leonardo Whitaker MD Work Phone: [facility] Comment on above: Myalgia (Primary Dx) Start: 02-16-2025 End: 02-16-2025 ambulatory [facility] Start: 02-15-2025 End: 02-15-2025 Bamboo flowsheet Yessica Dahm TIMBER MANAGEMENT ASSISTANT [facility] Start: 02-15-2025 End: 02-15-2025 Bamboo flowsheet Yessica Dahm TIMBER MANAGEMENT ASSISTANT [facility] Start: 02-15-2025 End: 02-15-2025 Clinical Support Yessica Dahm TIMBER MANAGEMENT ASSISTANT [facility] Comment on above: Lumbar radiculopathy (Primary Dx); Muscle weakness; Impaired gait Start: 02-13-2025 End: 02-13-2025 Bamboo flowsheet Yessica Dahm TIMBER MANAGEMENT ASSISTANT [facility] Start: 02-13-2025 End: 02-13-2025 Bamboo flowsheet Yessica Dahm TIMBER MANAGEMENT ASSISTANT [facility] Start: 02-13-2025 End: 02-13-2025 Clinical Support Yessica Dahm TIMBER MANAGEMENT ASSISTANT [facility] Comment on above: Lumbar radiculopathy (Primary Dx); Muscle weakness; Impaired gait Start: 02-08-2025 End: 02-08-2025 Bamboo flowsheet Yessica Dahm TIMBER MANAGEMENT ASSISTANT [facility] Start: 02-08-2025 End: 02-08-2025 Bamboo flowsheet Yessica Dahm TIMBER MANAGEMENT ASSISTANT [facility] Start: 02-08-2025 End: 02-08-2025 Clinical Support Yessica Dahm TIMBER MANAGEMENT ASSISTANT [facility] Comment on above: Lumbar radiculopathy (Primary Dx); Muscle weakness; Impaired gait Start: 02-07-2025 End: 02-07-2025 Leona Starks NP Work Phone: [facility] 210 Comment on above: Lumbar radiculopathy Start: 02-06-2025 End: 02-06-2025 Bamboo flowsheet Yessica Dahm TIMBER MANAGEMENT ASSISTANT [facility] Start: 02-06-2025 End: 02-06-2025 Bamboo flowsheet Yessica Dahm TIMBER MANAGEMENT ASSISTANT [facility] Start: 02-06-2025 End: 02-06-2025 Clinical Support Yessica Ch TIMBER MANAGEMENT ASSISTANT [facility] Comment on above: Lumbar radiculopathy (Primary Dx); Muscle weakness; Impaired gait Start: 02-03-2025 ambulatory [facility] Start: 02-01-2025 End: 02-01-2025 Bamboo flowsheet Yessica Dahm TIMBER MANAGEMENT ASSISTANT [facility] Start: 02-01-2025 End: 02-01-2025 Bamboo flowsheet Yessica Dahm TIMBER MANAGEMENT ASSISTANT [facility] Start: 02-01-2025 End: 02-01-2025 Clinical Support Yessica Ch TIMBER MANAGEMENT ASSISTANT [facility] Comment on above: Lumbar radiculopathy (Primary Dx); Muscle weakness; Impaired gait Start: 01-30-2025 End: 01-30-2025 Bamboo flowsheet Yessica Dahm TIMBER MANAGEMENT ASSISTANT [facility] Start: 01-30-2025 End: 01-30-2025 Bamboo flowsheet Yessica Dahm TIMBER MANAGEMENT ASSISTANT [facility] Start: 01-30-2025 End: 01-30-2025 Clinical Support Yessica Ch TIMBER MANAGEMENT ASSISTANT [facility] Comment on above: Lumbar radiculopathy (Primary Dx); Muscle weakness; Impaired gait Start: 01-27-2025 ambulatory [facility] Start: 01-26-2025 End: 01-26-2025 Bamboo flowsheet Leonardo Whitaker MD Work Phone: [facility] Start: 01-26-2025 End: 01-26-2025 Bamboo flowsheet Leonardo Whitaker MD Work Phone: [facility] Start: 01-26-2025 End: 01-26-2025 Clinical Support Leonardo Whitaker MD Work Phone: [facility] Comment on above: Myalgia (Primary Dx) ; Lumbar radiculopathy Start: 01-25-2025 End: 01-25-2025 Bamboo flowsheet Yessica Ch TIMBER MANAGEMENT ASSISTANT [facility] Start: 01-25-2025 End: 01-25-2025 Bamboo flowsheet Yessica Ch TIMBER MANAGEMENT ASSISTANT [facility] Start: 01-25-2025 End: 01-25-2025 Clinical Support Yessica Ch TIMBER MANAGEMENT ASSISTANT [facility] Comment on above: Lumbar radiculopathy (Primary Dx); Muscle weakness; Impaired gait Start: 01-23-2025 End: 01-23-2025 Bamboo flowsheet Yessica Ch TIMBER MANAGEMENT ASSISTANT [facility] Start: 01-23-2025 End: 01-23-2025 Bamboo flowsheet Yessica Ch TIMBER MANAGEMENT ASSISTANT [facility] Start: 01-23-2025 End: 01-23-2025 Clinical Support Yessica Ch TIMBER MANAGEMENT ASSISTANT [facility] Comment on above: Lumbar radiculopathy (Primary Dx); Muscle weakness; Impaired gait Start: 01-23-2025 End: 01-23-2025 ambulatory Patrick Swenson MD Work Phone: [facility] Work Phone: Start: 01-23-2025 End: 01-23-2025 Patient encounter procedure Patrick Swenson MD Work Phone: [facility] Work Phone: Start: 01-18-2025 End: 01-18-2025 Patient encounter procedure Patrick Swenson MD Work Phone: [facility] [address] [facility] Work Phone: Start: 01-18-2025 End: 01-18-2025 ambulatory Patrick Swenson MD Work Phone: [facility] Work Phone: Start: 01-17-2025 End: 01-17-2025 Bamboo flowsheet Tess L Saunders PT Work Phone: [facility] Start: 01-17-2025 End: 01-17-2025 Bamboo flowsheet Tess L Saunders PT Work Phone: [facility] Start: 01-17-2025 End: 01-17-2025 ambulatory Tess L Saunders PT Work Phone: [facility] Comment on above: Lumbar radiculopathy (Primary Dx); Muscle weakness; Impaired gait Start: 01-16-2025 End: 01-16-2025 Refill Antonella Starks DIRECTOR [facility] Work Phone: [facility] 210 Comment on above: Lumbar radiculopathy Start: 01-11-2025 End: 01-11-2025 Bamboo flowsheet Leonardo Whitaker MD Work Phone: [facility] Start: 01-11-2025 End: 01-11-2025 Bamboo flowsheet Leonardo Whitaker MD Work Phone: [facility] Start: 01-11-2025 End: 01-11-2025 Clinical Support Leonardo Whitaker MD Work Phone: [facility] Comment on above: Trochanteric bursiti s of left hip (Primary Dx); Lumbar radiculopathy; Chronic SI joint pain; Trochanteric bursitis, right hip Start: 01-10-2025 End: 01-10-2025 Patient encounter procedure Patrick Swenson MD Work Phone: [facility] Start: 01-10-2025 End: 01-10-2025 ambulatory Patrick Swenson MD Work Phone: [facility] Work Phone: Start: 12-28-2024 End: 12-28-2024 ambulatory [facility] Work Phone: Start: 12-28-2024 End: 12-28-2024 Patient encounter procedure [facility] Work Phone: Start: 12-27-2024 End: 12-27-2024 Refill Antonella Starks DIRECTOR [facility] Work Phone: [facility] 210 Comment on above: Degeneration of inte rvertebral disc of lumbar region with discogenic back pain and lower extremity pain; Trochanteric bursitis of left hip; Trochanteric bursitis, right hip Start: 12-21-2024 End: 12-21-2024 Bamboo flowsserjio Whitaker MD Work Phone: [facility] Start: 12-21-2024 End: 12-21-2024 Bamboo flowsheet Leonardo Whitaker MD Work Phone: [facility] Start: 12-21-2024 End: 12-21-2024 Clinical Support Leonardo Whitaker MD Work Phone: [facility] Comment on above: Trochanteric bursiti s of left hip (Primary Dx); Degeneration of intervertebral disc of lumbar region with discogenic back pain and lower extremity pain; Trochanteric bursitis, right hip Start: 12-12-2024 End: 12-12-2024 Bamboo brody Whitaker MD Work Phone: [facility] Start: 12-12-2024 End: 12-12-2024 Bamboo flowsheet Leonardo Whitaker MD Work Phone: [facility] Start: 12-12-2024 End: 12-12-2024 Clinical Support Leonardo Whitaker MD Work Phone: [facility] Comment on above: Trochanteric bursiti s, right hip (Primary Dx); Trochanteric bursitis of left hip Start: 12-06-2024 End: 12-06-2024 Telephone encounter Leonardo Whitaker MD Work Phone: [facility] 210 Start: 12-06-2024 End: 12-06-2024 Office outpatient new 45 minutes Oliverio Moody PA-C Work Phone: [facility] One Comment on above: Lumbar stenosis with neurogenic claudication (Primary Dx) Start: 12-06-2024 End: 12-06-2024 ambulatory OLIVERIO Mari [facility] Ambulatory Start: 12-01-2024 End: 12-01-2024 Bamboo flowsheet Leonardo Whitaker MD Work Phone: [facility] Start: 12-01-2024 End: 12-01-2024 Bamboo flowsheet Leonardo Whitaker MD Work Phone: [facility] Start: 12-01-2024 End: 12-01-2024 Clinical Support Leonardo Whitaker MD Work Phone: [facility] Comment on above: Trochanteric bursiti s, right hip (Primary Dx); Trochanteric bursitis of left hip; Lumbar radiculopathy Start: 11-24-2024 End: 11-24-2024 Telephone encounter Leonardo Whitaker MD Work Phone: [facility] 210 Start: 11-16-2024 End: 11-16-2024 Telephone encounter Angelina Carmen [facility] 210 Comment on above: Trochanteric bursiti s, right hip (Primary Dx); Trochanteric bursitis of left hip Start: 11-16-2024 End: 11-16-2024 ambulatory LEONARDO WHITAKER Not Available Start: 11-10-2024 End: 11-10-2024 Bamboo flowsheet Leonardo Whitaker MD Work Phone: [facility] Start: 11-10-2024 End: 11-10-2024 Bamboo flowsheet Leonardo Whitaker MD Work Phone: [facility] Start: 11-10-2024 End: 11-10-2024 Telephone encounter Leonardo Whitaker MD Work Phone: [facility] Comment on above: Trochanteric bursiti s, right hip (Primary Dx); Trochanteric bursitis of left hip Start: 11-10-2024 End: 11-10-2024 ambulatory LEONARDO WHITAKER Not Available Start: 10-28-2024 End: 10-28-2024 ambulatory RAGHAV DASILVA Not Available Start: 10-19-2024 End: 10-19-2024 Bamboo flowsheet Leonardo Whitaker MD Work Phone: [facility] Start: 10-19-2024 End: 10-19-2024 Bamboo flowsheet Leonardo Whitaker MD Work Phone: [facility] Start: 10-19-2024 End: 10-19-2024 ambulatory LEONARDO WHITAKER Not Available Start: 10-17-2024 End: 10-17-2024 Refill Antonella Starks DIRECT[facility] Work Phone: [facility] 210 Comment on above: Lumbar radiculopathy Start: 10-14-2024 End: 10-14-2024 Refill Kayden Umana DO Work Phone: [facility] Comment on above: Age-related nuclear cataract of both eyes Start: 10-10-2024 End: 10-10-2024 Refill Paula Negron DIRECTOR [facility] Work Phone: [facility] Comment on above: Lumbar radiculopathy (Primary Dx) Start: 10-05-2024 End: 10-05-2024 Telephone encounter Leonardo Whitaker MD Work Phone: [facility] Start: 09-15-2024 End: 09-15-2024 Refill Kayden Umana DO Work Phone: [facility] Comment on above: Age-related nuclear cataract of both eyes Start: 09-15-2024 End: 09-15-2024 Refill Antonella Starks DIRECT[facility] Work Phone: [facility] 210 Comment on above: Lumbar radiculopathy Start: 08-29-2024 End: 08-29-2024 Bamboo flowsheet Leonardo Whitaker MD Work Phone: [facility] Start: 08-29-2024 End: 08-29-2024 Bamboo flowsheet Leonardo Whitaker MD Work Phone: [facility] Start: 08-29-2024 End: 08-29-2024 Clinical Support Leonardo Whitaker MD Work Phone: [facility] Comment on above: Trochanteric bursiti s, right hip (Primary Dx); Lumbar radiculopathy Start: 08-23-2024 End: 08-24-2024 Telephone encounter Danniellejessika Coronel Other Phone: [facility] Start: 08-05-2024 End: 08-05-2024 ambulatory SELF REFERRAL Facility:[facility] Start: 08-05-2024 End: 08-05-2024 Patient encounter procedure SELF REFERRAL [facility] Start: 07-18-2024 End: 07-18-2024 Bamboo flowsheet Leonardo Whitaker MD Work Phone: [facility] Start: 07-18-2024 End: 07-18-2024 Bamboo flowsheet Leonardo Wihtaker MD Work Phone: [facility] Start: 07-18-2024 End: 07-18-2024 Clinical Support Leonardo Whitaker MD Work Phone: [facility] Comment on above: Trochanteric bursiti s, right hip (Primary Dx); Lumbar radiculopathy; Degeneration of intervertebral disc of lumbar region, unspecified whether pain present; Trochanteric bursitis of left hip Start: 06-23-2024 End: 06-23-2024 Refmegan Umana DO Work Phone: [facility] Comment on above: Age-related nuclear cataract of both eyes Start: 06-20-2024 End: 06-20-2024 ambulatory LEONARDO WHITAKER Not Available Start: 06-13-2024 End: 06-13-2024 Telephone encounter Leonardo Whitaker MD Work Phone: [facility] 210 Start: 06-02-2024 End: 06-02-2024 Telephone encounter Leonardo Whitaker MD Work Phone: [facility] 210 Start: 05-30-2024 End: 05-30-2024 Bamboo flowsheet Leonardo Whitaker MD Work Phone: [facility] Start: 05-30-2024 End: 05-30-2024 Bamboo flowsheet Leonardo Whitaker MD Work Phone: [facility] Start: 05-30-2024 End: 05-30-2024 Clinical Support Leonardo Whitaker MD Work Phone: [facility] Comment on above: Trochanteric bursiti s of right hip (Primary Dx) Start: 04-13-2024 End: 04-13-2024 Bamboo flowsheet Leonardo Whitaker MD Work Phone: [facility] Start: 04-13-2024 End: 04-13-2024 Bamelizabetho flowsheet Leonardo Whitaker MD Work Phone: [facility] Start: 04-13-2024 End: 04-13-2024 Clinical Support Leonardo Whitaker MD Work Phone: [facility] Comment on above: Trochanteric bursiti s, right hip (Primary Dx); Trochanteric bursitis of left hip Start: 01-05-2024 End: 01-27-2024 Pre-admission assessment SELF REFERRAL [facility] Start: 09-29-2023 End: 09-29-2023 Office outpatient visit 15 minutes Antonella Starks NP Work Phone: [facility] 210 Comment on above: Sciatica of left juan josé e (Primary Dx); Degenerative disc disease, lumbar; Trochanteric bursitis of left hip; Lumbar radiculopathy; Trochanteric bursitis of right hip Start: 06-24-2022 End: 06-25-[address] PATRICK SWENSON Facility:[facility] Start: 06-16-2022 End: 06-16-[address] PATRICK SWENSON Facility:[facility] Start: 06-11-2022 Encounter for genera l adult medical examination without abnormal findings DR PATRICK SWENSON [facility] Start: 06-09-2022 End: 06-10-[address] PATRICK SWENSON Facility:[facility] Start: 06-09-2022 End: 06-10-2022 Encounter for general adult medical examination without abnormal findings DR PATRICK SWENSON Facility:[facility] Start: 12-20-2021 End: 12-20-2021 Patient encounter procedure SELF REFERRAL [facility] Start: 11-05-2021 End: 11-06-[address] PATRICK SWENSON Facility:[facility] Start: 10-28-2021 End: 10-28-[address] PATRICK SWENSON Facility:[facility] Start: 09-06-2021 End: 09-06-2021 ambulatory ITZ IVA Facility:[facility] Start: 08-07-2021 End: 08-07-[address] PATRICK SWENSON Facility:[facility] Start: 07-08-2021 End: 07-09-[address] PATRICK SWENSON Facility:[facility] Start: 10-27-2018 End: 10-30-2018 Patient encounter procedure RAGHAV ROSAS [facility] Start: 10-27-2018 End: 10-30-2018 Patient encounter procedure [facility] Procedures Date Procedure Procedure Detail Performing Clinician Start: 03-20-2025 Injection single/manager field trigger point 1/2 muscles Leonardo Whitaker MD Work Phone: Start: 01-18-2025 MRI of cervical spin e without contrast Patrick Swenson MD Work Phone: Start: 01-10-2025 Computed tomography of thoracic spine without contrast Patrick Swenson MD Work Phone: Start: 01-10-2025 CT of lumbar spine w ithout contrast Patrick Swenson MD Work Phone: Start: 01-10-2025 X-ray survey for scoliosis Patrick Swenson MD Work Phone: Start: 10-27-2018 Radex shoulder compl ete minimum 2 views RAGHAV DASILVA Start: 12-25-2015 [facility]ase with left anterior ulnar nerve subfascial transposition SELF REFERRAL Arthroscopic knee operation SELF REFERRAL Comment on above: right x 2 Ligation of fallopian tube S ELF REFERRAL neck surgery 2 SELF REFERRAL Comment on above: c 5 6 7 used hip bon es bilaterally. 2nd neck surgery plate inserted Plan of Treatment Date Care Activity Detail Author Start: 02-27-2026 Adult BMI Screening Adult BMI Screen ing [facility] Start: 02-27-2026 Tobacco Screening Tobacco Screening [facility] Start: 04-17-2025 Influenza vaccination [facility] Start: 04-10-2025 End: 04-10-2025 Clinical Support 04/10/2025 8:40 AM EDT Clinical Support [facility] [address] [place] [address] Leonardo Whitaker MD [address] [facility] [address] [id number] [facility] Start: 03-20-2025 End: 03-20-2025 Clinical Support [facility] Comment on above: Arrived Start: 03-12-2025 Pneumococcal vaccination Pneum ococcal Vaccine (3 of 3 - PCV20 or PCV21) [facility] Start: 02-27-2025 End: 02-27-2025 Patient encounter procedure 02/27/2025 8:00 AM EDT Office Visit [facility] [address] [place] [address] Justo Agosto MD [address], [facility] [address] [place] [address] [facility] Start: 02-22-2025 End: 02-22-2025 Clinical Support [facility] Comment on above: Arrived Start: 02-20-2025 End: 02-20-2025 Clinical Support [facility] Comment on above: Arrived Start: 02-15-2025 End: 02-15-2025 Clinical Support [facility] Comment on above: Arrived Start: 02-13-2025 End: 02-13-2025 Clinical Support [facility] Comment on above: Arrived Start: 02-08-2025 End: 02-08-2025 Clinical Support [facility] Comment on above: Arrived Start: 02-06-2025 End: 02-06-2025 Clinical Support [facility] Comment on above: Arrived Start: 02-01-2025 End: 02-01-2025 Clinical Support [facility] Comment on above: Arrived Start: 01-30-2025 End: 01-30-2025 Clinical Support [facility] Comment on above: Arrived Start: 01-26-2025 End: 01-26-2025 Patient encounter procedure [facility] Comment on above: Arrived Start: 01-25-2025 End: 01-25-2025 Clinical Support [facility] Comment on above: Arrived Start: 01-23-2025 Patient referral [facility] Work Phone: Start: 01-23-2025 End: 01-23-2025 Clinical Support [facility] Comment on above: Arrived Start: 01-17-2025 End: 01-17-2025 ambulatory [facility] Comment on above: Arrived Start: 01-11-2025 End: 01-11-2025 Clinical Support [facility] Comment on above: Arrived Start: 01-10-2025 X-ray scoliosis surv ey, single view XR scoliosis 1V [facility] Start: 01-10-2025 [facility] Start: 12-28-2024 Patient referral [facility] Work Phone: Start: 12-21-2024 End: 12-21-2024 Clinical Support [facility] Comment on above: Arrived Start: 12-12-2024 End: 12-12-2024 Clinical Support [facility] Comment on above: Arrived Start: 12-07-2024 End: 12-07-2024 Patient encounter procedure 12/07/2024 3:00 PM EDT Office Visit Kevyn Gilbert [address] [place] [address] [place] [address] [place] [address] [facility] Start: 12-01-2024 End: 12-01-2024 Clinical Support [facility] Comment on above: Arrived Start: 11-16-2024 End: 11-16-2024 Clinical Support 11/16/2024 9:20 AM EDT Clinical Support [facility] [address] [facility] [address] [place] [address] Leonardo Whitaker MD [address] [facility] [address] [place] [address], [place] [address] [facility] Start: 11-10-2024 End: 11-10-2024 Clinical Support 11/10/2024 10:00 AM EDT Clinical Support [facility] [address] [place] [phone] Leonardo Whitaker MD [address] [facility] [address] [place] [address], [place] [address] Arrived [facility] Comment on above: Arrived Start: 10-28-2024 End: 10-28-2024 Patient encounter procedure 10/28/2024 8:45 AM EDT Office Visit [facility] [address] [place] [id number] Raghav Dasilva DO [address] [place] [address] [facility] Start: 10-19-2024 End: 10-19-2024 Clinical Support [facility] Comment on above: Arrived Start: 10-10-2024 End: 10-10-2024 Clinical Support 10/10/2024 8:40 AM EST Clinical Support [facility] [address] [place] [address] Leonardo Whitaker MD [address] [facility] [address] [place] [address], [place] [address] [facility] Start: 08-29-2024 End: 08-29-2024 Clinical Support [facility] Comment on above: Arrived Start: 07-18-2024 End: 07-18-2024 Clinical Support [facility] Comment on above: Arrived Start: 06-20-2024 End: 06-20-2024 Patient encounter procedure 06/20/2024 9:00 AM EST [facility] [address] [place] [phone] [facility] Start: 05-30-2024 End: 05-30-2024 Clinical [facility] Comment on above: Arrived Start: 04-17-2024 COVID-19 Vaccine () COVID-19 Vaccine () [facility] Start: 04-17-2024 COVID-19 Vaccine () COVID-19 Vaccine () [facility] Start: 04-17-2024 Influenza vaccination Influenza Vacc ine (#1) [facility] Start: 04-13-2024 End: 04-13-2024 Clinical Support 04/13/2024 9:00 AM EDT Clinical [facility] [address] [facility] [address] [place] [id number] Leonardo Whitaker MD [address] [facility] [address] [place] [address] Arrived [facility] Comment on above: Arrived Start: 10-21-2023 End: 10-21-2023 Clinical Support 10/21/2023 9:00 AM EST Clinical [facility] [address] [place] [address] Leonardo Whitaker MD [address] [facility] [address] [place] [address] [facility] Start: 2017 Administration of varicella zoster vaccine Zoster (Shingles) Vaccine (1 of 2) [facility] Start: 12-07-2017 Zoster Vaccines (1 of 2) Zoste r Vaccines (1 of 2) [facility] Start: 2007 Screening for malign ant neoplasm of breast Mammogram [facility] Start: 1997 Screening for malign ant neoplasm of cervix [facility] Start: 1989 DTaP/Tdap/Td Vaccine s (1 - Tdap) DTaP/Tdap/Td Vaccines (1 - Tdap) [facility] Start: 1988 Screening for malign ant neoplasm of cervix [facility] Start: 1986 DTaP,Tdap and Td Vaccines (1 - Tdap) DTaP,Tdap and Td Vaccines (1 - Tdap) [facility] Start: 1985 Adult BMI Screening Adult BMI Screen ing [facility] Start: 1985 [facility] Start: 1979 Depression Screening Depression Scre ening [facility] Start: 1979 Tobacco Screening Tobacco Screening [facility] Start: 1968 MMR Vaccines (1 of 1 - Standard series) MMR Vaccines (1 of 1 - Standard series) [facility] Start: 1967 HIV screening HIV Screening [facility] Start: 1967 Lipid panel Lipid Panel [facility] Start: 1967 Screening for malign ant neoplasm of colon [facility] Start: 1967 Tobacco Counseling Tobacco Counselin g [facility] Start: 1967 Yearly Adult Physical Yearly Adult P hysical [facility] CT Lumbar spine WO contrast [facility] CT Thoracic spine WO contrast [facility] MR Cervical spine WO contrast [facility] Patient referral [facility] Work Phone: [facility] Immunizations Immunization Date Immunization Notes Care Provider Shilpa esqueda 06-11-2023 Influenza, injectabl e, Madin Wendy Canine Kidney, preservative free, quadrivalent Antonella Starks NP Work Phone: [facility] 06-11-2023 influenza virus vacc ine, unspecified formulation Leonardo Whitaker MD Work Phone: [facility] 06-07-2020 influenza, injectabl e, quadrivalent, preservative free Antonella Graziani [facility] Work Phone: [facility] 03-12-2020 pneumococcal polysaccharide vaccine, 23 valent Antonella Graziani [facility] Work Phone: [facility] 05-18-2019 influenza, injectabl e, quadrivalent, preservative free Antonella Graziani [facility] Work Phone: [facility] 05-18-2019 pneumococcal conjuga te vaccine, 13 valent Antonella Graziani DIRECTOR MULTIPLE [facility] Work Phone: [facility] 04-07-2001 hepatitis B vaccine, adult dosage Antonella Graziani DIRECTOR [facility] Work Phone: [facility] 01-09-2000 hepatitis B vaccine, adult dosage Antonella Graziani DIRECT[facility] Work Phone: [facility] 08-28-1997 hepatitis B vaccine, adult dosage Antonella Graziani DIRECT[facility] Work Phone: [facility] Payers Date Payer Category Payer Self-pay 2023 Commercial Managed [facility] [employer] Member Subscriber Plan / Payer (Effective 2023-Present) Name: Dalia Zhagn Relation to Subscriber: Self Name: Dalia Zhang Payer ID: Not on file Type: Not on file Address: [place] [id number] 2023 Managed Care (Private) [facility] [id number] 2014 Private Health Insurance [employer] [id number]. [id number] 2014 Unknown [employer] M [employer] [id number] 2014-Present [address] [place] [address] [id number]. [id number] 1967 Unknown [id number] 2.16.840.1.353665.3.579.2. 174 1967 Unknown [id number] 2.16.840.1.588434.3.579.2. 174 1967 Unknown [id number] 2.16840.1.753512.3.579.2. 593 1967 Unknown [id number] 2.16.840.1.431407.3.579.2. 593 1967 Unknown [id number] 2.16.840.1.115847.3.579.2. 593 1967 Unknown [id number] 2.16.840.1.263592.3.579.2. 593 1967 Unknown [id number] 2.16.840.1.547920.3.579.2. 593 1967 Unknown [id number] 2.16.840.1.205863.3.579.2. 593 1967 Unknown [id number] 2.16.840.1.541725.3.579.2. 593 1967 Unknown [id number] 2.16.840.1.588886.3.579.2. 593 1967 Unknown [id number] 2.16.840.1.936384.3.579.2. 727 1967 Unknown [id number] 2.16.840.1.570579.3.579.2. 1244 1967 Unknown [id number] 2.16.840.1.704753.3.579.2. 1286 1967 Unknown [id number] 2.16.840.1.012942.3.579.2. 1286 1967 Unknown [id number] 2.16.840.1.111458.3.579.2. 1286 1967 Unknown [id number] 2.16.840.1.959219.3.579.2. 1259 1967 Unknown [id number] 2.16.840.1.152454.3.579.2. 1259 1967 Unknown [id number] 2.16.840.1.312643.3.579.2. 1259 1967 Unknown [id number] 2.16.840.1.264824.3.579.2. 1259 1967 Unknown [id number] 2.16.840.1.930778.3.579.2. 1259 1967 Unknown [id number] 2.16.840.1.663046.3.579.2. 1259 1967 Unknown [id number] 2.16.840.1.805455.3.579.2. 1259 1967 Unknown [id number] 2.16.840.1.113152.3.579.2. 1259 1967 Unknown [id number] 2.16.840.1.163832.3.579.2. 1258 1967 Unknown [id number] 2.16.840.1.610034.3.579.2. 1258 1967 Unknown [id number] 2.16.840.1.118081.3.579.2. 1258 1967 Unknown [id number] 2.16840.1.629977.3.579.2. 1258 1967 Unknown [id number] 2.16.840.1.243375.3.579.2. 1258 1967 Unknown [id number] 2.16840.1.700943.3.579.2. 1258 1967 Unknown [id number] 2.840.1.448058.3.579.2. 1258 1967 Unknown [id number] 2.840.1.580186.3.579.2. 1258 1967 Unknown [id number] 2.16840.1.460077.3.579.2. 1258 1967 Unknown [id number] 2.840.1.109973.3.579.2. 1258 1967 Unknown [id number] 2.840.1.169653.3.579.2. 1258 1967 Unknown [id number] 2.840.1.891229.3.579.2. 1258 1967 Unknown [id number] 2.16840.1.549695.3.579.2. 1258 1967 Unknown [id number] 2.16840.1.472857.3.579.2. 1258 1967 Unknown [id number] 2.16840.1.189763.3.579.2. 1258 1967 Unknown [id number] 2.16840.1.053476.3.579.2. 1258 1967 Unknown [id number] 2.16.840.1.584637.3.579.2. 1259 1967 Unknown [id number] 2.16.840.1.520698.3.579.2. 1259 1967 Unknown [id number] 2.16.840.1.074341.3.579.2. 1259 1967 Unknown [id number] 2.16.840.1.444184.3.579.2. 1259 1959 Unknown [id number] Unknown [id number] 2.16.840.1.668941.3.579.2. 531 Unknown [id number] 2.16.840.1.546857.3.579.2. 531 Social History Date Type Detail Facility Start: 01-26-2021 Tobacco smoking status Heavy t obacco smoker (finding) [facility] Start: 09-29-2023 End: 02-20-2025 Sex Assigned At Female [facility] Start: 05-19-2023 End: 02-15-2024 Tobacco smoking status NHIS Smokes tobacco daily [facility] History of tobacco use Cigarette Smoker [facility] Start: 05-19-2023 End: 02-20-2025 Cigarettes smoked current (pack per day) - Reported 0.5 [facility] Start: 05-19-2023 End: 02-15-2024 Tobacco use and exposure Smokeless tobacco non-user [facility] Start: 09-29-2023 End: 02-20-2025 Alcohol intake Current drinker of alcohol (finding) [facility] Start: 07-20-2023 Alcohol Comment monthly or les s, Caffeine intake : soda/pop,coffee,tea more than 4 cups per day [facility] Start: 1965 Sex Assigned At Not on file [facility] Start: 11-26-2024 End: 12-06-2024 Exposure to SARS-CoV-2 (event) Not sure [facility] Start: 12-28-2024 Tobacco smoking stat us NHIS Smoker (finding) [facility] Start: 03-20-2015 End: 12-28-2024 Sex Female (finding) [facility] Start: 1965 Sex Assigned At Female F [facility] Tobacco smoking stat us NHIS Tobacco smoking consumption unknown [facility] Childcare Unknown [facility] Start: 02-27-2025 Alcoholic beverage intake Ex-drinker (finding) [facility] Clinical Notes 10-28-2021 to 04-05-2025 Telephone Encounter - Carolee Hanley - 04/05/2025 11:14 AM EDTTelephone Encounter - Carolee Hanley - 04/05/2025 11:14 AM EDTTelephone Encounter - Tala Menezes - 03/31/2025 11:14 AM EDT Note Date & Type Note Facility 04-05-2025 Telephone encounter Note Pt is calling today and states she need to know what to do next. Pt states she will be getting 4 shots from [facility] Management on 04/07 and wants to know how far apart she has to wait to get more shots. [phone] [facility] 04-05-2025 Miscellaneous Notes Pt is calling today and states she need to know what to do next. Pt states she will be getting 4 shots from [facility] on 04/07 and wants to know how far apart she has to wait to get more shots. [phone] documented in this encounter [facility] 03-31-2025 Telephone encounter Note Patient also left message requesting refill of Medrol dospak to be sent to [facility] in [place]. [facility] 03-31-2025 Miscellaneous Notes Patient also left message requesting refill of Medrol dospak to be sent to [facility] in [place]. documented in this encounter [facility] 03-20-2025 History of Present illness Narrative Associated Order(s): Trigger Point Injection: right iliocostalis lumborum, left iliocostalis lumborum Post-Procedure Diagnose(s): Myalgia Images from the original note were not included. Patient ID: Dalia Zhang is a 59 y.o. female. Trigger Point Injection: right iliocostalis lumborum, left iliocostalis lumborum on 03/20/2025 8:30 AM Medications: 1 mL dexAMETHasone sod phos 120 MG/30ML; 3 mL bupivacaine (Marcaine) injection 0.5 % Outcome: tolerated well, no immediate complications L5/S1 Procedure, treatment alternatives, risks and benefits explained, specific risks discussed. Consent was given by the patient. Immediately prior to procedure a time out was called to verify the correct patient, procedure, equipment, learning support teacher and site/side marked as required. Patient was prepped and draped in the usual sterile fashion. Subjective Dalia Zhang is a 59 y.o. female who presents for back pain and need for injections. History of Present Illness The patient presents for bilateral lower back pain since she was last seen. Since the last visit, her pain has improved but remains significant. Approximately 2.5 weeks ago, she experienced a severe episode that almost led to an emergency room visit. The pain radiates down the sides of her legs, and she reports numbness in her feet when lying down. Additionally, she experiences discomfort in her hip. Mobility is challenging, and she has been using a wheelchair. Certain activities aggravate her pain. Due to her condition, she is considering detention as she is unable to walk or perform other tasks. She has been consulting with Dr. Ramos, who is exploring non-surgical options such as a stimulator. INTERVAL: Since last visit, pain has improved. Review of Systems Const: Denies appetite change, fever, chills. Allergy: Denies medication reaction. Ocular: Denies visual acuity change. ENT: Denies hearing change. Endoc: Denies weight loss. Resp: Denies dyspnoea, wheezing. Cardiac: Denies angina, palpitations. GI: Denies nausea, vomiting. Haem: Denies bleeding. : Denies incontinence. MSK: Denies arthralgias, joint oedema. Derm: Denies rash, hair loss. Neuro: Denies ataxia, tremor. Also see HPI for elements of ROS documented therein and for details of positive findings, which shall supersede the foregoing. Objective There were no vitals taken for this visit. Physical Exam GENERAL EXAMINATION Appearance: in no acute distress, well developed, well nourished. Head: normocephalic, atraumatic. Eyes: pupils equal, round, reactive to light and accommodation. Ears: normal. Mouth: mucosa moist. Throat: clear. Neck: neck supple, full range of motion, no cervical lymphadenopathy. Skin: no suspicious lesions, warm and dry. Heart: no murmurs, regular rate and rhythm, S1, S2 normal. Lungs: clear to auscultation bilaterally. Abdomen: normal, bowel sounds present, soft, nontender, nondistended. Extremities: no clubbing, cyanosis, or edema. NEUROLOGICAL EXAMINATION Mental Status: The patient is alert and oriented to person, place, and time. Except as noted, thought content, form, and comprehension was normal. Phonation, articulation, resonance, and prosody are normal. Cranial Nerves: Pupils were 4.0 millimeters, equal, round, and reactive to light and accommodation, both directly and consensually. Visual fournier were full by confrontation. There was no ptosis; extra-ocular movements were full; and there was no nystagmus. Funduscopic exam is normal. Masseters are of normal strength. Facial movement is normal. Hearing is grossly intact. There is no dysarthria. The gag reflex is equal bilaterally. Sternocleidomastoids and trapezii are of normal strength. The tongue protrudes in the midline. Motor: Muscle testing was performed in all four extremities, including at least human capital analyst, finger abductors, biceps, triceps, deltoid, toe flexors and extensors, tibialis anterior, triceps surae, quadriceps femoris, biceps femoris, and iliopsoases were 4-/5 . Tone is normal. Muscle bulk is normal. Fasciculations are not seen . Pronator drift was not evident. Sensory: Decreased sensation to touch, temperature, and vibration was abnormal in the arms, legs. Romberg is negative. Reflexes: Biceps, triceps, brachioradialis are 2/4 bilaterally. Patellar and Achilles reflexes are 2/4 bilaterally. Plantar responses were flexor bilaterally. Coordination: Dysmetria and dysdiadochokinesia are absent. Tremor is absent; dystonia is absent; chorea is absent. Gait And Station: Station and gait are normal. Apraxia and spasticity are not evident. Arm swing is normal. Toe, heel, and tandem walking are performed without difficulty. Musculoskeletal: Trigger-point tenderness was absent. There is no spasm of the trapezii or paraspinals. Results Assessment & Plan 1. Bilateral lower back pain. The patient reports significant bilateral lower back pain, which has been persistent and severe enough to almost necessitate an emergency room visit last week. The pain radiates down the sides of her legs, and she experiences numbness in her feet when lying down. She has been advised to continue her consultation with Dr. Isabel for pain management, including potential non-surgical options like a stimulator. A deep SI joint injection will be considered, followed by an SI ablation if necessary. If these measures do not provide lasting relief, a stimulator may be the next step. She has been advised to remain off work to prevent reinjury. documented in this encounter [facility] 02-27-2025 History of Present illness Narrative Images from the original note were not included. [facility] [address] [place] [address], [place] [address] * CHART NOTE ? 02/27/2025 Patient: Dalia Zhang 1965 [id number] Physician: Pauline Busch PA-C SUMMARY Acute bilateral, tslde-nnhrbeb-ezxy-left sacroiliitis with findings of multilevel lumbar facet arthropathy, foraminal stenosis, and canal stenosis as well as previous C5-7 ACDF performed for cervical myelopathy in 1998 and 2001 at [facility] with findings of adjacent segment canal stenosis and foraminal stenosis. PLAN The patient was seen and examined with Dr. Agosto. MRIs of the cervical and lumbar spines were reviewed today in the office with the patient and reveal evidence of prior C5-7 ACDF with adjacent segment canal stenosis and foraminal stenosis above and below the level of her previous cervical fusion and well as lumbar scoliosis present with multilevel lumbar facet arthropathy resulting in canal stenosis and foraminal stenosis. On physical exam the patient has findings of acute right-sided sacroiliitis. While the patient does have a significant amount of pathology involving the cervical and lumbar spines we do not currently believe that any of these findings are the etiology for her right-sided low back pain. All signs and symptoms point to acute sacroiliitis. She has had SI joint injections recently which have been beneficial, therefore we are recommending bilateral SI joint radiofrequency ablations in hopes of giving the patient longer last pain relief. The physician who did her most recent SI joint injections is not a pain management physician, therefore we are referring her to pain management to have the RFAs completed. If the SI joint RFA proves beneficial she can continue to undergo these injections. If the injections help but the patient continues to have pain epidural steroid injections and/or facet injections can also be considered. Patient voiced understanding of the plan of care. I have instructed the patient to contact my office if any new questions, concerns, or symptoms develop. HISTORY OF PRESENT ILLNESS Mrs Zhang is a 59-year-old female who presents the office today with a longstanding history of chronic right-sided low back pain. Patient states that she has had back pain in the right side for the last several years. This pain has gradually gotten worse over time. Most recently she had bilateral SI joint injections which did help improve her pain significantly for approximately 2 weeks. She has never underwent lumbar spine surgery. She has completed a course of water physical therapy which did temporarily help with her discomfort. Patient states that the pain is localized mainly to the right side of her low back. This pain radiates into the lateral right hip and into the anterior right thigh and groin. She denies radiating pain down the leg as well as numbness, tingling, paresthesias, weakness in the lower extremities. 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 She believes that this repetitive motion has perpetuated the pain in her low back. The patient has a prior history of a C5-6 ACDF initially performed for myelopathy in [address] Schroeder at [facility]. C6-7 ACDF was then performed in [address] Cruz and Dr Jones. Her pain is most significant when she sits for an extended period of time and when position as well as going from a sitting to a standing position. The patient has a difficult time ambulating secondary to right-sided low back pain and scoliosis. HEALTH HISTORY Past Medical History Documented in chart and reviewed with the patient at this visit Family History Documented in chart and reviewed with the patient at this visit Social History Documented in chart and reviewed with the patient at this visit Surgeries/Hospitalizations Documented in chart and reviewed with the patient at this visit Current Medications Current Outpatient Medications on File Prior to Visit Medication Sig Dispense Refill methylPREDNISolone (MEDROL, SHIVA,) 4 mg tablet Follow schedule on package instructions No current facility-administered medications on file prior to visit. Allergies Allergies Allergen Reactions Amoxicillin Penicillins Other (See Comments) and Rash Sulfa (Sulfonamide Antibiotics) Rash and Other (See Comments) REVIEW OF SYSTEMS A complete and comprehensive 10-system review was completed. Pertinent positives and negatives are mentioned in the history of the present illness. PHYSICAL EXAMINATION GENERAL APPEARANCE: Well developed, well nourished, in no acute distress . HEAD: Normocephalic, atraumatic . EYES: Pupils equal, round, reactive to light and accommodation, sclera non-icteric . NECK/THYROID: No particular tenderness on palpation of neck SKIN: Warm and dry, no suspicious lesions . MUSCULOSKELETAL: There is no atrophy or fasciculations. EXTREMITIES: No clubbing, cyanosis, or edema . NEUROLOGIC: Alert and oriented x 3. Memory seems to be intact. Concentration is good. Speech is clear and fluent. Fund of knowledge is normal. Moving all extremities freely. Gait is steady. Posture is normal. Strength is 5/5 in upper and lower extremities, sensation intact grossly. Romberg sign negative. Negative straight leg raise bilaterally. Right internal hip rotation results in right-sided low back pain at the right SI joint. Pain with palpation of the right SI joint. Spurling's maneuver is negative. Positive Belcher's sign bilaterally, Tinel's is negative. Reflexes are brisk bilaterally in upper and lower extremities with 5 beats of ankle clonus. Babinski sign is negative. DIAGNOSTICS MRI of the lumbar spine performed on November 08, 2024 reveals moderate dextrocurvature of the mid lumbar spine, multilevel lumbar degenerative disc disease, and lumbar degenerative facet arthropathy. L2-3 retrolisthesis and diffuse disc bulge with facet arthropathy results in moderate left-sided foraminal stenosis. L3-4 retrolisthesis, diffuse broad-based disc bulge and facet arthropathy resulting in mild canal stenosis and moderate bilateral foraminal stenosis. L4-5 broad-based disc bulge and facet arthropathy results in moderate canal stenosis and severe right-sided foraminal stenosis. L5-S1 broad-based disc bulge and facet arthropathy results in severe bilateral foraminal stenosis. MRI of the cervical spine performed on January 18, 2025 reveals prior C5-C7 anterior cervical fusion with adjacent segment severe left-sided C3-4 foraminal stenosis and C3-4 moderate to severe central canal stenosis. C6-7 disc/osteophyte complex and facet arthropathy results in moderate to severe central canal stenosis and severe tefn-iopwozo-tibl-right foraminal stenosis. Sincerely, Electronically signed by: Pauline Busch PA-C This note was created with the assistance of a speech recognition program with the goal of generating a timely record of the patient encounter. Inadvertent computerized employee benefits attorney errors related to syntax, spelling, homophones, and/or inaudibility may be present. DIANA Lugo 02/27/25 0926 documented in this encounter [facility] 02-27-2025 Instructions [place] Tee CMA - 02/27/2025 8:00 AM EDT Patient was seen today in clinic and given a pain management referral order. Patient to follow up as needed sp documented in this encounter [facility] 02-22-2025 History of Present illness Narrative Images from the original note were not included. Physical Therapy Physical Therapy Treatment Visit Patient Name: Dalia Zhang Today's Date: 02/22/2025 Encounter Diagnoses Name Primary? Lumbar radiculopathy Yes Muscle weakness Impaired gait Visit number: 10 Supervised time: 23 Total time: 23 Precautions: Cervical fusion 20+ years, R knee scope x2, R trigger finger release, L elbow surgery, L carpal tunnel release Imaging: Lumbar x-ray: Multilevel degenerative disc disease as described above, worst at L4-L5. CT scans completed but she doesn't know results until follow up. Subjective Pain: 5-6/10 Overall progress: No prison carry over with aquatic therapy. Feels great while in the pool. Able to move without issues but gets really sore afterwards and the pain returns a few hours later. She received right SI joint injections from Dr. Whitaker on 02/20/25. She has noted minor improvement in her functional strength and mobility. Able to walk farther without stopping. Able to walk through small stores but has to use electric cart for larger stores. Her thinks she has been walking a little better since starting PT. Does not use a cane to walk. Easier to negotiate stairs. Continues to experience spasms in right buttock. It feels like it swells. Also gets spasms in R anterior thigh. Will be seeing neurosurgeon Dr. Agosto with [facility] on 02/27/25. Lumbar AROM Flexion: mod restricted, tightness in HS and pain in R SIJ Extension: min to mod restricted R sidebending: mod restricted with fwd bending, pain in lateral thigh L sidebending: min restricted R rotation: min restricted, discomfort in R SIJ L rotation: min restricted Muscle Length HS WFL bilaterally Muscle Strength R hip flexion 4-/5 seated L hip flexion 3+/5, seated. (4- at initial eval). Demo's L trunk rotation R SLR 4/5 L SLR 3/5, quad lag. No arch of low back L knee flexion 5/5 (4+), extension 5/5 (4+) R knee flexion 4+/5, extension 5/5 Ambulation Pt presents ambulating independently with slowed gait speed. No longer demonstrates L leg circumduction with limb advancement, but extensor thrust persists bilaterally at terminal stance. More pronounced on the left. Assessment: Pt has demonstrated improvement in LE strength and gait quality as noted above but minimal, and lacking improvement in pain. Practiced ambulating with SPC with patient demonstrating good cane sequencing, however doesn't want to use an assistive device to ambulate as it doesn't lessen her pain. Patient Goals Short Term Goal #1: The patient will demonstrate independence with HEP within 1 week for decreased pain (MET) Short Term Goal #1: The patient will ambulate for with SPC demonstrating good cane sequencing within 1 week for pain management (MET but doesn't use device) Jail Goal #1: The patient will achieve pain free lumbar AROM within 3-4 weeks for improved mobility (NOT MET) Peripatologist Goal #2: The patient will tolerate at least 15 minutes of activity without exacerbation of pain within 4-6 weeks for improved activity tolerance, performance of household tasks ( NOT MET) Jail Goal #3: The patient will demonstrate B LE strength 5/5 within 4-6 weeks for improved quality of gait, transfers (NOT MET) Plan: On hold until neurosurgery appointment on 02/27/25. Will return to PT to continue aquatic therapy for pain management, strength and balance training if directed by physician. documented in this encounter [facility] 02-21-2025 Telephone encounter Note Voicemail left that Julianne saw patient yesterday and prescription was not sent. Medrol dose shiva sent. [facility] 02-21-2025 Miscellaneous Notes Voicemail left that Julianne saw patient yesterday and prescription was not sent. Medrol dose shiva sent. documented in this encounter [facility] 02-20-2025 History of Present illness Narrative Images from the original note were not included. Subjective Dalia Zhang is a 59 y.o. female who presents for moderate to severe lower back pain History of Present Illness The patient is a 59-year-old female who presents today for injections for severe SI joint pain and lower back pain. She received injections 4 weeks ago, which provided approximately 75% relief for 3 to 4 weeks. Currently, her pain is rated at 4-5 on a scale of 1-10, whereas it had decreased to 1-2 following the last set of injections. She has been engaging in pool therapy, which provides temporary relief for a few hours before the pain returns. No assistive devices, such as a cane, are being used. The right side is reported to be more affected than the left. Additionally, she mentions that her hip is not causing any discomfort. MEDICATIONS CURRENT MEDS: Flagyl Review of Systems Const: Denies appetite change, fever, chills. Allergy: Denies medication reaction. Ocular: Denies visual acuity change. ENT: Denies hearing change. Endoc: Denies weight loss. Resp: Denies dyspnoea, wheezing. Cardiac: Denies angina, palpitations. GI: Denies nausea, vomiting. Haem: Denies bleeding. : Denies incontinence. MSK: Denies arthralgias, joint oedema. Derm: Denies rash, hair loss. Neuro: Denies ataxia, tremor. Also see HPI for elements of ROS documented therein and for details of positive findings, which shall supersede the foregoing. Objective There were no vitals taken for this visit. Physical Exam GENERAL EXAMINATION Appearance: in no acute distress, well developed, well nourished. Head: normocephalic, atraumatic. Eyes: pupils equal, round, reactive to light and accommodation. Ears: normal. Mouth: mucosa moist. Throat: clear. Neck: neck supple, full range of motion, no cervical lymphadenopathy. Skin: no suspicious lesions, warm and dry. Heart: no murmurs, regular rate and rhythm, S1, S2 normal. Lungs: clear to auscultation bilaterally. Abdomen: normal, bowel sounds present, soft, nontender, nondistended. Extremities: no clubbing, cyanosis, or edema. NEUROLOGICAL EXAMINATION Mental Status: The patient is alert and oriented to person, place, and time. Except as noted, thought content, form, and comprehension was normal. Phonation, articulation, resonance, and prosody are normal. Cranial Nerves: Pupils were 4.0 millimeters, equal, round, and reactive to light and accommodation, both directly and consensually. Visual fournier were full by confrontation. There was no ptosis; extra-ocular movements were full; and there was no nystagmus. Funduscopic exam is normal. Masseters are of normal strength. Facial movement is normal. Hearing is grossly intact. There is no dysarthria. The gag reflex is equal bilaterally. Sternocleidomastoids and trapezii are of normal strength. The tongue protrudes in the midline. Motor: Muscle testing was performed in all four extremities, including at least human capital analyst, finger abductors, biceps, triceps, deltoid, toe flexors and extensors, tibialis anterior, triceps surae, quadriceps femoris, biceps femoris, and iliopsoases. Tone is normal. Muscle bulk is normal. Fasciculations are not seen . Pronator drift was not evident. Sensory: Sensation to touch, temperature, and vibration was normal in the arms, legs and face. Romberg is negative. Reflexes: Biceps, triceps, brachioradialis are 2/4 bilaterally. Patellar and Achilles reflexes are 2/4 bilaterally. Plantar responses were flexor bilaterally. Coordination: Dysmetria and dysdiadochokinesia are absent. Tremor is absent; dystonia is absent; chorea is absent. Gait And Station: Station and gait are normal. Apraxia and spasticity are not evident. Arm swing is normal. Toe, heel, and tandem walking are performed without difficulty. Musculoskeletal: Trigger-point tenderness was absent. There is no spasm of the trapezii or paraspinals. Results Trigger Injection After explaining the risks, complications, and benefits of the procedure, the patient leaned over exam table with arms to support self. Allergies were reviewed, the consent was signed. After palpating at the most tender part, then marking that area for injections a sterile technique and surface anesthetic were used. A 25 gauge 1 1/2 spinal needle was inserted. The patient received the trigger point injection in the bilateral lumbar paraspinal muscles at levels S1 with a total of 3 cc Bupivacaine 0.5% and 1 cc Dexamethasone 4mg. A Band-Aid dressing was applied on the injection site. The patient tolerated the procedure well. The Procedure was done by Dr. Leonardo Whitaker. This note was scribed by Cristina Browning(Kermit) acting under the direction of Leonardo Whitaker MD. The content has been reviewed and confirmed for accuracy by Leonardo Whitaker MD Assessment & Plan 1. Severe sacroiliac joint pain. She reports that her pain is currently at a 4-5 on a scale of 1-10, which previously reduced to a 1-2 with the last set of injections. She has been engaging in pool therapy, which provides temporary relief for a few hours before the pain returns. She does not use any assistive devices such as a cane. She reports that her right side is more affected than her left. She also mentions that her hip is not causing her any discomfort. A steroid injection will be administered today to manage the pain. Steroid tablets will be prescribed for a duration of one month. 2. Lower back pain. She continues to experience lower back pain, which is somewhat alleviated by pool therapy. The pain returns after a few hours post-therapy. A steroid injection will be administered today to manage the pain. Steroid tablets will be prescribed for a duration of one month. PROCEDURE SI joint injections were performed today. documented in this encounter [facility] 02-07-2025 Telephone encounter Note Voicemail left for refill on Medrol dose shiva. Sent. [facility] 02-07-2025 Miscellaneous Notes Voicemail left for refill on Medrol dose shiva. Sent. documented in this encounter [facility] 02-01-2025 Miscellaneous Notes Received fax referral. Called patient, left message to call back to schedule. documented in this encounter [facility] 02-01-2025 Telephone encounter Note Received fax referral. Called patient, left message to call back to schedule. [facility] 01-26-2025 History of Present illness Narrative Images from the original note were not included. Subjective Dalia Zhang is a 59 y.o. female who presents for SI joint injections for back pain History of Present Illness The patient presents for back pain. She has been engaging in pool therapy for the past 2 days, which she reports as beneficial. She is considering increasing the frequency of her pool therapy sessions to 3 times per week. Previously, she was brought to the clinic in a wheelchair and used a walker at home. The SI joint injections have significantly improved her mobility, allowing her to walk better. However, she still experiences discomfort in her hip and muscle areas. An MRI of her neck and two CT scans were recently performed to assess the stability of her spine. The current physician has recommended seeking a second opinion at a major medical center in [place]. She is awaiting further instructions on which specialist she will be referred to. 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 Additionally, she requests a work slip for a month. MEDICATIONS CURRENT MEDS: Steroid PREVIOUS MEDS: Gabapentin Review of Systems Const: Denies appetite change, fever, chills. Allergy: Denies medication reaction. Ocular: Denies visual acuity change. ENT: Denies hearing change. Endoc: Denies weight loss. Resp: Denies dyspnoea, wheezing. Cardiac: Denies angina, palpitations. GI: Denies nausea, vomiting. Haem: Denies bleeding. : Denies incontinence. MSK: Denies arthralgias, joint oedema. Derm: Denies rash, hair loss. Neuro: Denies ataxia, tremor. Also see HPI for elements of ROS documented therein and for details of positive findings, which shall supersede the foregoing. Objective Physical Exam Gait and Station Gait: Normal walking pattern and stability. GENERAL EXAMINATION Appearance: in no acute distress, well developed, well nourished. Head: normocephalic, atraumatic. Eyes: pupils equal, round, reactive to light and accommodation. Ears: normal. Mouth: mucosa moist. Throat: clear. Neck: neck supple, full range of motion, no cervical lymphadenopathy. Skin: no suspicious lesions, warm and dry. Heart: no murmurs, regular rate and rhythm, S1, S2 normal. Lungs: clear to auscultation bilaterally. Abdomen: normal, bowel sounds present, soft, nontender, nondistended. Extremities: no clubbing, cyanosis, or edema. NEUROLOGICAL EXAMINATION Mental Status: The patient is alert and oriented to person, place, and time. Except as noted, thought content, form, and comprehension was normal. Phonation, articulation, resonance, and prosody are normal. Cranial Nerves: Pupils were 4.0 millimeters, equal, round, and reactive to light and accommodation, both directly and consensually. Visual fournier were full by confrontation. There was no ptosis; extra-ocular movements were full; and there was no nystagmus. Funduscopic exam is normal. Masseters are of normal strength. Facial movement is normal. Hearing is grossly intact. There is no dysarthria. The gag reflex is equal bilaterally. Sternocleidomastoids and trapezii are of normal strength. The tongue protrudes in the midline. Motor: Muscle testing was performed in all four extremities, including at least human capital analyst, finger abductors, biceps, triceps, deltoid, toe flexors and extensors, tibialis anterior, triceps surae, quadriceps femoris, biceps femoris, and iliopsoases. Tone is normal. Muscle bulk is normal. Fasciculations are not seen . Pronator drift was not evident. Sensory: decreased sensation to touch, temperature, and vibration was abnormal in the arms, legs and face. Romberg is negative. Reflexes: Biceps, triceps, brachioradialis are 2/4 bilaterally. Patellar and Achilles reflexes are 1/4 bilaterally. Plantar responses were flexor bilaterally. Coordination: Dysmetria and dysdiadochokinesia are absent. Tremor is absent; dystonia is absent; chorea is absent. Gait And Station: Station and gait are normal. Apraxia and spasticity are not evident. Arm swing is normal. Toe, heel, and tandem walking are performed without difficulty. Musculoskeletal: Trigger-point tenderness was absent. There is no spasm of the trapezii or paraspinals. Results Trigger Injection After explaining the risks, complications, and benefits of the procedure, the patient leaned over exam table with arms to support self. Allergies were reviewed, the consent was signed. After palpating at the most tender part, then marking that area for injections a sterile technique and surface anesthetic were used. A 25 gauge 1 2 spinal needle was inserted. The patient received the trigger point injection in the bilateral S-I joints with a total of 3 cc Bupivacaine 0.5% and 1 cc Dexamethasone 4mg. A Band-Aid dressing was applied on the injection site. The patient tolerated the procedure well. The Procedure was done by Dr. Leonardo Whitaker. This note was scribed by Cristina Browning(Kermit) acting under the direction of Leonardo Whitaker MD. The content has been reviewed and confirmed for accuracy by Leonardo Whitaker MD Assessment & Plan 1. Back pain: Due to DDD lumbar with disc extrusion and some stenosis. Walks like a higher cervical myelopathy issue. She has been experiencing significant improvement in her back pain following SI joint injections and pool therapy. She is advised to continue with pool therapy 3 times a week. A prescription for Lyrica 25 mg, to be taken 3 times daily, has been provided to help manage her pain. She is also advised to continue her steroid medication as needed. An off-work slip for a duration of one month has been issued. Follow-up The patient will follow up in 3 to 4 weeks. PROCEDURE SI joint injection was performed today. documented in this encounter [facility] 01-17-2025 History of Present illness Narrative Images from the original note were not included. Physical Therapy Physical Therapy Evaluation Visit Patient Name: Dalia Zhang Today's Date: 01/17/2025 Encounter Diagnoses Name Primary? Lumbar radiculopathy Yes Muscle weakness Impaired gait Visit number: 1 Subjective Dalia Zhang is a 59 y.o. female who presents to physical therapy with chief complaint of R low back/hip pain. Onset: A couple months ago. Her last day at work was on 11/10/24 because pain was too bad. States she couldn't hardly walk. Current deficits: LBP radiating down B LEs, doesn't occur simultaneously, and is primarily the right leg. She is only able to tolerate about 15 minutes of activity before needing a seated rest break. She saw neurosurgery who ordered a bunch of tests and she will follow up regarding these on Thursday. She has been getting injections from Dr. Whitaker but has also been referred to pain management. 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 Denies knee buckling or falls. LBP sometimes wakes her at night. Experiences spasms in R anterior thigh on days she is more active and has increased pain. Pain: 5/10 R low back Location: B SI joints and lateral hips Relieving factors: heat, ice, icy hot Aggravating Factors: sitting on hard surfaces, prolonged activity, long distance ambulation, lifting Described as: aching Radiates: No numbness and tingling Prior treatment: steroid, injections from Dr. Whitaker every 1.5 weeks. Imaging: Lumbar x-ray: Multilevel degenerative disc disease as described above, worst at L4-L5. CT scans completed but she doesn't know results until follow up. 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 Demo's L trunk rotation R SLR 4/5 L SLR 3/5, arches LB, quad lag L flexion 4+/5, extension 4+/5 R flexion 4+/5, extension 5/5 Ambulation Pt presents ambulating independently with slowed gait speed. Mild L leg circumduction with limb advancement, extensor thrust at terminal stance Treatment Interventions Education: Posture, Home management strategies for pain control, HEP, POC Therapeutic Exercise: Cardiovascular Endurance, Strength, Endurance, Flexibility, ROM, HEP, Neural Mobilization, Power, Core Stability Therapeutic Activity: Exercises to improve dynamic activities, functional tasks, functional mobility to return to prior activity level Neuromuscular re-education: Balance Training, Dynamic Stability, Muscle Facilitation, Core Stabilization Modalities: Heat, Ice, Electrical Stimulation prn, Lumbar Mechanical Traction prn Gait Training: Inhibit L extensor thrust, achieve symmetrical stance times Aquatic Therapy: Muscle strength, Endurance, Flexibility, ROM, HEP, Neural Mobilization, Power, Core Stability, Deep H20 distraction Today's intervention consisted of initial evaluation, significant patient education on exam findings and POC utilizing anatomical model of the spine, and ther ex and HEP prescription x16' consisting of SKTC, DKTC, LTR, PPT and seated lumbar flexion. Maximal verbal and tactile cueing required to achieve correct technique of PPT. Pt educated on use of SPC to decrease stress on lumbar spine and R hip. Pt reluctant to try but was able to demonstrate proper cane sequencing without evidence of instability. Encouraged patient to obtain device to manage pain and improve gait. Assessment/Plan Patient Goals Short Term Goal #1: The patient will demonstrate independence with HEP within 1 week for decreased pain Short Term Goal #1: The patient will ambulate for with SPC demonstrating good cane sequencing within 1 week for pain management Jail Goal #1: The patient will achieve pain free lumbar AROM within 3-4 weeks for improved mobility Jail Goal #2: The patient will tolerate at least 15 minutes of activity without exacerbation of pain within 4-6 weeks for improved activity tolerance, performance of household tasks Jail Goal #3: The patient will demonstrate B LE strength 5/5 within 4-6 weeks for improved quality of gait, transfers Rehab potential: Good Recommend aquatic skilled PT to address the above impairments 2x/wk for 6 weeks pending pt progress and medical necessity. RTD on Thursday. I hereby deem this POC medically necessary. Please sign below and fax back to [phone]. Date: documented in this encounter [facility] 01-11-2025 History of Present illness Narrative Images from the original note were not included. CHIEF COMPLAINT REASON FOR VISIT: Injections. HPI: Dalia Zhang is a 59 y.o. female who presents for bilateral lumbar L5/S1 pain, and bilateral bursa pain. States the pain is a 8/10. She has had extremely severe pain. Patient seen Dr. Therese Santoyo and he was suppose to email Dr. Whitaker in regards to doing SI joint injections. Patient states that injections reduced pain greater then 50% but pain has returned. Patient states that they lasted for a couple days. Patient states her left leg started giving out and she feels like it is weak. Patient has difficulty walking due to pain and weakness. Patient states that pain affects her ADL's and is unable to complete normal tasks around the house. The Procedure was done by Dr. Leonardo Whitaker. CURRENT MEDICATIONS: ALLERGIES/DISCONTINUE MEDICATIONS Current Outpatient Medications Medication Instructions alendronate (Fosamax) 70 MG tablet TAKE 1 TABLET BY MOUTH 30 MINUTES BEFORE FIRST FOOD/DRINK/MED OF THE DAY WITH PLAIN WATER ascorbic acid (Vitamin C) 500 MG chewable tablet Every 24 hours B Complex Vitamins (vitamin B complex) tablet as directed Orally baclofen (LIORESAL) 10 mg, Oral, 3 times daily lidocaine (Lidoderm) 5 % patch 1 patch, Apply externally, Daily, Apply for 12 hours daily methylPREDNISolone (Medrol Dospak) 4 MG tablets Follow schedule on package instructions Multiple Vitamin (Multi Vitamin) tablet Every 24 [...] FINGER RELEASE Right 02/22/2020 trigger thumb release [facility] Social History Tobacco Use Smoking [...] myalgias, neck pain and neck stiffness. Neurological: Positive for weakness. Negative for tremors, light-headedness and numbness. Psychiatric/Behavioral: Negative for agitation, confusion and suicidal ideas. OBJECTIVE: 01/11/2025 8:08 AM 12/21/2024 10:06 AM 12/13/2024 3:47 PM Vitals BMI 17.92 kg/m2 17.92 kg/m2 17.92 kg/m2 BSA (m2) 1.4 m2 1.4 m2 1.4 m2 Systolic 117 136 144 Diastolic 82 84 74 Heart Rate 94 Height (in) 5' 2 5' 2 Weight (lb) 98 98 98 EXAM: Neurological Exam Mental Status Awake, alert [...] reflexes: Mohsen's absent. Ankle clonus absent. Coordination [id number], rapid alternating movements and [id number] normal bilaterally without dysmetria. Gait Casual gait: Narrow stance. Reduced stride length. Romberg is absent. Due to L5/S1 pain causing pain and weakness down left leg. Causing her leg to give out. . PROCEDURE: Bursa Injection After explaining the risks, complications, and benefits of the procedure, the patient leaned over the exam table. Allergies were reviewed, the consent was signed. After palpating the bilateralgreater trochanter and identifying the most tender area [...] dressing was applied on the injection site. The Procedure was done by Dr. Leonardo Whitaker. ASSESSMENT AND PLAN: Dalia Zhang is a 59 year old female with trochanteric bursitis in both hips. This is a condition characterized by inflammation of the bursa located over the greater trochanter of the hip. This can cause pain and tenderness on the outer side of the hip. Bilateral bursa injections involve injecting medication into the bursa on both sides of the hips to reduce inflammation and alleviate pain. The effects of the injection can last from several weeks to several months, depending on the severity of the condition and response to the treatment. She did see Dr. Santoyo and does not want to perform surgery until patient can quit smoking. Will follow up in 3 weeks after surgery which is scheduled January 23. I will refer her to Dr. Horne pain management for deeper injections. This was discussed with patient and all questions answered. SI joint injection today per recommendation from Dr. Therese Santoyo. I counseled patient on the potential benefits and risks of the procedure. Patient advised to rest and avoid any strenuous activities for a few days following injection. Ice packs can be applied to the injection site to reduce pain and swelling. I will place referral to Dr. Horne for deeper injection under imaging guidance. Sending in medrol dospak to help with pain and inflammation. I counseled the patient on the possible side effects and interactions of medications. Follow up 1 month. Possible injections. This note was scribed by JAVIER Barrera acting under the direction of Leonardo Whitaker MD. The content has been reviewed and confirmed for accuracy by Leonardo Whitaker MD documented in this encounter [facility] 01-10-2025 Radiology Diagnostic study note [facility] [address] CT Scan Report Signed Patient: Dalia Zhang MR#: [id number] : 1965 Acct:[id number] Age/Sex: 59 / F ADM Date: Loc: [facility] Room: Type: [facility] Attending Dr: Therese Santoyo DO Copies to: Therese Santoyo DO~ Ordering Provider: Therese Santoyo DO Date of Service: 01/10/25 CT/CT lumbar spine wo con: M47.26 - Other spondylosiswith radiculopathy, lumbar region CT lumbar spine wo con 01/10/2025 2:47 PM History:Back pain, bilateral leg weakness left greater than right TECHNIQUE: Multi detector CT axial slices of the lumbar spine were obtained without IV contrast. Volumetric acquisition sagittal, coronal, and 3-D reconstructions were performed and reviewed on a separate workstation. CT was performed with one or more of the following dose reduction techniques: Automatedexposure control, adjustment of the mA and/or kV according to patient size, or use of iterative reconstruction technique. COMPARISON: None FINDINGS: There is preservation of the vertebral body heights. There is severe disc height loss with endplate sclerosis and subcortical cystic change at L2-L3, L4-5, and L5-S1. No fractures or dislocations are seen. There is a dextro convex curvature of the lumbar spine. There is significant neural foraminal stenosis bilaterally at L5-S1 and to a lesser extent throughout the lumbar spine. Degenerative changes are noted in the sacroiliac joints. The paraspinous soft tissues are within normal limits. The visualized lung parenchyma is unremarkable. Atherosclerotic changes are noted in the abdominal aorta and its branches. There are a few 1 to 2 mm stones in the left renal collecting system. There is chronic appearing elevation left hemidiaphragm with atelectasis at theleft lung base. CT/CT lumbar spine wo con IMPRESSION: No acute bony abnormality. There is a dextro convex curvature of the thoracolumbar spine. Severe multilevel degenerative changes noted, greatest at L2-L3, L4-5, and L5-S1. Degenerative changes are noted in the sacroiliac joints. There is elevation left hemidiaphragm with atelectasis at the left lung base. Nonobstructing stones are noted in the left renal collecting system. Impression dictated by: Darian Pastrana M.D. 01/10/2025 4:39 PM Dictation Location: [place] [address] Transcribed By: [facility] 01/10/25 1639 Dictated By: Darian Pastrana II, MD 01/10/25 1634 Signed By: 01/10/25 [id number] [facility] Work Phone: 01-10-2025 Radiology Diagnostic study note [facility] Main [place] [address] [place] [address] CT Scan Report Signed Patient: Dalia Zhang MR#: [id number] : 1965 Acct:[id number] Age/Sex: 59 / F ADM Date: 5 Loc: XDS Room: Type: [facility] Attending Dr: Therese Santoyo DO Copies to: Therese Santoyo DO~ Ordering Provider: Therese Santoyo DO Date of Service: 01/10/25 CT/CT thoracic spine wo con: M54.14 - Radiculopathy, thoracic region CT thoracic spine wo con 01/10/2025 2:47 PM History: Back pain, bilateral lower extremity weakness left greater than right TECHNIQUE: Multi detector CT axial slices of the thoracic spine were obtained without IV contrast. Volumetric acquisition sagittal, coronal, and 3-D reconstructions were performed and reviewed on a separate workstation. CT was performed with one or more of the following dose reduction techniques: Automatedexposure control, adjustment of the mA and/or kV according to patient size, or use of iterative reconstruction technique. COMPARISON: None FINDINGS: There is preservation of the vertebral body heights and intervertebral discs. Degenerative changes are noted in the facets of the upper thoracic spine. Thereis partial visualization of anterior fusion at C6-C7 with severe disc height loss at C7-T1. No fractures or dislocations are seen. The alignment of the thoracic spine is normal. The paraspinous soft tissues are within normal limits.The visualized lung parenchyma is unremarkable. There is elevation of the left hemidiaphragm. Atherosclerotic changes are noted in the thoracic aorta and coronary arteries. There is dependent atelectasis or scarring in the lung bases. Calcified left hilar lymph nodes are noted. CT/CT thoracic spine wo con IMPRESSION: No acute bony abnormality or malalignment. Degenerative changes are noted in the thoracic spine predominantly along the facets. Degenerative and postoperative changes are noted in the lower cervical spine andcervicothoracic junction. There is elevation of the left hemidiaphragm with atelectasis at the left lung base. Impression dictated by: Darian Pastrana M.D. 01/10/2025 4:34 PM Dictation Location: [place] [address] Transcribed By: [facility] 01/10/25 1634 Dictated By: Darian Pastrana II, MD 01/10/25 1630 Signed By: 01/10/25 1634 [facility] Work Phone: 12-28-2024 Evaluation note Diagnosis Onset Date Resolution Chronic pain acute December 28 8:11am [facility] Work Phone: [phone] 700-950905-13-2025 Telephone encounter Note* Telephone Encounter - Antonella Starks NP - 12/27/2024 9:12 AM EDT Leaves voicemail for steroid pack. [facility]. [id number] Miscellaneous Notes* Telephone Encounter - Antonella Starks NP - 12/27/2024 9:12 AM EDT Leaves voicemail for steroid pack. Sent. documented in this encounterDoctors Hospital of [id number] History of Present illness Narrative* Leonardo Whitaker MD - 12/21/2024 9:00 AM EDT Images from the original note were not included. CHIEF COMPLAINT REASON FOR VISIT: Injections. HPI: Dalia Zhang is a 59 y.o. female who presents for bilateral lumbar L5/S1 pain, and bilateral bursa pain. States the pain is a 10/10. She has had extremely severe pain. Went to the one of the surgeons and he wants her to stop smoking and see him back in 4-6 weeks. She asked if there was anyone else that she could see, so we referred her to; Dr. Therese Santoyo. She has paperwork that was filled out for her FMLA. She would like another steroid called in if she could. Her gait at this time, is exteremly slow and is off. The Procedure was done by Dr. Leonardo Whitaker. CURRENT MEDICATIONS: ALLERGIES/DISCONTINUE MEDICATIONS Current Outpatient Medications Medication Instructions alendronate (Fosamax) 70 MG tablet TAKE 1 TABLET BY MOUTH 30 MINUTES BEFORE FIRST FOOD/DRINK/MED OFTHE DAY WITH PLAIN WATER ascorbic acid (Vitamin C) 500 MG chewable tablet Every 24 hours B Complex Vitamins (vitamin B complex) tablet as directed Orally baclofen (LIORESAL) 10 mg, Oral, 3 times daily lidocaine (Lidoderm) 5 % patch 1 patch, Apply externally, Daily, Apply for 12 hours daily Multiple Vitamin (Multi Vitamin) tablet Every 24 [...] FINGER RELEASE Right 02/22/2020 trigger thumb release [facility] Social History Tobacco Use Smoking [...] for agitation, confusion and suicidal ideas. OBJECTIVE: 12/21/2024 10:06 AM 12/13/2024 3:47 PM 12/01/2024 9:03 AM Vitals BMI 17.92 kg/m2 17.92 kg/m2 17.92 kg/m2 BSA (m2) 1.4 m2 1.4 m2 1.4 m2 Systolic 136 144 142 Diastolic 84 74 70 Heart Rate 102 Height (in) 5' 2 Weight (lb) 98 98 98 EXAM: Neurological Exam Mental Status Awake, alert and oriented to person, place and time. Oriented to person, place and time. Recent andremote memory are intact. Speech is normal. Language [...] reflexes: Mohsen's absent. Ankle clonus absent. Coordination Ointth-ub-gmbl, rapid alternating movements and lufi-av-ihgp normal bilaterally without dysmetria. Gait Normal casual, toe, heel and tandem gait. Romberg is absent. Bursa Injection After explaining the risks, complications, and benefits of the procedure, the patient leaned over the exam table. Allergies were reviewed, the consent was signed. After palpating the bilateralgreatertrochanter and identifying the most tender area in [...] dressing was applied on the injection site. The Procedure was done by Dr. Leonardo Whitaker. ASSESSMENT AND PLAN: 1. Degeneration of intervertebral disc of lumbar region with discogenic back pain and lower extremity pain Referral to Neurosurgeon Therese Santoyo. 2. Trochanteric bursitis of left hip (Primary) I will bring him/her back in 4-6 weeks to see if he/she has received 50% or greater pain relief andat that time I will repeat the injections if needed. - bupivacaine (Marcaine) 0.5 % injection 5 mg - dexAMETHasone sod phos (Decadron) injection 4 mg 3. Trochanteric bursitis, right hip - bupivacaine (Marcaine) 0.5 % injection 5 mg - dexAMETHasone sod phos (Decadron) injection 4 mg I will bring her back in 4-6 weeks to see if she has received 50% or greater pain relief and at that time I will repeat the injections if needed. This note was scribed by Cristina Browning(Kermit) acting under the direction of Leonardo Whitaker MD. Thecontent has been reviewed and confirmed for accuracy by Leonardo Whitaker MD documented in this encounterDoctors Hospital of [id number] History of Present illness Narrative* Leonardo Whitaker MD - 12/12/2024 10:00 AM EDT Images from the original note were not included. CHIEF COMPLAINT REASON FOR VISIT : Injections HPI: Dalia Zhang is a 59 y.o. female who presents for bilateral lumbar and bilateral bursa injections. Patient states the pain is still at a 10/10. Has a hard time walking. She is currently off of work, and did go see the neurosurgeon, but states due to her being a smoker, he would want her to stop sm oking for about 4 weeks before he would do anything. [facility], she states the steroid helps, but when she is done with the shiva, she knows it. CURRENT MEDICATIONS: ALLERGIES/DISCONTINUE MEDICATIONS Current Outpatient Medications Medication Instructions alendronate (Fosamax) 70 MG tablet TAKE 1 TABLET BY MOUTH 30 MINUTES BEFORE FIRST FOOD/DRINK/MED OFTHE DAY WITH PLAIN WATER ascorbic acid (Vitamin C) 500 MG chewable tablet Every 24 hours B Complex Vitamins (vitamin B complex) tablet as directed Orally baclofen (LIORESAL) 10 mg, Oral, 3 times daily lidocaine (Lidoderm) 5 % patch 1 patch, Apply externally, Daily, Apply for 12 hours daily Multiple Vitamin (Multi Vitamin) tablet Every 24 [...] FINGER RELEASE Right 02/22/2020 trigger thumb release [facility] Social History Tobacco Use Smoking [...] difficulty urinating and urgency. Musculoskeletal: Positive for arthralgias, back pain, gait problem and myalgias. Negative for neck pain and neck stiffness. Neurological: Positive for weakness. Negative for tremors, light-headedness and numbness. Psychiatric/Behavioral: Negative for agitation, confusion and suicidal ideas. OBJECTIVE: 12/13/2024 3:47 PM 12/01/2024 9:03 AM 11/16/2024 9:22 AM Vitals BMI 17.92 kg/m2 17.92 kg/m2 19.02 kg/m2 BSA (m2) 1.4 m2 1.4 m2 1.44 m2 Systolic 144 142 126 Diastolic 74 70 84 Heart Rate 102 Height (in) 5' 2 Weight (lb) 98 98 104 EXAM: Neurological Exam PROCEDURE: Bursa Injection After explaining the risks, complications, and benefits of the procedure, the patient leaned over the exam table. Allergies were reviewed, the consent was signed. After palpating the bilateralgreatertrochanter and identifying the most tender area in [...] dexAMETHasone sod phos (Decadron) injection 4 mg Trochanteric bursitis of left hip - bupivacaine (Marcaine) 0.5 % injection 5 mg - dexAMETHasone sod phos (Decadron) injection 4 mg 1. Trochanteric bursitis, right hip (Primary) - bupivacaine (Marcaine) 0.5 % injection 5 mg - dexAMETHasone sod phos (Decadron) injection 4 mg I will bring her back in 2-4 weeks to see if she has received 50% or greater pain relief and at that time I will repeat the injections if needed. 2. Trochanteric bursitis of left hip - bupivacaine (Marcaine) 0.5 % injection 5 mg - dexAMETHasone sod phos (Decadron) injection 4 mg I will bring her back in 2-4 weeks to see if she has received 50% or greater pain relief and at that time I will repeat the injections if needed. documented in this [facility]04-22-2025 Telephone encounter Note* Telephone Encounter - Paula Negron NP - 12/06/2024 5:58 PM EDT Referral to Dr Yarelis mcgraw. [facility] [id number] Miscellaneous Notes* Telephone Encounter - Paula Negron NP - 12/06/2024 5:58 PM EDT Referral to Dr Yarelis mcgraw. * Telephone Encounter - Carolee Hanley - 12/06/2024 2:27 PM EDT Pt is calling and would like to have a referral for one of your Dr's because she went to a Dr in [place] and they will not do any testing unless she stops smoking. [phone] documented in this [facility]04-22-2025 Telephone encounter Note* Telephone Encounter - Carolee Hanley - 12/06/2024 2:27 PM EDT Pt is calling and would like to have a referral for one of your Dr's because she went to a Dr in [place] and they will not do any testing unless she stops smoking. [phone] [facility] [id number] History of Present illness Narrative* Oliverio Moody PA-C - 12/06/2024 11:00 AM EDT Chief Complaint: Lumbar radiculopathy Dr. Navarro operated on her son Edgardo late last year. HPI: Dalia Zhang is a 59 y.o. female patient presenting with a couple years of right-sided low back pain with right leg radiculopathy. Her symptoms are increased with standing and walking. She canonly walk very short distances. Her symptoms decreased with sitting. She has no left leg symptoms. She does feel her right leg is weak. She has full control of her bowel and bladder. She has been seeing Dr. Whitaker with neurology for treatment through [facility]. She has had multiple lumbar and hip injections. She has tried exercises on her own at home. She has a history of 2 previous cervical spine surgeries. Now anticoagulations. Current smoker, half pack per day. Review of Systems All other systems have been reviewed and are negative for complaint. All pertinent positive and negative as listed in history of present illness. Medical History[1] Surgical History[2] RX Allergies[3] Medications Ordered Prior to Encounter[4] PE: Const: Well-appearing, well-nourished female in no distress. Eyes: Normal appearing sclera and conjunctiva, no jaundice, pupils normal in appearance. Resp: breathing comfortably, normal respiratory rate. CV: No upper or lower extremity edema. Musculoskeletal: Antalgic gait with limp on the right. Lumbar ROM is supple. Strength exam of the lower extremities reveals 5/5 strength in all major muscle groups. Negative straight leg raise bilaterally. Neuro: Sensation is intact and equal bilaterally. Deep tendon reflexes are normal and symmetric. Noclonus. Skin: Intact without any lesions, normal turgor. Psych: Alert and oriented x3, normal mood and affect. Imaging: I personally reviewed x-rays and MRI of the lumbar spine completed in August 2022 and October 2024 respectively. Plain films show evidence of a mild scoliosis. Moderate degenerative changes throughoutthe lumbar spine. MRI shows significant central canal stenosis at L4-5 with severe right foraminal stenosis. A/P: I had a long discussion with her and her about her symptoms and treatment options moving forward. I do think she would benefit from surgical intervention. We did discuss that she would have to be nicotine free before moving forward with surgery. She was given an appointment to follow-up with Dr. Navarro to discuss surgery in more detail. This note was dictated using speech recognition software and was not corrected for spelling or grammatical errors [1] History reviewed. No pertinent past medical history. [2] History reviewed. No pertinent surgical history. [3] Not on File [4] No current outpatient medications on file prior to visit. No current facility-administered medications on file prior to visit. documented in this [facility] Work Phone: [phone]) 911-177004-17-2025 History of Present illness Narrative* Leonardo Whitaker MD - 12/01/2024 9:20 AM EDT Images from the original note were not included. CHIEF COMPLAINT REASON FOR VISIT : Injections HPI: Dalia Zhang is a 59 y.o. female who presents for bilateral lumbar injections at levels L5/S1. Her appt. Got moved back to . Pain is 7/10, as the day goes on it gets worse. The right legwill not let her lift up and step up on stairs. She seems to walk with an unsteady gait. CURRENT MEDICATIONS: ALLERGIES/DISCONTINUE MEDICATIONS Current Outpatient Medications Medication Instructions alendronate (Fosamax) 70 MG tablet TAKE 1 TABLET BY MOUTH 30 MINUTES BEFORE FIRST FOOD/DRINK/MED OFTHE DAY WITH PLAIN WATER ascorbic acid (Vitamin C) 500 MG chewable tablet Every 24 hours B Complex Vitamins (vitamin B complex) tablet as directed Orally lidocaine (Lidoderm) 5 % patch 1 patch, Apply externally, Daily, Apply for 12 hours daily methylPREDNISolone (Medrol Dospak) 4 MG tablets Follow schedule on package instructions Multiple Vitamin (Multi Vitamin) tablet Every 24 [...] FINGER RELEASE Right 02/22/2020 trigger thumb release [facility] Social History Tobacco Use Smoking status: [...] REVIEW OF SYMPTOMS: Review of Systems OBJECTIVE: 12/01/2024 9:03 AM 11/16/2024 9:22 AM 11/10/2024 10:00 AM Vitals BMI 17.92 kg/m2 19.02 kg/m2 18.47 kg/m2 BSA (m2) 1.4 m2 1.44 m2 1.42 m2 Systolic 142 126 122 Diastolic 70 84 78 Heart Rate 102 Height (in) 5' 2 Weight (lb) 98 104 101 EXAM: Neurological Exam PROCEDURE: Bursa Injection After explaining the risks, complications, and benefits of the procedure, the patient leaned over the exam table. Allergies were reviewed, the consent was signed. After palpating the bilateralgreatertrochanter and identifying the most tender area in [...] in the media folder. ASSESSMENT AND PLAN: 1. Trochanteric bursitis, right hip (Primary) - bupivacaine (Marcaine) 0.5 % injection 5 mg - dexAMETHasone sod phos (Decadron) injection 4 mg I will bring her back in 4-6 weeks to see if she has received 50% or greater pain relief and at that time I will repeat the injections if needed. 2. Trochanteric bursitis of left hip - bupivacaine (Marcaine) 0.5 % injection 5 mg - dexAMETHasone sod phos (Decadron) injection 4 mg I will bring her back in 4-6 weeks to see if she has received 50% or greater pain relief and at that time I will repeat the injections if needed. documented in this encounterDoctors Hospital of [id number] Telephone encounter Note* Telephone Encounter - Behzad Owen MA - 11/24/2024 8:54 AM EDT Updating her paperwork currently. [facility] [id number] Miscellaneous Notes* Telephone Encounter - Behzad Owen MA - 11/24/2024 8:54 AM EDT Updating her paperwork currently. * Telephone Encounter - Leonardo Whitaker MD - 11/24/2024 8:29 AM EDT Absolutely no problem with an extension off of work, She is not a problem behzad so whatever she needs * Telephone Encounter - Carolee Hanley - 11/24/2024 8:02 AM EDT Pt called today and would like to know if she can get an extension to be off work until 12/12/24 dueto the fact she does not see the Dr until 12/07/24. Pleased call her at [phone]. Pt also would like a refill on the Methylprednisolone 4mg. She has taken them all. documented in this [facility]04-10-2025 Telephone encounter Note* Telephone Encounter - Leonardo Whitaker MD - 11/24/2024 8:29 AM EDT Absolutely no problem with an extension off of work, She is not a problem behzad so whatever she needs [place] [id number] Telephone encounter Note* Telephone Encounter - Caroleesoledad Hanley - 11/24/2024 8:02 AM EDT Pt called today and would like to know if she can get an extension to be off work until 12/12/24 dueto the fact she does not see the Dr until 12/07/24. Pleased call her at [phone]. Pt also would like a refill on the Methylprednisolone 4mg. She has taken them all. [place] [id number] Telephone encounter Note* Telephone Encounter - Antonella Starks NP - 11/16/2024 8:35 PM EDT Behzad this was an open encounter sent to Angelina from you but blank? Can you remember what was needed? [facility] [id number] Miscellaneous Notes* Telephone Encounter - Antonella Starks NP - 11/16/2024 8:35 PM EDT Behzad this was an open encounter sent to Angelina from you but blank? Can you remember what was needed? documented in this encounterDoctors Hospital of [id number] History of Present illness Narrative* Leonardo Whitaker MD - 11/16/2024 9:20 AM EDT Images from the original note were not included. CHIEF COMPLAINT REASON FOR VISIT: Injections. HPI: Dalia Zhang is a 59 y.o. female who presents for injections. Pain level is a 7/10. She states she finished her last round of prednisone. She states it helped some. She does have paperwork that needs filled out. No other concerns today. CURRENT MEDICATIONS: ALLERGIES/DISCONTINUE MEDICATIONS Current Outpatient Medications Medication Instructions alendronate (Fosamax) 70 MG tablet TAKE 1 TABLET BY MOUTH 30 MINUTES BEFORE FIRST FOOD/DRINK/MED OFTHE DAY WITH PLAIN WATER ascorbic acid (Vitamin [...] days then stop 9 days 18 pills lidocaine (Lidoderm) 5 % patch 1 patch, Apply externally, Daily, Apply for 12 hours daily methylPREDNISolone (Medrol Dospak) 4 MG tablets Follow schedule on package instructions Multiple Vitamin (Multi Vitamin) tablet Every 24 [...] FINGER RELEASE Right 02/22/2020 trigger thumb release [facility] Social History Tobacco Use Smoking [...] Genitourinary: Negative for frequency. Musculoskeletal: Positive for back pain and gait problem. Negative for neck pain. Neurological: Negative for dizziness, tremors, weakness, light-headedness, numbness and headaches. Psychiatric/Behavioral: Negative. OBJECTIVE: 11/16/2024 9:22 AM 10/28/2024 8:22 AM 10/19/2024 2:02 PM Vitals BMI 19.02 kg/m2 19.2 kg/m2 19.2 kg/m2 BSA (m2) 1.44 m2 1.44 m2 1.44 m2 Systolic 126 Diastolic 84 Height (in) 5' 2 5' 2 5' 2 Weight (lb) 104 105 105 Visit Report Report EXAM: Neurological Exam Mental Status Awake, alert and oriented to person, place and time. Oriented to person, place and time. Recent andremote memory are intact. Speech is normal. Language [...] reflexes: Mohsen's absent. Ankle clonus absent. Coordination Cejfpd-vk-xxgp, rapid alternating movements and qsze-ed-gvrh normal bilaterally without dysmetria. Gait Normal casual, toe, heel and tandem gait. Romberg is absent. PROCEDURE: Bursa Injection After explaining the risks, complications, and benefits of the procedure, the patient leaned over the exam table. Allergies were reviewed, the consent was signed. After palpating the bilateralgreatertrochanter and identifying the most tender area in [...] on the injection site. ASSESSMENT AND PLAN: 1. Trochanteric bursitis, right hip (Primary) - bupivacaine (Marcaine) 0.5 % injection 5 mg - dexAMETHasone sod phos (Decadron) injection 4 mg I will bring her back in 4-6 weeks to see if she has received 50% or greater pain relief and at that time I will repeat the injections if needed. 2. Trochanteric bursitis of left hip - bupivacaine (Marcaine) 0.5 % injection 5 mg - dexAMETHasone sod phos (Decadron) injection 4 mg I will bring her back in 4-6 weeks to see if she has received 50% or greater pain relief and at that time I will repeat the injections if needed. documented in this encounterDoctors Hospital of [id number] Telephone encounter Note* Telephone Encounter - Tala Menezes - 11/10/2024 3:17 PM EDT Patient left message that Dr. Whitaker was going to send a new prescription for her to [facility] in [facility] at pharmacy. Please advise. [facility] [id number] Miscellaneous Notes* Telephone Encounter - Tala Menezes - 11/10/2024 3:17 PM EDT Patient left message that Dr. Whitaker was going to send a new [place] for her [place] [facility] [place]. Please advise. documented in this encounterDoctors Hospital of [id number] History of Present illness Narrative* Leonardo Whitaker MD - 11/10/2024 10:00 AM EDT Images from the original note were not included. CHIEF COMPLAINT REASON FOR VISIT : Injections HPI: Dalia Zhang is a 59 y.o. female who presents for lumbar/bilateral bursa injections. States her pain is still high 10/10, doing a little better with the steroid taper. Her pain is radiating into her legs at times and feels like her legs lock up due to the pain coming from the lower lumbar. CURRENT MEDICATIONS: ALLERGIES/DISCONTINUE MEDICATIONS Current Outpatient Medications Medication Instructions alendronate (Fosamax) 70 MG tablet TAKE 1 TABLET BY MOUTH 30 MINUTES BEFORE FIRST FOOD/DRINK/MED OFTHE DAY WITH PLAIN WATER ascorbic acid (Vitamin [...] days then stop 9 days 18 pills lidocaine (Lidoderm) 5 % patch 1 patch, Apply externally, Daily, Apply for 12 hours daily methylPREDNISolone (Medrol Dospak) 4 MG tablets Follow schedule on package instructions Multiple Vitamin (Multi Vitamin) tablet Every 24 [...] REVIEW OF SYMPTOMS: Review of Systems OBJECTIVE: 11/16/2024 9:22 AM 11/10/2024 10:00 AM 10/28/2024 8:22 AM Vitals BMI 19.02 kg/m2 19.02 kg/m2 19.2 kg/m2 BSA (m2) 1.44 m2 1.44 m2 1.44 m2 Systolic 126 122 Diastolic 84 78 Height (in) 5' 2 5' 2 Weight (lb) 104 104 105 Visit Report Report EXAM: Neurological Exam PROCEDURE: Bursa Injection After explaining the risks, complications, and benefits of the procedure, the patient leaned over the exam table. Allergies were reviewed, the consent was signed. After palpating the bilateral greater trochanter and identifying the most tender area in the bursa, using sterile technique, and surfaceanesthetic; a 25 gauge 1 1/2 spinal needle was advanced to make contact with the greater trochanter. The needle was then withdrawn about 1 mm. The patient received an injection of 3 cc of Bupivacaine 0.5% and1 cc Dexamethasone 4mg in a fan-like distribution. The needle was removed. A Band-Aid dressing was applied on the injection site. ASSESSMENT AND PLAN: 1. Trochanteric bursitis of left hip - bupivacaine (Marcaine) 0.5 % injection 5 mg - dexAMETHasone sod phos (Decadron) injection 4 mg I will bring her back in 4-6 weeks to see if she has received 50% or greater pain relief and at that time I will repeat the injections if needed. . 2. Trochanteric bursitis, right hip (Primary) - bupivacaine (Marcaine) 0.5 % injection 5 mg - dexAMETHasone sod phos (Decadron) injection 4 mg I will bring her back in 4-6 weeks to see if she has received 50% or greater pain relief and at that time I will repeat the injections if needed. . documented in this [facility]03-03-2025 Telephone encounter Note* Telephone Encounter - Antonella Starks NP - 10/17/2024 10:17 AM EST Patient calls for refill of dexamethasone. Sent. [facility] [id number] Miscellaneous Notes* Telephone Encounter - Antonella Starks NP - 10/17/2024 10:17 AM EST Patient calls for refill of dexamethasone. Sent. documented in this [facility]02-24-2025 Telephone encounter Note* Telephone Encounter - Paula Negron NP - 10/10/2024 12:39 PM EST Script sent for lidocaine patches [facility] [id number] Miscellaneous Notes* Telephone Encounter - Paula Negron NP - 10/10/2024 12:39 PM EST Script sent for lidocaine patches documented [facility] this [facility] [facility] Telephone encounter Note* Telephone Encounter - Antonella Starks NP - 10/05/2024 11:44 AM EST Sent. Mychart message sent to patient [facility] [id number] Miscellaneous Notes* Telephone Encounter - Antonella Starks NP - 10/05/2024 11:44 AM EST Sent. neoSaejhart message sent to patient * Telephone Encounter - Tala Menezes - 10/05/2024 11:13 AM EST Patient called requesting refill of Dexamethasone to be sent to [facility] in [place]. documented in this encounterDo[facility] of [id number] Telephone encounter Note* Telephone Encounter - Tala Menezes - 10/05/2024 11:13 AM EST Patient called requesting refill of Dexamethasone to be sent to [facility] in [place]. [facility] [id number] Telephone encounter Note* Telephone Encounter - Antonella Starks NP - 09/15/2024 7:26 PM EST Patient leaves voicemail for refill of dexamethasone. Sent to pharmacy and notified patient via [employer]. [facility] [id number] Miscellaneous Notes* Telephone Encounter - Antonella Starks NP - 09/15/2024 7:26 PM EST Patient leaves voicemail for refill of dexamethasone. Sent to pharmacy and notified patient via [employer]. documented in this [facility]01-13-2025 History of Present illness Narrative* Leonardo Whitaker MD - 08/29/2024 8:40 AM EST Images from the original note were not [...] BY MOUTH 30 MINUTES BEFORE FIRST FOOD/DRINK/MED OFTHE DAY WITH PLAIN WATER ascorbic acid (Vitamin [...] FINGER RELEASE Right 02/22/2020 trigger thumb release [facility] Social History Tobacco Use Smoking [...] Oriented to person, place and time. Recent andremote memory are intact. Speech is normal. Language [...] reflexes: Mohsen's absent. Ankle clonus absent. Coordination Wsdwae-ic-divh, rapid alternating movements and sgec-dx-kidi normal bilaterally without dysmetria. Gait Normal casual, [...] distribution. The needle was removed. A Band-Aid dressingwas applied on the injection site. ASSESSMENT AND [...] reduce inflammation and alleviate pain. The effects ofthe injection can last from several weeks to several months, depending on the severity of the condition and response to the treatment. EMG BLE (06/20/2024)-Bilateral L5 radiculopathy. Moderate on the right & mild on the left. XRAY Lumbar Spine-(05/30/24)-Dextroconvex scoliosis of the lumbar spine with minimal retrolisthesisL2 on L3 and anterior listhesis L4 on L5. Very advanced degenerative change particularly in the midand lower levels. XRAY Right Hip-(05/30/24)-No fracture or [...] the injections if needed. documented in this [facility]01-07-2025 Telephone encounter Note* Telephone Encounter - Lyla Vicente - 08/23/2024 2:58 PM EST Needs a refill on Dexamethasone 2mg [facility] Work Phone: [phone] 418-324201-07-2025 Miscellaneous Notes* Telephone Encounter - Lyla Vicente - 08/23/2024 2:58 PM EST Needs a refill on Dexamethasone [facility]mg [facility] documented in this [facility]12-02-2024 History of Present illness Narrative* Leonardo Whitaker MD - 07/18/2024 9:00 AM EST Images from the original note were not [...] BY MOUTH 30 MINUTES BEFORE FIRST FOOD/DRINK/MED OFTHE DAY WITH PLAIN WATER ascorbic acid (Vitamin [...] FINGER RELEASE Right 02/22/2020 trigger thumb release [facility] Social History Tobacco Use Smoking [...] Oriented to person, place and time. Recent andremote memory are intact. Speech is normal. Language [...] reflexes: Mohsen's absent. Ankle clonus absent. Coordination Xyugrx-zp-crex, rapid alternating movements and trrk-fl-vneg normal bilaterally without dysmetria. Gait Normal casual, [...] reduce inflammation and alleviate pain. The effects ofthe injection can last from several weeks to [...] a tens unit for back/hip pain to prakash. Dexamethasone 2 mg taper in between visits [...] visit with Dr. Lockett. documented in this encounterDoctors Hospital of [id number] Telephone encounter Note* Telephone Encounter - Cecilia Amador - 06/13/2024 8:14 AM EDT Pt is requesting refill of Decadron rx. [place] [id number] Miscellaneous Notes* Telephone Encounter - Ceciliapresley Amador - 06/13/2024 8:14 AM EDT Pt is requesting refill of Decadron rx. documented in this [facility]10-17-2024 Telephone encounter Note* Telephone Encounter - Cecilia Amador - 06/02/2024 8:39 AM EDT Pt would like someone to call her with xr results if possible. I explained how MyChart works for her and sent a new link but she would still like a call. [place] [id number] Miscellaneous Notes* Telephone Encounter - Cecilia Amador - 06/02/2024 8:39 AM EDT Pt would like someone to call her with xr results if possible. I explained how MyChart works for her and sent a new link but she would still like a call. documented in this [facility]10-14-2024 History of Present illness Narrative* Leonardo Whitaker MD - 05/30/2024 10:00 AM EDT Images from the original note were not [...] FINGER RELEASE Right 02/22/2020 trigger thumb release [facility] Social History Tobacco Use Smoking [...] Oriented to person, place and time. Recent andremote memory are intact. Speech is normal. Language [...] reflexes: Mohsen's absent. Ankle clonus absent. Coordination Oxccxw-up-yanu, rapid alternating movements and uzpv-cg-ctbg normal bilaterally without dysmetria. Gait Normal casual, [...] the injections if needed. documented in this encounterDoctors Hospital of [id number] History of Present illness Narrative* Samantha Hull, DOMI - 04/13/2024 9:00 AM EDT Images from the original note were not [...] Oriented to person, place and time. Recent andremote memory are intact. Speech is normal. Language [...] reflexes: Mohsen's absent. Ankle clonus absent. Coordination Fkwxbg-wk-xlqr, rapid alternating movements and iqfa-sg-kfqw normal bilaterally without dysmetria. Gait Normal casual, [...] applied on the injection site.Ultrasound images were placedin the media folder. ASSESSMENT AND PLAN: Diagnoses [...] (500 mg) before bedtime. documented in this encounterDoctors Hospital of [id number] History of Present illness Narrative* Antonella Starks, DIRECTOR [facility] - 09/29/2023 9:30 AM EST Subjective Dalia Zhang is a 58 y.o. female. HPI Patient presents via televisit. Patient pain level today /10. Pain reduced greater than 50% for 2.5 weeks. She is taking mobic. Dexamethasone helps her the most. She feels a lot of swelling. She hastried massage, ice, heat, home exercises and PT. [...] po daily X3 days , then 1 pillpo daily X3 days then stop 9 days [...] FINGER RELEASE Right 02/22/2020 trigger thumb release [facility] Family History Problem Relation Name Age of Onset Other (blood thinners medication, low iron) Mother Other (had open heart surgery) Mother Hyperlipidemia Mother Hypertension Mother Leukemia Father No Known Problems Sister No Known Problems Daughter No Known Problems Son Melanoma Neg Hx reports that she has been smoking cigarettes. She has been smoking an average of 0.5 packs per day.She has never used smokeless tobacco. She reports [...] disease and sciatica left side greater than right.She also experiences hip pain. 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 She has tried but not limited to PT, home exercises, greater than 6- 8 weeksof provider directed care, steroid tapers, Mobic, other [...] pain returns acute, moderate/severe. documented in this encounterDoctors Hospital of [id number] NotePROCEDURE: XR FOOT RT MIN 3 VIEWS COMPARISON: 10/28/2021 HISTORY: Right foot pain FINDINGS: BONES:No acute fracture or dislocation. Stable corticated calcific densities noted along the medial margin of the navicular and lateral margin of the cuboid. SOFT TISSUES:Negative. No visible soft tissue swelling. EFFUSION:None visible. OTHER: Negative. IMPRESSION: No acute fracture Electronically authenticated by: PAULINE BROTHERS Date: 2021-11-05 10:37[facility]03-14-2022 NotePROCEDURE: XR FOOT RT MIN 3 VIEWS COMPARISON: None. HISTORY: Unspecified fall FINDINGS: BONES:Calcific density identified along the lateral margin of the cuboid on image #3 this is corticated and I favor chronic injury or unfused secondary ossification center over an avulsion fracture SOFT TISSUES:Negative. No visible soft tissue swelling. EFFUSION:None visible. OTHER: Negative. IMPRESSION: No definite acute fracture Electronically authenticated by: PAULINE BROHTERS Date: 2021-10-28 12:24[facility] No data available for this section [facility]* Diagnosis Sciatica of left side- Primary Degenerative disc disease, lumbar Trochanteric bursitis of left hip Lumbar radiculopathy Thoracic or lumbosacral neuritis or radiculitis, unspecified Trochanteric bursitis of right hip documented in this encounter [facility]* Diagnosis Trochanteric bursitis of right hip- Primary Trochanteric bursitis of right hip documented in this encounter [facility]* Diagnosis Trochanteric bursitis of left hip Lumbar radiculopathy Thoracic or lumbosacral neuritis or radiculitis, unspecified documented in this encounter [facility] note* Diagnosis Age-related nuclear cataract of both eyes documented in this encounter [facility]* Diagnosis Trochanteric bursitis, right hip- Primary Lumbar radiculopathy Thoracic or lumbosacral neuritis or radiculitis, unspecified Degeneration of intervertebral disc of lumbar region, unspecified whether pain present Trochanteric bursitis of left hip documented in this encounter [facility]* Diagnosis Trochanteric bursitis, right hip- Primary Trochanteric bursitis of left hip documented in this encounter [facility] note* Diagnosis Lumbar radiculopathy Thoracic or lumbosacral neuritis or radiculitis, unspecified Trochanteric bursitis of left hip documented in this encounter [facility]* Diagnosis Trochanteric bursitis, right hip- Primary Lumbar radiculopathy Thoracic or lumbosacral neuritis or radiculitis, unspecified documented in this encounter [facility] note* Diagnosis Lumbar radiculopathy Thoracic or lumbosacral neuritis or radiculitis, unspecified [facility]* Diagnosis Lumbar radiculopathy Thoracic or lumbosacral neuritis or radiculitis, unspecified [facility]* Diagnosis Lumbar radiculopathy- Primary Thoracic or lumbosacral neuritis or radiculitis, unspecified documented in this encounter [facility] HealthcareEvaluation note* Diagnosis Age-related nuclear cataract of both eyes [facility]* Diagnosis Lumbar radiculopathy Thoracic or lumbosacral neuritis or radiculitis, unspecified [facility]* Diagnosis Lumbar radiculopathy- Primary Thoracic or lumbosacral neuritis or radiculitis, unspecified documented in this encounter [facility] note* Diagnosis Trochanteric bursitis, right hip- Primary Trochanteric bursitis of left hip documented in this encounter [facility]* Diagnosis Trochanteric bursitis, right hip- Primary Trochanteric bursitis of left hip documented in this encounter [facility]* Diagnosis Trochanteric bursitis, right hip- Primary Trochanteric bursitis of left hip Lumbar radiculopathy Thoracic or lumbosacral neuritis or radiculitis, unspecified documented in this encounter [facility]* Diagnosis Lumbar stenosis with neurogenic claudication- Primary documented in this encounter [facility] Work Phone: Evaluation note* Diagnosis Degeneration of intervertebral disc of lumbar region with discogenic back pain and lower extremity pain- Primary Spinal stenosis of lumbar region, unspecified whether neurogenic claudication present [facility]* Diagnosis Trochanteric bursitis, right hip- Primary Trochanteric bursitis of left hip documented in this encounter [facility]* Diagnosis Degeneration of intervertebral disc of lumbar region with discogenic back pain and lower extremity pain Trochanteric bursitis of left hip Trochanteric bursitis, right hip documented in this encounter [facility]* Diagnosis Trochanteric bursitis of left hip- Primary Degeneration of intervertebral disc of lumbar region with discogenic back pain and lower extremity pain Trochanteric bursitis, right hip documented in this encounter [facility] HealthcareEvaluation noteNo assessment information availableTrumbull Memorial Hospital Work Phone: Evaluation note* Diagnosis Lumbar radiculopathy Thoracic or lumbosacral neuritis or radiculitis, unspecified [facility]* Diagnosis Lumbar radiculopathy- Primary Thoracic or lumbosacral neuritis or radiculitis, unspecified Muscle weakness Muscle weakness (generalized) Impaired gait documented [facility]* Diagnosis Lumbar radiculopathy- Primary Thoracic or lumbosacral neuritis or radiculitis, unspecified Muscle weakness Muscle weakness (generalized) Impaired gait documented [facility]* Diagnosis Lumbar radiculopathy- Primary Thoracic or lumbosacral neuritis or radiculitis, unspecified Muscle weakness Muscle weakness (generalized) Impaired gait documented [facility]* Diagnosis Lumbar radiculopathy- Primary Thoracic or lumbosacral neuritis or radiculitis, unspecified Muscle weakness Muscle weakness (generalized) Impaired gait documented [facility]* Diagnosis Trochanteric bursitis of left hip- Primary Lumbar radiculopathy Thoracic or lumbosacral neuritis or radiculitis, unspecified Chronic SI joint pain Disorders of sacrum Trochanteric bursitis, right hip [facility]* Diagnosis Myalgia- Primary Unspecified myalgia and myositis Lumbar radiculopathy Thoracic or lumbosacral neuritis or radiculitis, unspecified documented [facility]* Diagnosis Lumbar radiculopathy- Primary Thoracic or lumbosacral neuritis or radiculitis, unspecified Muscle weakness Muscle weakness (generalized) Impaired gait documented [facility]* Diagnosis Lumbar radiculopathy Thoracic or lumbosacral neuritis or radiculitis, unspecified documented [facility]* Diagnosis Lumbar radiculopathy Thoracic or lumbosacral neuritis or radiculitis, unspecified documented [facility]* Diagnosis Lumbar radiculopathy- Primary Thoracic or lumbosacral neuritis or radiculitis, unspecified Muscle weakness Muscle weakness (generalized) Impaired gait documented in this encounter [facility] note* Diagnosis Myalgia- Primary Unspecified myalgia and myositis documented in this encounter [facility]* Diagnosis Sacroiliitis- Primary Sacroiliitis, not elsewhere classified Facet arthropathy, lumbar Spinal stenosis of cervical region Spinal stenosis in cervical region Foraminal stenosis of cervical region Spinal stenosis of lumbar region without neurogenic claudication Lumbar foraminal stenosis Retrolisthesis Disorder of bone and cartilage, unspecified documented in this encounter [facility]* Diagnosis Lumbar radiculopathy- Primary Thoracic or lumbosacral neuritis or radiculitis, unspecified Chronic SI joint pain Disorders of sacrum Trochanteric bursitis of left hip Trochanteric bursitis, right hip Degeneration of intervertebral disc of lumbar region with discogenic back pain and lower extremity pain Spinal stenosis of lumbar region, unspecified whether neurogenic claudication present documented in this encounter [facility]* Diagnosis Myalgia- Primary Unspecified myalgia and myositis documented in this encounter [facility]* Diagnosis Lumbar radiculopathy Thoracic or lumbosacral neuritis or radiculitis, unspecified documented in this encounter [facility] HealthcareHospital Discharge instructions No data available for this section [facility] Discharge instructionsAmbulatory Orders* Referral to PT / OT / Speech (PT/OT/SP) Location: None [facility] Work Phone: Hospital Discharge instructionsAmbulatory Orders* Referral to Neurosurgery Location: None [facility] Work Phone: InstructionsNot on filedocumented in this encounter [facility]Progress [facility] No data available for this section [facility] HospitalReason for visit Narrative* Orthopedic (Routine) - Pending Review Specialty Diagnoses / Procedures Referred By Butch chowdhury Referred To Contact Diagnoses Other forms of scoliosis, lumbar region Procedures [place] UNLISTED EVALUATION AND MANAGEMENT SERVICE Raghav Dasilva, DO [address] [place] [address] Phone: tel: [place]: [place] [address] [address] Department of Orthopedics [place] [phone] Phone: tel: fax: Referral ID Status Reason Start Date Expiration Date V isits Requested Visits Authorized [id number] Pending Review 10/31/2024 04/29/2025 1 1 [facility] Work Phone: Reason for visit Narrative* Rehabilitation - Outpatient (Routine) - Authorized Specialty Diagnoses / Procedures Referred By Butch t Referred To Contact Physical Therapy Diagnoses Other spondylosis with radiculopathy, lumbar region Procedures [place] PHYSICAL THERAPY EVALUATION LOW COMPLEX 20 MINS Therese Santoyo MD [address] [place] [address] Phone: tel: fax: Tess Saunders, PT [address] [place] [address] Phone: tel: fax: Referral ID Status Reason Start Date Expiration Date Visits Requested Visits Authorized [id number] Authorized Consult and Treat 01/11/2025 07/10/2025 40 40 [facility] Narrative* Rehabilitation - Outpatient (Routine) - Authorized Specialty Diagnoses / Procedures Referred By Butch t Referred To Contact Physical Therapy Diagnoses Other spondylosis with radiculopathy, lumbar region Procedures [place] PHYSICAL THERAPY EVALUATION LOW COMPLEX 20 MINS Therese Santoyo MD [address] [place] [address] Phone: tel: fax: Tess Saunders, PT [address] [place] [address] Phone: tel: fax: Referral ID Status Reason Start Date Expiration Date Visits Requested Visits Authorized [id number] Authorized Consult and Treat 01/11/2025 08/16/2025 40 40 [facility] Summary Purpose Family History No Family History Records FoundNo Family History Records Found No data available for this section No data available for this section No Family History Records FoundNo Family History Records FoundNo Family History Records FoundNo Family History Records FoundNo Family History Records FoundNo Family History Records Found Advance Directives Advance Directive Response Recorded Date/ Time Advance Directives No July 25, 2022 9:52am Chief Complaint and Reason for Visit Chief Complaint Admit Date low back pain December 28, 2024 8:11a m M47.26 January 10, 2025 2:44p m G95.9 January 18, 2025 9:31a m Reason for Visit Admit Date Chronic pain December 28, 2024 8:11a m Chief Complaint Admit Date low back pain December 28, 2024 8:11a m Chief Complaint Admit Date low back pain December 28, 2024 8:11a m M47.26 January 10, 2025 2:44p m Chief Complaint Admit Date low back pain December 28, 2024 8:11a m M47.26 January 10, 2025 2:44p m G95.9 January 18, 2025 9:31a m imaging results January 23, 2025 8:23a m Additional Source Comments INFORMATION SOURCE (unrecogn ized section and content) DATE CREATED AUTHOR 10/31/2018 [facility] DATE CREATED AUTHOR AUTHOR'S ORGANIZ ATION 06/29/2022 [facility] DATE CREATED AUTHOR AUTHOR'S ORGANIZ ATION 08/13/2024 [facility] DATE CREATED AUTHOR AUTHOR'S ORGANIZ ATION 12/11/2024 [facility] DATE CREATED AUTHOR AUTHOR'S ORGANIZ ATION 02/24/2025 [facility] DATE CREATED AUTHOR AUTHOR'S ORGANIZ ATION 02/27/2025 [facility] DATE CREATED AUTHOR AUTHOR'S ORGANIZ ATION 03/02/2025 [facility] DATE CREATED AUTHOR AUTHOR'S ORGANIZ ATION 03/21/2025 [facility] EPIC Patient Care team informatio n (unrecognized section and content) 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 Machine Tool Setter Relationship Specialty Start Date End Date Patrick Swenson MD [address] [place] [address] PCP - General Family Medicine 10/28/24 Leonardo Whitaker MD [address] [facility] [address] [place] [address], [place] [address] Referring Physician Neurology 10/28/24 Loading Machine Tool Setter Relationship Specialty Start Date End Date Patrick Swenson MD [address] [facility] [place] [address] PCP - General Family Medicine 10/28/24 Leonardo Whitaker MD [address] [facility] [address] [place] [address], [place] [address] Referring Physician Neurology 10/28/24 Loading Machine Tool Setter Relationship Specialty Start Date End Date Patrick Swenson MD [address] [facility] [place] [address] PCP - General Family Medicine 10/28/24 Leonardo Whitaker MD [address] [facility] [address] [place] [address], [place] [address] Referring Physician Neurology 10/28/24 Loading Machine Tool Setter Relationship Specialty Start Date End Date Patrick Swenson MD [address] [facility] [place] [address] PCP - General Family Medicine 10/28/24 Leonardo Whitaker MD [address] [facility] [address] [place] [address], [place] [address] Referring Physician Neurology 10/28/24 Loading Machine Tool Setter Relationship Specialty Start Date End Date Patrick Swenson MD [address] [facility] [place] [address] PCP - General Family Medicine 10/28/24 Leonardo Whitaker MD [address] [facility] [address] [place] [address] Referring Physician Neurology 10/28/24 Loading Machine Tool Setter Relationship Specialty Start Date End Date Patrick Swenson MD [address] [place] [address] PCP - General Family Medicine 10/28/24 Leonardo Whitaker MD [address] [facility] [address] [place] [address] Referring Physician Neurology 10/28/24 Loading Machine Tool Setter Relationship Specialty Start Date End Date Patrick Swenson MD [address] [place] [id number] PCP - General Family Medicine 10/28/24 Leonardo Whitaker MD [address] [facility] [address] [place] [address] Referring Physician Neurology 10/28/24 Loading Machine Tool Setter Relationship Specialty Start Date End Date Patrick Swenson MD [address] [place] [id number] PCP - General Family Medicine 10/28/24 Leonardo Whitaker MD [address] [facility] [address] [place] [address] [id number] Referring Physician Neurology 10/28/24 Loading Machine Tool Setter Relationship Specialty Start Date End Date Patrick Swenson MD [address] [place] [address] PCP - General Family Medicine 10/28/24 Leonardo Whitaker MD [address] [facility] [address] [place] [address], [place] [address] Referring Physician Neurology 10/28/24 Loading Machine Tool Setter Relationship Specialty Start Date End Date Patrick Swenson MD [address] [place] [phone] PCP - General Family Medicine 10/28/24 Leonardo Whitaker MD [address] [facility] [address]o [address] [place] [address], [place] [address] Referring Physician Neurology 10/28/24 Loading Machine Tool Setter Relationship Specialty Start Date End Date Patrick Swenson MD PCP - General Family Medicine 10/28/24 Leonardo Whitaker MD [address] [facility] [address]o [address] [place] [address] Referring Physician Neurology 10/28/24 Loading Machine Tool Setter Relationship Specialty Start Date End Date Patrick Swenson MD PCP - General Family Medicine 10/28/24 Leonardo Whitaker MD [address] [facility] [address] [facility] [place] [address] Referring Physician Neurology 10/28/24 Loading Machine Tool Setter Relationship Specialty Start Date End Date Patrick Swenson MD PCP - General Family Medicine 10/28/24 Leonardo Whitaker MD [address] [place] [address] Referring Physician Neurology 10/28/24 Team Status: Active Member Role Status Dates Patrick Swenson MD Primary Care Provider Active Team Status: Inactive Member Role Status Dates Patrick Swenson MD Primary Care Provider Active Start: December 28, 2024 End: December 28, 2024 Therese Santoyo DO Attending Provider Active S tart: December 28, 2024 End: December 28, 2024 Loading Machine Tool Setter Relationship Specialty Start Date End Date Patrick Swenson MD PCP - General Family Medicine 10/28/24 Leonardo Whitaker MD [address] [place] [address] Referring Physician Neurology 10/28/24 Team Status: Inactive Member Role Status Dates Patrick Swenson MD Primary Care Provider Active Start: January 10, 2025 End: January 10, 2025 Therese Santoyo DO Attending Provider Active S tart: January 10, 2025 End: January 10, 2025 NON STAFF Other Provider Active Start: January 102024 End: January 10, 2025 Loading Machine Tool Setter Relationship Specialty Start Date End Date Patrick Swenson MD PCP - General Family Medicine 10/28/24 Leonardo Whitaker MD [address] [place] [address] Referring Physician Neurology 10/28/24 Loading Machine Tool Setter Relationship Specialty Start Date End Date Patrick Swenson MD PCP - General Family Medicine 10/28/24 Leonardo Whitaker MD [address] [facility] [address]o [address] [place] [address], [place] [address] Referring Physician Neurology 10/28/24 Team Status: Inactive Member Role Status Dates Patrick Swenson MD Primary Care Provider Active Start: January 18, 2025 End: January 18, 2025 Therese Santoyo DO Attending Provider Active S tart: January 18, 2025 End: January 18, 2025 Team Status: Inactive Member Role Status Dates Patrick Swenson MD Primary Care Provider Active Start: January 23, 2025 End: January 23, 2025 Therese Santoyo , Attending Provider Active S tart: January 23, 2025 End: January 23, 2025 Loading Machine Tool Setter Relationship Specialty Start Date End Date Patrick Swenson MD PCP - General Family Medicine 10/28/24 Leonardo Whitaker MD [address] [facility] [address]o [address] [place] [address], [place] [address] Referring Physician Neurology 10/28/24 Loading Machine Tool Setter Relationship Specialty Start Date End Date Patrick Swenson MD PCP - General Family Medicine 10/28/24 Leonardo Whitaker MD [address] [place] [address], [place] [address] Referring Physician Neurology 10/28/24 Loading Machine Tool Setter Relationship Specialty Start Date End Date Patrick Swenson MD PCP - General Family Medicine 10/28/24 Leonardo Whitaker MD [address] [place] [address], [place] [address] Referring Physician Neurology 10/28/24 Loading Machine Tool Setter Relationship Specialty Start Date End Date Patrick Swenson MD PCP - General Family Medicine 10/28/24 Leonardo Whitaker MD [address] [facility] [address]o [address] [place] [address], [place] [address] Referring Physician Neurology 10/28/24 Loading Machine Tool Setter Relationship Specialty Start Date End Date Patrick Swenson MD PCP - General Family Medicine 10/28/24 Leonardo Whitaker MD [address] [facility] [address]o [address] [place] [address], [place] [address] Referring Physician Neurology 10/28/24 Loading Machine Tool Setter Relationship Specialty Start Date End Date Patrick Swenson MD PCP - General Family Medicine 10/28/24 Leonardo Whitaker MD [address] [facility] [address]o [address] [place] [address] Referring Physician Neurology 10/28/24 Loading Machine Tool Setter Relationship Specialty Start Date End Date Patrick Swenson MD PCP - General Family Medicine 10/28/24 Leonardo Whitaker MD [address] [facility] [address]o [address] [place] [address], [place] [address] Referring Physician Neurology 10/28/24 Loading Machine Tool Setter Relationship Specialty Start Date End Date Patrick Swenson MD PCP - General Family Medicine 10/28/24 Leonardo Whitaker MD [address]o [address] [place] [address], [place] [address] Referring Physician Neurology 10/28/24 Loading Machine Tool Setter Relationship Specialty Start Date End Date Patrick Swenson MD PCP - General Family Medicine 10/28/24 Leonardo Whitaker MD [address] [facility] [address]o [address] [place] [address], [place] [address] Referring Physician Neurology 10/28/24 Loading Machine Tool Setter Relationship Specialty Start Date End Date Patrick Swenson MD PCP - General Family Medicine 10/28/24 Leonardo Whitaker MD [address] [facility] [address]o [address] [place] [address], [place] [address] Referring Physician Neurology 10/28/24 Loading Machine Tool Setter Relationship Specialty Start Date End Date Patrick Swenson MD PCP - General Family Medicine 10/28/24 Leonardo Whitaker MD [address]o [address] [place] [address], [place] [address] Referring Physician Neurology 10/28/24 Loading Machine Tool Setter Relationship Specialty Start Date End Date Patrick Swenson MD PCP - General Family Medicine 10/28/24 Leonardo Whitaker MD [address] [place] [address], [place] [address] Referring Physician Neurology 10/28/24 Loading Machine Tool Setter Relationship Specialty Start Date End Date Patrick Swenson MD PCP - General Family Medicine 10/28/24 Leonardo Whitaker MD [address] [facility] [address]o [address] [place] [address], [place] [address] Referring Physician Neurology 10/28/24 Loading Machine Tool Setter Relationship Specialty Start Date End Date Patrick Swenson MD PCP - General Family Medicine 10/28/24 Leonardo Whitaker MD [address] [facility] [address]o [address] [place] [address], [place] [address] Referring Physician Neurology 10/28/24 Loading Machine Tool Setter Relationship Specialty Start Date End Date Patrick Swenson MD PCP - General Family Medicine 10/28/24 Leonardo Whitaker MD [address] [facility] [address]o [address] [place] [address], [place] [address] Referring Physician Neurology 10/28/24 Loading Machine Tool Setter Relationship Specialty Start Date End Date Patrick Swenson MD PCP - General Family Medicine 10/28/24 Leonardo Whitaker MD [address] [facility] [address]o [address] [place] [address], [place] [address] Referring Physician Neurology 10/28/24 Loading Machine Tool Setter Relationship Specialty Start Date End Date Patrick Swenson MD PCP - General Family Medicine 10/28/24 Leonardo Whitaker MD [address]o [address] [place], [place] [phone] Referring Physician Neurology 10/28/24 Reason for Visit (unrecogniz ed section and content) Reason Comments Med Refill Reason Comments Consult 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 [employer] provides no warranty or guarantee of the accuracy or completeness of information in this document.
== END 2025-04-13 14:57 | disposition home or self-care (01) ==
LOC: CT 14:56
PROVIDERS: PCP Family Medicine; Visit Provider Family Medicine
DX: R91.8 Other nonspecific abnormal finding of lung field (principal); F17.210 Nicotine dependence, cigarettes, uncomplicated
CPT/HCPCS: 71271

== ENCOUNTER 2025-04-20 09:10 | Outpatient (OUT) | payer OTHER, SELFPAY ==
--- OUTSIDE RECORDS SUMMARY | 2025-04-20 09:14 | XMS_ITS | Encounter Summary ---
Author Organization [facility] Address [address] [place] [address] Care Team Providers Care Clinical Services Professional Name Role Phone Yasmany Swenson MD Primary Care Provider [phone] Kemar Whitaker MD Unavailable [phone] Encounter Details Date Type Department Care Team (Late Contact Info) Description 05/12/2023 Abstract [facility] [address] [place] [phone] Kemar Whitaker MD [address] [place] [address] [phone] Social History Tobacco Use Types Packs/Day Years Used Date Smoking Tobacco: Every Day Cigarettes Tobacco Cessation:Ready to Q uit: Not Asked; Counseling Given: Not Answered Alcohol Use Standard Drinks/Week Comments Yes 0 (1 standard drink = 0.6 oz pure alcohol) monthly or less, soda/pop,coffee,tea more than 4 cups per day Comments Unknown Sex and Gender Information Value Date Recorded Sex Assigned at Not on file Legal Sex Female 6:39 PM EDT Gender Identity Not on file Sexual Orientation Not on file documented as of this encounter Plan of Treatment Upcoming Encounters Date Type Department Care Team (Late Contact Info) Description 05/01/2025 2:20 PM EDT Clinical Support [facility] [address] [place] [address] [place] [phone] Kemar Whitaker MD [address] [place] [phone] documented as of this encounter Visit Diagnoses Not on filedocumented in this encounter Care Teams Clinical Services Professional Relationship Specialty Start Date End Date Yasmany Swenson MD PCP - General Family Medicine 10/28/24 Kemar Whitaker MD [address] [place] [address] Referring Physician Neurology 10/28/24 documented as of this encounter
--- OUTSIDE RECORDS SUMMARY | 2025-04-20 09:14 | XMS_ITS | Encounter Summary ---
Author Organization [employer] tem Address [id number] [address] [place] [address] Care Team Providers Care Child Adolescent Care Name Role Phone Unavailable Primary Care Provider Unavailabl e Encounter Details Date Type Department Care Team (Late st Contact Info) Description 02/01/2025 Orders Only [facility] [address] [place] [phone] Justo Agosto MD [address] [phone] Low back pain, unspecified back pain laterality, unspecified chronicity, unspecified whether sciatica present (Primary Dx); Neck pain Social History Tobacco Use Types Packs/Day Years Used Date Smoking Tobacco: Never Assessed Childcare Answer Date Recorded Childcare Unknown 01/24/2019 Employment Answer Date Recorded Employment Unknown 01/24/2019 Comments Unknown Sex and Gender Information Value Date Recorded Sex Assigned at Not on file Legal Sex Female 4:10 PM EDT Gender Identity Not on file Sexual Orientation Not on file documented as of this encounter Plan of Treatment Not on file documented as of this encounter Results * X-ray spine lumbar flexion and extension only 2 to 3 views (02/16/2025 10:16 AM EDT) Anatomical Region Laterality Modality MSK, Neuro, Spine, L-spine N/A Compu barron Radiography 02/20/2025 1:09 PM EDT Narrative 02/20/2025 1:10 PM EDT History: Back pain Exam/Technique: Lateral flexion-extension views [...] evidence of instability is seen. Finalized by Sreedhar Fritz MD on 02/20/2025 1:10 PM Procedure Note Sreedhar Fritz MD - 02/20/2025 History: Back pain Exam/Technique: Lateral flexion-extension views of the lumbar spine wereobtained. Comparison: Comparison made to a CT abdomen pelvis dated 01/10/2025 Findings: There is multilevel disc space narrowing. Multilevel facetarthropathy is seen. The vertebral heights are well-maintained. Noevidence of instability is seen in either flexion or extension views. IMPRESSION: Multilevel disc space narrowing and facet arthropathy. Noevidence of instability is seen. Finalized by Sreedhar Fritz MD on 02/20/2025 1:10 PM Frankie Reese MD [facility] ORDERA BLES Final Result * X-ray spine cervical flexion/extension only 2 views (02/16/2025 10:15 AM EDT) Anatomical Region Laterality Modality MSK, Neuro, Spine, C-spine N/A Compu barron Radiography 02/20/2025 2:30 PM EDT Narrative 02/20/2025 2:32 PM EDT HISTORY: A 59-year-old female with a history [...] Rober Feldman MD on 02/20/2025 2:32 PM Procedure Note Rober Feldman MD - 02/20/2025 HISTORY: A 59-year-old female with a history of the chronic neck pain.Prior to cervical surgeries. TECHNIQUE: Lateral views of the cervical spine in neutral, flexion andextension views: 3 views COMPARISON: Comparison is made with MRI examination of the cervical spineof 01/18/2025. FINDINGS: There is a surgical anterior spinal fusion from C5 to C7 withfixation plate and screws. There is satisfactory surgical spinal fusionwithout evidence of hardware complication. There are advanced disc degenerative changes in the cervical spine withsmall osteophytes and reduction of disc spaces at all levels. The odontoidprocess is intact. No significant prevertebral soft tissue abnormalityseen. Lateral views in the flexion and extension positions reveal no abnormalmovements to suggest instability. IMPRESSION: * See the discussion above. Finalized by Rober Feldman MD on 02/20/2025 2:32 PM Frankie Reese MD [facility] DI[facility] ORDERA BLES Final Result documented in this encounter Visit Diagnoses Diagnosis Low back pain, unspecified back pain laterality, unspecified chronicity, unspecified whether sciatica present- Primary Neck pain Cervicalgia Neck pain Cervicalgia Low back pain, unspecified back pain laterality, unspecified chronicity, unspecified whether sciatica present documented in this encounter
--- OUTSIDE RECORDS SUMMARY | 2025-04-20 09:14 | XMS_ITS | Encounter Summary ---
Author Organization [facility] Address [address] [place] [address] Care Team Providers Care Loan Funder Name Role Phone Yasmany Swenson MD Primary Care Provider [phone] Kemar Whitaker MD Unavailable [phone] Encounter Details Date Type Department Care Team (Late st Contact Info) Description 04/05/2025 Telephone [facility] [address] [facility] [address] [place] [address] Kemar Whitaker MD [address] [facility] [address] [place] [address] Social History Tobacco Use Types Packs/Day Years Used Date Smoking Tobacco: Every Day Cigarettes Smokeless Tobacco: Never Alcohol Use Standard Drinks/Week Comments Yes 0 (1 standard drink = 0.6 oz pure alcohol) monthly or less, Caffeine intake : soda/pop,coffee,tea more than 4 cups per day Comments Unknown Sex and Gender Information Value Date Recorded Sex Assigned at Not on file Legal Sex Female 6:39 PM EDT Gender Identity Not on file Sexual Orientation Not on file documented as of this encounter Miscellaneous Notes * Telephone Encounter - Carolee Hanley - 04/19/2025 10:48 AM EDT Pt scheduled * Telephone Encounter - Kemar Whitaker MD - 04/05/2025 2:58 PM EDT Lets have her wait 4-6 weeks with us * Telephone Encounter - Carolee Hanley - 04/05/2025 11:14 AM EDT Pt is calling today and states she need to know what to do next. Pt states she will be getting 4 shots from Pain Management on 04/07 and wants to know how far apart she has to wait to get more shots. [phone] documented in this encounter Plan of Treatment Upcoming Encounters Date Type Department Care Team (Late st Contact Info) Description 05/01/2025 2:20 PM EDT Clinical Support [facility] [address] [facility] [address] [place] [phone] Kemar Whitaker MD [address] [place] [address] [phone] documented as of this encounter Visit Diagnoses Not on filedocumented in this encounter Care Teams Loan Funder Relationship Specialty Start Date End Date Yasmany Swenson MD PCP - General Family Medicine 10/28/24 Kemar Whitaker MD [address] [place] [address] [phone] Referring Physician Neurology 10/28/24 documented as of this encounter
--- OUTSIDE RECORDS SUMMARY | 2025-04-20 09:14 | XMS_ITS | Clinical Summary ---
Author Organization [facility] tem Address [id number] [address] [place] [address] Care Team Providers Care Offshore Diver Name Role Phone Unavailable Primary Care Provider Unavailabl e Allergies Active Allergy Reactions Criticality Noted Date Comments Amoxicillin 02/27/2025 Penicillins Other (See Comments),Rash Low Sulfa (Sulfonamide Antibiotics) Rash,Other (See Comments) Low 01/10/2022 Medications No known medications Active Problems No known active problems Encounters Date Type Department Care Team Description 02/27/2025 8:00 AM EDT [facility] [address] [facility] [address] [place] [phone] Sreedhar Busch PA Sacroiliitis (Primary Dx); Facet arthropathy, lumbar; Spinal stenosis of cervical region; Foraminal stenosis of cervical region; Spinal stenosis of lumbar region without neurogenic claudication; Lumbar foraminal stenosis; Retrolisthesis 02/16/2025 9:56 AM EDT - 02/16/2025 11:59 PM EDT Hospital Encounter [facility] [address] [place] [phone] Low back pain, unspecified back pain laterality, unspecified chronicity, unspecified whether sciatica present Discharge Disposition: Home 02/16/2025 9:50 AM EDT - 02/16/2025 9:55 AM EDT Hospital Encounter [facility] [address] [place] [phone] Neck pain Discharge Disposition: Home 02/16/2025 Travel 02/01/2025 Orders Only [facility] [address] [place] [address] Justo Agosto MD Low back pain, unspecified back pain laterality, unspecified chronicity, unspecified whether sciatica present (Primary Dx); Neck pain 02/01/2025 Telephone [facility] [address] [place] [address] Justo Agosto MD 01/18/2025 10:05 AM EDT Ancillary Procedure [facility] [employer] [address] [place] [address] Pain from Last 3 Months Family History Medical History Relation Name Comments Aneurysm Father Asthma Father Back Problems Father Brain Tumor Father Epilepsy Father Heart disease Father Neck Problems Father Back Problems Mother Relation Name Status Comments Father Mother Alive Social History Tobacco Use Types Packs/Day Years Used Date Smoking Tobacco: Every Day Cigarettes Smokeless Tobacco: Never Alcohol Use Standard Drinks/Week Comments Not Currently 0 (1 standard drink = 0.6 oz pur e alcohol) Childcare Answer Date Recorded Childcare Unknown 01/24/2019 Employment Answer Date Recorded Employment Unknown 01/24/2019 Hunger Screening Answer Date Recorded Within the past 12 months we worried whether our food would run out before we got money to buy more. Never True 02/27/2025 Within the past 12 months th e food we bought just didn't last and we didn't have money to get more. Never True 02/27/2025 Comments No Sex and Gender Information Value Date Recorded Sex Assigned at Not on file Legal Sex Female 4:10 PM EDT Gender Identity Not on file Sexual Orientation Not on file Last Filed Vital Signs Vital Sign Reading Time Taken Comments Blood Pressure 137/80 02/27/2025 7:56 AM EDT Pulse 86 02/27/2025 7:56 AM EDT Temperature - - Respiratory Rate - - Oxygen Saturation - - Inhaled Oxygen Concentration - - Weight 47.2 kg (104 lb) 02/27/2025 7:56 AM EDT Height 153.2 cm (5' 0.3 ) 02/27/2025 7:56 AM EDT Body Mass Index 20.11 02/27/2025 7:56 AM EDT Plan of Treatment Health Maintenance Due Date Last Done Comments Tobacco Counseling 1967 Depression Screening 1979 DTaP,Tdap and Td Vaccines (1 - Tdap) 1986 Pap Smear 1988 Zoster (Shingles) Vaccine (1 of 2) 2017 COVID-19 Vaccine (3 - 2023-2 5 season) 2024 10/19/2020, 09/28/2020 Influenza Vaccine 04/17/2025 06/11/2023, , 05/18/2019 Adult BMI Screening 02/27/2026 02/27/2025 Tobacco Screening 02/27/2026 02/27/2025 Medical Devices Not on file Procedures Procedure Name Priority Date/Time Associated Diagnosis Comments XR SPINE LUMB BENDING ONLY 2-3 VWS Routine 02/16/2025 10:16 AM EDT Low back pain, unspecified back pain laterality, unspecified chronicity, unspecified whether sciatica present XR SPINE CERVICAL FLEXION/EXTENSION ONLY Routine 02/16/2025 10:15 AM EDT Neck pain MR CERVICAL SPINE WO CONT Routine 01/18/2025 10:05 AM EDT Pain from Last 3 Months Results * X-ray spine lumbar flexion and [...] Sreedhar Fritz MD on 02/20/2025 1:10 PM us Frankie Reese MD [facility]G DI[facility]NOST[facility] IMAGING ORDERA [...] Rober Feldman MD on 02/20/2025 2:32 PM us Frankie Reese MD [facility] DIAGNOST[facility] IMAGING ORDERA BLES Final Result * MR cervical spine without contrast (01/18/2025 10:05 AM EDT) us Scanning Provider External IMG MRI ORDERABLES Fi nal Result from Last 3 Months Insurance [employer]
--- OUTSIDE RECORDS SUMMARY | 2025-04-20 09:14 | XMS_ITS | Clinical Summary ---
Author Organization [facility] Address [address] [place] [address] Care Team Providers Care Photoengraving Finisher Name Role Phone Yasmany Swenson MD Primary Care Provider [phone] Kemar Whitaker MD Unavailable [phone] Allergies Active Allergy Reactions Criticality Noted Date Comments Amoxicillin Rash Low 01/10/2022 Other Unknown 01/16/2023 Penicillins Other,Rash Low 01/10/2022 Sulfa Antibiotics Unknown,Rash Low 01/10/2022 Sulfacetamide Rash Low 01/10/2022 Medications Multiple Vitamin (Multi Vitamin) tablet 1 (one) time each day at the same time. Active B Complex Vitamins (vitamin B complex) tablet as directed Orally Active ascorbic acid (Vitamin C) 500 MG chewable tablet 1 (one) time each day at the same time. Active alendronate (Fosamax) 70 MG tablet TAKE 1 TABLET BY MOUTH 30 MINUTES BEFORE FIRST FOOD/DRINK/MED OF THE DAY WITH PLAIN WATER 024 Active lidocaine (Lidoderm) 5 % patchIndications: Lumbar radiculopathy,Pos t herpetic neuralgia,Degener ation of intervertebral disc of lumbar region, unspecified whether pain present,Trochante nael bursitis, right hip,Trochanteric bursitis of left hip Apply 1 patch over 12 hours topically Daily Apply for 12 hours daily 30 patch 2 025 Active pregabalin (Lyrica) 25 MG capsuleIndication s:Lumbar radiculopathy Take 1 capsule (25 mg) by mouth in the morning and 1 capsule (25 mg) in the evening and 1 capsule (25 mg) before bedtime. 90 capsule 2 025 2025 Active baclofen (Lioresal) 10 MG tabletIndications :Lumbar radiculopathy TAKE 1 TABLET BY MOUTH IN THE MORNING, EVENING AND BEFORE BEDTIME 270 tablet 025 Active dexAMETHasone (Decadron) 2 MG tabletIndications :Lumbar radiculopathy 2mg 3 pills po X3 days,2 pills po daily X3 days , then 1 pill po daily X3 days then stop 9 days 18 pills 18 tablet 025 2024 Active nabumetone (Relafen) 500 MG tabletIndications :Trochanteric bursitis of left hip Take 1 tablet (500 mg) by mouth in the morning and 1 tablet (500 mg) before bedtime. 60 tablet 11 024 2024 baclofen (Lioresal) 10 MG tabletIndications :Lumbar radiculopathy Take 1 tablet (10 mg) by mouth in the morning and 1 tablet (10 mg) in the evening and 1 tablet (10 mg) before bedtime. 90 tablet 2 025 2024 Discontinued methylPREDNISolon e (Medrol Dospak) 4 MG tabletsIndication s:Lumbar radiculopathy,Chr onic SI joint pain,Trochanteric bursitis of left hip,Trochanteric bursitis, right hip,Degeneration of intervertebral disc of lumbar region with discogenic back pain and lower extremity pain,Spinal stenosis of lumbar region, unspecified whether neurogenic claudication present Follow schedule on package instructions 21 tablet 025 2024 Hospital, Clinic, or Other Facility Administered Medication Ordered Dose Route Frequency Start Date End Date Status dexAMETHasone sod phos (Decadron) injection 4 mgIndications:Trochanteric bursitis of left hip,Trochanteric bursitis, right hip 4 mg IJ Once 12/27/2024 Active Active Problems Problem Noted Date Diagnosed Date Cigarette nicotine dependence 02/13/2025 Myalgia 01/26/2025 Muscle weakness 01/17/2025 Impaired gait 01/17/2025 Osteopenia 08/29/2024 H/O: pneumonia 08/29/2024 Bronchitis 08/29/2024 Age-related nuclear cataract of both eyes 04/04/ 2024 Trochanteric bursitis, left hip 10/26/2023 Trochanteric bursitis, right hip 10/26/2023 Other hyperlipidemia 10/26/2023 Polyneuropathy 10/26/2023 Degenerative disc disease, lumbar 09/29/2023 Trochanteric bursitis of left hip 09/29/2023 Sciatica of left side 09/29/2023 Other specified chronic obstructive pulmonary di sease 09/07/2023 Lumbar radiculopathy 06/25/2023 Cervical paraspinal muscle spasm 06/25/2023 Sacroiliitis, not elsewhere classified Current smoker 03/17/2023 Overview (03/17/2023): Added secondary to documentation in Social History. Trochanteric bursitis of right hip 01/16/2023 Osteoarthritis of knee 05/09/2021 Resolved Problems Problem Noted Date Diagnosed Date Resolved Date Lumbar pain 01/17/2025 01/17/2025 Encounters Date Type Department Care Team Description 04/18/2025 Telephone [facility] [address] [place] [address] [place] [address] Kemar Whitaker MD 04/05/2025 Telephone [facility] [address] [place] [address] [place] [address] Kemar Whitaker MD 03/31/2025 Refill [facility] [address] [place] [address] [facility] [place] [address] Kemar Whitaker MD Lumbar radiculopathy 03/21/2025 Telephone [facility] [address] [place] [address] Angelina Ellis, . R 03/21/2025 Telephone [facility] [address] [place] [address] Angelina Ellis, RT. R 03/20/2025 8:20 AM EDT Clinical Support [facility] [address] [place] [address] Kemar Whitaker MD Myalgia (Primary Dx) 03/20/2025 Bamboo flowsheet [facility] [address] [place] [address] Kemar Whitaker MD 03/20/2025 Travel 03/13/2025 Refill [facility] [address] [place] [address] [facility] [place] [phone] Antonella Starks, BOAT WASHER Lumbar radiculopathy (Primary Dx); Chronic SI joint pain; Trochanteric bursitis of left hip; Trochanteric bursitis, right hip; Degeneration of intervertebral disc of lumbar region with discogenic back pain and lower extremity pain; Spinal stenosis of lumbar region, unspecified whether neurogenic claudication present 02/22/2025 8:00 AM EDT [facility] [address] [place] [address] Tess Russell L, PT Lumbar radiculopathy (Primary Dx); Muscle weakness; Impaired gait 02/22/2025 Bamboo flowsheet [facility] [address] [place] [address] Tess Russell L, PT 02/22/2025 Travel 02/21/2025 Refill [facility] [address] [place] [address] [address] Antonella Starks, BOAT WASHER Lumbar radiculopathy 02/20/2025 8:00 AM EDT Clinical Support [facility] [address] [place] [address] Kemar Whitaker MD Myalgia (Primary Dx) 02/20/2025 Bamboo flowsheet [facility] [address] [place] [address] Kemar Whitaker MD 02/20/2025 Travel 02/15/2025 8:00 AM EDT [facility] [address] [place] [address] DaYessica cunningham, TOWER EQUIPMENT REPAIRER Lumbar radiculopathy (Primary Dx); Muscle weakness; Impaired gait 02/15/2025 Bamboo flowsheet [facility] [address] [place] [address] Damarisa Yessica, TOWER EQUIPMENT REPAIRER 02/15/2025 Travel 02/14/2025 Refill [facility] [address] [place] [address] Kimberly Owen, LEI Lumbar radiculopathy 02/13/2025 8:00 AM EDT [facility] [address] [place] [address] DaYessica cunningham, TOWER EQUIPMENT REPAIRER Lumbar radiculopathy (Primary Dx); Muscle weakness; Impaired gait 02/13/2025 Bamboo flowsheet [facility] [address] [place] [address] Damarisa Yessica, TOWER EQUIPMENT REPAIRER 02/13/2025 Travel 02/08/2025 8:00 AM EDT [facility] [address] [place] [address] DaYessica cunningham, TOWER EQUIPMENT REPAIRER Lumbar radiculopathy (Primary Dx); Muscle weakness; Impaired gait 02/08/2025 Bamboo flowsheet [facility] [address] [place] [address] Dahm Yessica, TOWER EQUIPMENT REPAIRER 02/08/2025 Travel 02/07/2025 Refill [facility] [address] [place] [facility] [place] [address] Antonella Starks, BOAT WASHER Lumbar radiculopathy 02/06/2025 9:30 AM EDT [facility] [address] [place] [address] Yessica Ch, TOWER EQUIPMENT REPAIRER Lumbar radiculopathy (Primary Dx); Muscle weakness; Impaired gait 02/06/2025 Bamboo flowsheet [facility] [address] [place] [address] Yessica Ch, TOWER EQUIPMENT REPAIRER 02/06/2025 Travel 02/01/2025 8:00 AM EDT [facility] [address] [place] [address] DaYessica cunningham, TOWER EQUIPMENT REPAIRER Lumbar radiculopathy (Primary Dx); Muscle weakness; Impaired gait 02/01/2025 Bamboo flowsheet [facility] [address] [place] [address] Yessica Ch, TOWER EQUIPMENT REPAIRER 02/01/2025 Travel 01/30/2025 10:00 AM EDT [facility] [address] [place] [address] DaYessica cunningham, TOWER EQUIPMENT REPAIRER Lumbar radiculopathy (Primary Dx); Muscle weakness; Impaired gait 01/30/2025 Bamboo flowsheet [facility] [address] [place] [address] Yessica Ch, TOWER EQUIPMENT REPAIRER 01/30/2025 Travel 01/26/2025 8:00 AM EDT [facility] [address] [place] [address] Kemar Whitaker MD Myalgia (Primary Dx); Lumbar radiculopathy 01/26/2025 Telephone [facility] [address] [place] [address] [place] [address], [place] [address] Angelina Ellis, RT. R 01/26/2025 Telephone [facility] [address] [place] [address] [place] [address], [place] [address] Angelina Ellis, RT. R 01/26/2025 Bamboo flowsheet [facility] [address] [place] [address] Kemar Whitaker MD 01/26/2025 Travel 01/25/2025 8:00 AM EDT Clinical Support [facility] [address] [place] [address] Yessica Ch PTA Lumbar radiculopathy (Primary Dx); Muscle weakness; Impaired gait 01/25/2025 Bamboo flowsheet [facility] [address] [place] [address] Yessica Ch PTA 01/25/2025 Travel 01/23/2025 1:30 PM EDT Clinical Support [facility] [address] [place] [address] Yessica Ch PTA Lumbar radiculopathy (Primary Dx); Muscle weakness; Impaired gait 01/23/2025 Bamboo flowsheet [facility] [address] [place] [address] Yessica Ch PTA 01/23/2025 Travel from Last 3 Months Immunizations Immunization Administration Dates Next Due Hep B, adult 04/07/2001,01/09/2000,08/28/1997 Influenza, injectable, MDCK, preservative free, quadrivalent 06/11/2023 Influenza, injectable, quadr ivalent, preservative free 06/07/2020,05/18/2019 Pneumococcal Conjugate PCV 13 05/18/2019 Pneumococcal Polysaccharide PPSV23 03/12/2020 Family History Medical History Relation Name Comments No Known Problems Daughter Leukemia Father Hyperlipidemia Mother Hypertension Mother blood thinners medication, low iron Mother had open heart surgery Mother No Known Problems Sister No Known Problems Son Melanoma Neg Hx Relation Name Status Comments Daughter Alive 1 daughter Father Mother Alive Sister 1 sister Son Alive 2 sons Social History Tobacco Use Types Packs/Day Years Used Date Smoking Tobacco: Every Day Cigarettes Smokeless Tobacco: Never Tobacco Cessation:Ready to Q uit: Not Asked; [...] Sign Reading Time Taken Comments Blood Pressure 148/82 03/21/2025 3:24 PM EDT Pulse 79 01/26/2025 8:15 AM EDT Temperature - - Respiratory Rate - - Oxygen Saturation - - Inhaled Oxygen Concentration - - Weight 46.7 kg (103 lb) 03/21/2025 3:24 PM EDT Height 157.5 cm (5' 2 ) 01/11/2025 8:08 AM EDT Body Mass Index 18.84 01/11/2025 8:08 AM EDT Plan of Treatment Upcoming Encounters Date Type Department Care Team (Late st Contact Info) Description 05/01/2025 2:20 PM EDT Clinical Support [facility] [address] [place] [address] Kemar Whitaker MD [address] [facility] [address] [address] Health Maintenance Due Date Last Done Comments CT Colonography 1967 Colonoscopy 1967 Colorectal Cancer Screening 1967 FIT-DNA 1967 FIT 1967 FOBT 1967 Sigmoidoscopy 1967 Pap Smear 1988 Cervical Cancer Screening 1997 HPV/Cotest 1997 Mammogram 2007 Influenza Vaccine (#1) 2025 06/11/2023, 2019, 05/18/2019 Procedures Procedure Name Priority Date/Time Associated Diagnosis Comments LA INJECTION SINGLE/WILD ANIMAL CARETAKER TRIGGER POINT 1/2 MUSCLES Routine 03/20/2025 8:30 AM EDT Myalgia from Last 3 Months Results * LA INJECTION SINGLE/WILD ANIMAL CARETAKER TRIGGER POINT 1/2 MUSCLES (03/20/2025 8:30 AM EDT) Narrative Kisner, Angelina, . R - 03/20/2025 8:30 AM EDT RT. Kermit Browning 03/29/2025 10:13 AM Trigger [...] to verify the correct patient, procedure, equipment, business support manager and site/side marked as required. Patient was prepped and draped in the usual sterile fashion. us Kemar Whitaker MD IN CLINIC/BEDSIDE ORDERABLES Final Result from Last 3 Months Insurance [employer] Member Subscriber Plan / Payer (Ef fective 2014-Present) Name:Dalia Zhang Relation to Subscriber:Self Name:Dalia Zhang Payer ID:Not on file Type:Not on file Address: [place] [id number] Care Teams Photoengraving Finisher Relationship Specialty Start Date End Date Yasmany Swenson MD PCP - General Family Medicine 10/28/24 Kemar Whitaker MD [address] [facility] [address] [address] Referring Physician Neurology 10/28/24
--- OUTSIDE RECORDS SUMMARY | 2025-04-20 09:14 | XMS_ITS | Clinical Summary ---
Author Organization [facility] Address [address] [place] [address], [address] [place] [address] Care Team Providers Care Hoeing Row Boss Name Role Phone Yasmany Swenson MD Primary Care Provider [phone] Social History Tobacco Use Types Packs/Day Years Used Date Smoking Tobacco: Never Assessed Comments Unknown Sex and Gender Information Value Date Recorded Sex Assigned at Not on file Legal Sex Female 10:48 AM EDT Gender Identity Not on file Sexual Orientation Not on file Plan of Treatment Not on file Insurance [employer] Care Teams Hoeing Row Boss Relationship Specialty Start Date End Date Yasmany Swenson MD [address] [place], [place] [phone] PCP - General Family Medicine 10/26/18
--- OUTSIDE RECORDS SUMMARY | 2025-04-20 09:14 | XMS_ITS | Clinical Summary ---
Author Organization [facility] Address [address] [place] [address] Phone Care Team Providers Care Environmental Program Manager Name Role Phone Unavailable Primary Care Provider Unavailabl e Medications No known medications Active Problems No known active problems Social History Tobacco Use Types Packs/Day Years Used Date Smoking Tobacco: Every Day Cigarettes Comments Unknown Sex and Gender Information Value Date Recorded Sex Assigned at Not on file Legal Sex Female 3:15 PM EST Gender Identity Not on file Sexual Orientation Not on file Plan of Treatment Health Maintenance Due Date Last Done Comments CT Colonography 1967 Colonoscopy 1967 Colorectal Cancer Screening 1967 FIT-DNA (Cologuard) 1967 FIT 1967 HIV Screening 1967 Lipid Panel 1967 Sigmoidoscopy 1967 Yearly Adult Physical 1967 MMR Vaccines (1 of 1 - Standard series) 1968 Hepatitis C Screening 1985 Cervical Cancer Screening 1988 HPV/Cotest 1988 Pap Smear 1988 DTaP/Tdap/Td Vaccines (1 - Tdap) 1989 Mammogram 2007 Zoster Vaccines (1 of 2) 2017 COVID-19 Vaccine (1 - 2023-2 5 season) 2024 Pneumococcal Vaccine (3 of 3 - PCV20 or PCV21) 03/12/2025 03/12/2020, 05/18/2019 Influenza Vaccine (#1) 2025 3, 06/07/2020, 05/18/2019 Hepatitis B Vaccines Completed 04/07/2001, 01/09/2000, 08/28/1997 HIB Vaccines Aged Out No longer eligi ble based on patient's age to complete this topic HPV Vaccines Aged Out No longer eligi ble based on patient's age to complete this topic Hepatitis A Vaccines Aged Out No long er eligible based on patient's age to complete this topic IPV Vaccines Aged Out No longer eligi ble based on patient's age to complete this topic Meningococcal Vaccine Aged Out No nae aaron eligible based on patient's age to complete this topic Rotavirus Vaccines Aged Out No longer eligible based on patient's age to complete this topic Insurance [facility] [place] [employer] [facility]
--- OUTSIDE RECORDS SUMMARY | 2025-04-20 09:14 | XMS_ITS | Encounter Summary ---
Author Organization [facility] Address [address] [place] [address] Care Team Providers Care Systems Mechanic Name Role Phone Yasmany Swenson MD Primary Care Provider [phone] Kemar Whitaker MD Unavailable [phone] Reason for Visit * Reason Comments Med Refill Encounter Details Date Type Department Care Team (Late Contact Info) Description 09/15/2023 [facility]ill [facility] [address] [facility] [address] [place] [address] Laurence Horne, BLENDING TECHNICIAN-DISTRIBUTION WAREHOUSE MANAGER [address] [facility] [address] [place] [address] Tinea corporis Social History Tobacco Use Types Packs/Day Years [...] Neurology [address] [place] [address] Kemar Whitaker MD [address] [facility] [address] [place] [address] documented as of this encounter Visit Diagnoses Diagnosis Tinea corporis Dermatophytosis of the body documented in this encounter Care Teams Systems Mechanic Relationship Specialty Start Date End Date Yasmany Swenson MD PCP - General Family Medicine 10/28/24 Kemar Whitaker MD [address] [place] [address] Referring Physician Neurology 10/28/24 documented as of this encounter
--- OUTSIDE RECORDS SUMMARY | 2025-04-20 09:14 | XMS_ITS | Encounter Summary ---
Author Organization [facility] Address [address] [facility] [place] [address] Care Team Providers Care Special Education Kindergarten Teacher Name Role Phone Yasmany Swenson MD Primary Care Provider [phone] Kemar Whitaker MD Unavailable [phone] Encounter Details Date Type Department Care Team (Late Contact Info) Description 07/18/2024 Orders Only [facility] [address] [facility] [address] [place] [address] Kimberly Owen MA Social History Tobacco Use Types Packs/Day Years [...] Description 05/01/2025 2:20 PM EDT Clinical Support [facility] [address] [facility] [address] [place] [address] Kemar Whitaker MD [address] [facility] [address] [place] [address] documented as of this encounter Visit Diagnoses Not on filedocumented in this encounter Care Teams Special Education Kindergarten Teacher Relationship Specialty Start Date End Date Yasmany Swenson MD PCP - General Family Medicine 10/28/24 Kemar Whitaker MD [address] [facility] [address] [address] Referring Physician Neurology 10/28/24 documented as of this encounter
--- OUTSIDE RECORDS SUMMARY | 2025-04-20 09:14 | XMS_ITS | Encounter Summary ---
Author Organization [facility] Address [address] [place] [address] Care Team Providers Care Supervisor Personnel Clerks Name Role Phone Yasmany Swenson MD Primary Care Provider [phone] Kemar Whitaker MD Unavailable [phone] Encounter Details Date Type Department Care Team (Late st Contact Info) Description 04/18/2025 Telephone [facility] [address] [facility] [address] [place] [address] Kemar Whitaker MD [address] [facility] [address] [place] [address] Social History Tobacco Use Types Packs/Day Years [...] as of this encounter Miscellaneous Notes * Addendum Note - Nisa Dominguez NP - 04/19/2025 9:29 AM EDTAddended by: NISA DOMINGUEZ on: 04/19/2025 09:29 AM Modules accepted: Orders * Telephone Encounter - Nisa Dominguez NP - 04/19/2025 9:29 AM EDT Sent patient mychart message * Telephone Encounter - Kemar Whitaker MD - 04/18/2025 6:40 PM EDT Absolutely sometimes we need both * Telephone Encounter - Carolee Hanley - 04/18/2025 3:34 PM EDT Pt went to see pain management and received a Lumbar shot and they did not work. Pt wants to know if she can still get S1 Joint shots? Pt also states she needs steroid medication [phone] documented in this encounter Plan of Treatment Upcoming Encounters Date Type Department Care Team (Late st Contact Info) Description 05/01/2025 2:20 PM EDT Clinical Support [facility] [address] [facility] [address] [place] [address] Kemar Whitaker MD [address] [facility] [address] [place] [address] documented as of this encounter Visit Diagnoses Diagnosis Lumbar radiculopathy- Primary Thoracic or lumbosacral neuritis or radiculitis, unspecified documented in this encounter Care Teams Supervisor Personnel Clerks Relationship Specialty Start Date End Date Yasmany Swenson MD PCP - General Family Medicine 10/28/24 Kemar Whitaker MD [address] [place] [address] Referring Physician Neurology 10/28/24 documented as of this encounter
--- OUTSIDE RECORDS SUMMARY | 2025-04-20 09:18 | XMS_ITS | CCD ---
Author Organization [facility] CliniSyfl Care Team Providers Care French Binder Name Role Phone RAGHAV DASILVA Referring Unavailab PATRICK Maradiaga Primary Care Unavailable RAGHAV DASILVA Referring Unavailab PATRICK Maradiaga Primary Care Unavailable Patrick Swenson Primary Care Physician [phone] MARINA, DR NGUYEN Admitting Unavailable HOY, DR [...] Unavailable Patrick Swenson MD Primary Care Provider [phone] Leonardo Whitaker MD Unavailable [phone] Unavailable Primary Care Provider UnavailOLIVERIO Hansen Attending Unavailable BROWN, RAGHAV T Referring Unavailable Patrick Swenson MD Primary Care Provider [phone] Patrick Swenson MD Primary Care Provider [phone] Bialmerlene MILLS, Therese N Attending Provider NON [...] GLASS Referring Unavailable WHITAKERLEONARDO GLASS Attending Unavailable WHITAKERLEONARDO GLASS Attending Unavailable Allergies Allergy Classification Reported Allergen(s) Allergy Type Date of Onset Reaction(s) Facility (20 sources) Penicillins; Translations: [penicillins] Drug allergy 2 Unknown (qualifier value), Other, Rash, Other (See Comments) [facility] (4 sources) Sulfonamides (Antibiotic); Translations: [sulfa drugs] Drug allergy Unknown (qualifier value) [facility] (2 sources) Amoxicillin; Translations: [AMOXICILLIN] Drug Allergy 4 [facility] Repository (1 source) Sulfonamides (Antibiotic) Drug allergy (disorder) 4 [facility] Repository (20 sources) Amoxicillin Drug Allergy 2 Rash [facility] (20 sources) Sulfacetamide Drug Allergy 2 Rash [facility] (20 sources) Sulfonamides (Antibiotic) Drug Allergy 2 Unknown, Rash, Other (See Comments) [facility] Work Phone: (20 sources) Other Allergy to substance 3 Unknown [facility] (1 source) ALLERGIES NOT ON FILE; Translations: [ALLERGIES NOT ON FILE] Propensity to adverse reactions (disorder) [facility] 3 Repository (1 source) Amoxicillin Drug Allergy 5 [facility] Repository (1 source) Sulfonamides (Antibiotic); Translations: [SULFA [...] tablet (20 sources) gamma-Aminobutyric Acid-ergic Agonist Start: 12-01-2024 End: 03-31-2025 take 1 tablet by mouth at bedtime baclofen (Lioresal) 10 MG tablet Indications: Lumbar radiculopathy TAKE 1 TABLET BY MOUTH IN THE MORNING, EVENING AND BEFORE BEDTIME 270 tablet 03/31/2025 Active biotin 10 mg oral tablet (2 [...] pain, # 12 tab(s), Refills(s) 0, Pharmacy: [facility]/pharmacy #[id number], 157.5, cm, 01/26/21 17:27:00 EDT, Height/Length Dosing, 48, kg, 01/26/21 17:27:00 EDT, Weight Dosing Start Date: 01/26/21 Status: Ordered Completed/Discontinued Medications Medication Drug Class(es) Dates Sig (Normalized) Sig (Original) bupivacaine hydrochloride 5 mg/ml injectable solution (20 sources) Amide Local Anesthetic Start: 02-23-2025 End: 02-20-2025 bupivacaine (Marcaine) 0.5 % injection 5 mg Start: 02-23-2025 End: 02-20-2025 5 mg, Injection, Once, On u 02/23/25 at 1515, For 1 dose Start: 02-02-2025 End: 01-26-2025 bupivacaine (Marcaine) 0.5 % injection 5 mg Start: 02-02-2025 End: 01-26-2025 5 mg, Injection, Once, On u 02/02/25 at 0930, For 1 dose Start: [...] mg (1 mL), Injection, Once , On [place] 12/01/24 at 0930, For 1 dose Start: 11-23-2024 [...] Start: 12-28-2024 take 1 tablet by colin once daily Methylprednisolone 4 mg tablet Active [...] spinal cord, unspecified] Onset: 01-18-2025 Chronic Other non-traumatic joint disorders (3 sources) [...] muscle spasm] Onset: 06-25-2023 06-25-2023 Episodic Other connective tissue disease (20 sources) Muscle weakness; Translations: [Muscle weakness (generalized)] Onset: 01-17-2025 01-17-2025 Episodic Other injuries and conditions due to external causes (3 sources) Unspecified injury of right foot, initial encounter; Translations: [UNSPECIFIED INJURY RT FOOT INITIAL] Onset: 10-28-2021 Episodic Other lower respiratory disease (20 sources) H/O: pneumonia; Translations: [Personal history of pneumonia (recurrent)] Onset: 08-29-2024 12-11-2015 Episodic Other nervous system disorders (20 sources) Abnormal gait; Translations: [Unspecified abnormalities of gait and mobility] Onset: 01-17-2025 01-17-2025 Episodic Other upper respiratory infections (1 source) [...] to verify the correct patient, procedure, equipment, integrated logistics support manager and site/side marked as required. Patient was prepped and draped in the usual sterile fashion. [facility] XR SPINE CERVICAL FLEXION/EX TENSION ONLYon 02-20-2025 [...] Feldman MD on 02/20/2025 2:32 PM Normal [facility] XR SPINE LUMB BENDING ONLY 2 -3 [...] Fritz MD on 02/20/2025 1:10 PM Normal [facility] MR cervical spine wo conon 0 01-18-2025 MR cervical spine wo con [facility] [place] [address] MRI Report Signed Patient: Dalia Zhang MR#: [id number] 78 : 1965 Acct:[id number] Age/Sex: 59 / F ADM Date: 01/18/25 Loc: [facility] Room: Type: [facility] Attending Dr: Therese Santoyo DO Copies to: Therese Santoyo DO Ordering Provider: Therese Santoyo DO Date of Service: 01/18/25 MR/MR cervical spine wo con: G95.9 - Disease of spinal cord, unspecified MRI of the cervical spine performed without contrast INDICATION: Cervical myelopathy, chronic pain COMPARISON: None FINDINGS: Examination was performed on an open magnet system with less than optimal qhicux-pg-qpgne ratio which does degrade evaluation. The craniocervical [...] with endplate spurring extending both foramina zones. Qokd-fb-nhdjegbe facet arthropathy. Moderate right moderate severe left neural from narrowing. Mild to moderate central stenosis. C3-C4: Broad-based disc bulge with severe left and moderate severe uncovertebral spurring. Moderate to severe central canal stenosis. Severe left greater than right neural foraminal narrowing. C4-C5: Broad-based disc osteophyte complex formation with uncovertebral spurring, predominantly left-sided. Moderate right-sided and hwojkdeu-rz-pixajn left-sided neural from narrowing. Moderate to severe [...] Shankar M.D. 01/18/2025 4:48 PM Dictation Location: [place] [address] Transcribed By: PAULY 01/18/25 1648 Dictated By: Miguel Shankar MD 01/18/25 1629 Signed By: 01/18/25 1648 Normal [facility] Magnetic resonance imaging r eportOrdered By: Miguel Shankar on 01-18-2025 Study report [facility] [place] [address] MRI Report Signed Patient: Dalia Zhang MR#: [id number] : 1965 Acct:[id number] Age/Sex: 59 / F ADM Date: Loc: [facility] Room: Type: [facility] Attending Dr: Therese Santoyo DO Copies to: Therese Santoyo DO~ Ordering Provider: Therese Santoyo DO Date of Service: 01/18/25 MR/MR cervical spine wo con: G95.9 - Disease of spinal cord, unspecified MRI of the cervical spine performed without contrast INDICATION: Cervical myelopathy, chronic pain COMPARISON: None FINDINGS: Examination was performed on an open magnet system with less than optimal ktuwkq-jv-mjmjt ratio which does degrade evaluation. The craniocervical [...] with endplate spurring extending both foramina zones. Xvsr-pt-eeriavlr facet arthropathy. Moderate right moderate severe leftneural from narrowing. Mild to moderate central stenosis. C3-C4: Broad-based disc bulge with severe left and moderate severe uncovertebralspurring. Moderate to severe central canal stenosis. Severe left greater than right neural foraminal narrowing. C4-C5: Broad-based disc osteophyte complex formation with uncovertebral spurring, predominantly left-sided. Moderate right-sided and dtydopbf-hl-glfralarom -sided neural from narrowing. Moderate to severe [...] Shankar M.D. 01/18/2025 4:48 PM Dictation Location: [facility] Transcribed By: [facility] 01/18/25 1648 Dictated By: Miguel Shankar MD 01/18/25 1629 Signed By: 01/18/251647 [facility] Work Phone: CT lumbar spine wo conon CT lumbar spine wo con [facility] [place] [address] CT Scan Report Signed Patient: Dalia Zhang MR#: [id number] 78 : 1965 Acct:[id number] Age/Sex: 59 / F ADM Date: 01/10/25 Loc: XDS Room: Type: [facility] Attending Dr: Therese Santoyo DO Copies [...] Pastrana M.D. 01/10/2025 4:39 PM Dictation Location: [place] [address] Transcribed By: [facility] 01/10/25 1639 Dictated By: Darian Pastrana II, MD 01/10/25 1634 Signed By: 01/10/25 1639 Normal [facility] CT thoracic spine wo conon 0 01-10-2025 CT thoracic spine wo con [facility] [place] [address] CT Scan Report Signed Patient: Dalia Zhang MR#: [id number] 78 : 1965 Acct:[id number] Age/Sex: 59 / F ADM Date: [facility]/10/25 [facility] Attending Dr: Therese Santoyo DO Copies [...] Pastrana M.D. 01/10/2025 4:34 PM Dictation Location: [place] [address] Transcribed By: [facility] 01/10/25 1634 Dictated By: Darian Pastrana II, MD 01/10/25 1630 Signed By: 01/10/25 1634 Normal [facility] X-ray reportOrdered By: Javier Shankar on 01-10-2025 Study report [facility] [place] [address] XRay Report Signed Patient: Dalia Zhang MR#: [id number] : 1965 Acct:[id number] Age/Sex: 59 / F ADM Date: 5 Loc: XDS Room: Type: [facility] Attending Dr: Therese Santoyo DO Copies [...] Shankar M.D. 01/10/2025 8:02 PM Dictation Location: [facility] Transcribed By: PAULY 01/10/252001 Dictated By: Miguel Shankar MD 01/10/251957 Signed By: 01/10/252001 [facility] Work Phone: XR scoliosis surveyon 2024 XR scoliosis survey [facility] [place] [address] [place] [address] XRay Report Signed Patient: Dalia Zhang MR#: [id number] 78 : 1965 Acct:[id number] Age/Sex: 59 / F ADM Date: 01/10/25 Loc: XDS Room: Type: [facility] Attending Dr: Therese Santoyo DO Copies [...] Shankar M.D. 01/10/2025 8:02 PM Dictation Location: [facility] Transcribed By: PAULY 01/10/252001 Dictated By: Miguel Shankar MD 01/10/251957 Signed By: 01/10/252001 Normal [facility] MA Mamm Screen w/CAD if perf and [...] very important to your health. The current [place] [employer] and National Comprehensive Cancer [...] Luis Sherman M.D. Transcribed by: SAUD Technologist: [facility] Assessment: BI-RADS Category 1-Negative Recommendation: Normal interval follow-up Normal [facility] XR HIP 2 OR 3 VW [...] Electronically Signed Therese Vigil M.D. 2024-05-30 10:22:54 [facility] Radiology Study observation (narrative) [facility] XR Lumbar spine 4 ViewsOrder ed By: Therese Vigil on 05-30-2024 [facility] Work Phone: CT LUNG CANCER SCREENINGon 1 [...] RYAN HAMILTON Date: 2022-06-25 07:59 Normal [facility] Covid-19 PCR (CVDTBH)on 05-19 SARS-CoV-2 (COVID-19) RNA HARISH+probe Ql (Unsp spec) Not detected Normal NOT DETECTED [facility] Comment on above: Result Comment: This test is not yet approved or cleared by the [place] FDA. When there are no FDA-approved or cleared tests available, and other criteria are met, FDA can make tests available under an emergency access mechanism called an Emergency Use Authorization (EUA). The EUA for this test is supported by the [place] of Health and Human Service's (HHS's) declaration [...] with SARS-CoV-2. Performed By: #### C VDTBH ####[facility] [address] [place], [place] [address]VhDr. Royce Lopez INSULINon 06-10-2022 Insulin 5.2 uIU/mL Normal 2.6-24.9 [facility] Comment on above: Performed By: #### I NSULIN #### [facility] [address] [place], [place] [address] Dr. Royce Lopez CBC AUTO DIFFon 06-09-2022 BASO # 0.1 103/ul Normal 0.0-0.1 [facility] Comment on above: Performed By: #### C BC ####[facility] [address] [place] [address]Dr. Royce Lopez Basophils/100 WBC (Bld) 0.4 % Normal 0.2-2.0 [facility] Comment on above: Performed By: #### C BC ####[facility] [address] [place], [place] [address]Dr. Royce Lopez EO # 0.2 103/ul Normal 0.0-0.7 [facility] Comment on above: Performed By: #### C BC ####[facility] [address] [place], [place] [address]Dr. Royce John Eosinophils/100 WBC (Bld) 1.3 % Normal 0.9-7.0 [facility] Comment on above: Performed By: #### C BC ####[facility] [address] [place], [place] [address]Dr. Royce John Erythrocyte distribution width (RBC) [Ratio] 13.2 % Normal 11.0-15.0 [facility] Comment on above: Performed By: #### C BC ####[facility] [address] [place], [place] [address]Dr. Royce Lopez Hematocrit (Bld) [Volume fraction] 43.0 % Normal 36.0-48.0 [facility] Comment on above: Performed By: #### C BC ####[facility] [address] [place], [place] [address]Dr. Mireyakody Lopez Hemoglobin (Bld) [Mass/Vol] 13.8 g/dL Normal 12.0-16.0 [facility] Comment on above: Performed By: #### C BC ####[facility] [address] [place], [place] [address]Dr. Royce Lopez IG # 0.07 10e3/ul Critically high 0.00-0.03 [facility] Comment on above: Performed By: #### C BC ####[facility] [address] [place] [address]Dr. Mireyakody Lopez IG % 0.4 % Normal 0.0-0.5 [facility] Comment on above: Performed By: #### C BC ####[facility] [address] [place], [place] [address]Dr. Royce Lopez LYMPH # 2.2 103/ul Normal 1.2-3.8 [facility] Comment on above: Performed By: #### C BC ####[facility] [address] [place], [place] [address]Dr. Royce Lopez Lymphocytes/100 WBC (Bld) 12.0 % Critically low 20.5-60.0 [facility] Comment on above: Performed By: #### C BC ####[facility] [address] [place], [place] [address]Dr. Royce Lopez MANUAL DIFF REQ NO Normal [facility] Comment on above: Performed By: #### C BC ####[facility] [address] [place] [address]Dr. Royce John MCH (RBC) [Entitic mass] 31.1 pg Normal 26.7-34.0 [facility] Comment on above: Performed By: #### C BC ####[facility] [address] [place], [place] [address]Dr. Royce Lopez MCHC (RBC) [Mass/Vol] 32.1 g/dL Normal 29.9-35.2 [facility] Comment on above: Performed By: #### C BC ####[facility] [address] [place], [place] [address]Dr. Royce Lopez MCV (RBC) [Entitic vol] 96.8 fL Normal 81.0-99.0 [facility] Comment on above: Performed By: #### C BC ####[facility] [address] [place], [place] [address]DrAgustin Lopez MONO # 1.6 103/ul Critically high 0.3-0.8 [facility] Comment on above: Performed By: #### C BC ####[facility] [address] [place], [place] [address]Dr. Royce Lopez Monocytes/100 WBC (Bld) 8.8 % Normal 1.7-12.0 [facility] Comment on above: Performed By: #### C BC ####[facility] [address] [place] [address]Dr. Royce Lopez NEUT # 14.1 103/ul Critically high 1.4-6.5 [facility] Comment on above: Performed By: #### C BC ####[facility] [address] [place] [address]Dr. Royce Lopez Neutrophils/100 WBC (Bld) 77.1 % Critically high 43.0-75.0 [facility] Comment on above: Performed By: #### C BC ####[facility] [address] [place] [address]Dr. Royce Lopez Platelet mean volume (Bld) [Entitic vol] 10.2 fL Normal 9.5-13.5 [facility] Comment on above: Performed By: #### C BC ####[facility] [address] [place] [address]Dr. Royce Lopez PLT 295 103/ul Normal 150-450 [facility] Comment on above: Performed By: #### C BC ####[facility] [address] [place] [address]Dr. Royce Lopez RBC 4.44 106/ul Normal 4.20-5.40 [facility] Comment on above: Performed By: #### C BC ####[facility] [address] [place] [address]Dr. Royce Lopez WBC 18.3 103/ul Critically high 4.0-11.0 [facility] Comment on above: Performed By: #### C BC ####[facility] [address] [place] [address]Dr. Royce Lopez FREE THYROXINE INDEX T7on FTI 2.56 Normal 1.30-4.50 [facility] Comment on above: Performed By: #### T SH, T7, CMP, LIPID ####[facility] [address] [place], [place] [address]ZlDr. Royce Lopez T3U 35.0 % Normal 30.0-39.0 [facility] Comment on above: Performed By: #### T SH, T7, CMP, LIPID ####[facility] [address] [place], [place] [address]ZfAgustin Lopez T4 [Mass/Vol] 7.30 ug/dL Normal 4.80-13.90 [facility] Comment on above: Performed By: #### T SH, T7, CMP, LIPID ####[facility] [address] [place], [place] [address]CvAgustin Lopez GLYCOHEMOGLOBIN A1Con 2021 ADA RECOMMENDATION SEE BELOW Normal [facility] Comment on above: Result Comment: ADA RECOMMENDED LIMIT 4.0 - 6.0 ADA THERAPEUTIC TARGET < 7.0 ACTION SUGGESTED > 7.0 Performed By: #### A 1C #### [facility] [address] [place] [address] [address] Royce Lopez Glucose [Mass/Vol] 117 mg/dL Normal [facility] Comment on above: Performed By: #### A 1C #### [facility] [address] [place] [address] [address] Royce oLpez HbA1c (Bld) [Mass fraction] 5.7 % Normal 4.5-6.2 [facility] Comment on above: Performed By: #### A 1C #### [facility] [address] [place] [address] [address] Royce Lopez IRONon 06-09-2022 Iron [Mass/Vol] 91.0 ug/dL Normal 50.0-170.0 [facility] Comment on above: Performed By: #### I AZEB #### [facility] [address] [place] [address] [address] Royce Lopez LIPID PROFILEon 06-09-2022 CHOL-HDL RATIO NORM SEE BELOW Normal [facility] Comment on above: Result Comment: 3.3 - 4.4 LOW RISK 4.4 - 7.1 AVERAGE RISK 7.1 - 11.0 MODERATE RISK >11.0 HIGH RISK Performed By: #### T SH, T7, CMP, LIPID ####[facility] [address] [place], [place] [address]Mo. Royce Lopez Cholesterol [Mass/Vol] 223 mg/dL Critically high <=200 [facility] Comment on above: Performed By: #### T SH, T7, CMP, LIPID ####[facility] [address] [place], [place] [address]Fb. Royce Lopez Cholesterol in HDL [Mass/Vol] 63 mg/dL Critically high 40-60 [facility] Comment on above: Performed By: #### T SH, T7, CMP, LIPID ####[facility] [address] [place] [id number]. Royce Lopez Cholesterol in LDL [Mass/Vol] 145.2 mg/dL Normal [facility] Comment on above: Performed By: #### T SH, T7, CMP, LIPID ####[facility] [address] [place] [id number]. Royce Lopez Cholesterol.total/Ch olesterol in HDL [Mass ratio] 3.5 {ratio} Normal [facility] Comment on above: Performed By: #### T SH, T7, CMP, LIPID ####[facility] [address] [place] [id number]. Royce Lopez HDL NORMAL > or = 60 mg/dl - LO W CARDIOVASCULAR RISK <40 mg/dl - HIGH CARDIOVASCULAR RISK Normal [facility] Comment on above: Performed By: #### T SH, T7, CMP, LIPID ####[facility] [address] [place] [id number]. Royce Lopez LDL CALC NORMAL SEE BELOW Normal [facility] Comment on above: Result Comment: <100 mg/dl OPTIMAL 100 - 129 mg/dl NEAR OR ABOVE OPTIMAL 130 - 159 mg/dl BORDERLINE HIGH 160 - 189 mg/dl HIGH >190 mg/dl VERY HIGH Performed By: #### T SH, T7, CMP, LIPID ####[facility] [address] [place] [id number]. Royce Lopez Triglyceride [Mass/Vol] 74 mg/dL Normal <=150 [facility] Comment on above: Performed By: #### T SH, T7, CMP, LIPID ####[facility] [address] [place], [place] [address]PeDr. Royce Lopez VLDL CALC 14.8 mg/dL Normal [facility] Comment on above: Performed By: #### T SH, T7, CMP, LIPID ####[facility] [address] [place], [place] [address]BoDr. Royce Lopez PROF 14(COMP METB)on 022 Albumin [Mass/Vol] 3.8 g/dL Normal 3.4-5.0 [facility] Comment on above: Performed By: #### T SH, T7, CMP, LIPID #### [facility] [address] [place] [address] [address] Royce Lopez Albumin/Globulin [Mass ratio] 1.0 {ratio} Normal [facility] Comment on above: Performed By: #### T SH, T7, CMP, LIPID #### [facility] [address] [place] [address] [address] Royce Lopez ALP [Catalytic activity/Vol] 98 U/L Normal 46-116 [facility] Comment on above: Performed By: #### T SH, T7, CMP, LIPID #### [facility] [address] [place] [address] [address] Royce Lopez ALT [Catalytic activity/Vol] 16 U/L Normal 14-59 [facility] Comment on above: Performed By: #### T SH, T7, CMP, LIPID #### [facility] [address] [place] [address] [address] Royce Lopez Anion gap [Moles/Vol] 10.9 mmol/L Normal [facility] Comment on above: Performed By: #### T SH, T7, CMP, LIPID #### [facility] [address] [place] [address] [address] Royce Lopez AST [Catalytic activity/Vol] 15 U/L Normal 15-37 [facility] Comment on above: Performed By: #### T SH, T7, CMP, LIPID #### [facility] [address] [place] [address] [address] Royce Lopez Bilirubin [Mass/Vol] 0.4 mg/dL Normal 0.2-1.0 [facility] Comment on above: Performed By: #### T SH, T7, CMP, LIPID #### [facility] [address] [place] [address] [address] Royce Lopez Calcium [Mass/Vol] 9.1 mg/dL Normal 8.5-10.1 [facility] Comment on above: Performed By: #### T SH, T7, CMP, LIPID #### [facility] [address] [place] [address] [address] Royce Lopez Chloride [Moles/Vol] 103 mmol/L Normal 98-107 [facility] Comment on above: Performed By: #### T SH, T7, CMP, LIPID #### [facility] [address] [place] [address] Dr. Royce Lopez CO2 [Moles/Vol] 28.3 mmol/L Normal 21.0-32.0 [facility] Comment on above: Performed By: #### T SH, T7, CMP, LIPID #### [facility] [address] [place] [address] Dr. Royce Lopez Creatinine [Mass/Vol] 0.62 mg/dL Normal 0.55-1.02 [facility] [place] Comment on above: Performed By: #### T SH, T7, CMP, LIPID #### [facility] [address] [place] [address] Dr. Royce Lopez EGFR-AF NEW ZEALANDER >60 Normal >=60 [facility] Comment on above: Performed By: #### T SH, T7, CMP, LIPID #### [facility] [address] [place] [address] Dr. Royce Lopez EGFR-NON AF NEW ZEALANDER >60 Normal >=60 [facility] [place] Comment on above: Performed By: #### T SH, T7, CMP, LIPID #### [facility] [address] [place] [address] Dr. Royce Lopez Globulin (S) [Mass/Vol] 3.9 g/dL Normal [facility] [place] Comment on above: Performed By: #### T SH, T7, CMP, LIPID #### [facility] [address] [address] [address] Royce Lopez Glucose [Mass/Vol] 97 mg/dL Normal 74-106 [facility] [place] Comment on above: Performed By: #### T SH, T7, CMP, LIPID #### [facility] [address] [address] [address] Royce Lopez Potassium [Moles/Vol] 4.2 mmol/L Normal 3.5-5.1 [facility] [place] Comment on above: Performed By: #### T SH, T7, CMP, LIPID #### [facility] [address] [address] [address] Royce Lopez Protein [Mass/Vol] 7.7 g/dL Normal 6.4-8.2 [facility] Comment on above: Performed By: #### T SH, T7, CMP, LIPID #### [facility] [address] [address] [address] Royce Lopez Sodium [Moles/Vol] 138 mmol/L Normal 136-145 [facility] Comment on above: Performed By: #### T SH, T7, CMP, LIPID #### [facility] [address] [address] [address] Royce Loepz Urea nitrogen [Mass/Vol] 7.0 mg/dL Normal 7.0-18.0 [facility] [place] Comment on above: Performed By: #### T SH, T7, CMP, LIPID #### [facility] [address] [address] [address] Royce Lopez Urea nitrogen/Creatinine [Mass ratio] 11.3 mg/mg Normal [facility] [place] Comment on above: Performed By: #### T SH, T7, CMP, LIPID #### [facility] [address] [address] [address] Royce Lopez TSHon 06-09-2022 TSH 0.370 uIU/mL Normal 0.358-3.740 [facility] Comment on above: Performed By: #### T SH, T7, CMP, LIPID ####[facility] [id number] [address]Dr. Royce Lopez Covid-19 PCR (CVDTB)on 08-18 SARS-CoV-2 (COVID-19) RNA HARISH+probe Ql (Unsp spec) Not detected Normal NOT DETECTED [facility] Comment on above: Result Comment: This test is not yet approved or cleared by the [place] FDA. When there are no FDA-approved or cleared tests available, and other criteria are met, FDA can make tests available under an emergency access mechanism called an Emergency Use Authorization (EUA). The EUA for this test is supported by the Carpenter Inspector of Health and Human Service's (HHS's) declaration [...] consistent with SARS-CoV-2. Performed By: #### C [facility] #### [facility] [address] [place] [address] Dr. Royce Lopez Covid-19 PCR (CVDTB)on 07-18 SARS-CoV-2 (COVID-19) RNA HARISH+probe Ql (Unsp spec) Not detected Normal NOT DETECTED [facility] Comment on above: Result Comment: This test is not yet approved or cleared by the [place] FDA. When there are no FDA-approved or cleared tests available, and other criteria are met, FDA can make tests available under an emergency access mechanism called an Emergency Use Authorization (EUA). The EUA for this test is supported by the [place] Inspector of Health and Human Service's (HHS's) declaration [...] SARS-CoV-2. Performed By: #### C VDTB #### [facility] [address] [address] [address] Royce Lopez INFLUENZA A AND B AGon 08[facility] Normal [facility] [place] Comment on above: Result Comment: Nega tive for Flu A protein angiten. Infection due to Flu A cannot be ruled out. Flu A angiten in the sample may be below the detection limit of the test. Performed By: #### I NFLUAB ####[facility] [id number] [address]Dr. Royce Lopez INFLUBNEGH SEE BELOW Normal [facility] [place] Comment on above: Result Comment: Nega tive for Flu B protein antigen. Infection due to Flu B cannot be ruled out. Flu B antigen in the sample may be below the detection limit of the test. Performed By: #### I NFLUAB ####[facility] [id number] [address]Dr. Royce Lopez INFLUENZA A AG Negative Normal NEGATIVE SEE COMMENT [facility] [place] Comment on above: Performed By: #### I NFLUAB ####[facility] [id number] [address]Dr. Royce Lopez INFLUENZA B AG Negative Normal NEGATIVE SEE COMMENT [facility] [place] Comment on above: Performed By: #### I NFLUAB ####[facility] [address] [place], [place] [address]Dr. Royce Lopez INTERNAL CONTROLS Within Normal Limits Normal Wi thin Normal Limits [facility] Comment on above: Performed By: #### I NFLUAB ####[facility] [id number] [place], [place] [address]Dr. Royce Lopez LIPID PROFILEon 07-08-2021 CHOL-HDL RATIO NORM SEE BELOW Normal [facility] Comment on above: Result Comment: 3.3 - 4.4 LOW RISK 4.4 - 7.1 AVERAGE RISK 7.1 - 11.0 MODERATE RISK >11.0 HIGH RISK Performed By: #### L IVER, LIPID #### [facility] [address] [address] [address] Royce Lopez Cholesterol [Mass/Vol] 195 mg/dL Normal <=200 [facility] [place] Comment on above: Performed By: #### L IVER, LIPID #### [facility] [address] [address] [address] Royce Lopez Cholesterol in HDL [Mass/Vol] 74 mg/dL Normal [facility] [place] Comment on above: Performed By: #### L IVER, LIPID #### [facility] [address] [address] [address] Royce Lopez Cholesterol in LDL [Mass/Vol] 108.6 mg/dL Normal [facility] [place] Comment on above: Performed By: #### L IVER, LIPID #### [facility] [address] [place] [address] Dr. Royce Lopez Cholesterol.total/Ch olesterol in HDL [Mass ratio] 2.6 {ratio} Normal [facility] [place] Comment on above: Performed By: #### L IVER, LIPID #### [facility] [address] [place] [address] Dr. Royce Lopez HDL NORMAL > or = 60 mg/dl - LO W CARDIOVASCULAR RISK <40 mg/dl - HIGH CARDIOVASCULAR RISK Normal [facility] [place] Comment on above: Performed By: #### L IVER, LIPID #### [facility] [address] [place] [address] Dr. Royce Lopez LDL CALC NORMAL SEE BELOW Normal [facility] Comment on above: Result Comment: <100 mg/dl OPTIMAL 100 - 129 mg/dl NEAR OR ABOVE OPTIMAL 130 - 159 mg/dl BORDERLINE HIGH 160 - 189 mg/dl HIGH >190 mg/dl VERY HIGH Performed By: #### L IVER, LIPID #### [facility] [address] [place] [address] Dr. Royce Lopez Triglyceride [Mass/Vol] 62 mg/dL Normal <=150 [facility] [place] Comment on above: Performed By: #### L IVER, LIPID #### [facility] [address] [address] [address] Royce Lopez VLDL CALC 12.4 mg/dL Normal [facility] [place] Comment on above: Performed By: #### L IVER, LIPID #### [facility] [address] [address] [address] Royce Lopez LIVER PROFILEon 07-08-2021 Albumin [Mass/Vol] 3.9 g/dL Normal 3.5-5.0 [facility] Comment on above: Performed By: #### L IVER, LIPID #### [facility] [address] [address] [address] Royce Lopez Albumin/Globulin [Mass ratio] 1.1 {ratio} Normal [facility] [place] Comment on above: Performed By: #### L IVAUGUSTINE, LIPID #### [facility] [address] [place] [address] Dr. Royce Lopez ALP [Catalytic activity/Vol] 67 U/L Normal 38-126 [facility] Comment on above: Performed By: #### L IVAUGUSTINE, LIPID #### [facility] [address] [place] [address] Dr. Royce Lopez ALT [Catalytic activity/Vol] 23 U/L Normal 9-52 [facility] [place] Comment on above: Performed By: #### L IVAUGUSTINE, LIPID #### [facility] [address] [place] [address] Dr. Royce Lopez AST [Catalytic activity/Vol] 19 U/L Normal 14-36 [facility] [place] Comment on above: Performed By: #### L IVER, LIPID #### [facility] [address] [place] [address] Dr. Royce Lopez BILI, CONJUGATED 0.1 mg/dL Normal 0.0-0.3 [facility] Comment on above: Performed By: #### L IVER, LIPID #### [facility] [address] [place] [address] Dr. Royce Lopez Bilirubin [Mass/Vol] 0.3 mg/dL Normal 0.2-1.3 [facility] [place] Comment on above: Performed By: #### L IVER, LIPID #### [facility] [address] [place], [place] [address] Dr. Royce Lopez Globulin (S) [Mass/Vol] 3.5 g/dL Normal [facility] [place] Comment on above: Performed By: #### L IVER, LIPID #### [facility] [address] [place], [place] [address] Dr. oRyce Lopez Protein [Mass/Vol] 7.4 g/dL Normal 6.1-8.2 [facility] Comment on above: Performed By: #### L IVER, LIPID #### [facility] [address] [place], [place] [address] Dr. Royce Lopez XR SHOULDER LEFT (MIN [...] Calvillo Jr., MD 10/27/18 Final result Normal [facility] Vital Signs Date Time Vital Sign Value Performing Clinician [facility] 03-21-2025 15:24-0400 Body mass index (BMI) [Ratio] 18.84 kg/m2 Leonardo Whitaker MD Work Phone: [facility] 03-21-2025 15:24-0400 Body weight 46.72 kg Leonardo Whitaker MD Work Phone: [facility] 03-21-2025 15:24-0400 Diastolic blood pressure 82 mm[Hg] Leonardo Whitaker MD Work Phone: [facility] 03-21-2025 15:24-0400 Systolic blood pressure 148 mm[Hg] Leonardo Whitaker MD Work Phone: [facility] 02-27-2025 07:56-0400 Body height 153.2 cm Pauline ORTIZ Work Phone: [facility] 02-27-2025 07:56-0400 Body mass index (BMI) [Ratio] 20.11 kg/m2 Pauline Busch PA Work Phone: [facility] 02-27-2025 07:56-0400 Body weight 47.17 kg Pauline Busch PA Work Phone: [facility] 02-27-2025 07:56-0400 Diastolic blood pressure 80 mm[Hg] Pauline Busch PA Work Phone: [facility] 02-27-2025 07:56-0400 Heart rate 86 /min Pauline Busch PA Work Phone: [facility] 02-27-2025 07:56-0400 Systolic blood pressure 137 mm[Hg] Pauline Busch PA Work Phone: [facility] 02-20-2025 08:10-0400 Body mass index (BMI) [Ratio] 17.56 kg/m2 Leonardo Whitaker MD Work Phone: [facility] 02-20-2025 08:10-0400 Body weight 43.55 kg Leonardo Whitaker MD Work Phone: [facility] 02-20-2025 08:10-0400 Diastolic blood pressure 74 mm[Hg] Leonardo Whitaker MD Work Phone: [facility] 02-20-2025 08:10-0400 Systolic blood pressure 158 mm[Hg] Leonardo Whitaker MD Work Phone: [facility] 01-26-2025 08:15-0400 Body mass index (BMI) [Ratio] 18.11 kg/m2 Leonardo Whitaker MD Work Phone: [facility] 01-26-2025 08:15-0400 Body weight 44.91 kg Leonardo Whitaker MD Work Phone: [facility] 01-26-2025 08:15-0400 Diastolic blood pressure 118 mm[Hg] Leonardo Whitaker MD Work Phone: [facility] 01-26-2025 08:15-0400 Heart rate 79 /min Leonardo Whitaker MD Work Phone: [facility] 01-26-2025 08:15-0400 Systolic blood pressure 176 mm[Hg] Leonardo Whitaker MD Work Phone: [facility] 01-23-2025 08:27-0400 Body weight 46.6 kg Patrick Swenson MD Work Phone: [facility] 01-11-2025 08:08-0400 Body height 157.5 cm Leonardo Whitaker MD Work Phone: [facility] 01-11-2025 08:08-0400 Body mass index (BMI) [Ratio] 17.92 kg/m2 Leonardo Whitaker MD Work Phone: [facility] 01-11-2025 08:08-0400 Body weight 44.45 kg Leonardo Whitaker MD Work Phone: [facility] 01-11-2025 08:08-0400 Diastolic blood pressure 82 mm[Hg] Leonardo Whitaker MD Work Phone: [facility] 01-11-2025 08:08-0400 Heart rate 94 /min Leonardo Whitaker MD Work Phone: [facility] 01-11-2025 08:08-0400 Systolic blood pressure 117 mm[Hg] Leonardo Whitaker MD Work Phone: [facility] 12-28-2024 08:16-0400 Body weight 45.6 kg [facility] [place] [facility] 12-28-2024 08:16-0400 Diastolic blood pressure 99 mm[Hg] [facility] 12-28-2024 08:16-0400 Systolic blood pressure 150 mm[Hg] [facility] 12-21-2024 10:06-0400 Body height 157.5 cm Leonardo Whitaker MD Work Phone: [facility] 12-21-2024 10:06-0400 Body mass index (BMI) [Ratio] 17.92 kg/m2 Leonardo Whitaker MD Work Phone: [facility] 12-21-2024 10:06-0400 Body weight 44.45 kg Leonardo Whitaker MD Work Phone: [facility] 12-21-2024 10:06-0400 Diastolic blood pressure 84 mm[Hg] Leonardo Whitaker MD Work Phone: [facility] 12-21-2024 10:06-0400 Systolic blood pressure 136 mm[Hg] Leonardo Whitaker MD Work Phone: [facility] 12-13-2024 15:47-0400 Body mass index (BMI) [Ratio] 17.92 kg/m2 Leonardo Whitaker MD Work Phone: [facility] 12-13-2024 15:47-0400 Body weight 44.45 kg Leonardo Whitaker MD Work Phone: [facility] 12-13-2024 15:47-0400 Diastolic blood pressure 74 mm[Hg] Leonardo Whitaker MD Work Phone: [facility] 12-13-2024 15:47-0400 Systolic blood pressure 144 mm[Hg] Leonardo Whitaker MD Work Phone: [facility] 12-01-2024 09:03-0400 Body mass index (BMI) [Ratio] 17.92 kg/m2 Leonardo Whitaker MD Work Phone: [facility] 12-01-2024 09:03-0400 Body weight 44.45 kg Leonardo Whitaker MD Work Phone: [facility] 12-01-2024 09:03-0400 Diastolic blood pressure 70 mm[Hg] Leonardo Whitaker MD Work Phone: [facility] 12-01-2024 09:03-0400 Heart rate 102 /min Leonardo Whitaker MD Work Phone: [facility] 12-01-2024 09:03-0400 Systolic blood pressure 142 mm[Hg] Leonardo Whitaker MD Work Phone: [facility] 11-16-2024 09:22-0400 Body height 157.5 cm Leonardo Whitaker MD Work Phone: [facility] 11-16-2024 09:22-0400 Body mass index (BMI) [Ratio] 19.02 kg/m2 Leonardo Whitaker MD Work Phone: [facility] 11-16-2024 09:22-0400 Body weight 47.17 kg Leonardo Whitaker MD Work Phone: [facility] 11-16-2024 09:22-0400 Diastolic blood pressure 84 mm[Hg] Leonardo Whitaker MD Work Phone: [facility] 11-16-2024 09:22-0400 Systolic blood pressure 126 mm[Hg] Leonardo Whitaker MD Work Phone: [facility] 11-10-2024 10:00-0400 Body mass index (BMI) [Ratio] 18.47 kg/m2 Leonardo Whitaker MD Work Phone: [facility] 11-10-2024 10:00-0400 Body weight 45.81 kg Leonardo Whitaker MD Work Phone: [facility] 11-10-2024 10:00-0400 Diastolic blood pressure 78 mm[Hg] Leonardo Whitaker MD Work Phone: [facility] 11-10-2024 10:00-0400 Systolic blood pressure 122 mm[Hg] Leonardo Whitaker MD Work Phone: [facility] 08-29-2024 08:47-0500 Body height 157.5 cm Leonardo Whitaker MD Work Phone: [facility] 08-29-2024 08:47-0500 Body mass index (BMI) [Ratio] 18.66 kg/m2 Leonardo Whitaker MD Work Phone: [facility] 08-29-2024 08:47-0500 Body weight 46.27 kg Leonardo Whitaker MD Work Phone: [facility] 07-18-2024 10:15-0500 Body height 157.5 cm Leonardo Whitaker MD Work Phone: [facility] 07-18-2024 10:15-0500 Body mass index (BMI) [Ratio] 18.66 kg/m2 Leonardo Whitaker MD Work Phone: [facility] 07-18-2024 10:15-0500 Body weight 46.27 kg Leonardo Whiatker MD Work Phone: [facility] 07-18-2024 10:15-0500 Diastolic blood pressure 74 mm[Hg] Leonardo Whitaker MD Work Phone: [facility] 07-18-2024 10:15-0500 Heart rate 66 /min Leonardo Whitaker MD Work Phone: [facility] 07-18-2024 10:15-0500 Systolic blood pressure 132 mm[Hg] Leonardo Whitaker MD Work Phone: [facility] 05-30-2024 09:50-0400 Body height 157.5 cm Leonardo Whitaker MD Work Phone: [facility] 05-30-2024 09:50-0400 Body mass index (BMI) [Ratio] 18.66 kg/m2 Leonardo Whitaker MD Work Phone: [facility] 05-30-2024 09:50-0400 Body weight 46.27 kg Leonardo Whitaker MD Work Phone: [facility] 05-30-2024 09:50-0400 Diastolic blood pressure 76 mm[Hg] Leonardo Whitaker MD Work Phone: [facility] 05-30-2024 09:50-0400 Systolic blood pressure 128 mm[Hg] Leonardo Whitaker MD Work Phone: [facility] 04-13-2024 08:50-0400 Body height 157.5 cm Leonardo Whitaker MD Work Phone: [facility] 04-13-2024 08:50-0400 Body mass index (BMI) [Ratio] 18.66 kg/m2 Leonardo Whitaker MD Work Phone: [facility] 04-13-2024 08:50-0400 Body weight 46.27 kg Leonardo Whitaker MD Work Phone: [facility] 04-13-2024 08:50-0400 Diastolic blood pressure 80 mm[Hg] Leonardo Whitaker MD Work Phone: [facility] 04-13-2024 08:50-0400 Systolic blood pressure 130 mm[Hg] Leonardo Whitaker MD Work Phone: [facility] Healthcare Encounters Encounter Date Encounter Type Care Provider Facility Start: 04-18-2025 End: 04-18-2025 Telephone encounter Leonardo Whitaker MD Work Phone: [facility] Start: 04-05-2025 End: 04-05-2025 Telephone encounter Leonardo Whitaker MD Work Phone: [facility] Start: 03-31-2025 End: 03-31-2025 Refill Leonardo Whitaker MD Work Phone: [facility] 210 Comment on above: Lumbar radiculopathy Start: 03-20-2025 End: 03-20-2025 Bamboo flowsheet Leonardo Whitaker MD Work Phone: [facility] Start: 03-20-2025 End: 03-20-2025 Bamboo flowsheet Leonardo Whitaker MD Work Phone: [facility] Start: 03-20-2025 End: 03-20-2025 ambulatory LEONARDO WHITAKER Not Available Comment on above: Myalgia (Primary Dx) Start: 03-13-2025 End: 03-13-2025 Refill Antonella Starks NP Work Phone: [facility] 210 Comment on above: Lumbar radiculopathy (Primary Dx); Chronic SI joint pain; Trochanteric bursitis of left hip; Trochanteric bursitis, right hip; Degeneration of intervertebral disc of lumbar region with discogenic back pain and lower extremity pain; Spinal stenosis of lumbar region, unspecified whether neurogenic claudication present Start: 02-27-2025 End: 02-27-2025 Office outpatient new 45 minutes Pauline Busch PA Work Phone: [facility] Comment on above: Sacroiliitis (Primar y Dx); Facet arthropathy, lumbar; Spinal stenosis of cervical region; Foraminal stenosis of cervical region; Spinal stenosis of lumbar region without neurogenic claudication; Lumbar foraminal stenosis; Retrolisthesis Start: 02-27-2025 End: 02-27-2025 ambulatory PAULINE BUSCH [facility] Start: 02-22-2025 End: 02-22-2025 Bamboo flowsheet Tess Martinez Saunders PT Work Phone: [facility] Start: 02-22-2025 End: 02-22-2025 Bamboo flowsheet Tess L Saunders PT Work Phone: [facility] Start: 02-22-2025 End: 02-22-2025 Clinical Support Tess Martinez Saunders PT Work Phone: [facility] Comment on above: Lumbar radiculopathy (Primary Dx); Muscle weakness; Impaired gait Start: 02-21-2025 End: 02-21-2025 Leona Starks SENIOR FORMULATION SCIENTIST Work Phone: [facility] 210 Comment on above: Lumbar radiculopathy Start: 02-20-2025 End: 02-20-2025 Bamboo flowsheet Leonardo Whitaker MD Work Phone: [facility] Start: 02-20-2025 End: 02-20-2025 Bamboo flowsheet Leonardo Whitaker MD Work Phone: [facility] Start: 02-20-2025 End: 02-20-2025 Clinical Support Leonardo Whitaker MD Work Phone: [facility] Comment on above: Myalgia (Primary Dx) Start: 02-16-2025 End: 02-16-2025 ambulatory RUPALI ZAFAR [facility] Start: 02-15-2025 End: 02-15-2025 Bamboo flowsheet Yessica Dahm [facility] Start: 02-15-2025 End: 02-15-2025 Bamboo flowsheet Yessica Dahm [facility] Start: 02-15-2025 End: 02-15-2025 Clinical Support Yessica Dahm [facility] Comment on above: Lumbar radiculopathy (Primary Dx); Muscle weakness; Impaired gait Start: 02-13-2025 End: 02-13-2025 Bamboo flowsheet Yessica Dahm [facility] Start: 02-13-2025 End: 02-13-2025 Bamboo flowsheet Yessica Dahm [facility] Start: 02-13-2025 End: 02-13-2025 Clinical Support Yessica Damarisa [facility] Comment on above: Lumbar radiculopathy (Primary Dx); Muscle weakness; Impaired gait Start: 02-08-2025 End: 02-08-2025 Bamboo flowsheet Yessica Dahm [facility] Start: 02-08-2025 End: 02-08-2025 Bamboo flowsheet Yessica Dahm [facility] Start: 02-08-2025 End: 02-08-2025 Clinical Support Yessica Damarisa [facility] Comment on above: Lumbar radiculopathy (Primary Dx); Muscle weakness; Impaired gait Start: 02-07-2025 End: 02-07-2025 Leona Starks SENIOR FORMULATION SCIENTIST Work Phone: [facility] 210 Comment on above: Lumbar radiculopathy Start: 02-06-2025 End: 02-06-2025 Bamboo flowsheet Yessica Dahm [facility] Start: 02-06-2025 End: 02-06-2025 Bamboo flowsheet Yessica Dahm [facility] Start: 02-06-2025 End: 02-06-2025 Clinical Support Yessica Dahm [facility] Comment on above: Lumbar radiculopathy (Primary Dx); Muscle weakness; Impaired gait Start: 02-03-2025 ambulatory [facility] Start: 02-01-2025 End: 02-01-2025 Bamboo flowsheet Yessica Ch [facility] Start: 02-01-2025 End: 02-01-2025 Bamboo flowsheet Yessica Ch [facility] Start: 02-01-2025 End: 02-01-2025 Clinical Support Yessica Ch [facility] Comment on above: Lumbar radiculopathy (Primary Dx); Muscle weakness; Impaired gait Start: 01-30-2025 End: 01-30-2025 Bamboo flowsheet Yessica Hernandezhm [facility] Start: 01-30-2025 End: 01-30-2025 Bamboo flowsheet Yessica Ch [facility] Start: 01-30-2025 End: 01-30-2025 Clinical Support Yessica Ch [facility] Comment on above: Lumbar radiculopathy (Primary Dx); Muscle weakness; Impaired gait Start: 01-27-2025 ambulatory [facility] Start: 01-26-2025 End: 01-26-2025 Bamboo flowsheet Leonardo Whitaker MD Work Phone: [facility] Start: 01-26-2025 End: 01-26-2025 Bamboo flowsheet Leonardo Whitaker MD Work Phone: [facility] Start: 01-26-2025 End: 01-26-2025 Clinical Support Leonardo Whitaker MD Work Phone: [facility] Comment on above: Myalgia (Primary Dx) ; Lumbar radiculopathy Start: 01-25-2025 End: 01-25-2025 Bamboo flowsheet Yessica Ch [facility] Start: 01-25-2025 End: 01-25-2025 Bamboo flowsheet Yessica Ch [facility] Start: 01-25-2025 End: 01-25-2025 Clinical Support Yessica Ch [facility] Comment on above: Lumbar radiculopathy (Primary Dx); Muscle weakness; Impaired gait Start: 01-23-2025 End: 01-23-2025 Bamboo flowsheet Yessica Ch [facility] Start: 01-23-2025 End: 01-23-2025 Bamboo flowsheet Yessica Ch [facility] Start: 01-23-2025 End: 01-23-2025 Clinical Support Yessica Ch [facility] Comment on above: Lumbar radiculopathy (Primary Dx); Muscle weakness; Impaired gait Start: 01-23-2025 End: 01-23-2025 ambulatory Patrick Swenson MD Work Phone: [facility] Work Phone: Start: 01-23-2025 End: 01-23-2025 Patient encounter procedure Patrick Swenson MD Work Phone: [facility] Neurosurgery Work Phone: Start: 01-18-2025 End: 01-18-2025 Patient encounter procedure Patrick Swenson MD Work Phone: [facility] [address] Work Phone: Start: 01-18-2025 End: 01-18-2025 ambulatory Patrick Swenson MD Work Phone: [facility] Work Phone: Start: 01-17-2025 End: 01-17-2025 Bamboo flowsheet Tess L Saunders PT Work Phone: [facility] Start: 01-17-2025 End: 01-17-2025 Bamboo flowsheet Tess L Saunders PT Work Phone: [facility] Start: 01-17-2025 End: 01-17-2025 ambulatory Tess L Saunders PT Work Phone: [facility] Comment on above: Lumbar radiculopathy (Primary Dx); Muscle weakness; Impaired gait Start: 01-16-2025 End: 01-16-2025 Leona Starks SENIOR FORMULATION SCIENTIST Work Phone: [facility] 210 Comment on above: Lumbar radiculopathy Start: 01-11-2025 End: 01-11-2025 Bamboo flowsheet Leonardo Whitaker MD Work Phone: [facility] Start: 01-11-2025 End: 01-11-2025 Bamboo flowsheet Leonardo Whitaker MD Work Phone: [facility] Start: 01-11-2025 End: 01-11-2025 Clinical Support Leonardo Whitaker MD Work Phone: [facility] Comment on above: Trochanteric bursiti s of left hip (Primary Dx); Lumbar radiculopathy; Chronic SI joint pain; Trochanteric bursitis, right hip Start: 01-10-2025 End: 01-10-2025 Patient encounter procedure Patrick Swenson MD Work Phone: [facility] Start: 01-10-2025 End: 01-10-2025 ambulatory Patrick Swenson MD Work Phone: [facility] Work Phone: Start: 12-28-2024 End: 12-28-2024 ambulatory [facility] Work Phone: Start: 12-28-2024 End: 12-28-2024 Patient encounter procedure [facility] Neurosurgery Work Phone: Start: 12-27-2024 End: 12-27-2024 Refill Antonella Starks SENIOR FORMULATION SCIENTIST Work Phone: [facility] 210 Comment on above: Degeneration of inte rvertebral disc of lumbar region with discogenic back pain and lower extremity pain; Trochanteric bursitis of left hip; Trochanteric bursitis, right hip Start: 12-21-2024 End: 12-21-2024 Bamboo flowsheet Leonardo Whitaker MD Work Phone: [facility] Start: 12-21-2024 End: 12-21-2024 Bamboo flowsheet Leonardo Whitaker MD Work Phone: [facility] Start: 12-21-2024 End: 12-21-2024 Clinical Support Leonardo Whitaker MD Work Phone: [facility] Comment on above: Trochanteric bursiti s of left hip (Primary Dx); Degeneration of intervertebral disc of lumbar region with discogenic back pain and lower extremity pain; Trochanteric bursitis, right hip Start: 12-12-2024 End: 12-12-2024 Bamboo flowsheet Leonardo Whitaker MD Work Phone: [facility] Start: 12-12-2024 End: 12-12-2024 Gabeo flowsheet Leonardo Whitaker MD Work Phone: [facility] Start: 12-12-2024 End: 12-12-2024 Clinical Support Leonardo Whitaker MD Work Phone: [facility] Comment on above: Trochanteric bursiti s, right hip (Primary Dx); Trochanteric bursitis of left hip Start: 12-06-2024 End: 12-06-2024 Telephone encounter Leonardo Whitaker MD Work Phone: [facility] 210 Start: 12-06-2024 End: 12-06-2024 Office outpatient new 45 minutes Oliverio Moody PA-C Work Phone: [facility] One Comment on above: Lumbar stenosis with neurogenic claudication (Primary Dx) Start: 12-06-2024 End: 12-06-2024 ambulatory OLIVERIO Mari [facility] Ambulatory Start: 12-01-2024 End: 12-01-2024 Mykelboo flowsserjio Whitaker MD Work Phone: [facility] Start: 12-01-2024 End: 12-01-2024 Bamboo flowsserjio Whitaker MD Work Phone: [facility] Start: 12-01-2024 End: 12-01-2024 Clinical Support Leonardo Whitaker MD Work Phone: [facility] Comment on above: Trochanteric bursiti s, right hip (Primary Dx); Trochanteric bursitis of left hip; Lumbar radiculopathy Start: 11-24-2024 End: 11-24-2024 Telephone encounter Leonardo Whitaker MD Work Phone: [facility] 210 Start: 11-16-2024 End: 11-16-2024 Telephone encounter Angelina Ellis RTAgustin R [facility] 210 Comment on above: Trochanteric bursiti s, right hip (Primary Dx); Trochanteric bursitis of left hip Start: 11-16-2024 End: 11-16-2024 ambulatory LEONARDO WHITAKER Not Available Start: 11-10-2024 End: 11-10-2024 Bamboo flowsheet Leonardo Whitaker MD Work Phone: [facility] Start: 11-10-2024 End: 11-10-2024 Bamboo flowsheet Leonardo Whitaker MD Work Phone: [facility] Start: 11-10-2024 End: 11-10-2024 Telephone encounter Leonardo Whitaker MD Work Phone: [facility] Comment on above: Trochanteric bursiti s, right hip (Primary Dx); Trochanteric bursitis of left hip Start: 11-10-2024 End: 11-10-2024 ambulatory LEONARDO WHITAKER Not Available Start: 10-28-2024 End: 10-28-2024 ambulatory RAGHAV DASILVA Not Available Start: 10-19-2024 End: 10-19-2024 Bamboo flowsheet Leonardo Whitaker MD Work Phone: [facility] Start: 10-19-2024 End: 10-19-2024 Bamboo flowsheet Leonardo Whitaker MD Work Phone: [facility] Start: 10-19-2024 End: 10-19-2024 ambulatory LEONARDO WHITAKER Not Available Start: 10-17-2024 End: 10-17-2024 Refill Antonella Starks SENIOR FORMULATION SCIENTIST Work Phone: [facility] 210 Comment on above: Lumbar radiculopathy Start: 10-14-2024 End: 10-14-2024 Refill Kayden Umana DO Work Phone: [facility] Comment on above: Age-related nuclear cataract of both eyes Start: 10-10-2024 End: 10-10-2024 Refill Paula Negron SENIOR FORMULATION SCIENTIST Work Phone: [facility] Comment on above: Lumbar radiculopathy (Primary Dx) Start: 10-05-2024 End: 10-05-2024 Telephone encounter Leonardo Whitaker MD Work Phone: [facility] Start: 09-15-2024 End: 09-15-2024 Refill Kayden Umana DO Work Phone: [facility] Comment on above: Age-related nuclear cataract of both eyes Start: 09-15-2024 End: 09-15-2024 Refill Antonella Starks SENIOR FORMULATION SCIENTIST Work Phone: [facility] 210 Comment on above: Lumbar radiculopathy Start: 08-29-2024 End: 08-29-2024 Bamboo flowsheet Leonardo Whitaker MD Work Phone: [facility] Start: 08-29-2024 End: 08-29-2024 Bamboo flowsheet Leonardo Whitaker MD Work Phone: [facility] Start: 08-29-2024 End: 08-29-2024 Clinical Support Leonardo Whitaker MD Work Phone: [facility] Comment on above: Trochanteric bursiti s, right hip (Primary Dx); Lumbar radiculopathy Start: 08-23-2024 End: 08-24-2024 Telephone encounter Dannielle Mckenna Coronel Other Phone: [facility] Start: 08-05-2024 End: 08-05-2024 ambulatory SELF REFERRAL Facility:[facility] Start: 08-05-2024 End: 08-05-2024 Patient encounter procedure SELF REFERRAL [facility] Start: 07-18-2024 End: 07-18-2024 Bamboo flowsheet Leonardo Whitaker MD Work Phone: [facility] Start: 07-18-2024 End: 07-18-2024 Bamboo flowsheet Leonardo Whitaker MD Work Phone: [facility] Start: 07-18-2024 End: 07-18-2024 Clinical Support Leonardo Whitaker MD Work Phone: [facility] Comment on above: Trochanteric bursiti s, right hip (Primary Dx); Lumbar radiculopathy; Degeneration of intervertebral disc of lumbar region, unspecified whether pain present; Trochanteric bursitis of left hip Start: 06-23-2024 End: 06-23-2024 Refill Kayden Umana DO Work Phone: [facility] Comment on above: Age-related nuclear cataract of both eyes Start: 06-20-2024 End: 06-20-2024 ambulatory LEONARDO WHITAKER Not Available Start: 06-13-2024 End: 06-13-2024 Telephone encounter Leonardo Whitaker MD Work Phone: [facility] 210 Start: 06-02-2024 End: 06-02-2024 Telephone encounter Leonardo Whitaker MD Work Phone: [facility] 210 Start: 05-30-2024 End: 05-30-2024 Bamboo flowsheet Leonardo Whitaker MD Work Phone: [facility] Start: 05-30-2024 End: 10-14-2024 Bamboo flowsheet Leonardo Whitaker MD Work Phone: [facility] Start: 05-30-2024 End: 05-30-2024 Clinical Support Leonardo Whitaker MD Work Phone: [facility] Comment on above: Trochanteric bursiti s of right hip (Primary Dx) Start: 04-13-2024 End: 04-13-2024 Bamboo flowsheet Leonardo Whitaker MD Work Phone: [facility] Start: 04-13-2024 End: 04-13-2024 Bamboo flowsheet Leonardo Whitaker MD Work Phone: [facility] Start: 04-13-2024 End: 04-13-2024 Clinical Support Leonardo Whitaker MD Work Phone: [facility] Comment on above: Trochanteric bursiti s, right hip (Primary Dx); Trochanteric bursitis of left hip Start: 01-05-2024 End: 01-27-2024 Pre-admission assessment SELF REFERRAL [facility] Start: 09-29-2023 End: 09-29-2023 Office outpatient visit 15 minutes Antonella Starks NP Work Phone: [facility] 210 Comment on above: Sciatica of left juan josé e (Primary Dx); Degenerative disc disease, lumbar; Trochanteric bursitis of left hip; Lumbar radiculopathy; Trochanteric bursitis of right hip Start: 06-24-2022 End: 06-25-[address] PATIRCK SWENSON Facility:[facility] Start: 06-16-2022 End: 06-16-[address] PATRICK SWENSON Facility:[facility] Start: 06-11-2022 Encounter for genera l adult medical examination without abnormal findings DR PATRICK SWENSON [facility] Start: 06-09-2022 End: 06-10-[address] PATRICK SWENSON Facility:[facility] Start: 06-09-2022 End: 06-10-2022 Encounter for general adult medical examination without abnormal findings DR PATRICK SWENSON Facility:[facility] Start: 12-20-2021 End: 12-20-2021 Patient encounter procedure SELF REFERRAL [facility] Start: 11-05-2021 End: 11-06-[address] PATRICK SWENSON Facility:[facility] Start: 10-28-2021 End: 10-28-[address] PATRICK SWENSON Facility:[facility] Start: 09-06-2021 End: 09-06-2021 ambulatory ITZ ENRIQUE Facility:[facility] Start: 08-07-2021 End: 08-07-[address] PATRICK SWENSON Facility:[facility] Start: 07-08-2021 End: 07-09-[address] PATRICK SWENSON Facility:[facility] Start: 10-27-2018 End: 10-30-2018 Patient encounter procedure RAGHAV ROSAS [facility] Start: 10-27-2018 End: 10-30-2018 Patient encounter procedure [facility] Procedures Date Procedure Procedure Detail Performing Clinician Start: 03-20-2025 Injection single/enterprise systems architect trigger point 1/2 muscles Leonardo Whitaker MD [...] 02-27-2026 Adult BMI Screening Adult BMI Screen [facility] Start: 02-27-2026 Tobacco Screening Tobacco Screening [facility] Start: 04-17-2025 Influenza vaccination [facility] Start: 04-10-2025 End: 04-10-2025 Clinical Support 04/10/2025 8:40 AM EDT Clinical Support [facility] [address] [place] [address] Leonardo Whitaker MD [address] [facility] [address], [place] [phone] [facility] Start: 03-20-2025 End: 03-20-2025 Clinical Support [facility] Comment on above: Arrived Start: 03-12-2025 Pneumococcal vaccination Pneum ococcal Vaccine (3 of 3 - PCV20 or PCV21) [facility] Start: 02-27-2025 End: 02-27-2025 Patient encounter procedure 02/27/2025 8:00 AM EDT Office Visit [facility] [address] [facility] [address] [place] [address] Justo Agosto MD [address] [facility] [address] [place] [address] [facility] Start: 02-22-2025 End: 02-22-2025 [...] on above: Arrived Start: 01-23-2025 Patient referral [facility] Work Phone: Start: 01-23-2025 End: 01-23-2025 Clinical Support [facility] Comment on above: Arrived Start: 01-17-2025 End: 01-17-2025 ambulatory [facility] Comment on above: Arrived Start: 01-11-2025 End: 01-11-2025 Clinical Support [facility] Comment on above: Arrived Start: 01-10-2025 X-ray scoliosis surv ey, single view XR scoliosis 1V [facility] Start: 01-10-2025 [facility] Start: 12-28-2024 Patient referral [facility] Work Phone: Start: 12-21-2024 End: 12-21-2024 Clinical Support [facility] Comment on above: Arrived Start: 12-12-2024 End: 12-12-2024 Clinical Support [facility] Comment on above: Arrived Start: 12-07-2024 End: 12-07-2024 Patient encounter procedure 12/07/2024 3:00 PM EDT Office Visit Kevyn Gilbert [address] [place] [address] [place] [address] [address] [facility] Department [place] [address] Kevyn Gilbert Start: 12-01-2024 End: 12-01-2024 Clinical Support [facility] Comment on above: Arrived Start: 11-16-2024 End: 11-16-2024 Clinical Support 11/16/2024 9:20 AM EDT Clinical Support [facility] [address] [phone] Leonardo Whitaker MD [address] [facility] [address] [place] [address] [phone] [facility] Start: 11-10-2024 End: 11-10-2024 Clinical Support 11/10/2024 10:00 AM EDT Clinical Support [facility] [address] [address] Leonardo Whitaker MD [address] [facility] [address] [place] [address], [place] [phone] Arrived [facility] Comment on above: Arrived Start: 10-28-2024 End: 10-28-2024 Patient encounter procedure 10/28/2024 8:45 AM EDT Office Visit [facility] [address] [place] [phone] Raghav Dasilva DO [address] [facility] [place] [address] [facility] Start: 10-19-2024 End: 10-19-2024 Clinical Support [facility] Comment on above: Arrived Start: 10-10-2024 End: 10-10-2024 Clinical Support 10/10/2024 8:40 AM EST Clinical Support [facility] [address] [phone] Leonardo Whitaker MD [address] [facility] [address] [place] [address] [phone] [facility] Start: 08-29-2024 End: 08-29-2024 Clinical Support [facility] Comment on above: Arrived Start: 07-18-2024 End: 07-18-2024 Clinical Support [facility] Comment on above: Arrived Start: 06-20-2024 End: 06-20-2024 Patient encounter procedure 06/20/2024 9:00 AM EST Procedure Visit [facility] [address] [facility] [address] [place] [address] [facility] Start: 05-30-2024 End: 05-30-2024 [facility] Comment on above: Arrived Start: 04-17-2024 COVID-19 Vaccine () COVID-19 Vaccine () [facility] Start: 04-17-2024 COVID-19 Vaccine ( season) COVID-19 Vaccine () [facility] Start: 04-17-2024 Influenza vaccination Influenza Vacc ine (#1) [facility] Start: 04-13-2024 End: 04-13-2024 Clinical Support 04/13/2024 9:00 AM EDT Clinical Support [facility] [address] [address] [place] [address] Leonardo Whitaker MD [address] [facility] [address] [place] [address] Arrived [facility] Comment on above: Arrived Start: 10-21-2023 End: 10-21-2023 Clinical Support 10/21/2023 9:00 AM EST Clinical Support [facility] [address] [place] [address] Leonardo Whitaker MD [address] [facility] [address] [place] [phone] [facility] Start: 2017 Administration of varicella zoster vaccine Zoster (Shingles) Vaccine (1 of 2) [facility] Start: 2017 Zoster Vaccines (1 of 2) Zoste r Vaccines (1 of 2) [facility] Start: 2007 Screening for malign ant neoplasm of breast Mammogram [facility] Start: 1997 Screening for malign ant neoplasm of cervix [facility] Start: 1989 DTaP/Tdap/Td Vaccine s (1 - Tdap) DTaP/Tdap/Td Vaccines (1 - Tdap) [facility] Start: 1988 Screening for malign ant neoplasm of cervix [facility] Start: 1986 DTaP,Tdap and Td Vaccines (1 - Tdap) DTaP,Tdap and Td Vaccines (1 - Tdap) [facility] Start: 1985 Adult BMI Screening Adult BMI Screen ing [facility] Start: 1985 Hepatitis C screening Hepatitis C Sc reening [facility] Start: 1979 Depression Screening Depression Scre ening [facility] Start: 1979 Tobacco Screening Tobacco Screening [facility] Start: 1968 MMR Vaccines (1 of 1 - Standard series) MMR Vaccines (1 of 1 - Standard series) [facility] Start: 1967 HIV screening HIV Screening [facility] Start: 1967 Lipid panel Lipid Panel [facility] Start: 1967 Screening for malign ant neoplasm of colon [facility] Start: 1967 Tobacco Counseling Tobacco Counselin g [facility] Start: 1967 Yearly Adult Physical Yearly Adult P hysical [facility] CT Lumbar spine WO contrast [facility] CT Thoracic spine WO contrast [facility] MR Cervical spine WO contrast [facility] Patient referral [facility] Work Phone: [facility] Immunizations Immunization Date Immunization Notes Care Provider Fa dheeraj 06-11-2023 Influenza, injectabl e, Madin Wendy Canine Kidney, preservative free, quadrivalent Antonella Starks SENIOR FORMULATION SCIENTIST Work Phone: [facility] 06-11-2023 influenza virus vacc ine, unspecified formulation Leonardo Whitaker MD Work Phone: [facility] 06-07-2020 influenza, injectabl e, quadrivalent, preservative free Antonella Starks SENIOR FORMULATION SCIENTIST Work Phone: [facility] 03-12-2020 pneumococcal polysaccharide vaccine, 23 valent Antonella Graziani SENIOR FORMULATION SCIENTIST Work Phone: [facility] 05-18-2019 influenza, injectabl e, quadrivalent, preservative free Antonella Nickiani SENIOR FORMULATION SCIENTIST Work Phone: [facility] 05-18-2019 pneumococcal conjuga te vaccine, 13 valent Antonella Graziani SENIOR FORMULATION SCIENTIST Work Phone: [facility] 04-07-2001 hepatitis B vaccine, adult dosage Antonella Graziani SENIOR FORMULATION SCIENTIST Work Phone: [facility] 01-09-2000 hepatitis B vaccine, adult dosage Antonella Graziani SENIOR FORMULATION SCIENTIST Work Phone: [facility] 08-28-1997 hepatitis B vaccine, adult dosage Antonella Graziani SENIOR FORMULATION SCIENTIST Work Phone: [facility] Payers Date Payer Category Payer Self-pay 2023 [employer] [facility] [employer] Member Subscriber Plan / Payer (Effective 2023-Present) Name: Dalia Zhang Galen Relation to Subscriber: Self Name: Dalia Zhang Galen Payer ID: Not on file Type: Not on file Address: [place] [id number] 2023 [facility] [id number] 2014 Private Health Insurance [employer] [id number] 2014 Unknown [employer] [id number] 2014-Present [address] [place] [address] [id number]. [id number] 1967 Unknown [id number] 2.16840.1.348718.3.579.2. 174 1967 Unknown [id number] 2.16.840.1.736975.3.579.2. 174 1967 Unknown [id number] 2.16.840.1.043497.3.579.2. 593 1967 Unknown [id number] 2.16.840.1.028472.3.579.2. 593 1967 Unknown [id number] 2.16.840.1.533994.3.579.2. 593 1967 Unknown [id number] 2.16.840.1.025501.3.579.2. 593 1967 Unknown [id number] 2.16.840.1.574182.3.579.2. 593 1967 Unknown [id number] 2.16.840.1.411542.3.579.2. 593 1967 Unknown [id number] 2.16.840.1.372404.3.579.2. 593 1967 Unknown [id number] 2.16.840.1.036643.3.579.2. 593 1967 Unknown [id number] 2.16.840.1.235122.3.579.2. 727 1967 Unknown [id number] 2.16.840.1.966308.3.579.2. 1244 1967 Unknown [id number] 2.16.840.1.678527.3.579.2. 1286 1967 Unknown [id number] 2.16.840.1.571318.3.579.2. 1286 1967 Unknown [id number] 2.16.840.1.835824.3.579.2. 1286 1967 Unknown [id number] 2.16.840.1.426133.3.579.2. 1259 1967 Unknown [id number] 2.16.840.1.686225.3.579.2. 1259 1967 Unknown [id number] 2.16.840.1.109389.3.579.2. 1259 1967 Unknown [id number] 2.16.840.1.667773.3.579.2. 1259 1967 Unknown [id number] 2.16.840.1.514729.3.579.2. 1259 1967 Unknown [id number] 2.16.840.1.574940.3.579.2. 1259 1967 Unknown [id number] 2.16.840.1.994329.3.579.2. 1259 1967 Unknown [id number] 2.16.840.1.233132.3.579.2. 1259 1967 Unknown [id number] 2.16.840.1.858613.3.579.2. 1259 1967 Unknown [id number] 2.16.840.1.127718.3.579.2. 1259 1967 Unknown [id number] 2.16.840.1.611845.3.579.2. 1258 1967 Unknown [id number] 2.16.840.1.879650.3.579.2. 1258 1967 Unknown [id number] 2.16.840.1.295523.3.579.2. 1258 1967 Unknown [id number] 2.16.840.1.569032.3.579.2. 1258 1967 Unknown [id number] 2.16.840.1.468643.3.579.2. 1258 1967 Unknown [id number] 2.16.840.1.828973.3.579.2. 1258 1967 Unknown [id number] 2.16.840.1.462077.3.579.2. 1258 1967 Unknown [id number] 2.16840.1.685125.3.579.2. 1258 1967 Unknown [id number] 2.16.840.1.767501.3.579.2. 1258 1967 Unknown [id number] 2.16.840.1.966686.3.579.2. 1258 1967 Unknown [id number] 2.16.840.1.957026.3.579.2. 1258 1967 Unknown [id number] 2.16840.1.093087.3.579.2. 1258 1967 Unknown [id number] 2.16.840.1.970219.3.579.2. 1258 1967 Unknown [id number] 2.16.840.1.455701.3.579.2. 1258 1967 Unknown [id number] 2.16.840.1.308389.3.579.2. 1258 1967 Unknown [id number] 2.16.840.1.050428.3.579.2. 1258 1967 Unknown [id number] 2.16.840.1.578307.3.579.2. 1259 1967 Unknown [id number] 2.16.840.1.704552.3.579.2. 1259 1959 Unknown [id number] Unknown [id number] 2.16.840.1.909405.3.579.2. 531 Unknown [id number] 2.16.840.1.805027.3.579.2. 531 Social History Date Type Detail Facility Start: 01-26-2021 Tobacco smoking status Heavy t obacco smoker (finding) [facility] Start: 09-29-2023 End: 02-20-2025 Sex Assigned At Female [facility] Start: 05-19-2023 End: 02-15-2024 Tobacco smoking status MTIS Smokes tobacco daily [facility] History of tobacco use Cigarette Smoker [facility] Start: 05-19-2023 End: 02-20-2025 Cigarettes smoked current (pack per day) - Reported 0.5 [facility] Start: 05-19-2023 End: 02-15-2024 Tobacco use and exposure Smokeless tobacco non-user [facility] Start: 09-29-2023 End: 02-20-2025 Alcohol intake Current drinker of alcohol (finding) [facility] Start: 07-20-2023 Alcohol Comment monthly or les s, Caffeine intake : soda/pop,coffee,tea more than 4 cups per day [facility] Start: 1967 Sex Assigned At Not on file [facility] Start: 11-26-2024 End: 12-06-2024 Exposure to SARS-CoV-2 (event) Not sure [facility] Start: 12-28-2024 Tobacco smoking stat [facility] Smoker (finding) [facility] Start: 03-20-2015 End: 12-28-2024 Sex Female (finding) [facility] Start: 1965 Sex Assigned At Female F [facility] Tobacco smoking stat RUSTIS Tobacco smoking consumption unknown [facility] Childcare Unknown [facility] Start: 02-27-2025 Alcoholic beverage intake Ex-drinker (finding) [facility] Clinical Notes 10-28-2021 to 04-18-2025 Telephone Encounter - Carolee Hanley - 04/18/2025 3:34 PM EDTTelephone Encounter - Carolee Hanley - 04/18/2025 3:34 PM EDTTelephone Encounter - Carolee Hanley - 04/05/2025 11:14 AM EDTPatient Instructions Note Date & Type Note Facility 04-18-2025 Telephone encounter Note Pt went to see pain management and received a Lumbar shot and they did not work. Pt wants to know if she can still get S1 Joint shots? Pt also states she needs steroid medication [phone] [facility] 04-18-2025 Miscellaneous Notes Pt went to see pain management and received a Lumbar shot and they did not work. Pt wants to know if she can still get S1 Joint shots? Pt also states she needs steroid medication [phone] documented in this encounter [facility] 04-05-2025 Telephone encounter Note Pt is calling today and states she need to know what to do next. Pt states she will be getting 4 shots from Pain Management on 04/07 and wants to know how far apart she has to wait to get more shots. [phone] [facility] 04-05-2025 Miscellaneous Notes Pt is calling today and states she need to know what to do next. Pt states she will be getting 4 shots from Pain Management on 04/07 and wants to know how far apart she has to wait to get more shots. [phone] documented in this encounter [facility] 03-31-2025 Telephone encounter Note Patient also left message requesting refill of Medrol dospak to be sent to [facility] in [place]. [facility] 03-31-2025 Miscellaneous Notes Patient also left message requesting refill of Medrol dospak to be sent to [facility] in [place]. documented in this encounter [facility] 03-20-2025 History of Present illness Narrative Associated [...] to verify the correct patient, procedure, equipment, integrated logistics support manager and site/side marked as required. [...] Due to her condition, she is considering halfway as she is unable to walk or [...] in all four extremities, including at least supervisor lathing, finger abductors, biceps, triceps, deltoid, toe flexors [...] to prevent reinjury. documented in this encounter [facility] 02-27-2025 History of Present illness Narrative Images from the original note were not included. [facility] [address] [place] [address], [address] [place] [address] * CHART NOTE ? 02/27/2025 Patient: Dalia Zhang 1965 [id number] Physician: Pauline Busch PA-C SUMMARY Acute bilateral, nnlok-gfhxcra-aihl-left sacroiliitis with findings of multilevel lumbar facet arthropathy, foraminal stenosis, and canal stenosis as well as previous C5-7 ACDF performed for cervical myelopathy in 1998 and 2001 at [facility] with findings of adjacent segment canal stenosis [...] lower extremities. 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 She believes that this repetitive motion has perpetuated the pain in her low back. The patient has a prior history of a C5-6 ACDF initially performed for myelopathy [place] [address] Schroeder at [facility]. C6-7 ACDF was then performed in 2001 [...] to severe central canal stenosis and severe xzvy-elhgzem-orag-right foraminal stenosis. Sincerely, Electronically signed by: Pauline Busch PA-C This note was created with the assistance of a speech recognition program with the goal of generating a timely record of the patient encounter. Inadvertent computerized cutting machine operator errors related to syntax, spelling, homophones, and/or inaudibility may be present. DIANA Lugo 02/27/25 0926 documented in this encounter [facility] 02-27-2025 Instructions Maine Tee CMA - 02/27/2025 8:00 AM EDT Patient was seen today in clinic and given a pain management referral order. Patient to follow up as needed sp documented in this encounter [facility] 02-22-2025 History of Present illness Narrative Images [...] up. Subjective Pain: 5-6/10 Overall progress: No correction carry over with aquatic therapy. Feels great [...] pain management (MET but doesn't use device) Detention Goal #1: The patient will achieve pain free lumbar AROM within 3-4 weeks for improved mobility (NOT MET) Detention Goal #2: The patient will tolerate at least 15 minutes of activity without exacerbation of pain within 4-6 weeks for improved activity tolerance, performance of household tasks ( NOT MET) Lead Welder Goal #3: The patient will demonstrate B LE strength 5/5 within 4-6 weeks for improved quality of gait, transfers (NOT MET) Plan: On hold until neurosurgery appointment on 02/27/25. Will return to PT to continue aquatic therapy for pain management, strength and balance training if directed by physician. documented in this encounter [facility] 02-21-2025 Telephone encounter Note Voicemail left that Julianne saw patient yesterday and prescription was not sent. Medrol dose shiva sent. [facility] 02-21-2025 Miscellaneous Notes Voicemail left that Julianne saw patient yesterday and prescription was not sent. Medrol dose shiva sent. documented in this encounter [facility] 02-20-2025 History of Present illness Narrative Images [...] in all four extremities, including at least supervisor lathing, finger abductors, biceps, triceps, deltoid, toe flexors [...] Whitaker. This note was scribed by Cristina Browning(R) acting under the direction of Leonardo Whitaker [...] were performed today. documented in this encounter [facility] 02-07-2025 Telephone encounter Note Voicemail left for refill on Medrol dose shiva. Sent. [facility] 02-07-2025 Miscellaneous Notes Voicemail left for refill on Medrol dose shiva. Sent. documented in this encounter [facility] 02-01-2025 Miscellaneous Notes Received fax referral. Called patient, left message to call back to schedule. documented in this encounter [facility] 02-01-2025 Telephone encounter Note Received fax referral. Called patient, left message to call back to schedule. [facility] 01-26-2025 History of Present illness [...] opinion at a major medical center in [place]. She is awaiting further instructions on which specialist she will be referred to. She has applied for school halfway disability and requires documentation to support this [...] in all four extremities, including at least supervisor lathing, finger abductors, biceps, triceps, deltoid, toe flexors [...] Whitaker. This note was scribed by Cristina Browning(R) acting under the direction of Leonardo Whitaker [...] was performed today. documented in this encounter [facility] 01-17-2025 History of Present illness Narrative Images [...] she will follow up regarding these on Zach. She has been getting injections from Dr. [...] up. 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 [employer] Precautions: Cervical fusion 20+ years, R knee [...] sequencing within 1 week for pain management Detention Goal #1: The patient will achieve pain free lumbar AROM within 3-4 weeks for improved mobility Lead Welder Goal #2: The patient will tolerate at least 15 minutes of activity without exacerbation of pain within 4-6 weeks for improved activity tolerance, performance of household tasks Lead Welder Goal #3: The patient will demonstrate B LE strength 5/5 within 4-6 weeks for improved quality of gait, transfers Rehab potential: Good Recommend aquatic skilled PT to address the above impairments 2x/wk for 6 weeks pending pt progress and medical necessity. RTD on Thursday. I hereby deem this POC medically necessary. Please sign below and fax back to [phone]. Date: documented in this encounter [facility] 01-11-2025 History of Present illness Narrative Images [...] FINGER RELEASE Right 02/22/2020 trigger thumb release [facility] Social History Tobacco Use Smoking [...] reflexes: Mohsen's absent. Ankle clonus absent. Coordination Szmyqw-ah-eemi, rapid alternating movements and yugl-xh-pqta normal bilaterally without dysmetria. Gait Casual gait: [...] Leonardo Whitaker MD documented in this encounter [facility] 01-10-2025 Radiology Diagnostic study note [facility] Main [place] [address] [place] [address] CT Scan Report Signed Patient: Dalia Zhang MR#: [id number] : 1965 Acct:[id number] Age/Sex: 59 / F ADM Date: Loc: [facility] Room: Type: [facility] Attending Dr: Therese Santoyo DO Copies [...] Pastrana M.D. 01/10/2025 4:39 PM Dictation Location: [place] [address] Transcribed By: [facility] 01/10/25 163 Dictated By: Darian Pastrana II, MD 01/10/25 1634 Signed By: 01/10/25 1639 [facility] Work Phone: 01-10-2025 Radiology Diagnostic study note [facility] Main [place] [address] [place] [address] CT Scan Report Signed Patient: Dalia Zhang MR#: [id number] : 1965 Acct:[id number] Age/Sex: 59 / F ADM Date: Loc: [facility] Room: Type: [facility] Attending Dr: Therese Santoyo DO Copies [...] Pastrana M.D. 01/10/2025 4:34 PM Dictation Location: [place] [address] Transcribed By: [facility] 01/10/25 163 Dictated By: Darian Pastrana II, MD 01/10/25 1630 Signed By: 01/10/25 1634 [facility] Work Phone: 12-28-2024 Evaluation note Diagnosis Onset Date Resolution Chronic pain acute December 28 8:11am [facility] Work Phone: 1(799) 267-109105-13-2025 Telephone encounter Note* Telephone Encounter - Antonella Starks NP - 12/27/2024 9:12 AM EDT Leaves voicemail for steroid pack. Sent. [facility] [id number] Miscellaneous Notes* Telephone Encounter - Antonella Starks NP - 12/27/2024 9:12 AM EDT Leaves voicemail for steroid pack. Sent. documented in this encounterSac-Osage [id number] History of Present illness Narrative* Leonardo Whitaker [...] FINGER RELEASE Right 02/22/2020 trigger thumb release [facility] Social History Tobacco Use Smoking [...] reflexes: Mohsen's absent. Ankle clonus absent. Coordination Lcojbg-yu-ccym, rapid alternating movements and gpii-rb-cbpo normal bilaterally without dysmetria. Gait Normal casual, [...] by Leonardo Whitaker MD documented in this encounterSac-Osage HospitalHalbqefswy19-91-5902 History of Present illness Narrative* Leonardo Whitaker [...] FINGER RELEASE Right 02/22/2020 trigger thumb release [facility] Social History Tobacco Use Smoking status: [...] the injections if needed. documented in this encounterSac-Osage HospitalXijzazwwbd62-55-7723 Telephone encounter Note* Telephone Encounter - Paula Negron NP - 12/06/2024 5:58 PM EDT Referral to Dr Yarelis mcgraw. [facility] HospitalVxtqyksczb68-81-4868 Miscellaneous Notes* Telephone Encounter - Paula Negron NP - 12/06/2024 5:58 PM EDT Referral to Dr Yarelis mcgraw. * Telephone Encounter - Carolee Hanley - 12/06/2024 2:27 PM EDT Pt is calling and would like to have a referral for one of your Dr's because she went to a Dr in [place] and they will not do any testing unless she stops smoking. [phone] documented in this encounterSac-Osage HospitalCefjezlcsj08-64-0742 Telephone encounter Note* Telephone Encounter - Carolee Hanley - 12/06/2024 2:27 PM EDT Pt is calling and would like to have a referral for one of your Dr's because she went to a Dr in [place] and they will not do any testing unless she stops smoking. [phone] [facility] HospitalUualulpmqj05-82-0925 History of Present illness Narrative* Oliverio Moody [...] Dr. Whitaker with neurology for treatment through [facility]. She has had multiple lumbar and [...] file prior to visit. documented in this [facility] Work Phone: 1(613) 141-871804-17-2025 History of Present illness Narrative* Leonardo Whitaker [...] FINGER RELEASE Right 02/22/2020 trigger thumb release [facility] Social History Tobacco Use Smoking status: [...] the injections if needed. documented in this encounterSac-Osage HospitalMwssvwhutq87-10-1163 Telephone encounter Note* Telephone Encounter - Behzad Owen MA - 11/24/2024 8:54 AM EDT Updating her paperwork currently. [facility] HospitalJyzxmbzzav96-82-0796 Miscellaneous Notes* Telephone Encounter - Behzad Owen [...] Dr until 12/07/24. Pleased call her at [phone]. Pt also would like a refill on the Methylprednisolone 4mg. She has taken them all. documented in this encounterSac-Osage HospitalIdojeznjjq64-68-0164 Telephone encounter Note* Telephone Encounter - Leonardo Whitaker MD - 11/24/2024 8:29 AM EDT Absolutely no problem with an extension off of work, She is not a problem behzad so whatever she needs [facility] HospitalPmsonborko19-22-0573 Telephone encounter Note* Telephone Encounter - Carolee Hanley - 11/24/2024 8:02 AM EDT Pt called today and would like to know if she can get an extension to be off work until 12/12/24 dueto the fact she does not see the Dr until 12/07/24. Pleased call her at [phone]. Pt also would like a refill on the Methylprednisolone 4mg. She has taken them all. [facility] HospitalVwietnoeef49-21-3686 Telephone encounter Note* Telephone Encounter - Antonella Starks NP - 11/16/2024 8:35 PM EDT Behzad this was an open encounter sent to Angelina from you but blank? Can you remember what was needed? [place] [id number] Miscellaneous Notes* Telephone Encounter - Antonella Starks NP - 11/16/2024 8:35 PM EDT Behzad this was an open encounter sent to Angelina from you but blank? Can you remember what was needed? documented in this encounterSac-Osage HospitalKitidcfzoc13-62-4301 History of Present illness Narrative* Leonardo Whitaker [...] reflexes: Mohsen's absent. Ankle clonus absent. Coordination Fmtkrc-jo-mrea, rapid alternating movements and ubvh-ks-aput normal bilaterally without dysmetria. Gait Normal casual, [...] the injections if needed. documented in this encounterSac-Osage HospitalWnrnwnnvrh96-64-5994 Telephone encounter Note* Telephone Encounter - Tala Menezes - 11/10/2024 3:17 PM EDT Patient left message that Dr. Whitaker was going to send a new prescription for her to [facility] in [facility] nothing at pharmacy. Please advise. [facility] HospitalEpcgketvft29-20-2164 Miscellaneous Notes* Telephone Encounter - Tala Menezes - 11/10/2024 3:17 PM EDT Patient left message that Dr. Whitaker was going to send a new prescription for her to [facility] in [facility] nothing at pharmacy. Please advise. documented in this encounterSac-Osage HospitalEnvexdgbwq83-59-8615 History of Present illness Narrative* Leonardo Whitaker [...] FINGER RELEASE Right 02/22/2020 trigger thumb release [facility] Social History Tobacco Use Smoking status: [...] injections if needed. . documented in this [facility]03-03-2025 Telephone encounter Note* Telephone Encounter - Antonella Starks NP - 10/17/2024 10:17 AM EST Patient calls for refill of dexamethasone. Sent. [facility] [id number] Miscellaneous Notes* Telephone Encounter - Antonella Starks NP - 10/17/2024 10:17 AM EST Patient calls for refill of dexamethasone. Sent. documented in this [facility]02-24-2025 Telephone encounter Note* Telephone Encounter - Paula Negron NP - 10/10/2024 12:39 PM EST Script sent for lidocaine patches [facility] [id number] Miscellaneous Notes* Telephone Encounter - Paula Negron NP - 10/10/2024 12:39 PM EST Script sent for lidocaine patches documented in this encounterSac-Osage HospitalHhgeusppme36-72-1570 Telephone encounter Note* Telephone Encounter - Antonella Starks NP - 10/05/2024 11:44 AM EST Sent. [employer] message sent to patient [facility] [id number] Miscellaneous Notes* Telephone Encounter - Antonella Starks NP - 10/05/2024 11:44 AM EST Sent. [employer] message sent to patient * Telephone Encounter - Tala Menezes - 10/05/2024 11:13 AM EST Patient called requesting refill of Dexamethasone to be sent to [facility] in [place]. documented in this encounterSac-Osage HospitalRiwitxdews49-88-2832 Telephone encounter Note* Telephone Encounter - Tala Menezes - 10/05/2024 11:13 AM EST Patient called requesting refill of Dexamethasone to be sent to [facility] in [place]. [facility] HospitalFvbyhitwtp50-77-5239 Telephone encounter Note* Telephone Encounter - Antonella Starks NP - 09/15/2024 7:26 PM EST Patient leaves voicemail for refill of dexamethasone. Sent to pharmacy and notified patient via Trillianthart. [facility] [id number] Miscellaneous Notes* Telephone Encounter - Antonella Starks NP - 09/15/2024 7:26 PM EST Patient leaves voicemail for refill of dexamethasone. Sent to pharmacy and notified patient via mychart. documented in this encounterSac-Osage HospitalIbbydmkxsg82-56-4282 History of Present illness Narrative* Leonardo Whitaker [...] FINGER RELEASE Right 02/22/2020 trigger thumb release [facility] Social History Tobacco Use Smoking status: [...] reflexes: Mohsen's absent. Ankle clonus absent. Coordination Eqsapj-dj-kawp, rapid alternating movements and bfml-le-hrjm normal bilaterally without dysmetria. Gait Normal casual, [...] the injections if needed. documented in this [facility]01-07-2025 Telephone encounter Note* Telephone Encounter - Lyla Vicente - 08/23/2024 2:58 PM EST Needs a refill on Dexamethasone 2mg [facility] Work Phone: [phone] Miscellaneous Notes* Telephone Encounter - Lyla Vicente - 08/23/2024 2:58 PM EST Needs a refill on [facility]amethasone [facility]mg [facility] documented in this encounterSac-Osage HospitalNvaozmgogm85-03-8189 History of Present illness Narrative* Leonardo Whitaker [...] FINGER RELEASE Right 02/22/2020 trigger thumb release [facility] Social History Tobacco Use Smoking [...] reflexes: Mohsen's absent. Ankle clonus absent. Coordination Rjykui-vp-lqlb, rapid alternating movements and mgsl-tp-ezba normal bilaterally without dysmetria. Gait Normal casual, [...] visit with Dr. Lockett. documented in this [facility]10-28-2024 Telephone encounter Note* Telephone Encounter - Ceciliapresley Amador - 06/13/2024 8:14 AM EDT Pt is requesting refill of Decadron rx. [place] [id number] Miscellaneous Notes* Telephone Encounter - Cecilia Westminster - 06/13/2024 8:14 AM EDT Pt is requesting refill of Decadron rx. documented in this [facility]10-17-2024 Telephone encounter Note* Telephone Encounter - Cecilia Westminster - 06/02/2024 8:39 AM EDT Pt would like someone to call her with xr results if possible. I explained how MyChart works for her and sent a new link but she would still like a call. [place] [id number] Miscellaneous Notes* Telephone Encounter - Cecilia Perry - 06/02/2024 8:39 AM EDT Pt would like someone to call her with xr results if possible. I explained how MyChart works for her and sent a new link but she would still like a call. documented in this [place] [address]-14-2024 History of Present illness Narrative* Leonardo Whitaker [...] Past Medical History: Diagnosis Date Cataract Hyperlipidemia ([facility]/HCC) Past Surgical History: Procedure Laterality Date CARPAL TUNNEL RELEASE Left 12/25/2015 L CTR, AUNT MTP KNEE SURGERY arthroscopy MTP NECK SURGERY 1998, 2002 TRIGGER FINGER RELEASE Right 02/22/2020 trigger thumb release [facility] Social History Tobacco Use Smoking [...] reflexes: Mohsen's absent. Ankle clonus absent. Coordination Fgkeei-na-xrju, rapid alternating movements and mqad-zv-xadj normal bilaterally without dysmetria. Gait Normal casual, [...] the injections if needed. documented in this encounterSac-Osage HospitalQvgqasxkyt28-63-1078 History of Present illness Narrative* Samantha Hull LPN - 04/13/2024 9:00 AM EDT Images from [...] FINGER RELEASE Right 02/22/2020 trigger thumb release [facility] Social History Tobacco Use Smoking status: [...] reflexes: Mohsen's absent. Ankle clonus absent. Coordination Wwslzt-sq-eehz, rapid alternating movements and nofa-ko-jpsr normal bilaterally without dysmetria. Gait Normal casual, [...] (500 mg) before bedtime. documented in this encounterSac-Osage HospitalRgdcvtfwkh47-04-4959 History of Present illness Narrative* Antonella Starks, CORI - 09/29/2023 9:30 AM EST Subjective Dalia [...] FINGER RELEASE Right 02/22/2020 trigger thumb release [facility] Family History Problem Relation Name Age [...] pain returns acute, moderate/severe. documented in this encounterSac-Osage HospitalDxgvrzmfos89-34-4215 NotePROCEDURE: XR FOOT RT MIN 3 VIEWS COMPARISON: 10/28/2021 HISTORY: Right foot pain FINDINGS: BONES:No acute fracture or dislocation. Stable corticated calcific densities noted along the medial margin of the navicular and lateral margin of the cuboid. SOFT TISSUES:Negative. No visible soft tissue swelling. EFFUSION:None visible. OTHER: Negative. IMPRESSION: No acute fracture Electronically authenticated by: PAULINE BROTHERS Date: 2021-11-05 10:37[facility]03-14-2022 NotePROCEDURE: XR FOOT RT MIN 3 VIEWS [...] Electronically authenticated by: PAULINE BROTHERS Date: 2021-10-28 12:24[facility] No data available for this section [facility] Diagnosis Sciatica of left side- Primary Degenerative disc disease, lumbar Trochanteric bursitis of left hip Lumbar radiculopathy Thoracic or lumbosacral neuritis or radiculitis, unspecified Trochanteric bursitis of right hip documented in this encounter [facility] HealthcareEvaluation note* Diagnosis Trochanteric bursitis of right hip- Primary Trochanteric bursitis of right hip documented in this encounter [facility]* Diagnosis Trochanteric bursitis of left hip Lumbar radiculopathy Thoracic or lumbosacral neuritis or radiculitis, unspecified documented in this encounter [facility] note* Diagnosis Age-related nuclear cataract of both eyes documented in this encounter [facility]* Diagnosis Trochanteric bursitis, right hip- Primary Lumbar radiculopathy Thoracic or lumbosacral neuritis or radiculitis, unspecified Degeneration of intervertebral disc of lumbar region, unspecified whether pain present Trochanteric bursitis of left hip documented in this encounter [facility] Healthcare[facility] note* Diagnosis Trochanteric bursitis, right [...] or radiculitis, unspecified documented in this encounter [facility] HealthcareEvaluation note* Diagnosis Age-related nuclear cataract of [...] this encounter [facility]* Diagnosis Lumbar stenosis with neurogenic claudication- Primary documented in this encounter [facility] Work Phone: Evaluation note* Diagnosis Degeneration of intervertebral disc of lumbar region with discogenic back pain and lower extremity pain- Primary Spinal stenosis of lumbar region, unspecified whether neurogenic claudication present documented in this encounter [facility]* Diagnosis Trochanteric bursitis, right hip- Primary Trochanteric bursitis of left hip documented [facility]* Diagnosis Degeneration of intervertebral disc [...] hip documented in this encounter [facility] noteNo assessment information availableKettering Health [facility] Work Phone: Evaluation note* Diagnosis Lumbar radiculopathy [...] myalgia and myositis documented in this encounter [facility]* Diagnosis Sacroiliitis- Primary Sacroiliitis, not elsewhere classified Facet arthropathy, lumbar Spinal stenosis of cervical region Spinal stenosis in cervical region Foraminal stenosis of cervical region Spinal stenosis of lumbar region without neurogenic claudication Lumbar foraminal stenosis Retrolisthesis Disorder of bone and cartilage, unspecified [facility] Diagnosis Lumbar radiculopathy- Primary [...] myalgia and myositis documented in [facility]* Diagnosis Lumbar radiculopathy Thoracic or lumbosacral neuritis or radiculitis, unspecified documented [facility] encounter [facility] Discharge instructions No data available for this section [facility] instructionsAmbulatory Orders* Referral to PT / OT / Speech (PT/OT/SP) Location: None [facility] Work Phone: Hospital Discharge instructionsAmbulatory Orders* Referral to Neurosurgery Location: None [facility] Work Phone: InstructionsNot on filedocumented in this encounter [facility] No data available for this section [facility] Narrative* Orthopedic (Routine) - Pending Review Specialty Diagnoses / Procedures Referred By Contac t Referred To Contact Diagnoses Other forms of scoliosis, lumbar region Procedures DC UNLISTED EVALUATION AND MANAGEMENT SERVICE Raghav Dasilva, DO [address] [place] [address] Phone: tel: [place]: [place] [address] [place] [address] Phone: tel: fax: Referral ID Status Reason Start Date Expiration Date V isits Requested Visits Authorized [id number] Pending Review 10/31/2024 04/29/2025 1 1 [facility] Work Phone: Reason for visit Narrative* Rehabilitation - Outpatient (Routine) - Authorized Specialty Diagnoses / Procedures Referred By Contac t Referred To Contact Physical Therapy Diagnoses Other spondylosis with radiculopathy, lumbar region Procedures DC PHYSICAL THERAPY EVALUATION LOW COMPLEX 20 MINS Therese Santoyo MD [address] [place] [address] Phone: tel: fax: Tess Saunders, PT [address] [place] [address] Phone: tel: fax: Referral ID Status Reason Start Date Expiration Date Visits Requested Visits Authorized [id number] Authorized Consult and Treat 01/11/2025 07/10/2025 40 40 [facility] N[facility]ative* Rehabilitation - Outpatient (Routine) - Authorized Specialty Diagnoses / Procedures Referred By Contac t Referred To Contact Physical Therapy Diagnoses Other spondylosis with radiculopathy, lumbar region Procedures DC PHYSICAL THERAPY EVALUATION LOW COMPLEX 20 MINS Therese Santoyo MD [address] [place] [address] Phone: tel: fax: Saunders, Tess L, PT [address] [place] [address] Phone: tel: fax: Referral ID Status Reason Start Date Expiration Date Visits Requested Visits Authorized [id number] Authorized Consult and Treat 01/11/2025 08/16/2025 40 [...] content) DATE CREATED AUTHOR 10/31/2018 Josefa Sanchez spicassidy DATE CREATED AUTHOR AUTHOR'S ORGANIZ ATION 06/29/2022 [facility] DATE CREATED AUTHOR AUTHOR'S ORGANIZ ATION 08/13/2024 [facility] DATE CREATED AUTHOR AUTHOR'S ORGANIZ ATION 12/11/2024 [facility] DATE CREATED AUTHOR AUTHOR'S ORGANIZ ATION 02/24/2025 [facility] DATE CREATED AUTHOR AUTHOR'S ORGANIZ ATION 02/27/2025 [facility] DATE CREATED AUTHOR AUTHOR'S ORGANIZ ATION 03/02/2025 [facility] DATE CREATED AUTHOR AUTHOR'S ORGANJO ATION 03/21/2025 [facility] d[facility] Specialists EPIC Patient Care team informatio n (unrecognized section and content) French Binder Relationship Specialty Start Date End Date Patrick Swenson MD [address] [place] [address] PCP - General Family Medicine 10/28/24 Leonardo Whitaker MD [address] [facility] [address] [place] [address] Referring Physician Neurology 10/28/24 French Binder Relationship Specialty Start Date End Date Patrick Swenson MD [address] [place] [address] PCP - General Family Medicine 10/28/24 Leonardo Whitaker MD [address] [facility] [address] [place] [address] Referring Physician Neurology 10/28/24 French Binder Relationship Specialty Start Date End Date Patrick Swenson MD [address] [place] [address] PCP - General Family Medicine 10/28/24 Leonardo Whitaker MD [address] [facility] [address] [place] [address] [phone] Referring Physician Neurology 10/28/24 French Binder Relationship Specialty Start Date End Date Patrick Swenson MD [address] [place] [address] PCP - General Family Medicine 10/28/24 Leonardo Whitaker MD [address] [facility] [address] [place] [address], [place] [phone] Referring Physician Neurology 10/28/24 French Binder Relationship Specialty Start Date End Date Patrick Swenson MD [address] [place] [address] PCP - General Family Medicine 10/28/24 Leonardo Whitaker MD [address] [facility] [address] [place] [address] Referring Physician Neurology 10/28/24 French Binder Relationship Specialty Start Date End Date Patrick Swenson MD [address] [place] [phone] PCP - General Family Medicine 10/28/24 Leonardo Whitaker MD [address] [facility] [address] [place] [address] Referring Physician Neurology 10/28/24 French Binder Relationship Specialty Start Date End Date Patrick Swenson MD [address] [phone] PCP - General Family Medicine 10/28/24 Leonardo Whitaker MD [address] [facility] [address] [place] [address] [phone] Referring Physician Neurology 10/28/24 French Binder Relationship Specialty Start Date End Date Patrick Swenson MD [address] [place] [address] PCP - General Family Medicine 10/28/24 Leonardo Whitaker MD [address] [facility] [address] [place] [address] Referring Physician Neurology 10/28/24 French Binder Relationship Specialty Start Date End Date Patrick Swenson MD [address] [place] [address] PCP - General Family Medicine 10/28/24 Leonardo Whitaker MD [address] [facility] [address] [place] [address] Referring Physician Neurology 10/28/24 French Binder Relationship Specialty Start Date End Date Patrick Swenson MD [address] [place] [phone] PCP - General Family Medicine 10/28/24 Leonardo Whitaker MD [address] [facility] [address] [place] [address] Referring Physician Neurology 10/28/24 French Binder Relationship Specialty Start Date End Date Patrick Swenson MD PCP - General Family Medicine 10/28/24 Leonardo Whitaker MD [address] [facility] [address] [place] [address] Referring Physician Neurology 10/28/24 French Binder Relationship Specialty Start Date End Date Patrick Swenson MD PCP - General Family Medicine 10/28/24 Leonardo Whitaker MD [address] [facility] [address] [place] [address], [place] [address] Referring Physician Neurology 10/28/24 French Binder Relationship Specialty Start Date End Date Patrick Swenson MD PCP - General Family Medicine 10/28/24 Leonardo Whitaker MD [address] [place] [address], [place] [address] Referring Physician Neurology 10/28/24 Team Status: Active Member Role Status Dates Patrick Swenson MD Primary Care Provider Active Team Status: Inactive Member Role Status Dates Patrick Swenson MD Primary Care Provider Active Start: December 28, 2024 End: December 28, 2024 Therese Santoyo DO Attending Provider Active S tart: December 28, 2024 End: December 28, 2024 French Binder Relationship Specialty Start Date End Date Patrick Swenson MD PCP - General Family Medicine 10/28/24 Leonardo Whitaker MD [address] [place] [address], [place] [address] Referring Physician Neurology 10/28/24 Team Status: Inactive Member Role Status Dates Patrick Swenson MD Primary Care Provider Active Start: January 10, 2025 End: January 10, 2025 Therese Santoyo DO Attending Provider Active S tart: January 10, 2025 End: January 10, 2025 NON STAFF Other Provider Active Start: January 102024 End: January 10, 2025 French Binder Relationship Specialty Start Date End Date Patrick Swenson MD PCP - General Family Medicine 10/28/24 Leonardo Whitaker MD [address] [place] [address], [place] [address] Referring Physician Neurology 10/28/24 French Binder Relationship Specialty Start Date End Date Patrick Swenson MD PCP - General Family Medicine 10/28/24 Leonardo Whitaker MD [address] [place] [address], [place] [address] Referring Physician Neurology 10/28/24 Team Status: Inactive [...] 2025 End: January 23, 2025 Therese Santoyo DO Attending Provider Active S tart: January 23, 2025 End: January 23, 2025 French Binder Relationship Specialty Start Date End Date Patrick Swenson MD PCP - General Family Medicine 10/28/24 Leonardo Whitaker MD [address] [facility] [place] [address] Referring Physician Neurology 10/28/24 French Binder Relationship Specialty Start Date End Date Patrick Swenson MD PCP - General Family Medicine 10/28/24 Leonardo Whitaker MD [address] [place] [address] Referring Physician Neurology 10/28/24 French Binder Relationship Specialty Start Date End Date Patrick Swenson MD PCP - General Family Medicine 10/28/24 Leonardo Whitaker MD [address] [facility] [address] [place] [address], [place] [address] Referring Physician Neurology 10/28/24 French Binder Relationship Specialty Start Date End Date Patrick Swenson MD PCP - General Family Medicine 10/28/24 Leonardo Whitaker MD [address] [facility] [address] [place] [address], [place] [address] Referring Physician Neurology 10/28/24 French Binder Relationship Specialty Start Date End Date Patrick Swenson MD PCP - General Family Medicine 10/28/24 Leonardo Whitaker MD [address] [facility] [address] [place] [address], [place] [address] Referring Physician Neurology 10/28/24 French Binder Relationship Specialty Start Date End Date Patrick Swenson MD PCP - General Family Medicine 10/28/24 Leonardo Whitaker MD [address] [facility] [address] [place] [address], [place] [address] Referring Physician Neurology 10/28/24 French Binder Relationship Specialty Start Date End Date Patrick Swenson MD PCP - General Family Medicine 10/28/24 Leonardo Whitaker MD [address] [facility] [address] [place] [address], [place] [address] Referring Physician Neurology 10/28/24 French Binder Relationship Specialty Start Date End Date Patrick Swenson MD PCP - General Family Medicine 10/28/24 Leonardo Whitaker MD [address] [facility] [address] [place] [address], [place] [address] Referring Physician Neurology 10/28/24 French Binder Relationship Specialty Start Date End Date Patrick Swenson MD PCP - General Family Medicine 10/28/24 Leonardo Whitaker MD [address] [facility] [address] [place] [address], [place] [address] Referring Physician Neurology 10/28/24 French Binder Relationship Specialty Start Date End Date Patrick Swenson MD PCP - General Family Medicine 10/28/24 Leonardo Whitaker MD [address] [facility] [address] [place] [address], [place] [address] Referring Physician Neurology 10/28/24 French Binder Relationship Specialty Start Date End Date Patrick Swenson MD PCP - General Family Medicine 10/28/24 Leonardo Whitaker MD [address] [facility] [address] [place] [address], [place] [address] Referring Physician Neurology 10/28/24 French Binder Relationship Specialty Start Date End Date Patrick Swenson MD PCP - General Family Medicine 10/28/24 Leonardo Whitaker MD [address] [facility] [address] [place] [address], [place] [address] Referring Physician Neurology 10/28/24 French Binder Relationship Specialty Start Date End Date Patrick Swenson MD PCP - General Family Medicine 10/28/24 Leonardo Whitaker MD [address] [facility] [address] [place] [address], [place] [address] Referring Physician Neurology 10/28/24 French Binder Relationship Specialty Start Date End Date Patrick Swenson MD PCP - General Family Medicine 10/28/24 Leonardo Whitaker MD [address] [facility] [address] [place] [address], [place] [address] Referring Physician Neurology 10/28/24 French Binder Relationship Specialty Start Date End Date Patrick Swenson MD PCP - General Family Medicine 10/28/24 Leonardo Whitaker MD [address] [facility] [address] [place] [address], [place] [address] Referring Physician Neurology 10/28/24 French Binder Relationship Specialty Start Date End Date Patrick Swenson MD PCP - General Family Medicine 10/28/24 Leonardo Whitaker MD [address] [facility] [address] [place] [address], [place] [phone] Referring Physician Neurology 10/28/24 French Binder Relationship Specialty Start Date End Date Patrick Swenson MD PCP - General Family Medicine 10/28/24 Leonardo Whitaker MD [address] [facility] [address] [place] [address], [place] [address] Referring Physician Neurology 10/28/24 French Binder Relationship Specialty Start Date End Date Patrick Swenson MD PCP - General Family Medicine 10/28/24 Leonardo Whitaker MD [address] [place] [address], [place] [address] Referring Physician Neurology 10/28/24 Reason for Visit (unrecogniz ed section and content) Reason Comments Med Refill Reason Comments 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 [facility] [employer] [facility]. provides no warranty or guarantee of the accuracy or completeness of information in this document.
[2025-04-20 09:48] LABS: Hematocrit 46.4 % (36.0-48.0); Hemoglobin 15.6 g/dL (12.0-16.0); Immature Granulocytes Abs Auto 0.25 10^3/uL (0.00-0.03); Immature Granulocytes Pct Auto 1.3 % (0.0-0.5); Lymphocytes Absolute Auto 2.4 10^3/uL (1.2-3.8); Mean Corpuscular HGB Conc 33.6 g/dL (29.9-35.2); Mean Corpuscular Hemoglobin 32.3 pg (26.7-34.0); Mean Corpuscular Volume 96.1 fL (81.0-99.0); Platelet Count 305 10^3/uL (150-450); Red Blood Count 4.83 10^6/uL (4.20-5.40); White Blood Count 19.5 10^3/uL (4.0-11.0)
[2025-04-20 10:44] LABS: Alanine Aminotransferase 26 U/L (14-59); Albumin Globulin Ratio 1.2; Albumin Level 3.7 g/dL (3.4-5.0); Alkaline Phosphatase 54 U/L (46-116); Anion Gap 13.8; Aspartate Amino Transferase 17 U/L (15-37); Blood Urea Nitrogen 9.0 mg/dL (7.0-18.0); Calcium 8.9 mg/dL (8.5-10.1); Carbon Dioxide 28.1 mmol/L (21.0-32.0); Chloride 107 mmol/L (98-107); Cholesterol 230 mg/dL (<=200); Estimated GFR (African America >60 (>=60 mL/min/1.73m^2); Estimated GFR (Non-African Ame >60 (>=60 mL/min/1.73m^2); Free T3 2.78 pg/mL (2.18-3.98); Globulin 3.1 g/dL; Glucose 91 mg/dL (74-106); HDL Cholesterol 62 mg/dL (40-60); Potassium 3.9 mmol/L (3.5-5.1); Sodium 145 mmol/L (136-145); Thyroid Stimulating Hormone 0.759 uIU/mL (0.358-3.740); Total Protein 6.8 g/dL (6.4-8.2); Triglycerides 90 mg/dL (<=150); VLDL CHOLESTEROL 18.0 mg/dL
== END 2025-04-20 09:11 | disposition home or self-care (01) ==
LOC: LAB 09:11
PROVIDERS: PCP Family Medicine; Visit Provider Family Medicine
DX: Z00.00 Encounter for general adult medical examination without abnormal findings (principal)
CPT/HCPCS: 36415; 80053; 80061; 83036; 84436; 84443; 84481; 85025

== ENCOUNTER 2025-08-14 13:59 | Outpatient (OUT) | payer OTHER, SELFPAY ==
--- NOTE | 2025-08-14 14:01 | MM_ITS ---
Patient Name: MITESH PATEL MR#: [id number] : 1965 Exam Date: 08/14/2025 Ordering Doctor: DR PATRICK GRAY . RADIOLOGY REPORT PROCEDURE: MM TOMOSYNTHESIS SCREENING BI COMPARISON: MM TOMOSYNTHESIS SCREENING BI, 08/05/2024. MG MAMM SAEED SCRN W CAD DIG, 12/04/2015. MG MAMM SAEED DIAG W CAD DIG, 06/08/2007. INDICATIONS: Screening Calculator Name NCI Breast Cancer Risk Assessment Tool 5 Year Breast Cancer Risk 1.20% Lifetime Breast Cancer Risk 6.90% Personal Breast Cancer No Personal Ovarian Cancer No Treatments None Family Cancers None LOCATION: [facility] BREAST COMPOSITION: There are scattered areas of fibroglandular density. FINDINGS: Developing 1 cm nodule right breast. The 12 o'clock position. 9 cm from the nipple. LEFT BREAST: No significant suspicious finding. DIAGNOSTIC CATEGORY 0--INCOMPLETE: NEED ADDITIONAL IMAGING EVALUATION. RECOMMENDATIONS: ADDITIONAL MAMMOGRAPHIC VIEWS REQUIRED: RIGHT BREAST -spot compression with medial lateral viewkk ULTRASOUND: RIGHT BREAST Dictated by: Kirk Garcia DO on 08/15/2025 at 11:07 Approved by: Kirk Garcia DO on 08/15/2025 at 11:52
--- OUTSIDE RECORDS SUMMARY | 2025-08-14 14:01 | XMS_ITS | Encounter Summary ---
Author Organization [facility] Address [address] [place] [address] Care Team Providers Care Artist Agent Name Role Phone Yasmany Swenson MD Primary Care Provider [phone] Kemar Whitaker MD Unavailable [phone] Encounter Details DateTypeDepartmentCare Team (Latest Contact Info)Snbbqnxsmmw46/16/2025Telephone [facility] [place] [facility] [address] [facility] [address] [place] [address] Kemar Whitaker MD [address] [facility] [address] [place] [address] [phone] Social History Tobacco UseTypesPacks/DayYears UsedDateSmoking Tobacco: Every DayCigarettes Smokeless Tobacco: NeverAlcohol UseStandard Drinks/WeekCommentsYes0 (1 standard drink = 0.6 oz pure alcohol)monthly or less, Caffeine intake : soda/pop,coffee,tea more than 4 cups per dayCommentsUnknownSex and Gender InformationValueDate RecordedSex Assigned at BirthNot on fileLegal Sex Aqaewq3910/29/2022 6:39 PM EDTGender IdentityNot on fileSexual OrientationNot on filedocumented as of this encounter Miscellaneous Notes * Telephone Encounter - Antonella Starks NP - 08/02/2025 9:50 AM EST I will post letter to [facility] * Telephone Encounter - Kemar Whitaker MD - 08/02/2025 8:32 AM EST Off work for 3 more months * Telephone Encounter - Kimberly Owen MA - 08/01/2025 3:05 PM EST How long do you want to extend? * Telephone Encounter - Tala Menezes - 08/01/2025 12:18 PM EST Patient left message that her current off work note runs out on 08/21/2025 and is requesting an extension. Please advise. 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 documented in this encounter Plan of Treatment DateTypeDepartmentCare Team (Latest Contact Info)Pmkrohetcfh54/31/2025 9:20 AM ESTOffice Visit [facility] [place] [facility] [address] [place] [address] Griffin Blunt DPLionel [address] [place] [address] 10/25/2025 10:20 AM EDTProcedure Visit [facility] [place] [facility] [address] [place] [address] Griffin Blunt DPM [address] [place] [address] documented as of this encounter Visit Diagnoses Not on filedocumented in this encounter Care Teams Team MemberRelationshipSpecialtyStart DateEnd Date Yasmany Swenson MD [address] [place] [address] PCP - GeneralFamily Medicine10/28/24 Kemar Whitaker MD [address] [facility] [place] [place] [address] Referring PhysicianNeurology10/28/24documented as of this encounter
--- OUTSIDE RECORDS SUMMARY | 2025-08-14 14:01 | XMS_ITS | Encounter Summary ---
Author Organization [facility] Address [address] [place] [address] Care Team Providers Care Florist Name Role Phone Yasmany Swenson MD Primary Care Provider [phone] Kemar Whitaker MD Unavailable Reason for Visit * ReasonOnset DateCommentsMed Yxgycw2708/04/2025 Encounter Details DateTypeDepartmentCare Team (Latest Contact Info)Pwtuurecbeu65/19/2025Telephone [facility] [address] [facility] [address] [place] [address] Griffin Blunt DPM [address] [facility] [address] [place] [address] Med Refill Social History Tobacco UseTypesPacks/DayYears UsedDateSmoking Tobacco: Every DayCigarettes Smokeless Tobacco: NeverAlcohol UseStandard Drinks/WeekCommentsYes0 (1 standard drink = 0.6 oz pure alcohol)monthly or less, Caffeine intake : soda/pop,coffee,tea more than 4 cups per dayCommentsUnknownSex and Gender InformationValueDate RecordedSex Assigned at BirthNot on fileLegal Sex Ovacrx6610/29/2022 6:39 PM EDTGender IdentityNot on fileSexual OrientationNot on filedocumented as of this encounter Miscellaneous Notes * Telephone Encounter - Merlyn De La O - 08/04/2025 9:12 AM EST Thank you. * Telephone Encounter - Griffin Blunt DPM - 08/04/2025 9:12 AM EST DONE. * Telephone Encounter - Merlyn De La O - 08/04/2025 9:07 AM EST Patient is wondering if some more ciclopirox 0.77 cream could be called in for her. She had to moveher appointment because she is having surgery on Thursday and she needs some more cream to get her through until her next appointment. Please assist, thank you. documented in this encounter Plan of Treatment DateTypeDepartmentCare Team (Latest Contact Info)Bynwqhvijoh06/31/2025 9:20 AM ESTOffice Visit [facility] [place] [facility] [address] [place] [address] Griffin Blunt DPM [address] [place] [address] 10/25/2025 10:20 AM EDTProcedure Visit [facility] [place] [facility] [address] [place] [address] Griffin Blunt DPM [address] [place] [address] documented as of this encounter Visit Diagnoses Diagnosis Tinea pedis of left foot- Primary Onychomycosis Dermatophytosis of nail documented in this encounter Care Teams Team MemberRelationshipSpecialtyStart DateEnd Date Yasmany Swenson MD [address] [place] [facility] [address] PCP - GeneralFamily Medicine10/28/24 Kemar Whitaker MD [address] [facility] [place] [address] Referring PhysicianNeurology10/28/24documented as of this encounter
--- OUTSIDE RECORDS SUMMARY | 2025-08-14 14:01 | XMS_ITS | Clinical Summary ---
Author Organization [employer] [facility] tem Address [id number] [place] [address] Care Team Providers Care Laundry Helper Name Role Phone Unavailable Primary Care Provider Unavailabl e Allergies Active AllergyReactionsCriticalityNoted VwhsIrgjxalaTnkolgprxpp61/14/2025 PenicillinsOther (See Comments),VuhhPhi4701/10/2022ulfa (Sulfonamide Antibiotics) Rash,Other (See Comments)Low01/10/2022 Medications No known medications Active Problems No known active problems Family History Medical HistoryRelationNameCommentsAneurysmFatherAsthmaFatherBack ProblemsFather Brain TumorFatherEpilepsyFatherHeart diseaseFatherNeck ProblemsFatherBack ProblemsMotherRelationNameStatusCommentsFatherDeceasedMotherAlive Social History Tobacco UseTypesPacks/DayYears UsedDateSmoking Tobacco: Every DayCigarettes Smokeless Tobacco: NeverAlcohol UseStandard Drinks/WeekCommentsNot Currently0 (1 standard drink = 0.6 oz pure alcohol)ChildcareAnswerDate RecordedChildcare Mwldtvy0501/24/2019EmploymentAnswerDate EeclmksdNoflduiqhkYfijkxu01/10/2019Hunger ScreeningAnswerDate RecordedWithin the past 12 months we worried whether our food would run out before we got money to buy more.Never True02/27/2025Within the past 12 months the food we bought just didn't last and we didn't have money to get more.Never True02/27/2025CommentsNoSex and Gender Information ValueDate RecordedSex Assigned at BirthNot on fileLegal ZisYencqh50/04/2015 4:10 PM EDTGender IdentityNot on fileSexual OrientationNot on file Last Filed Vital Signs Vital SignReadingTime TakenCommentsBlood Mpcbozho074/80002/27/2025 7:56 AM EDT Wpyie636902/27/2025 7:56 AM EDTTemperature--Respiratory Rate--Oxygen Saturation-- Inhaled Oxygen Concentration--Slimhz18.2 kg (104 lb)02/27/2025 7:56 AM EDTHeight 153.2 cm (5' 0.3 )02/27/2025 7:56 AM EDTBody Mass Index20.11002/27/2025 7:56 AM EDT Plan of Treatment Health MaintenanceDue DateLast DoneCommentsTobacco Akbxaaxlns1967 Depression Doqmufwjv15/07/1979DTaP,Tdap and Td Vaccines (1 - Tdap)1986Pap Smear1988Zoster (Shingles) Vaccine (1 of 2)2017COVID-19 Vaccine (3 - season)503/12/2020, 09/28/2020Influenza Xpoorka9104/17/2025 06/11/2023, 06/07/2020, 05/18/2019Adult BMI Ctvywmlhg62Tobacco Qakajabda02 Medical Devices Not on file Insurance
--- OUTSIDE RECORDS SUMMARY | 2025-08-14 14:01 | XMS_ITS | Clinical Summary ---
Author Organization [facility] Address [address] [place] [address] [address] Care Team Providers Care Audiology Assistant Name Role Phone Yasmany Swenson MD Primary Care Provider [phone] Kemar Whitaker MD Unavailable Allergies Active AllergyReactionsCriticalityNoted RioyVpkvkujuRixsqjudireYlfiNxh41/27/2022 NtdufQdxtwem85/02/2023PenicillinsOther,QfssOku41/27/2022Sulfa AntibioticsUnknown ,GkzeZxp44/27/1854GohmydspicugcOctxCug25/27/9813HckzbplvunxogHwvqSvl47/10/2025 Rash and blistering of skin Medications MedicationSigDispense QuantityRefillsLast FilledStart DateEnd DateStatus ascorbic acid (Vitamin C) 500 MG chewable tablet 1 (one) time each day at the same timeActive meloxicam (Mobic) 15 MG tablet Take 15 mg by mouth Daily as [id number] terbinafine (LamISIL) 250 MG tablet Indications:Tinea PedisTake 1 tablet (250 mg) by mouth Daily 90 tablet 502/6Active lidocaine (Lidoderm) 5 % patch Indications:Spinal stenosis of lumbar region, unspecified whether neurogenic claudication present,Degeneration of intervertebral disc of lumbar region with discogenic back pain and lower extremity pain,PolyneuropathyApply 1 patch over 12 hours topically Daily Apply for 12 hours daily 30 patch 5Active ciclopirox (Loprox) 0.77 % cream Indications:Tinea pedis of left foot,OnychomycosisApply 1 application topically in the morning and 1 application before bedtime. 90 g 112501/6Active ciclopirox (Loprox) 0.77 % cream Indications:Tinea pedis of left footApply 1 application topically in the morning and 1 application before bedtime. 90 g 1115109/26/2024Expired methylPREDNISolone (Medrol Dospak) 4 MG tablets Indications:Spinal stenosis of lumbar region, unspecified whether neurogenic claudication present,Degeneration of intervertebral disc of lumbar region with discogenic back pain and lower extremity pain,Trochanteric bursitis, right hip, Trochanteric bursitis of left hipFollow schedule on package instructions 21 tablet ExpiredHospital, Clinic, or Other Facility Administered MedicationOrdered DoseRouteFrequencyStart DateEnd DateStatus dexAMETHasone sod phos (Decadron) injection 4 mg Indications:Trochanteric bursitis of left hip,Trochanteric bursitis, right hip4 puDNRhsw76/13/2025tive dexAMETHasone sod phos (Decadron) injection 4 mg Indications:Myalgia4 bbRTRcsd78Ended bupivacaine (Marcaine) 0.5 % injection 5 mg Indications:Myalgia5 ymSDTxsu03Ended Active Problems ProblemNoted DateDiagnosed YxphZlhj27/17/2025Other specified symptoms and signs involving the circulatory and respiratory tfambyh9807/03/2025hronic pain 07/03/20257706Yigctrjnbz24/17/2025ute hdmrpcjqieamc24/17/2025Spinal stenosis 07/03/2025Unspecified abnormal finding in specimens from other organs, systems and meclltl8707/03/2025igarette nicotine arpbvqiyvj63/30/2915Zoljudq73/12/2025 Muscle okgwirqd75/03/2025Impaired gait01/17/20259761Thhcjipwdk88/13/2025H/O: bflcaxnij65/13/8039Wnyppfryni75/13/2025ge-related nuclear cataract of both eyes 11/19/2023Trochanteric bursitis, left hip10/26/2023Trochanteric bursitis, right hip10/26/2023Other ihqddujxxsrlik64/11/8362Esehgjbgqwbnlh83/11/2024egenerative disc disease, nilqxd0809/29/2023Trochanteric bursitis of left hip09/29/2023 Sciatica of left side09/29/2023Other specified chronic obstructive pulmonary qekijsk6209/07/2023Lumbar ajxyiluryrcyl69/09/2023ervical paraspinal muscle spasm 06/25/2023Sacroiliitis, not elsewhere vqzxcbwyuk93/01/2023urrent smoker 03/17/2023 Overview (03/17/2023): Added secondary to documentation in Social History. Trochanteric bursitis of right hip01/16/2023Osteoarthritis of knee05/09/2021 Resolved Problems ProblemNoted DateDiagnosed DateResolved DateLumbar pain Encounters DateTypeDepartmentCare EwurZmnysjitypy37/19/2025Telephone [facility] [address] [place] [address] Griffin Blunt, DPM Med Dteadm0408/01/2025Telephone [facility] [address] [place] [address] Kemar Whitaker MD 07/28/2025Telephone [facility] [address] [place] [address] Kemar Whitaker MD 07/24/2025 1:20 PM ESTClinical Support [facility] [address] [place] [address] Kemar Whitaker MD Myalgia (Primary Dx)07/24/2025amboo flowsheet [facility] [address] [place] [address] Kemar Whitaker MD 07/24/20253754Ydlxru65/04/2025 10:40 AM ESTOffice Visit [facility] [address] [place] [address] Griffin Blunt, DPM Tinea pedis of left foot; Onychomycosis; Callus; Intractable plantar oktdxbxif77/04/2025amboo flowsheet [facility] [address] [place] [address] Griffin Blunt, DPM 07/20/20257375Mtheey62/28/2025Telephone [facility] [address] [place] [address] Kimberly Owen MA 07/13/2025Refill [facility] [address] [place] [address] Alexander Hunter, DPM FACFAS Contact dermatitis and ubgnus7907/07/2025Telephone [facility] [address] [place] [address] Kimberly Owen MA 07/03/2025 8:00 AM ESTClinical Support [facility] [address] [place] [address] Kemar Whitaker MD Myalgia (Primary Dx); Lumbar dduprefvpdfkh58/17/2025amb flowsheet [facility] [address] [place] [address] Kemar Whitaker MD 07/03/20257214Fdsxpk83/11/2025Telephone [facility] [address] [place] [address] Tosha Kohli RT. R Lab request; Xlliltu9006/26/2025 2:30 PM ESTOffice Visit [facility] [address] [place] [address] Griffin Blunt, DPM Tinea pedis of left foot11/10/2025Bamboo flowsheet [facility] [address] [place] [address] Griffin Blunt, DPM 06/26/20254408Pxlfgh39/06/2025Telephone [facility] [address] [place] [address] Shefali Larry MA 06/08/2025Orders Only [facility] [address] [place] [address] Kimberly Owen MA Foot lesion (Primary Dx)06/08/2025Telephone [facility] [address] [place] [address] [address] Angelina Ellis, RT. R 06/08/2025Telephone [facility] [address] [place] [address], [place] [address] Angelina Ellis, RT. R 06/07/2025 3:00 PM EDTClinical Support [facility] [address] [place] [address] Kemar Whitaker MD Myalgia (Primary Dx)06/07/2025Telephone [facility] [address] [facility] [address] [place] [address] [place] [address] Angelina Ellis, RT. R 06/07/2025amb flowsheet [facility] [address] [place] [address] Kemar Whitaker MD 06/07/20256528Lxqlwu49/20/2025 2:30 PM EDTOffice Visit [facility] [address] [place] [address] Alexander Hunter, DPM FACFAS Cellulitis of left foot (Primary Dx); Contact dermatitis and eczema; Venous insufficiency; PAD (peripheral artery disease)10/20/2025Abstract [facility] [address] [place] [address] Alexander Hunter, DPM FACFAS 06/05/2025amboo flowsheet [facility] [address] [place] [address] Alexander Hunter, DPM FACFAS 5Clinisync Result Encounter [facility] External Department Unsolicited Alexander Hunter, DPM FACFAS 5Abstract [facility] [address] [place] [address] Alexander Hunter, DPM FACFAS 05/30/2025 3:50 PM EDTOffice Visit [facility] [address] [place] [address] Carl Hunter R, DPM FACFAS Venous insufficiency (Primary Dx); Contact dermatitis and eczema; PAD (peripheral artery disease)05/30/2025amboo flowsheet [facility] [address] [place] [address] Carl Hunter R, DPM FACFAS 05/26/2025 10:10 AM EDTOffice Visit [facility] [address] [place] [address] Alexander Hunter, DPM FACFAS PAD (peripheral artery disease) (Primary Dx); Contact dermatitis and uqdtaf9605/26/2025amb flowsheet [facility] [address] [place] [address] Alexander Hunter, DPM FACFAS 05/16/2025Telephone [facility] [address] [place] [address] [place] [address] Angelina Ellis, RT. R from Last 3 Months Immunizations ImmunizationAdministration DatesNext DueHep B, adult04/07/2001,01/09/2000, 08/28/1997Influenza, injectable, MDCK, preservative free, iqfxwmakuhht26/26/2023 Influenza, injectable, quadrivalent, preservative free06/07/2020,05/18/2019 Pneumococcal Conjugate PCV 131Pneumococcal Polysaccharide PPSV23 03/12/2020 Family History Medical HistoryRelationNameCommentsNo Known ProblemsDaughterLeukemiaFather HyperlipidemiaMotherHypertensionMotherblood thinners medication, low ironMother had open heart surgeryMotherNo Known ProblemsSisterNo Known ProblemsSonMelanoma Neg HxRelationNameStatusCommentsDaughterAlive1 daughterFatherDeceasedMotherAlive Sister1 sisterSonAlive2 sons Social History Tobacco UseTypesPacks/DayYears UsedDateSmoking Tobacco: Every DayCigarettes Smokeless Tobacco: Never Tobacco Cessation:Ready to Q uit: Not Asked; Counseling Given: Yes Alcohol UseStandard Drinks/WeekCommentsYes0 (1 standard drink = 0.6 oz pure alcohol)monthly or less, Caffeine intake : soda/pop,coffee,tea more than 4 cups per dayCommentsUnknownSex and Gender InformationValueDate RecordedSex Assigned at BirthNot on fileLegal EulBuoasf96/15/2023 6:39 PM EDTGender Identity Not on fileSexual OrientationNot on file Last Filed Vital Signs Vital SignReadingTime TakenCommentsBlood Xbpwnyrr502/0068007/24/2025 1:44 PM EST Mqdax264906/05/2025 2:27 PM EDTTemperature--Respiratory Zdcw0122 2:24 PM EDTOxygen Hbeorowyiy24%05/01/2025 2:24 PM EDTInhaled Oxygen Concentration-- Lxqvte09.6 kg (98 lb 6.4 oz)07/24/2025 1:44 PM OPUDtbzeh817 cm (5' 3 )07/24/2025 1:44 PM ESTBody Mass Index17.43109/24/2024 1:44 PM EST Plan of Treatment DateTypeDepartmentCare Team (Latest Contact Info)Lwqbcvpnkpd29/31/2025 9:20 AM ESTOffice Visit [facility] [address] [place] [address] Kubitz, Griffin R, DPM [address] [place] [address] 10/25/2025 10:20 AM EDTProcedure Visit [facility] [address] [place] [address] JohnnyGriffin joyce, DPM [address] [place] [address] Procedures Procedure NamePriorityDate/TimeAssociated DiagnosisCommentsUS PVR LOWER EXT COMPLETE BILAT1 2:04 PM EDT from Last 3 Months Results * US PVR LOWER EXT COMPLETE BILAT (05/31/2025 2:04 PM EDT)Anatomical Region LateralityModalityOtherSpecimen (Source)Anatomical Location / Laterality Collection Method / VolumeCollection TimeReceived Time05/31/2025 2:04 PM EDT Addenda Addendum by Radiology, Radiologist, on 05/31/2025 4:45 PM EDT Exam Date/Time: 05/31/2025 14:38 EDT Reason for Exam: I73.9 Addendum ADDENDUM: The IMPRESSION should read as follows THE RIGHT ANKLE-BRACHIAL INDEX IS NORMAL AT REST. THE LEFT ANKLE-BRACHIAL INDEX IS BORDERLINE ABNORMAL AT REST. Ordering Provider: Alexander Hunter FINAL REPORT Dictated: ??05/31/2025 4:49 pm ? Luis Sherman M.D. Signed (Electronic Signature): ??05/31/2025 4:49 pm Signed by: ??Luis Sherman M.D. Transcribed by: ??DP ? Technologist: ??HW Report IMPRESSION: THE RIGHT ANKLE-BRACHIAL INDEX IS NORMAL AT REST. THE LEFT ANKLE BRACHIAL INDEXES CONSISTENT WITH MILD DISEASE IN THE LEG. CLINICAL HISTORY: I73.9. Left foot wound. COMMENT: ??On the right, the brachial systolic pressure is 130, the high thigh pressure is 164, the low thigh pressure is 161, the calf pressure is 165, the posterior tibial ankle pressure is 141, the dorsalis pedis ankle pressure is 156, and the digit pressure is 113. The high thigh-brachial index is 1.1, with normal 1.0 or greater. The posterior tibial ankle-brachial index is 0.95 and the dorsalis pedis ankle-brachial index is 1.05, with normal 1.0 or greater. The toe-brachial index is 0.76, with normal 0.7 or greater. ??The plethysmography waveforms are mildly to moderately abnormal. On the left, the brachial systolic pressure is 149, the high thigh pressure is 168, the low thigh pressure is 155, the calf pressure is 153, the posterior tibial ankle pressure is 135, the dorsalis pedis ankle pressure is 138, and the digit pressure is 91. The high thigh-brachial index is 1.13, with normal 1.0 or greater. The posterior tibial ankle-brachial index is 0.91 and the dorsalis pedis ankle-brachial index is 0.93, with normal 1.0 or greater. The toe-brachial index is 0.61, with normal 0.7 or greater. The plethysmography waveforms are mildly to moderately abnormal. Report Ordering Provider: Alexander Hunter FINAL REPORT Dictated: ??05/31/2025 4:42 pm ? Luis Sherman M.D. Signed (Electronic Signature): ??05/31/2025 4:42 pm Signed by: ??Luis Sherman M.D. Transcribed by: ??DP ? Technologist: ??HW Report last revised on 05/31/2025 16:49 EDT by Luis Sherman M.D. Addendum by Radiology, RadiologistMD on 05/31/2025 4:45 PM EDT Exam Date/Time: 05/31/2025 14:38 EDT Reason for Exam: I73.9 Addendum ADDENDUM: The IMPRESSION should read as follows THE RIGHT ANKLE-BRACHIAL INDEX IS NORMAL AT REST. THE LEFT ANKLE-BRACHIAL INDEX IS BORDERLINE ABNORMAL AT REST. Ordering Provider: Alexander Hunter FINAL REPORT Dictated: ??05/31/2025 4:49 pm ? Luis Sherman M.D. Signed (Electronic Signature): ??05/31/2025 4:49 pm Signed by: ??Luis Sherman M.D. Transcribed by: ??DP ? Technologist: ??HW Report IMPRESSION: THE RIGHT ANKLE-BRACHIAL INDEX IS NORMAL AT REST. THE LEFT ANKLE BRACHIAL INDEXES CONSISTENT WITH MILD DISEASE IN THE LEG. CLINICAL HISTORY: I73.9. Left foot wound. COMMENT: ??On the right, the brachial systolic pressure is 130, the high thigh pressure is 164, the low thigh pressure is 161, the calf pressure is 165, the posterior tibial ankle pressure is 141, the dorsalis pedis ankle pressure is 156, and the digit pressure is 113. The high thigh-brachial index is 1.1, with normal 1.0 or greater. The posterior tibial ankle-brachial index is 0.95 and the dorsalis pedis ankle-brachial index is 1.05, with normal 1.0 or greater. The toe-brachial index is 0.76, with normal 0.7 or greater. ??The plethysmography waveforms are mildly to moderately abnormal. On the left, the brachial systolic pressure is 149, the high thigh pressure is 168, the low thigh pressure is 155, the calf pressure is 153, the posterior tibial ankle pressure is 135, the dorsalis pedis ankle pressure is 138, and the digit pressure is 91. The high thigh-brachial index is 1.13, with normal 1.0 or greater. The posterior tibial ankle-brachial index is 0.91 and the dorsalis pedis ankle-brachial index is 0.93, with normal 1.0 or greater. The toe-brachial index is 0.61, with normal 0.7 or greater. The plethysmography waveforms are mildly to moderately abnormal. Report Ordering Provider: Alexander Hunter FINAL REPORT Dictated: ??05/31/2025 4:42 pm ? Luis Sherman M.D. Signed (Electronic Signature): ??05/31/2025 4:42 pm Signed by: ??Luis Sheramn M.D. Transcribed by: ??DP ? Technologist: ??HW Report last revised on 05/31/2025 16:49 EDT by Luis Sherman M.D. Narrative 05/31/2025 4:45 PM EDT Exam Date/Time: 05/31/2025 14:38 EDT Reason for Exam: I73.9 Report IMPRESSION: THE RIGHT ANKLE-BRACHIAL INDEX IS NORMAL AT REST. THE LEFT ANKLE BRACHIAL INDEXES CONSISTENT WITH MILD DISEASE IN THE LEG. CLINICAL HISTORY: I73.9. Left foot wound. COMMENT: ??On the right, the brachial systolic pressure is 130, the high thigh pressure is 164, the low thigh pressure is 161, the calf pressure is 165, the posterior tibial ankle pressure is 141, the dorsalis pedis ankle pressure is 156, and the digit pressure is 113. The high thigh-brachial index is 1.1, with normal 1.0 or greater. The posterior tibial ankle-brachial index is 0.95 and the dorsalis pedis ankle-brachial index is 1.05, with normal 1.0 or greater. The toe-brachial index is 0.76, with normal 0.7 or greater. ??The plethysmography waveforms are mildly to moderately abnormal. On the left, the brachial systolic pressure is 149, the high thigh pressure is 168, the low thigh pressure is 155, the calf pressure is 153, the posterior tibial ankle pressure is 135, the dorsalis pedis ankle pressure is 138, and the digit pressure is 91. The high thigh-brachial index is 1.13, with normal 1.0 or greater. The posterior tibial ankle-brachial index is 0.91 and the dorsalis pedis ankle-brachial index is 0.93, with normal 1.0 or greater. The toe-brachial index is 0.61, with normal 0.7 or greater. The plethysmography waveforms are mildly to moderately abnormal. Ordering Provider: Alexander Hunter FINAL REPORT Dictated: ??05/31/2025 4:42 pm ? Luis Sherman M.D. Signed (Electronic Signature): ??05/31/2025 4:42 pm Signed by: ??Luis Sherman M.D. Transcribed by: ??DP ? Technologist: ??HW Procedure Note Radiology, Radiologist, - 06/26/2025 Exam Date/Time: 05/31/2025 14:38 EDT Reason for Exam: I73.9 Report IMPRESSION: THE RIGHT ANKLE-BRACHIAL INDEX IS NORMAL AT REST. THE LEFTANKLE BRACHIAL INDEXES CONSISTENT WITH MILD DISEASE IN THE LEG. CLINICAL HISTORY: I73.9. Left foot wound. COMMENT: On the right, the brachial systolic pressure is 130, the highthigh pressure is 164, the low thigh pressure is 161, the calf pressure is 165,the posterior tibial ankle pressure is 141, the dorsalis pedis ankle pressureis 156, and the digit pressure is 113. The high thigh-brachial index is 1.1, withnormal 1.0 or greater. The posterior tibial ankle-brachial index is 0.95 and thedorsalis pedis ankle-brachial index is 1.05, with normal 1.0 or greater. The toe-brachialindex is 0.76, with normal 0.7 or greater. The plethysmography waveforms aremildly to moderately abnormal. On the left, the brachial systolic pressure is 149, the high thighpressure is 168, the low thigh pressure is 155, the calf pressure is 153, the posteriortibial ankle pressure is 135, the dorsalis pedis ankle pressure is 138, and the digitpressure is 91. The high thigh-brachial index is 1.13, with normal 1.0 or greater. The posterior tibial ankle-brachial index is 0.91 and the dorsalis pedis ankle-brachialindex is 0.93, with normal 1.0 or greater. The toe-brachial index is 0.61, withnormal 0.7 or greater. The plethysmography waveforms are mildly to moderately abnormal. Ordering Provider: Alexander Hunter FINAL REPORT Dictated: 05/31/2025 4:42 pm Luis Sherman M.D. Signed (Electronic Signature): 05/31/2025 4:42 pm Signed by: Luis Sherman M.D. Transcribed by: SAUD Technologist: RENÉE Authorizing ProviderResult TypeResult StatusMarc Paco Hunter DPM FACFASCLINISYNC IMAGINGEdited Result - Final from Last 3 Months Insurance Care Teams Team MemberRelationshipSpecialtyStart DateEnd Date Yasmany Swenson MD [address] [place] [address] PCP - GeneralFamily Medicine10/28/24 Kemar Whitaker MD [address] [facility] [address] [address] Referring PhysicianNeurology10/28/24
--- OUTSIDE RECORDS SUMMARY | 2025-08-14 14:01 | XMS_ITS | Clinical Summary ---
Author Organization [facility] Address [address] [place] [address] Phone Care Team Providers Care Investigative Agent Name Role Phone Unavailable Primary Care Provider Unavailabl e Medications No known medications Active Problems No known active problems Social History Tobacco UseTypesPacks/DayYears UsedDateSmoking Tobacco: Every DayCigarettes CommentsUnknownSex and Gender InformationValueDate RecordedSex Assigned at BirthNot on fileLegal FamEesacd86/26/2022 3:15 PM ESTGender IdentityNot on fileSexual OrientationNot on file Plan of Treatment Health MaintenanceDue DateLast DoneCommentsCT Xsmiyzbbwiwu1967Colonoscopy 1967Colorectal Cancer Jsaoxbshh1967FIT-DNA (Cologuard)1967FIT 1967HIV Hwiiioxex1967Lipid Panel07/23/19671979Atwrrkokqlegb1967 Yearly Adult Vothmafn1967MMR Vaccines (1 of 1 - Standard series)1968 Hepatitis C Rxslzsjsq75/07/1985Cervical Cancer Dhcalmqar65/07/1988HPV/Cotest 1988Pap Smear1988DTaP/Tdap/Td Vaccines (1 - Tdap)1989Mammogram 2007Zoster Vaccines (1 of 2)2017Pneumococcal Vaccine (3 of 3 - PCV20 or PCV21)5003/12/2020, 05/18/2019COVID-19 Vaccine (1 - 2024- season) 2025Influenza Vaccine (#1)513, 06/07/2020, 05/18/2019 Hepatitis B PhshmqkgVlfjvjdyi24/22/2001, 01/09/2000, 08/28/1997HIB VaccinesAged OutNo longer eligible based on patient's age to complete this topicHPV Vaccines Aged OutNo longer eligible based on patient's age to complete this topic Hepatitis A VaccinesAged OutNo longer eligible based on patient's age to complete this topicIPV VaccinesAged OutNo longer eligible based on patient's age to complete this topicMeningococcal VaccineAged OutNo longer eligible based on patient's age to complete this topicRotavirus VaccinesAged OutNo longer eligible based on patient's age to complete this topic Insurance
--- OUTSIDE RECORDS SUMMARY | 2025-08-14 14:01 | XMS_ITS | Patient Health Record ---
Author Organization [facility] [place] Address [address] [place] [address] Care Team Providers Care Clerical Proofreader Name Role Phone Zhou Gray Primary Care Provider Allergies Allergen (clinical drug ingredient) Drug/Non Drug Allergy documented on EMR Reaction Allergy Type Onset Date Status amoxicillin Amoxicillin rash Drug Allergy ActiveSubstance with sulfonamide structure and antibacterial mechanism of action (substance)Sulfa AntibioticsrashDrug AllergyActive Results Component Value Reference Range Notes CT lung screening low-dose Reviewed date:04/14/2025 12:45:57 PM Interpretation: Performing Lab: Notes/Report: Source Facility: [place] [address] CT Scan Report Signed Patient: MITESH PATEL MR#: [id number] : 1965 Acct:[id number] Age/Sex: 59 / F ADM Date: 04/13/25 Loc: CT Attending Dr: Patrick Gray M.D. Ordering Physician: Patrick Gray M.D. Date of Service: 04/13/25 Procedure(s): CT lung screening low-dose Accession Number(s): [id number] cc: Patrick Gray M.D. [place] [id number] Patient Name: MITESH PATEL MRN: [id number] date: 1965 Sex: F Assigned Patient Location: CT Current Patient Location: Accession/Order Number: [id number] Exam Date: 04/13/2025 15:00 Report Date: 04/14/2025 09:56 At the request of: PATRICK GRAY MD Procedure: CT lung screening low-dose LOW-DOSE SCREENING CHEST CT WITHOUT CONTRAST COMPARISON: 02/09/2024 CLINICAL DATA: Current smoker, half a pack a day for 12 to 14 years. Spiral axial unenhanced low-dose images were obtained through the chest. Images were reviewed using both narrow and wide window settings. This CT exam was performed using one or more following dose reduction techniques: Automated exposure control, adjustment of the mA and/or kV according to patient size, or use of iterative reconstruction technique. The heart is normal in size. No pericardial effusion is identified. There is minimal coronary disease. No aortic aneurysm is seen. Minor plaque is noted at the aortic arch. There are no enlarged lymph nodes. Calcified left hilar granulomas are seen. Minor degenerative changes are present at the spine. Minor scarring is visualized at the lung apices. There is additional minimal scarring or atelectasis at the lung bases. No focal consolidation, pleural effusion or pneumothorax is seen. Tiny pulmonary nodules are again visualized measuring up to 2 - 3 mm at the right lower lobe. The cavitary nodular area at the left lower lobe has essentially resolved. No new nodularity is identified. Limited cuts through the upper abdomen show no contributory findings. CT/CT lung screening low-dose IMPRESSION: RESOLUTION OF CAVITARY LEFT LOWER LOBE NODULE. OTHER SIMILAR TINY PULMONARY NODULES. Lung RADS category 2 - benign Twelve-month low-dose CT follow-up suggested. Impression dictated by: Catherine Marsh M.D. 04/14/2025 9:56 AM Dictation Location: [place] [address] Electronically authenticated by: [id number] Y Date: 04/14/2025 09:56 Dictated By: Catherine Marsh M.D. Signed By: 04/14/25 0959 DD/ TD/TT: Hazardous Waste Material Technician: TSH Reviewed date:04/20/2025 12:47:27 PM Interpretation: Performing Lab: Notes/Report: [facility] , Thyroid Stimulating Hormone 0.759 0.358-3.740 u IU/mL Performing Lab:see noteML - [facility] LBT4 Reviewed date:04/20/2025 12:47:27 PM Interpretation: Performing Lab: Notes/Report: [facility] ,T4 Thyroxine6.704.80-13.90 ug/dLPerforming Lab:see noteML - [facility] LBPROF 14(COMP METB) Reviewed date:04/20/2025 12:47:27 PM Interpretation: Performing Lab: Notes/Report: [facility] ,Ksgaau921880-024 mmol/LPotassium3.93.5-5.1 mmol/TYabobfwv94076-148 mmol/LCarbon Zooodub13.121.0-32.0 mmol/LAnion Gap13.2Qyoektx8076-582 mg/dLBlood Urea Nitrogen 9.07.0-18.0 mg/dLCreatinine0.420.55-1.02 mg/dLEstimated GFR ( Sujata>60 >=60 mL/min/1.73m 2Estimated GFR (Non- Frannie>60>=60 mL/min/1.73m 2BUN Creatinine Ratio21.9Ibvhmzr9.98.5-10.1 mg/dLBilirubin Total0.40.2-1.0 mg/dL Aspartate Amino Dugjtuwdgbp4499-38 U/LAlanine Kqubmurzgpoaeybf5120-67 U/L Alkaline Ferpwrtowtt4817-860 U/LTotal Protein6.86.4-8.2 g/dLAlbumin Level3.73.4- 5.0 g/dLGlobulin3.1Albumin Globulin Ratio1.2Performing Lab:see noteML - [facility] LBLIPID PROFILE Reviewed date:04/20/2025 12:47:27 PM Interpretation: Performing Lab: Notes/Report: [facility] ,Cacdqmcksczjl87<=150 mg/jTIujwdejcbdm790<=200 mg/dLHDL Fzvvvkxzqnp0546-01 mg/dL > or =60 mg/dl - LOW CARDIOVASCULAR RISK <40 mg/dl - HIGH CARDIOVASCULAR RISK LDL Cholesterol Ervqvmnyux832.0 <100 mg/dl OPTIMAL 100-129 mg/dl NEAR OR ABOVE OPTIMAL 130-159 mg/dl BORDERLINE HIGH 160-189 mg/dl HIGH >190 mg/dl VERY HIGH VLDL HZIIUGXHMCW74.0Chol HDL Ratio3.7 3.3 - 4.4 LOW RISK 4.4 - 7.1 AVERAGE RISK 7.1 - 11.0 MODERATE RISK >11.0 HIGH RISK Performing Lab:see noteML - [facility] LBFREE T3 Reviewed date:04/20/2025 12:47:27 PM Interpretation: Performing Lab: Notes/Report: [facility] ,Phyllis T32.782.18-3.98 pg/mLPerforming Lab:see noteML - [facility] LB CBC AUTO DIFF Reviewed date:04/20/2025 12:47:27 PM Interpretation: Performing Lab: Notes/Report: [facility] ,White Blood Count19.54.0-11.0 10 3/uLRed Blood Count4.834.20-5.40 10 6/uL Tyayyritro54.612.0-16.0 g/dIFmqmpvywjc89.436.0-48.0 %Mean Corpuscular Osxjis66.1 81.0-99.0 fLMean Corpuscular Kdggbvzorl62.326.7-34.0 pgMean Corpuscular HGB Conc 33.629.9-35.2 g/dLRed Cell Distribution Width13.911.0-15.0 %Platelet Heppy346 150-450 10 3/uLMean Platelet Volume9.09.5-13.5 fLNeutrophils Percent Auto78.6 43.0-75.0 %Lymphocytes Percent Auto12.220.5-60.0 %Monocytes Percent Auto6.81.7- 12.0 %Eosinophils Percent Auto0.70.9-7.0 %Basophils Percent Auto0.40.2-2.0 % Immature Granulocytes Pct Auto1.30.0-0.5 %Neutrophils Absolute Auto15.31.4-6.5 10 3/uLLymphocytes Absolute Auto2.41.2-3.8 10 3/uLMonocytes Absolute Auto1.30.3- 0.8 10 3/uLEosinophils Absolute Auto0.10.0-0.7 10 3/uLBasophils Absolute Auto0.1 0.0-0.1 10 3/uLImmature Granulocytes Abs Auto0.250.00-0.03 10 3/uLPerforming Lab:see noteML - [facility] LBGLYCOHEMOGLOBIN A1C Reviewed date:04/20/2025 12:47:27 PM Interpretation: Performing Lab: Notes/Report: [facility] ,Glycohemoglobin A1C5.74.5-6.2 % ADA RECOMMENDED LIMIT 4.0 - 6.0 ADA THERAPEUTIC TARGET < 7.0 ACTION SUGGESTED > 7.0 Estimated Average Pdkwalq111Mausnhkpsj Lab:see noteML - [facility] LB MR lumbar spine wo con Reviewed date:11/08/2024 08:25:09 PM Interpretation: Performing Lab: Notes/Report: Source Facility: [place] [address] Magnetic Resonance Report Signed Patient: MITESH PATEL MR#: [id number] : 1965 Acct:[id number] Age/Sex: 59 / F ADM Date: 11/08/24 Loc: MRI Attending Dr: LEONARDO REGAN Ordering Physician: LEONARDO REGAN Date of Service: 11/08/24 Procedure(s): MR lumbar spine wo con Accession Number(s): [id number] cc: LEONARDO REGAN ; Patrick Gray M.D. The [place] [address] Patient Name: MITESH PATEL MRN: [id number] date: 1965 Sex: F Assigned Patient Location: MRI Current Patient Location: MRI Accession/Order Number: [id number] Exam Date: 11/08/2024 15:03 Report Date: 11/08/2024 15:18 At the request of: LEONARDO REGAN Procedure: MR lumbar spine wo con EXAMINATION: MRI LUMBAR SPINE WITHOUT IV CONTRAST CLINICAL HISTORY: lumbar radiculopathy M54.16 COMPARISON: Lumbar spine 09/08/2022 TECHNIQUE: Multiecho imaging was performed in the sagittal and axial planes without contrast administration. FINDINGS: Vertebral body heights appear maintained. No bone marrow edema. Spinal cord terminates in normal position without abnormal cord signal. No paraspinal mass. Visualized retroperitoneum appears unremarkable. At L1-L2: Mild diffuse broad-based disc bulge is present with mild facet joint degenerative changes. Findings are causing mild canal and left-sided neural foraminal stenosis. At L2-L3: 3 mm retrolisthesis. Diffuse broad-based disc bulge is present with ligamentum flavum hypertrophy and facet joint degenerative changes causing mild canal and moderate left-sided neural foraminal stenosis. At L3-L4: 3 mm retrolisthesis. Diffuse broad-based disc bulge is present with ligamentum flavum hypertrophy and facet joint degenerative changes causing mild canal and moderate bilateral neural foraminal stenosis. At L4-L5: Diffuse broad-based disc bulge is present malignant flavum hypertrophy and facet joint degenerative changes causing moderate canal and severe right-sided neural foraminal stenosis. At L5-S1: Mild diffuse broad-based disc bulge is present with facet joint degenerative changes. No significant canal stenosis. Severe bilateral neural foraminal stenosis. MR/MR lumbar spine wo con IMPRESSION: Multilevel degenerative disc disease as described above, worst at L4-L5. Impression dictated by: Germán Morfin Jr., D.O.11/08/2024 3:18 PM Dictation Location: [place] [address] Electronically authenticated by: [id number] Y Date: 11/08/2024 15:18 Dictated By: Germán Morfin M.D. Signed By: 11/08/24 1521 DD/ 1518 TD/TT: Hazardous Waste Material Technician: Reason For Referral No Information Medications Medication SIG (Take, Route, Frequency, Duration) Notes Start Date End Date Status Nebulizer - Use nebulizer four t imes daily as needed DX J44.89; Duration: 365 days Dx: J44.89 07/21/2023 ActiveAlbuterol Sulfate (2.5 MG/3ML) 0.083%1 Vial Inhalation four times daily as needed; Duration: 30 days3ActiveSimvastatin 20 MG1 tablet in the evening Orally Once a day; Duration: 90 days3977ZvpalvKkcDHYX92/13/2025 Active Social History Tobacco Use: Social History Observation Description Date Details (start date - stop date) Current Smoker NA - NA Tobacco Use/Smoking Question Answer Notes Patient is a current smoker How many cigarettes a day do you smoke?6-10AUDIT-C (Standard) Question Answer Notes Did you have a drink containing alcohol in the p ast year? No Chdyoz8FiocgunnsbvyaiXeyfoamr Problems Problem Type SNOMED Code ICD Code Onset Dates Problem Status W/U Status Risk Notes Problem Other specified symptoms and signs involving the circulatory and respiratory systems (R09.89)ActiveconfirmedProblemEruption of skin (354802254)Rash and other nonspecific skin eruption (R21)ActiveconfirmedProblemHistopathology finding (866531764)Unspecified abnormal finding in specimens from other organs, systems and tissues (R89.9)ActiveconfirmedProblemHyperlipidemia (74989961)Hyperlipidemia (E78.5)ActiveconfirmedProblemSpinal stenosis (85616069)Spinal stenosis (M48.00) ActiveconfirmedProblemOsteopenia (087280856)Osteopenia (M85.80)Activeconfirmed ProblemWell adult (141182278)Well adult (Z00.00)ActiveconfirmedProblemCellulitis (661607203)Cellulitis (L03.90)ActiveconfirmedProblemAcute bronchiolitis (0729869)Acute bronchiolitis (J21.9)ActiveconfirmedProblemTobacco user (305625841)Cigarette nicotine dependence (F17.210)ActiveconfirmedProblemChronic obstructive pulmonary disease (disorder) (31179174)Other specified chronic obstructive pulmonary disease (J44.89)Activeconfirmed Vital Signs Blood pressure diastolic 90 mm Hg 04/20/2025 Hnawol90 in04/20/2025lood pressure lkyfqsfb216 mm Hg04/20/20254665Povsll04.2 lbs 04/20/2025BMI17.22 kg/m204/20/2025 Encounters Encounter Location Date Provider Diagnosis [facility] [address] [place] [address] 02/10/2025 Zhou Gray Cigarette nicotine dependence F17.210 [facility] [address] [place] [address] 04/20/2025 Zhou Gray Cellulitis L03.90 an d Hyperlipidemia E78.5 [facility] [address] [place] [address] 05/25/2025 Zhou Sanchezy [facility] [place] [address] [facility] [place] [address]/04/2025[facility] Assessments Encounter Date Diagnosis (ICD Code) Assessment Notes Treatment Notes Treatment Clinical Notes Section Notes 04/20/2025 Well adult (ICD-10 - Z00.00) 02/10/2025igarette nicotine dependence (ICD-10 - F17.210)04/20/2025ellulitis (ICD-10 - L03.90)04/20/2025Hyperlipidemia (ICD-10 - E78.5) Plan Of Treatment Pending Test Test Name Order Date CMP (COMPLETE METABOLIC PANEL) 3 CMP (COMPLETE METABOLIC PANEL) 4 HEMOGLOBIN A1C (GLYCO) 04/20/2025 HEMOGLOBIN A1C (GLYCO) 05/11/2023 HEMOGLOBIN A1C (GLYCO) 06/06/2024 LIPID PANEL (CHOL/TRIG/HDL/LDL) 06/06/20 24 LIPID PANEL (CHOL/TRIG/HDL/LDL) 05/11/20 23 LIPID PANEL (CHOL/TRIG/HDL/LDL) 04/20/20 25 CBC WITH DIFF (EXP 06/2025) 05/11/2023 CBC WITH DIFF (EXP 06/2025) 06/06/2024 CT Lung Screen Low Dose 12/25/2022 CT Chest Low Dose for Screening* 025 CBC W/AUTO DIFF 04/20/2025 STOOL OCCULT BLOOD 05/11/2023 STOOL OCCULT BLOOD 04/20/2025 CBC AUTO DIFF 05/12/2023 CBC AUTO DIFF 06/06/2024 LIVER PROFILE 04/20/2025 XR DEXA BONE DENSITY 06/06/2024 THYROID PANEL (T4/TSH/FREE T3) 5 THYROID PANEL (T4/TSH/FREE T3) 3 MM screening mammo BI 06/06/2024 MM screening mammo BI 04/20/2025 Lipid Panel 04/20/2025 CMP (COMP MET DUPREE) w/eGFR CKD-EPI 2024 CBC WITH DIFF 04/20/2025 Insurance Providers Payer Name Payer Address Payer Phone Subscriber Number Group Number Insured Name Patient Relationship to Insured Coverage Start Date Coverage End Date MMO [employer] [address] [place] [address] [id number] Mitesh Patel Self - patient is the insured Medical (General) History Medical History History ICD Code Arthritis - back and hip Surgical History Surgery Date(Month/Year) Cataract OU neck surgeries x2knee surgery x 2elbow surgerycarpal tunnel surgery Hospitalization History Reason Date(Month/Year) see above
== END 2025-08-14 14:00 | disposition home or self-care (01) ==
LOC: MAMMO 13:59
PROVIDERS: PCP Family Medicine; Visit Provider Family Medicine
DX: Z12.31 Encounter for screening mammogram for malignant neoplasm of breast (principal); R92.8 Other abnormal and inconclusive findings on diagnostic imaging of breast
CPT/HCPCS: 77063; 77067